=== PATIENT | female | born 1990 | race African-American/Black ===

== ENCOUNTER 2016-03-12 22:20 | Emergency (ER) | payer OTHER ==
[2016-03-12] MEDS ORDERED: SODIUM CHLORIDE 0.9% 500 ML IV STA (22:27)
[2016-03-12 22:28] VITALS: RESP 18; TEMP 97.9
--- NOTE | 2016-03-12 22:31 | ED ---
General Adult HPI - General Chief complaint: Abdominal Pain Stated complaint: Mental Health Time Seen by Provider: 03/12/16 22:20 Source: patient, EMS, RN notes reviewed Mode of arrival: EMS Limitations: no limitations - History of Present Illness Initial comments: This is a 26-year-old female who presents emergency Department complaining that she has abdominal pain for 2 hours. Patient denies any nausea vomiting or diarrhea. Patient denies any dysuria hematuria urinary frequency. Patient denies any vaginal bleeding or discharge. Patient states his mid abdominal pain. Patient states she might be because she is having sex without protection. Patient denies any fever or chills. Patient denies any diarrhea. Patient denies any headache patient denies numbness weakness patient denies lightheadedness or dizziness. Patient denies any back pain. Patient denies any recent injury or trauma. - Related Data Home Medications Medication Instructions Recorded Confirmed Benztropine Mesylate [Cogentin] 2 mg PO DAILY@209903/12/16 03/12/16 OLANZapine [ZyPREXA] 20 mg PO DAILY@209903/12/16 03/12/16 Allergies Allergy/AdvReac Type Severity Reaction Status Date / Time haloperidol [From Haldol] Allergy Unknown Verified 03/12/16 22:41 pineapple Allergy Rash/Hives Verified 03/12/16 22:41 red dye Allergy Anaphylaxis Verified 03/12/16 22:41 Review of Systems ROS Statement: Those systems with pertinent positive or pertinent negative responses have been documented in the HPI. ROS Other: All systems not noted in ROS Statement are negative. Past Medical History Past Medical History: Asthma, Hypertension, Seizure Disorder Additional Past Medical History / Comment(s): last seizure was April 2015 History of Any Multi-Drug Resistant Organisms: None Reported Past Surgical History: Section, Tonsillectomy, Tubal Ligation Additional Past Surgical History / Comment(s): facial surgery, 2 C-Sections Past Anesthesia/Blood Transfusion Reactions: No Reported Reaction Past Psychological History: Anxiety, Bipolar, Depression, Schizoaffective Disorder, Schizophrenia Additional Psychological History / Comment(s): pt states that before this admission pt had been in this hospital and [facility] multiple time Smoking Status: Current every day smoker Past Alcohol Use History: None Reported Additional Past Alcohol Use History / Comment(s): Patient is a smoker of 9 cigarettes per day since she was 14 years of age. She denies any medical marijuana, marijuana, street drug use. She states she drinks alcohol on rare basis. Past Drug Use History: Marijuana Additional Drug Use History / Comment(s): Pt. reports previously using Marijuana. - Past Family History Father Additional Family Medical History / Comment(s): Father is alive at 42 and may have diabetes. Mother Family Medical History: Thyroid Disorder Additional Family Medical History / Comment(s): Mother is alive at age 45 with thyroid disorder. Brother(s) Additional Family Medical History / Comment(s): Patient has 2 brothers and 2 sisters with no major medical problems. Patient has one son that is healthy. General Exam - General Exam Comments Initial Comments: GENERAL: Patient is well-developed and well-nourished. Patient is nontoxic and well- hydrated and is in no acute distress. Patient is laughing and moving around in bed and doesn't appear in any distress at all. ENT: Neck is soft and supple. No significant lymphadenopathy is noted. Oropharynx is clear. Moist mucous membranes. Neck has full range of motion without eliciting any pain. EYES: The sclera were anicteric and conjunctiva were pink and moist. Extraocular movements were intact and pupils were equal round and reactive to light. Eyelids were unremarkable. PULMONARY: Unlabored respirations. Good breath sounds bilaterally. No audible rales rhonchi or wheezing was noted. CARDIOVASCULAR: There is a regular rate and rhythm without any murmurs gallops or rubs. ABDOMEN: Soft and nontender with normal bowel sounds. No palpable organomegaly was noted. There is no palpable pulsatile mass. SKIN: Skin is clear with no lesions or rashes and otherwise unremarkable. NEUROLOGIC: Patient is alert and oriented x3. Cranial nerves II through XII are grossly intact. Motor and sensory are also intact. Normal speech, volume and content. Symmetrical smile. MUSCULOSKELETAL: Normal extremities with adequate strength and full range of motion. No lower extremity swelling or edema. No calf tenderness. LYMPHATICS: No significant lymphadenopathy is noted PSYCHIATRIC: Normal psychiatric evaluation. Normal interpersonal interactions appears functionally intact in deals appropriately with others. No signs of depression. No signs of anxiety. Limitations: no limitations Course Vital Signs 03/12/16 22:21 Temperature 97.9 F Pulse Rate 92 Respiratory 18 Rate Blood Pressure 140/64 O2 Sat by Pulse 100 Oximetry Medical Decision Making - Lab Data Result diagrams: 03/12/16 22:48 03/12/16 22:48 Lab Results 03/12/16 03/12/16 03/12/16 Range/Units 22:48 22:48 22:48 WBC 9.0 (3.8-10.6) k/uL RBC 4.52 (3.80-5.40) m/uL Hgb 13.0 (11.4-16.0) gm/dL Hct 41.1 (34.0-46.0) % MCV 90.9 (80.0-100.0) fL MCH 28.9 (25.0-35.0) pg MCHC 31.7 (31.0-37.0) g/dL RDW 14.2 (11.5-15.5) % Plt Count 214 (150-450) k/uL Neutrophils % 65 % Lymphocytes % 25 % Monocytes % 5 % Eosinophils % 1 % Basophils % 1 % Neutrophils # 5.8 (1.3-7.7) k/uL Lymphocytes # 2.3 (1.0-4.8) k/uL Monocytes # 0.4 (0-1.0) k/uL Eosinophils # 0.1 (0-0.7) k/uL Basophils # 0.1 (0-0.2) k/uL Sodium 143 (137-145) mmol/L Potassium 3.9 (3.5-5.1) mmol/L Chloride 102 (98-107) mmol/L Carbon Dioxide 26 (22-30) mmol/L Anion Gap 15 mmol/L BUN 16 (7-17) mg/dL Creatinine 0.61 (0.52-1.04) mg/dL Est GFR (MDRD) Af Amer >60 (>60 ml/min/1.73 sqM) Est GFR (MDRD) Non-Af >60 (>60 ml/min/1.73 sqM) Glucose 95 (74-99) mg/dL Calcium 10.0 (8.4-10.2) mg/dL Total Bilirubin 0.3 (0.2-1.3) mg/dL AST 31 (14-36) U/L ALT 50 (9-52) U/L Alkaline Phosphatase 79 (38-126) U/L Total Protein 8.4 H (6.3-8.2) g/dL Albumin 4.7 (3.5-5.0) g/dL Amylase 67 (30-110) U/L Lipase 104 (23-300) U/L Urine Color Urine Appearance (Clear) Urine pH (5.0-8.0) Ur Specific [place] (1.001-1.035) Urine Protein (Negative) Urine Glucose (UA) (Negative) Urine Ketones (Negative) Urine Blood (Negative) Urine Nitrate (Negative) Urine Bilirubin (Negative) Urine Urobilinogen (<2.0) mg/dL Ur Leukocyte Esterase (Negative) Urine HCG, Qual Not Detected (Not Detectd) 03/12/16 Range/Units 22:48 WBC (3.8-10.6) k/uL RBC (3.80-5.40) m/uL Hgb (11.4-16.0) gm/dL Hct (34.0-46.0) % MCV (80.0-100.0) fL MCH (25.0-35.0) pg MCHC (31.0-37.0) g/dL RDW (11.5-15.5) % Plt Count (150-450) k/uL Neutrophils % % Lymphocytes % % Monocytes % % Eosinophils % % Basophils % % Neutrophils # (1.3-7.7) k/uL Lymphocytes # (1.0-4.8) k/uL Monocytes # (0-1.0) k/uL Eosinophils # (0-0.7) k/uL Basophils # (0-0.2) k/uL Sodium (137-145) mmol/L Potassium (3.5-5.1) mmol/L Chloride (98-107) mmol/L Carbon Dioxide (22-30) mmol/L Anion Gap mmol/L BUN (7-17) mg/dL Creatinine (0.52-1.04) mg/dL Est GFR (MDRD) Af Amer (>60 ml/min/1.73 sqM) Est GFR (MDRD) Non-Af (>60 ml/min/1.73 sqM) Glucose (74-99) mg/dL Calcium (8.4-10.2) mg/dL Total Bilirubin (0.2-1.3) mg/dL AST (14-36) U/L ALT (9-52) U/L Alkaline Phosphatase (38-126) U/L Total Protein (6.3-8.2) g/dL Albumin (3.5-5.0) g/dL Amylase (30-110) U/L Lipase (23-300) U/L Urine Color Colorless Urine Appearance Clear (Clear) Urine pH 6.5 (5.0-8.0) Ur Specific [place] 1.001 (1.001-1.035) Urine Protein Negative (Negative) Urine Glucose (UA) Negative (Negative) Urine Ketones Negative (Negative) Urine Blood Negative (Negative) Urine Nitrate Negative (Negative) Urine Bilirubin Negative (Negative) Urine Urobilinogen <2.0 (<2.0) mg/dL Ur Leukocyte Esterase Negative (Negative) Urine HCG, Qual (Not Detectd) Disposition Clinical Impression: Abdominal pain Disposition: HOME SELF-CARE Condition: Good Instructions: Abdominal Pain (ED) Referrals: Nirali Valentin MD [Primary Care Provider] - 1-2 days Time of Disposition: 23:15
[2016-03-12] MEDS ORDERED: ONDANSETRON 4 MG/2 ML VIAL IVP STA (22:55)
[2016-03-12 22:57] LABS: Basophils # (A) 0.1 k/uL (0-0.2); Basophils % (A) 1 %; CH 29.3; CHCM 32.4; Eosinophils # (A) 0.1 k/uL (0-0.7); Eosinophils % (A) 1 %; HCT 41.1 % (34.0-46.0); HDW 2.24; Luc # (Auto) 0.33; Luc % (Auto) 4; Lymphocytes # (A) 2.3 k/uL (1.0-4.8); Lymphocytes % (A) 25 %; MCH 28.9 pg (25.0-35.0); MCHC 31.7 g/dL (31.0-37.0); MCV 90.9 fL (80.0-100.0); Mean Platelet Volume 7.7; Monocytes # (A) 0.4 k/uL (0-1.0); Monocytes % (A) 5 %; Neutrophils # (A) 5.8 k/uL (1.3-7.7); Neutrophils % (A) 65 %; RBC 4.52 m/uL (3.80-5.40); RDW 14.2 % (11.5-15.5); WBC (Perox) 9.23
[2016-03-12 23:06] LABS: ALT 50 U/L (9-52); AST 31 U/L (14-36); Alkaline Phosphatase 79 U/L (38-126); Amylase 67 U/L (30-110); Anion Gap 15 mmol/L; Blood Urea Nitrogen 16 mg/dL (7-17); Carbon Dioxide 26 mmol/L (22-30); Chloride 102 mmol/L (98-107); Glucose 95 mg/dL (74-99); Non-African American GFR(MDRD) >60 (>60 ml/min/1.73 sqM); Potassium 3.9 mmol/L (3.5-5.1); Sodium 143 mmol/L (137-145); Total Bilirubin 0.3 mg/dL (0.2-1.3); Total Protein 8.4 g/dL (6.3-8.2)
[2016-03-12 23:07] LABS: Appearance,Urine Clear (Clear); Bilirubin,Urine Negative (Negative); Glucose,Urine (UA) Negative (Negative); Ketones,Urine Negative (Negative); Leukocyte Esterase,Urine Negative (Negative); Nitrite,Urine Negative (Negative); PH, Urine 6.5 (5.0-8.0); Protein,Urine Negative (Negative); Specific Gravity,Urine 1.001 (1.001-1.035); UA Billing (MACRO vs. MICRO) CHEM; Urobilinogen,Urine <2.0 mg/dL (<2.0)
[2016-03-12 23:28] VITALS: BP 144/84; PULSE 77
== END 2016-03-12 23:30 | disposition home or self-care (01) ==
LOC: EC 22:20
DX: R10.9 Unspecified abdominal pain (principal); F32.9 Major depressive disorder, single episode, unspecified; F20.9 Schizophrenia, unspecified; F17.210 Nicotine dependence, cigarettes, uncomplicated; Z79.899 Other long term (current) drug therapy; Z88.8 Allergy status to other drugs, medicaments and biological substances
CPT/HCPCS: 36415; 80053; 82150; 83690; 85025; 81003; 81025; 99285; 96374; J2405

== ENCOUNTER 2016-04-08 18:38 | Emergency (ER) | payer OTHER ==
[2016-04-08 18:46] VITALS: BP 138/80; PULSE 104; RESP 18; TEMP 97.5
--- NOTE | 2016-04-08 19:04 | ED ---
Psych HPI - General Chief Complaint: Psychiatric Symptoms Stated Complaint: mental health Time Seen by Provider: 04/08/16 18:48 Source: patient, RN notes reviewed Mode of arrival: ambulatory - History of Present Illness Initial Comments: Patient is a 26-year-old female chief complaint of thinking that she is . She reports that she has not had a menstrual cycle in 4 months. She states that she has had unprotected sex multiple times. She states that she feels as if there is a baby kicking in her. She does have a history of tubal ligation after her most recent . She has been seen in the emergency department multiple times for thinking that she is . She also states that she's been having vomiting like morning sickness. She denies any fever or chills, chest pain, shortness of breath, abdominal pain, diarrhea, dysuria, hematuria or vaginal discharge. She states that she occasionally feels like a cramping sensation in her lower abdomen. She reports that she is currently living at the [facility]. Patient has a history of schizoaffective disorder and hallucinations. - Related Data Home Medications Medication Instructions Recorded Confirmed Benztropine Mesylate [Cogentin] 2 mg PO HS@202903/12/16 04/08/16 OLANZapine [ZyPREXA] 20 mg PO HS@202903/12/16 04/08/16 Multivitamins, Thera [Multivitamin] 1 tab PO DAILY 04/08/16 04/08/16 Allergies Allergy/AdvReac Type Severity Reaction Status Date / Time haloperidol [From Haldol] Allergy Unknown Verified 04/08/16 18:53 pineapple Allergy Rash/Hives Verified 04/08/16 18:53 red dye Allergy Anaphylaxis Verified 04/08/16 18:53 Review of Systems ROS Statement: Those systems with pertinent positive or pertinent negative responses have been documented in the HPI. ROS Other: All systems not noted in ROS Statement are negative. Past Medical History Past Medical History: Asthma, Hypertension, Seizure Disorder Additional Past Medical History / Comment(s): last seizure was April 2015 History of Any Multi-Drug Resistant Organisms: None Reported Past Surgical History: Section, Tonsillectomy, Tubal Ligation Additional Past Surgical History / Comment(s): facial surgery, 2 C-Sections Past Anesthesia/Blood Transfusion Reactions: No Reported Reaction Past Psychological History: Anxiety, Bipolar, Depression, Schizoaffective Disorder, Schizophrenia Additional Psychological History / Comment(s): pt states that before this admission pt had been in this hospital and [facility] multiple time Smoking Status: Current every day smoker Past Alcohol Use History: None Reported Additional Past Alcohol Use History / Comment(s): Patient is a smoker of 9 cigarettes per day since she was 14 years of age. She denies any medical marijuana, marijuana, street drug use. She states she drinks alcohol on rare basis. Past Drug Use History: Marijuana Additional Drug Use History / Comment(s): Pt. reports previously using Marijuana. - Past Family History Father Additional Family Medical History / Comment(s): Father is alive at 42 and may have diabetes. Mother Family Medical History: Thyroid Disorder Additional Family Medical History / Comment(s): Mother is alive at age 45 with thyroid disorder. Brother(s) Additional Family Medical History / Comment(s): Patient has 2 brothers and 2 sisters with no major medical problems. Patient has one son that is healthy. General Exam - General Exam Comments Initial Comments: Patient is a 26-year-old female chief complaint of pain that she is possibly . Patient does not appear to be in any acute distress. Limitations: no limitations General appearance: alert, in no apparent distress Head exam: Present: atraumatic, normocephalic, normal inspection Eye exam: Present: normal appearance, PERRL, EOMI. Absent: scleral icterus, conjunctival injection, periorbital swelling ENT exam: Present: normal exam, mucous membranes moist, TM's normal bilaterally Neck exam: Present: normal inspection. Absent: tenderness, meningismus, lymphadenopathy Respiratory exam: Present: normal lung sounds bilaterally. Absent: respiratory distress, wheezes, rales, rhonchi, stridor Cardiovascular Exam: Present: regular rate, normal rhythm, normal heart sounds. Absent: systolic murmur, diastolic murmur, rubs, gallop, clicks GI/Abdominal exam: Present: soft, normal bowel sounds. Absent: distended, tenderness, guarding, rebound, rigid Extremities exam: Present: normal inspection, full ROM, normal capillary refill. Absent: tenderness, pedal edema, joint swelling, calf tenderness Back exam: Present: normal inspection, full ROM Neurological exam: Present: alert, oriented X3, CN II-XII intact Psychiatric exam: Present: normal affect, other (Patient is delusional that she is . ). Absent: normal mood Skin exam: Present: warm, dry, intact, normal color. Absent: rash Course Vital Signs 04/08/16 18:43 Temperature 97.5 F L Pulse Rate 104 H Respiratory 18 Rate Blood Pressure 138/80 O2 Sat by Pulse 96 Oximetry Medical Decision Making - Medical Decision Making Patient is a 26-year-old female. Patient reports that she thinks that she is . She has been seen in the emergency department multiple times for this. Patient will receive a urine test and will be adequately cleared for psychiatric evaluation. Urine drug screen and that obtained. Patient's urine test is negative. I did describe these findings to the patient. I discussed that she needs to be seen by psychiatric help as she continues to take that she is . Patient currently is residing at [facility]. [facility] needed to be contacted as well as the legal guardian. Currently we are having a difficult time contacting the legal guardian and patient will not be evaluated by psychiatric nurse until the legal guardian is contacted. At this point [facility] staff is attempting to come to the emergency department to talk to the patient. They state that they do have an on-site psychiatric crisis unit the patient arrived that there is any alarming signs or symptoms, and will be monitoring her and to bring her back to the emergency room if she has any acute changes. She has chronic delusions of . She will be discharged home with [facility] staff, and advised to follow up with counselour and pcp tomorrow. Patient and patients career development associate understands treatment plan. Patient adamently states she is not homicidal and suicidal. Patient's currently residing in room and resting comfortably. - Lab Data Lab Results 04/08/16 04/08/16 Range/Units 19:38 19:38 Urine Color Light Yellow Urine Appearance Clear (Clear) Urine pH 7.0 (5.0-8.0) Ur Specific [place] 1.007 (1.001-1.035) Urine Protein Negative (Negative) Urine Glucose (UA) Negative (Negative) Urine Ketones Negative (Negative) Urine Blood Negative (Negative) Urine Nitrate Negative (Negative) Urine Bilirubin Negative (Negative) Urine Urobilinogen <2.0 (<2.0) mg/dL Ur Leukocyte Esterase Negative (Negative) Urine HCG, Qual Not Detected (Not Detectd) Urine Opiates Screen Not Detected (NotDetected) Ur Oxycodone Screen Not Detected (NotDetected) Urine Methadone Screen Not Detected (NotDetected) Ur Propoxyphene Screen Not Detected (NotDetected) Ur Barbiturates Screen Not Detected (NotDetected) U Tricyclic Antidepress Not Detected (NotDetected) Ur Phencyclidine Scrn Not Detected (NotDetected) Ur Amphetamines Screen Not Detected (NotDetected) U Methamphetamines Scrn Not Detected (NotDetected) U Benzodiazepines Scrn Not Detected (NotDetected) Urine Cocaine Screen Not Detected (NotDetected) U Marijuana (THC) Screen Not Detected (NotDetected) - Radiology Data Radiology results: report reviewed Disposition Clinical Impression: Hallucination, Not currently Disposition: HOME SELF-CARE Condition: Good Additional Instructions: to follow-up with primary care provider. Return to emergency department if any alarming signs or symptoms occur. Referrals: Nirali Valentin MD [Primary Care Provider] - 1-2 days Time of Disposition: 21:43
[2016-04-08 19:55] LABS: Appearance,Urine Clear (Clear); Bilirubin,Urine Negative (Negative); Glucose,Urine (UA) Negative (Negative); Ketones,Urine Negative (Negative); Leukocyte Esterase,Urine Negative (Negative); Nitrite,Urine Negative (Negative); Protein,Urine Negative (Negative); Specific Gravity,Urine 1.007 (1.001-1.035); UA Billing (MACRO vs. MICRO) CHEM; Urobilinogen,Urine <2.0 mg/dL (<2.0)
== END 2016-04-08 21:47 | disposition home or self-care (01) ==
LOC: EC 18:38
DX: R44.3 Hallucinations, unspecified (principal); F20.9 Schizophrenia, unspecified; F31.9 Bipolar disorder, unspecified; Z79.899 Other long term (current) drug therapy; Z91.02 Food additives allergy status; Z88.8 Allergy status to other drugs, medicaments and biological substances; Z91.018 Allergy to other foods; F17.210 Nicotine dependence, cigarettes, uncomplicated
CPT/HCPCS: 80306; 81003; 81025; 82075; 99284

== ENCOUNTER 2016-06-03 17:59 | Emergency (ER) | payer OTHER ==
--- NOTE | 2016-06-03 18:17 | ED ---
General Adult HPI - General Chief complaint: Recheck/Abnormal Lab/Rx Stated complaint: mental health Time Seen by Provider: 06/03/16 18:01 Source: patient, RN notes reviewed, old records reviewed Mode of arrival: EMS Limitations: no limitations - History of Present Illness Initial comments: Patient is 26-year-old female chief complaint of possible . Patient states that she is concerned she may be . She also wants to be checked for chlamydia and gonorrhea. She states that she also wants to be on blood pressure medication she does have a headache. She states that she's told her primary care provider about the same as they've not started on any medications. Patient's blood pressure this time is 155/78. Patient denies any fever or chills or abdominal pain. Patient is well-known to the emergency department for delusions of . Patient is currently living in [facility]. - Related Data Home Medications Medication Instructions Recorded Confirmed Benztropine Mesylate [Cogentin] 2 mg PO HS@202903/12/16 05/30/16 OLANZapine [ZyPREXA] 20 mg PO HS@202903/12/16 05/30/16 Multivitamins, Thera [Multivitamin] 1 tab PO DAILY 04/08/16 05/30/16 Previous Rx's Medication Instructions Recorded Multivitamin with Iron 1 each PO DAILY #30 tablet 06/03/16 [Multivitamins with Iron] metroNIDAZOLE [Flagyl] 500 mg PO BID #14 tab 06/03/16 Allergies Allergy/AdvReac Type Severity Reaction Status Date / Time haloperidol [From Haldol] Allergy Unknown Verified 06/03/16 18:04 pineapple Allergy Rash/Hives Verified 06/03/16 18:04 red dye Allergy Anaphylaxis Verified 06/03/16 18:04 Review of Systems ROS Statement: Those systems with pertinent positive or pertinent negative responses have been documented in the HPI. ROS Other: All systems not noted in ROS Statement are negative. Past Medical History Past Medical History: Asthma, Hypertension, Seizure Disorder Additional Past Medical History / Comment(s): last seizure was April 2015 History of Any Multi-Drug Resistant Organisms: None Reported Past Surgical History: Section, Tonsillectomy, Tubal Ligation Additional Past Surgical History / Comment(s): facial surgery, 2 C-Sections Past Anesthesia/Blood Transfusion Reactions: No Reported Reaction Past Psychological History: Anxiety, Bipolar, Depression, Schizoaffective Disorder, Schizophrenia Additional Psychological History / Comment(s): pt states that before this admission pt had been in this hospital and [facility] multiple time Smoking Status: Current every day smoker Past Alcohol Use History: None Reported Additional Past Alcohol Use History / Comment(s): Patient is a smoker of 9 cigarettes per day since she was 14 years of age. She denies any medical marijuana, marijuana, street drug use. She states she drinks alcohol on rare basis. Past Drug Use History: Marijuana Additional Drug Use History / Comment(s): Pt. reports previously using Marijuana. - Past Family History Father Additional Family Medical History / Comment(s): Father is alive at 42 and may have diabetes. Mother Family Medical History: Thyroid Disorder Additional Family Medical History / Comment(s): Mother is alive at age 45 with thyroid disorder. Brother(s) Additional Family Medical History / Comment(s): Patient has 2 brothers and 2 sisters with no major medical problems. Patient has one son that is healthy. General Exam - General Exam Comments Initial Comments: Well-appearing 26-year-old female. No distress. Limitations: no limitations General appearance: alert, in no apparent distress Head exam: Present: atraumatic, normocephalic, normal inspection Eye exam: Present: normal appearance, PERRL, EOMI. Absent: scleral icterus, conjunctival injection, periorbital swelling ENT exam: Present: normal exam, mucous membranes moist Neck exam: Present: normal inspection. Absent: tenderness, meningismus, lymphadenopathy Respiratory exam: Present: normal lung sounds bilaterally. Absent: respiratory distress, wheezes, rales, rhonchi, stridor Cardiovascular Exam: Present: regular rate, normal rhythm, normal heart sounds. Absent: systolic murmur, diastolic murmur, rubs, gallop, clicks GI/Abdominal exam: Present: soft, normal bowel sounds. Absent: distended, tenderness, guarding, rebound, rigid External exam: Present: normal external exam Speculum exam: Present: normal speculum exam, vaginal discharge (white purluent vaginal discharge. odor consistent with with bacterial vaginosis.) By manual exam: Present: normal by manual exam. Absent: cervical motion tenderness, adnexal tenderness, adnexal mass Extremities exam: Present: normal inspection, full ROM, normal capillary refill. Absent: tenderness, pedal edema, joint swelling, calf tenderness Back exam: Present: normal inspection Neurological exam: Present: alert, oriented X3, CN II-XII intact Psychiatric exam: Present: normal affect, normal mood Skin exam: Present: warm, dry, intact, normal color. Absent: rash Course Vital Signs 06/03/16 06/03/16 18:02 19:42 Temperature 98.8 F 98.3 F Pulse Rate 68 88 Respiratory 18 20 Rate Blood Pressure 158/77 148/68 O2 Sat by Pulse 99 99 Oximetry Medical Decision Making - Medical Decision Making The 26-year-old female with chief complaint of concern of possible and vaginal discharge. Patient will instantly the emergency department for delusions. Patient urinalysis was negative. Patient is requesting infection testing. Patient vaginal exam does reveal a white vaginal discharge consistent with bacterial vaginosis. Patient will be treated with metronidazole. I also treat the patient with multivitamins and she requests. Patient had a lengthy discussion she has hypertension medications from her primary care provider. She is not hypertensive at this time. Patient was given Tylenol for headache. Close follow-up care provider. Patient received treatment will comply. Return parameters were discussed. - Lab Data Lab Results 06/03/16 06/03/16 06/03/16 Range/Units 18:15 18:15 19:28 Urine Color Colorless Urine Appearance Clear (Clear) Urine pH 6.5 (5.0-8.0) Ur Specific [place] 1.001 (1.001-1.035) Urine Protein Negative (Negative) Urine Glucose (UA) Negative (Negative) Urine Ketones Negative (Negative) Urine Blood Negative (Negative) Urine Nitrite Negative (Negative) Urine Bilirubin Negative (Negative) Urine Urobilinogen <2.0 (<2.0) mg/dL Ur Leukocyte Esterase Negative (Negative) Urine HCG, Qual Not Detected (Not Detectd) Trichomonas Ag (Rapid) Negative (Negative) Disposition Clinical Impression: Headache, Bacterial vaginosis Disposition: HOME SELF-CARE Condition: Good Instructions: Bacterial Vaginosis (ED), Sexually Transmitted Diseases (ED), Safe Sex (ED) Additional Instructions: Patient advised to follow-up with primary care provider regards to further vitamin refills and symptoms. Patient instructed take Motrin Tylenol for pain. Complete the antibiotic prescription. Return to the emergency department if any alarming signs or symptoms occur. Prescriptions: Multivitamin with Iron [Multivitamins with Iron] 1 each PO DAILY #30 tablet metroNIDAZOLE [Flagyl] 500 mg PO BID #14 tab Referrals: Nirali Valentin MD [Primary Care Provider] - 1-2 days Time of Disposition: 19:31
[2016-06-03 18:23] LABS: Appearance,Urine Clear (Clear); Bilirubin,Urine Negative (Negative); Glucose,Urine (UA) Negative (Negative); Ketones,Urine Negative (Negative); Leukocyte Esterase,Urine Negative (Negative); Nitrite,Urine Negative (Negative); PH, Urine 6.5 (5.0-8.0); Protein,Urine Negative (Negative); Specific Gravity,Urine 1.001 (1.001-1.035); UA Billing (MACRO vs. MICRO) CHEM; Urobilinogen,Urine <2.0 mg/dL (<2.0)
[2016-06-03] MEDS ORDERED: ACETAMINOPHEN TAB 500 MG TAB PO STA (18:46)
[2016-06-03 19:43] VITALS: BP 148/68; PULSE 88; RESP 20; TEMP 98.3
== END 2016-06-03 19:42 | disposition home or self-care (01) ==
LOC: EC 17:59
DX: N76.0 Acute vaginitis (principal); R51 Headache; F31.9 Bipolar disorder, unspecified; F25.9 Schizoaffective disorder, unspecified; F17.210 Nicotine dependence, cigarettes, uncomplicated; Z32.02 Encounter for pregnancy test, result negative; Z88.8 Allergy status to other drugs, medicaments and biological substances; Z91.018 Allergy to other foods; Z91.048 Other nonmedicinal substance allergy status; Z79.899 Other long term (current) drug therapy
CPT/HCPCS: 81003; 81025; 87070; 87205; 87491; 87591; 87808; 99284

== ENCOUNTER 2016-07-01 00:11 | Emergency (ER) | payer OTHER ==
[2016-07-01 00:17] VITALS: PULSE 80; TEMP 98.1
--- NOTE | 2016-07-01 00:55 | ED ---
Psych HPI - General Chief Complaint: Psychiatric Symptoms Stated Complaint: abd pain Time Seen by Provider: 07/01/16 00:44 Source: EMS Mode of arrival: EMS - History of Present Illness Initial Comments: This patient is a 26-year-old woman who presents with concern that she has multiple medical problems. In the triage area she described feeling that she may have "rats" in her body. She did acknowledge is however when I interviewed her she is more concerned that she has diabetes, high blood pressure, and possibly cancer. The patient's states she feels this way because she is having some pains that come and go on her abdomen area she is not able to characterize them well. Patient denies change in urination or bowel movements. She denies any change in menstrual cycles. The patient does note that she had been taking some psychiatric medicines but has stopped them because she feels she may be . Complaint: other -: unknown Associated Psychiatric Symptoms: delusions History of same: Yes Improves With: none Worsens With: none Context: not taking psychiatric medications - Related Data Home Medications Medication Instructions Recorded Confirmed Benztropine Mesylate [Cogentin] 2 mg PO HS@202903/12/16 05/30/16 OLANZapine [ZyPREXA] 20 mg PO HS@202903/12/16 05/30/16 Multivitamins, Thera [Multivitamin] 1 tab PO DAILY 04/08/16 05/30/16 Previous Rx's Medication Instructions Recorded Multivitamin with Iron 1 each PO DAILY #30 tablet 06/03/16 [Multivitamins with Iron] metroNIDAZOLE [Flagyl] 500 mg PO BID #14 tab 06/03/16 Allergies Allergy/AdvReac Type Severity Reaction Status Date / Time haloperidol [From Haldol] Allergy Unknown Verified 06/03/16 18:04 pineapple Allergy Rash/Hives Verified 06/03/16 18:04 red dye Allergy Anaphylaxis Verified 06/03/16 18:04 Review of Systems ROS Statement: Those systems with pertinent positive or pertinent negative responses have been documented in the HPI. ROS Other: All systems not noted in ROS Statement are negative. Constitutional: Denies: fever Eyes: Denies: vision change Respiratory: Denies: cough, dyspnea Cardiovascular: Denies: chest pain, palpitations Gastrointestinal: Reports: as per HPI, abdominal pain. Denies: vomiting, diarrhea Genitourinary: Denies: dysuria, hematuria, abnormal menses Musculoskeletal: Denies: back pain Skin: Denies: rash Neurological: Denies: headache, weakness, numbness Past Medical History Past Medical History: Asthma, Hypertension, Seizure Disorder Additional Past Medical History / Comment(s): last seizure was April 2015 History of Any Multi-Drug Resistant Organisms: None Reported Past Surgical History: Section, Tonsillectomy, Tubal Ligation Additional Past Surgical History / Comment(s): facial surgery, 2 C-Sections Past Anesthesia/Blood Transfusion Reactions: No Reported Reaction Past Psychological History: Anxiety, Bipolar, Depression, Schizoaffective Disorder, Schizophrenia Additional Psychological History / Comment(s): pt states that before this admission pt had been in this hospital and [facility] multiple time Smoking Status: Current every day smoker Past Alcohol Use History: None Reported Additional Past Alcohol Use History / Comment(s): Patient is a smoker of 9 cigarettes per day since she was 14 years of age. She denies any medical marijuana, marijuana, street drug use. She states she drinks alcohol on rare basis. Past Drug Use History: Marijuana Additional Drug Use History / Comment(s): Pt. reports previously using Marijuana. - Past Family History Father Additional Family Medical History / Comment(s): Father is alive at 42 and may have diabetes. Mother Family Medical History: Thyroid Disorder Additional Family Medical History / Comment(s): Mother is alive at age 45 with thyroid disorder. Brother(s) Additional Family Medical History / Comment(s): Patient has 2 brothers and 2 sisters with no major medical problems. Patient has one son that is healthy. General Exam Limitations: no limitations General appearance: alert, in no apparent distress, obese Head exam: Present: atraumatic, normocephalic Eye exam: Present: normal appearance. Absent: scleral icterus, conjunctival injection ENT exam: Present: normal oropharynx Neck exam: Present: normal inspection, full ROM Respiratory exam: Present: normal lung sounds bilaterally. Absent: respiratory distress, wheezes, rales, rhonchi, stridor Cardiovascular Exam: Present: regular rate, normal rhythm, normal heart sounds. Absent: systolic murmur, diastolic murmur, rubs, gallop GI/Abdominal exam: Present: soft. Absent: distended, tenderness, guarding, rebound Extremities exam: Present: normal inspection, normal capillary refill. Absent: pedal edema, calf tenderness Back exam: Present: normal inspection. Absent: CVA tenderness (R), CVA tenderness (L) Neurological exam: Present: alert Psychiatric exam: Present: manic. Absent: flat affect, homicidal ideation, suicidal ideation Skin exam: Present: warm, dry, intact, normal color. Absent: rash Course Vital Signs 07/01/16 07/01/16 00:13 05:00 Temperature 98.1 F Pulse Rate 80 80 Respiratory 20 16 Rate Blood Pressure 120/59 125/79 O2 Sat by Pulse 96 100 Oximetry Medical Decision Making - Lab Data Result diagrams: 07/01/16 01:48 07/01/16 01:48 Lab Results 07/01/16 07/01/16 07/01/16 Range/Units 00:49 01:48 01:48 WBC 10.0 (3.8-10.6) k/uL RBC 4.29 (3.80-5.40) m/uL Hgb 12.9 (11.4-16.0) gm/dL Hct 39.7 (34.0-46.0) % MCV 92.6 (80.0-100.0) fL MCH 30.2 (25.0-35.0) pg MCHC 32.6 (31.0-37.0) g/dL RDW 13.9 (11.5-15.5) % Plt Count 172 (150-450) k/uL Neutrophils % 61 % Lymphocytes % 29 % Monocytes % 5 % Eosinophils % 1 % Basophils % 1 % Neutrophils # 6.1 (1.3-7.7) k/uL Lymphocytes # 2.9 (1.0-4.8) k/uL Monocytes # 0.5 (0-1.0) k/uL Eosinophils # 0.1 (0-0.7) k/uL Basophils # 0.1 (0-0.2) k/uL Sodium 142 (137-145) mmol/L Potassium 4.3 (3.5-5.1) mmol/L Chloride 105 (98-107) mmol/L Carbon Dioxide 25 (22-30) mmol/L Anion Gap 12 mmol/L BUN 12 (7-17) mg/dL Creatinine 0.60 (0.52-1.04) mg/dL Est GFR (MDRD) Af Amer >60 (>60 ml/min/1.73 sqM) Est GFR (MDRD) Non-Af >60 (>60 ml/min/1.73 sqM) Glucose 117 H (74-99) mg/dL Calcium 10.1 (8.4-10.2) mg/dL TSH 2.890 (0.465-4.680) mIU/L Urine Opiates Screen Not Detected (NotDetected) Ur Oxycodone Screen Not Detected (NotDetected) Urine Methadone Screen Not Detected (NotDetected) Ur Propoxyphene Screen Not Detected (NotDetected) Ur Barbiturates Screen Not Detected (NotDetected) U Tricyclic Antidepress Not Detected (NotDetected) Ur Phencyclidine Scrn Not Detected (NotDetected) Ur Amphetamines Screen Not Detected (NotDetected) U Methamphetamines Scrn Not Detected (NotDetected) U Benzodiazepines Scrn Not Detected (NotDetected) Urine Cocaine Screen Not Detected (NotDetected) U Marijuana (THC) Screen Not Detected (NotDetected) Disposition Clinical Impression: Bipolar disorder Disposition: HOME SELF-CARE Condition: Fair Instructions: Bipolar Disorder (ED) Referrals: Nirali Valentin MD [Primary Care Provider] - 1-2 days
[2016-07-01 01:59] LABS: Basophils # (A) 0.1 k/uL (0-0.2); Basophils % (A) 1 %; CH 29.8; CHCM 32.4; Eosinophils # (A) 0.1 k/uL (0-0.7); Eosinophils % (A) 1 %; HCT 39.7 % (34.0-46.0); HDW 2.39; HGB 12.9 gm/dL (11.4-16.0); Luc # (Auto) 0.36; Luc % (Auto) 4; Lymphocytes # (A) 2.9 k/uL (1.0-4.8); Lymphocytes % (A) 29 %; MCH 30.2 pg (25.0-35.0); MCHC 32.6 g/dL (31.0-37.0); MCV 92.6 fL (80.0-100.0); Mean Platelet Volume 8.8; Monocytes # (A) 0.5 k/uL (0-1.0); Monocytes % (A) 5 %; Neutrophils # (A) 6.1 k/uL (1.3-7.7); Neutrophils % (A) 61 %; RBC 4.29 m/uL (3.80-5.40); RDW 13.9 % (11.5-15.5); WBC (Perox) 9.69
[2016-07-01 02:07] LABS: Anion Gap 12 mmol/L; Blood Urea Nitrogen 12 mg/dL (7-17); Calcium 10.1 mg/dL (8.4-10.2); Carbon Dioxide 25 mmol/L (22-30); Chloride 105 mmol/L (98-107); Glucose 117 mg/dL (74-99); Non-African American GFR(MDRD) >60 (>60 ml/min/1.73 sqM); Potassium 4.3 mmol/L (3.5-5.1); Sodium 142 mmol/L (137-145)
[2016-07-01 05:02] VITALS: BP 125/79; RESP 16
== END 2016-07-01 06:24 | disposition home or self-care (01) ==
LOC: EC 00:11
DX: F31.9 Bipolar disorder, unspecified (principal); F20.9 Schizophrenia, unspecified; E66.9 Obesity, unspecified; F17.210 Nicotine dependence, cigarettes, uncomplicated; Z79.899 Other long term (current) drug therapy; Z88.8 Allergy status to other drugs, medicaments and biological substances; Z91.018 Allergy to other foods; Z91.048 Other nonmedicinal substance allergy status; Z68.41 Body mass index [BMI] 40.0-44.9, adult
CPT/HCPCS: 36415; 80048; 80306; 84443; 85025; 99284

== ENCOUNTER 2016-07-28 12:36 | Emergency (ER) | payer OTHER ==
[2016-07-28 12:50] VITALS: RESP 20
[2016-07-28] MEDS ORDERED: SODIUM CHLORIDE 0.9% 1,000 ML IV STA (13:31)
[2016-07-28] MEDS ORDERED: ACETAMINOPHEN TAB 500 MG TAB PO STA (13:31)
[2016-07-28] MEDS ORDERED: ONDANSETRON 4 MG/2 ML VIAL IVP STA (13:31)
--- NOTE | 2016-07-28 13:34 | ED ---
General Adult HPI - General Chief complaint: Nausea/Vomiting/Diarrhea Stated complaint: diarrhea Time Seen by Provider: 07/28/16 13:10 Source: patient, RN notes reviewed Mode of arrival: EMS Limitations: no limitations - History of Present Illness Initial comments: Patient 26-year-old female who presents emergency room today with complaints. Patient does admit that she is worried about possible STDs. She states she's had recent unprotected sex. Patient admits that she is worried about hepatitis. She states she's had symptoms of nausea over the last 3 weeks. She states that she's not had any vomiting but does admit to some abdominal cramping with diarrhea. She does admit to a history of schizophrenia and states that she's had these symptoms she is worried about being sick. Patient denies any other complaints or symptoms at this time. Patient denies any recent fever, chills, shortness of breath, chest pain, back pain, numbness or tingling , dysuria or hematuria, constipation or diarrhea, headaches or visual changes, or any other complaints. - Related Data Home Medications Medication Instructions Recorded Confirmed Benztropine Mesylate [Cogentin] 2 mg PO HS@202903/12/16 07/28/16 OLANZapine [ZyPREXA] 20 mg PO HS@202903/12/16 07/28/16 Multivitamins, Thera [Multivitamin] 1 tab PO DAILY 04/08/16 07/28/16 Ferrous Sulfate [Feosol] 325 mg PO DAILY 07/28/16 07/28/16 Melatonin 3 mg PO HS 07/28/16 07/28/16 fluPHENAZine DECANOATE [Prolixin 50 mg IM Q7D 07/28/16 07/28/16 Decanoate] Previous Rx's Medication Instructions Recorded Ondansetron Odt [Zofran ODT] 4 mg PO Q8HR PRN #20 tab 07/28/16 Allergies Allergy/AdvReac Type Severity Reaction Status Date / Time haloperidol [From Haldol] Allergy Unknown Verified 07/28/16 13:15 pineapple Allergy Rash/Hives Verified 07/28/16 13:15 red dye Allergy Anaphylaxis Verified 07/28/16 13:15 Review of Systems ROS Statement: Those systems with pertinent positive or pertinent negative responses have been documented in the HPI. ROS Other: All systems not noted in ROS Statement are negative. Past Medical History Past Medical History: Asthma, Hypertension, Seizure Disorder Additional Past Medical History / Comment(s): last seizure was April 2015 History of Any Multi-Drug Resistant Organisms: None Reported Past Surgical History: Section, Tonsillectomy, Tubal Ligation Additional Past Surgical History / Comment(s): facial surgery, 2 C-Sections Past Anesthesia/Blood Transfusion Reactions: No Reported Reaction Past Psychological History: Anxiety, Bipolar, Depression, Schizoaffective Disorder, Schizophrenia Smoking Status: Current every day smoker Past Alcohol Use History: None Reported - Past Family History Father Additional Family Medical History / Comment(s): Father is alive at 42 and may have diabetes. Mother Family Medical History: Thyroid Disorder Additional Family Medical History / Comment(s): Mother is alive at age 45 with thyroid disorder. Brother(s) Additional Family Medical History / Comment(s): Patient has 2 brothers and 2 sisters with no major medical problems. Patient has one son that is healthy. General Exam - General Exam Comments Initial Comments: General: The patient is awake and alert, in no distress, and does not appear acutely ill. Eye: Pupils are equal, round and reactive to light, extra-ocular movements are intact. No nystagmus. There is normal conjunctiva bilaterally. No signs of icterus. Ears, nose, mouth and throat: There are moist mucous membranes and no oral lesions. Neck: The neck is supple, there is no tenderness or JVD. Cardiovascular: There is a regular rate and rhythm. No murmur, rub or gallop is appreciated. Respiratory: Lungs are clear to auscultation, respirations are non-labored, breath sounds are equal. No wheezes, stridor, rales, or rhonchi. Gastrointestinal: Soft, non-distended, non-tender abdomen without masses or organomegaly noted. There is no rebound or guarding present. No CVA tenderness. Bowel sounds are unremarkable. Musculoskeletal: Normal ROM, no tenderness. Strength 5/5. Sensation intact. Pulses equal bilaterally 2+. Neurological: A&O x 3. CN II-XII intact, There are no obvious motor or sensory deficits. Coordination appears grossly intact. Speech is normal. Skin: Skin is warm and dry and no rashes or lesions are noted. Psychiatric: Cooperative, appropriate mood & affect, normal judgment. Limitations: no limitations Course Vital Signs 07/28/16 07/28/16 12:43 14:28 Temperature 98.5 F 97.9 F Pulse Rate 91 71 Respiratory 20 20 Rate Blood Pressure 126/66 163/96 O2 Sat by Pulse 98 97 Oximetry Medical Decision Making - Medical Decision Making Patient reexamined at this time shows no signs of distress. States she's hungry at this time with a sandwich. She states that she wants to go home. Patient states she does not want have pelvic exam does not want to be tested for STDs at this time. She states she will follow up with her doctor. She declined any treatment or testing at this time. Her labs been reviewed appetites panel is not return but she states she wants to leave. Labs are unremarkable. Will be discharged home advised follow-up with her family doctor. - Lab Data Result diagrams: 07/28/16 13:50 07/28/16 13:50 Lab Results 07/28/16 07/28/16 07/28/16 Range/Units 12:45 12:45 13:50 WBC 7.2 (3.8-10.6) k/uL RBC 3.88 (3.80-5.40) m/uL Hgb 11.8 (11.4-16.0) gm/dL Hct 36.5 (34.0-46.0) % MCV 94.0 (80.0-100.0) fL MCH 30.4 (25.0-35.0) pg MCHC 32.3 (31.0-37.0) g/dL RDW 13.8 (11.5-15.5) % Plt Count 169 (150-450) k/uL Neutrophils % 62 % Lymphocytes % 29 % Monocytes % 5 % Eosinophils % 1 % Basophils % 1 % Neutrophils # 4.4 (1.3-7.7) k/uL Lymphocytes # 2.0 (1.0-4.8) k/uL Monocytes # 0.4 (0-1.0) k/uL Eosinophils # 0.0 (0-0.7) k/uL Basophils # 0.1 (0-0.2) k/uL Sodium (137-145) mmol/L Potassium (3.5-5.1) mmol/L Chloride (98-107) mmol/L Carbon Dioxide (22-30) mmol/L Anion Gap mmol/L BUN (7-17) mg/dL Creatinine (0.52-1.04) mg/dL Est GFR (MDRD) Af Amer (>60 ml/min/1.73 sqM) Est GFR (MDRD) Non-Af (>60 ml/min/1.73 sqM) Glucose (74-99) mg/dL Calcium (8.4-10.2) mg/dL Total Bilirubin (0.2-1.3) mg/dL AST (14-36) U/L ALT (9-52) U/L Alkaline Phosphatase (38-126) U/L Total Protein (6.3-8.2) g/dL Albumin (3.5-5.0) g/dL Lipase (23-300) U/L Urine Color Yellow Urine Appearance Clear (Clear) Urine pH 6.0 (5.0-8.0) Ur Specific [place] 1.015 (1.001-1.035) Urine Protein Negative (Negative) Urine Glucose (UA) Negative (Negative) Urine Ketones Negative (Negative) Urine Blood Negative (Negative) Urine Nitrite Negative (Negative) Urine Bilirubin Negative (Negative) Urine Urobilinogen <2.0 (<2.0) mg/dL Ur Leukocyte Esterase Negative (Negative) Urine HCG, Qual Not Detected (Not Detectd) 07/28/16 Range/Units 13:50 WBC (3.8-10.6) k/uL RBC (3.80-5.40) m/uL Hgb (11.4-16.0) gm/dL Hct (34.0-46.0) % MCV (80.0-100.0) fL MCH (25.0-35.0) pg MCHC (31.0-37.0) g/dL RDW (11.5-15.5) % Plt Count (150-450) k/uL Neutrophils % % Lymphocytes % % Monocytes % % Eosinophils % % Basophils % % Neutrophils # (1.3-7.7) k/uL Lymphocytes # (1.0-4.8) k/uL Monocytes # (0-1.0) k/uL Eosinophils # (0-0.7) k/uL Basophils # (0-0.2) k/uL Sodium 141 (137-145) mmol/L Potassium 4.0 (3.5-5.1) mmol/L Chloride 111 H (98-107) mmol/L Carbon Dioxide 18 L (22-30) mmol/L Anion Gap 12 mmol/L BUN 5 L (7-17) mg/dL Creatinine 0.55 (0.52-1.04) mg/dL Est GFR (MDRD) Af Amer >60 (>60 ml/min/1.73 sqM) Est GFR (MDRD) Non-Af >60 (>60 ml/min/1.73 sqM) Glucose 122 H (74-99) mg/dL Calcium 9.1 (8.4-10.2) mg/dL Total Bilirubin 0.3 (0.2-1.3) mg/dL AST 22 (14-36) U/L ALT 25 (9-52) U/L Alkaline Phosphatase 71 (38-126) U/L Total Protein 7.2 (6.3-8.2) g/dL Albumin 4.1 (3.5-5.0) g/dL Lipase 97 (23-300) U/L Urine Color Urine Appearance (Clear) Urine pH (5.0-8.0) Ur Specific [place] (1.001-1.035) Urine Protein (Negative) Urine Glucose (UA) (Negative) Urine Ketones (Negative) Urine Blood (Negative) Urine Nitrite (Negative) Urine Bilirubin (Negative) Urine Urobilinogen (<2.0) mg/dL Ur Leukocyte Esterase (Negative) Urine HCG, Qual (Not Detectd) Disposition Clinical Impression: Nausea & vomiting Disposition: HOME SELF-CARE Condition: Good Instructions: Acute Nausea and Vomiting (ED) Additional Instructions: Please use medication as discussed. Please follow-up with family doctor in the next 2 days of symptoms have not improved. Please return to emergency room if the symptoms increase or worsen or for any other concerns. Prescriptions: Ondansetron Odt [Zofran ODT] 4 mg PO Q8HR PRN #20 tab PRN Reason: Nausea Referrals: Nirali Valentin MD [Primary Care Provider] - 1-2 days Time of Disposition: 14:40
[2016-07-28 14:02] LABS: Appearance,Urine Clear (Clear); Bilirubin,Urine Negative (Negative); Glucose,Urine (UA) Negative (Negative); Ketones,Urine Negative (Negative); Leukocyte Esterase,Urine Negative (Negative); Nitrite,Urine Negative (Negative); Protein,Urine Negative (Negative); Specific Gravity,Urine 1.015 (1.001-1.035); UA Billing (MACRO vs. MICRO) CHEM; Urobilinogen,Urine <2.0 mg/dL (<2.0)
[2016-07-28 14:03] LABS: Basophils # (A) 0.1 k/uL (0-0.2); Basophils % (A) 1 %; CH 30.3; CHCM 32.4; Eosinophils % (A) 1 %; HCT 36.5 % (34.0-46.0); HDW 2.44; HGB 11.8 gm/dL (11.4-16.0); Luc # (Auto) 0.22; Luc % (Auto) 3; Lymphocytes % (A) 29 %; MCH 30.4 pg (25.0-35.0); MCHC 32.3 g/dL (31.0-37.0); Mean Platelet Volume 9.2; Monocytes # (A) 0.4 k/uL (0-1.0); Monocytes % (A) 5 %; Neutrophils # (A) 4.4 k/uL (1.3-7.7); Neutrophils % (A) 62 %; RBC 3.88 m/uL (3.80-5.40); RDW 13.8 % (11.5-15.5); WBC 7.2 k/uL (3.8-10.6); WBC (Perox) 7.46
[2016-07-28 14:11] LABS: ALT 25 U/L (9-52); AST 22 U/L (14-36); Alkaline Phosphatase 71 U/L (38-126); Anion Gap 12 mmol/L; Blood Urea Nitrogen 5 mg/dL (7-17); Calcium 9.1 mg/dL (8.4-10.2); Carbon Dioxide 18 mmol/L (22-30); Chloride 111 mmol/L (98-107); Glucose 122 mg/dL (74-99); Non-African American GFR(MDRD) >60 (>60 ml/min/1.73 sqM); Sodium 141 mmol/L (137-145); Total Bilirubin 0.3 mg/dL (0.2-1.3); Total Protein 7.2 g/dL (6.3-8.2)
[2016-07-28 14:29] VITALS: BP 163/96; PULSE 71; TEMP 97.9
== END 2016-07-28 14:51 | disposition home or self-care (01) ==
LOC: EC 12:36
DX: R11.2 Nausea with vomiting, unspecified (principal); R19.7 Diarrhea, unspecified; F25.0 Schizoaffective disorder, bipolar type; F17.200 Nicotine dependence, unspecified, uncomplicated; Z88.8 Allergy status to other drugs, medicaments and biological substances; Z91.018 Allergy to other foods; Z91.048 Other nonmedicinal substance allergy status; Z79.899 Other long term (current) drug therapy
CPT/HCPCS: 99284; 96374; 96361; 36415; 80053; 83690; 85025; 81003; 81025; 87086; J2405

== ENCOUNTER 2016-10-29 03:27 | Emergency (ER) | payer OTHER ==
[2016-10-29 03:47] VITALS: RESP 16; TEMP 98.1
--- NOTE | 2016-10-29 06:36 | ED ---
General Adult HPI - General Chief complaint: Psychiatric Symptoms Stated complaint: mental health Source: patient, EMS, RN notes reviewed, old records reviewed Mode of arrival: EMS Limitations: no limitations - History of Present Illness Initial comments: This is a 26-year-old female ER for evaluation. Patient was unsafe for evaluation regarding psychiatric disease. Patient states she needs some psychiatric help. Denies thoughts of homicide or suicide, states she may be . Patient is well-known to this facility for psychiatric disease, denies medication noncompliance - Related Data Home Medications Medication Instructions Recorded Confirmed Benztropine Mesylate [Cogentin] 2 mg PO HS@202903/12/16 07/28/16 OLANZapine [ZyPREXA] 20 mg PO HS@202903/12/16 07/28/16 Multivitamins, Thera [Multivitamin] 1 tab PO DAILY 04/08/16 07/28/16 Ferrous Sulfate [Feosol] 325 mg PO DAILY 07/28/16 07/28/16 Melatonin 3 mg PO HS 07/28/16 07/28/16 fluPHENAZine DECANOATE [Prolixin 50 mg IM Q7D 07/28/16 07/28/16 Decanoate] Previous Rx's Medication Instructions Recorded Ondansetron Odt [Zofran ODT] 4 mg PO Q8HR PRN #20 tab 07/28/16 Allergies Allergy/AdvReac Type Severity Reaction Status Date / Time haloperidol [From Haldol] Allergy Unknown Verified 10/29/16 03:47 pineapple Allergy Rash/Hives Verified 10/29/16 03:47 red dye Allergy Anaphylaxis Verified 10/29/16 03:47 Review of Systems ROS Statement: Those systems with pertinent positive or pertinent negative responses have been documented in the HPI. ROS Other: All systems not noted in ROS Statement are negative. Past Medical History Past Medical History: Asthma, Hypertension, Seizure Disorder Additional Past Medical History / Comment(s): last seizure was April 2015 History of Any Multi-Drug Resistant Organisms: None Reported Past Surgical History: Section, Tonsillectomy, Tubal Ligation Additional Past Surgical History / Comment(s): facial surgery, 2 C-Sections Past Anesthesia/Blood Transfusion Reactions: No Reported Reaction Past Psychological History: Anxiety, Bipolar, Depression, Schizoaffective Disorder, Schizophrenia Smoking Status: Current every day smoker Past Alcohol Use History: None Reported - Past Family History Father Additional Family Medical History / Comment(s): Father is alive at 42 and may have diabetes. Mother Family Medical History: Thyroid Disorder Additional Family Medical History / Comment(s): Mother is alive at age 45 with thyroid disorder. Brother(s) Additional Family Medical History / Comment(s): Patient has 2 brothers and 2 sisters with no major medical problems. Patient has one son that is healthy. General Exam Limitations: no limitations General appearance: alert, in no apparent distress Head exam: Present: atraumatic, normocephalic, normal inspection Eye exam: Present: normal appearance, PERRL, EOMI. Absent: scleral icterus, conjunctival injection, periorbital swelling ENT exam: Present: normal exam, mucous membranes moist Neck exam: Present: normal inspection. Absent: tenderness, meningismus, lymphadenopathy Respiratory exam: Present: normal lung sounds bilaterally. Absent: respiratory distress, wheezes, rales, rhonchi, stridor Cardiovascular Exam: Present: regular rate, normal rhythm, normal heart sounds. Absent: systolic murmur, diastolic murmur, rubs, gallop, clicks GI/Abdominal exam: Present: soft, normal bowel sounds. Absent: distended, tenderness, guarding, rebound, rigid Extremities exam: Present: normal inspection, full ROM, normal capillary refill. Absent: tenderness, pedal edema, joint swelling, calf tenderness Back exam: Present: normal inspection Neurological exam: Present: alert, oriented X3, CN II-XII intact Psychiatric exam: Present: normal affect, normal mood Skin exam: Present: warm, dry, intact, normal color. Absent: rash Course Vital Signs 10/29/16 10/29/16 03:36 06:48 Temperature 98.1 F Pulse Rate 101 H 77 Respiratory 16 16 Rate Blood Pressure 133/62 145/69 O2 Sat by Pulse 98 100 Oximetry Medical Decision Making - Medical Decision Making 26-year-old female seen and evaluated by psychiatry, had the ER for evaluation of psychiatric disease, patient has follow-up as an outpatient. Not homicidal or suicidal, will be discharged home Disposition Clinical Impression: Depression, S/P section, Adjustment disorder, Adjustment reaction Disposition: HOME SELF-CARE Condition: Good Instructions: Depression (ED) Referrals: Nirali Valentin MD [Primary Care Provider] - 1-2 days
[2016-10-29 06:50] VITALS: BP 145/69; PULSE 77
== END 2016-10-29 06:50 | disposition home or self-care (01) ==
LOC: EC 03:27
DX: F43.21 Adjustment disorder with depressed mood (principal); F25.9 Schizoaffective disorder, unspecified; Z98.890 Other specified postprocedural states; F17.200 Nicotine dependence, unspecified, uncomplicated; Z88.8 Allergy status to other drugs, medicaments and biological substances; Z91.018 Allergy to other foods; Z91.02 Food additives allergy status; Z79.899 Other long term (current) drug therapy
CPT/HCPCS: 82075; 99284

== ENCOUNTER 2016-11-26 17:42 | Emergency (ER) | payer OTHER ==
[2016-11-26 19:12] LABS: Appearance,Urine Clear (Clear); Bilirubin,Urine Negative (Negative); Glucose,Urine (UA) Negative (Negative); Ketones,Urine Negative (Negative); Leukocyte Esterase,Urine Negative (Negative); Nitrite,Urine Negative (Negative); Protein,Urine Negative (Negative); Specific Gravity,Urine 1.002 (1.001-1.035); UA Billing (MACRO vs. MICRO) CHEM; Urobilinogen,Urine <2.0 mg/dL (<2.0)
--- NOTE | 2016-11-26 19:21 | ED ---
Female Urogenital HPI - General Chief complaint: Urogenital Stated complaint: UTI Time Seen by Provider: 11/26/16 17:59 Source: patient Mode of arrival: ambulatory Limitations: no limitations - History of Present Illness Initial comments: 26-year-old female patient presented to emergency department today for complaints of a brownish vaginal discharge and requesting to be checked for . Patient states that she has been having this discharge for the last couple of days. States that her period did start approximately 4 days ago however and did early. She states that she has a foul fishy odor that she notes whenever she uses the restroom. She states that she has had this before and was diagnosed with bacterial vaginosis. She states that her boyfriend came home and told her that he possibly gave her an STD, when asked which one she stated bacterial vaginosis. Patient states that she has been having some dysuria. Patient denies any recent rash, fever, chills, shortness breath, chest pain, abdominal pain, nausea, vomiting, diarrhea, constipation, back pain , numbness, tingling, dizziness, weakness, hematuria, urinary urgency, urinary frequency, headache, visual changes, or any other complaints. Last Menstrual Period: 11/19/16 - Related Data Home Medications Medication Instructions Recorded Confirmed Benztropine Mesylate [Cogentin] 2 mg PO HS@202903/12/16 11/26/16 OLANZapine [ZyPREXA] 20 mg PO HS@202903/12/16 11/26/16 Ferrous Sulfate [Feosol] 325 mg PO DAILY 07/28/16 11/26/16 fluPHENAZine DECANOATE [Prolixin 50 mg IM MO 07/28/16 11/26/16 Decanoate] Allergies Allergy/AdvReac Type Severity Reaction Status Date / Time haloperidol [From Haldol] Allergy Unknown Verified 11/26/16 18:21 pineapple Allergy Rash/Hives Verified 11/26/16 18:21 red dye Allergy Anaphylaxis Verified 11/26/16 18:21 Review of Systems ROS Statement: Those systems with pertinent positive or pertinent negative responses have been documented in the HPI. ROS Other: All systems not noted in ROS Statement are negative. Past Medical History Past Medical History: Asthma, Hypertension, Seizure Disorder Additional Past Medical History / Comment(s): last seizure was April 2015 History of Any Multi-Drug Resistant Organisms: None Reported Past Surgical History: Section, Tonsillectomy, Tubal Ligation Additional Past Surgical History / Comment(s): facial surgery, 2 C-Sections Past Anesthesia/Blood Transfusion Reactions: No Reported Reaction Past Psychological History: Anxiety, Bipolar, Depression, Schizoaffective Disorder, Schizophrenia Smoking Status: Current every day smoker Past Alcohol Use History: None Reported Past Drug Use History: None Reported - Past Family History Father Additional Family Medical History / Comment(s): Father is alive at 42 and may have diabetes. Mother Family Medical History: Thyroid Disorder Additional Family Medical History / Comment(s): Mother is alive at age 45 with thyroid disorder. Brother(s) Additional Family Medical History / Comment(s): Patient has 2 brothers and 2 sisters with no major medical problems. Patient has one son that is healthy. General Exam Limitations: no limitations General appearance: alert, in no apparent distress, other (This is a well- developed, well-nourished adult female patient in no acute distress. Vital signs upon presentation were temperature 99.1F, pulse 86, respirations 18, blood pressure 123/72, pulse ox 98% on room air.) Respiratory exam: Present: normal lung sounds bilaterally. Absent: respiratory distress, wheezes, rales, rhonchi, stridor Cardiovascular Exam: Present: regular rate, normal rhythm, normal heart sounds. Absent: systolic murmur, diastolic murmur, rubs, gallop, clicks GI/Abdominal exam: Present: soft, normal bowel sounds. Absent: distended, tenderness, guarding, rebound, rigid External exam: Present: normal external exam Speculum exam: Present: normal speculum exam, vaginal discharge (Minimal white to clear vaginal discharge, appears physiologic). Absent: erythema, cervical discharge, vaginal bleeding By manual exam: Present: normal by manual exam. Absent: cervical motion tenderness, adnexal tenderness, uterine enlargement, uterine tenderness Back exam: Present: normal inspection Neurological exam: Present: alert, oriented X3, CN II-XII intact Psychiatric exam: Present: normal affect, normal mood Skin exam: Present: warm, dry, intact, normal color. Absent: rash Course Vital Signs 11/26/16 11/26/16 17:57 19:31 Temperature 99.1 F 97.3 F L Pulse Rate 86 83 Respiratory 18 16 Rate Blood Pressure 123/72 156/86 O2 Sat by Pulse 98 98 Oximetry Medical Decision Making - Medical Decision Making 26 year-old female patient presented for evaluation of brownish vaginal discharge and dysuria. States she was concerned for urinary tract infection and STDs. Physical examination was unremarkable. Pelvic exam with bimanual exam was unremarkable and appeared to be normal. Cultures were obtained and sent for testing. I did inform patient that at this time her exam is unremarkable and we would wait to treat her pending cultures. Urinalysis was negative, hCG was negative. Patient did change the nature of her symptoms and complaint throughout the stay. Patient did act inappropriately during her pelvic examination. She will be discharged home to follow-up with her primary care physician as well as her DIRECTOR LEARNING SERVICES in 1-2 days. She is instructed to return here immediately for any new, worsening, or concerning symptoms. Patient's questions were answered. She verbalizes understanding and agreed with this plan. - Lab Data Lab Results 11/26/16 11/26/16 11/26/16 Range/Units 18:00 18:00 19:21 Urine Color Colorless Urine Appearance Clear (Clear) Urine pH 7.0 (5.0-8.0) Ur Specific [place] 1.002 (1.001-1.035) Urine Protein Negative (Negative) Urine Glucose (UA) Negative (Negative) Urine Ketones Negative (Negative) Urine Blood Negative (Negative) Urine Nitrite Negative (Negative) Urine Bilirubin Negative (Negative) Urine Urobilinogen <2.0 (<2.0) mg/dL Ur Leukocyte Esterase Negative (Negative) Urine HCG, Qual Not Detected (Not Detectd) Trichomonas Ag (Rapid) Negative (Negative) Disposition Clinical Impression: Vaginal discharge Disposition: HOME SELF-CARE Condition: Good Instructions: Vaginal Discharge (ED) Additional Instructions: Follow-up with your DIRECTOR LEARNING SERVICES for further evaluation. Return here immediately for any new, worsening, or concerning symptoms. Referrals: Nirali Valentin MD [Primary Care Provider] - 1-2 days Time of Disposition: 19:21
[2016-11-26 19:32] VITALS: BP 156/86; PULSE 83; RESP 16; TEMP 97.3
[2016-11-28 13:13] LABS: Chlamydia/GC Source Vaginal
== END 2016-11-26 19:32 | disposition home or self-care (01) ==
LOC: EC 17:42
DX: N89.8 Other specified noninflammatory disorders of vagina (principal); G40.909 Epilepsy, unspecified, not intractable, without status epilepticus; F25.9 Schizoaffective disorder, unspecified; F31.9 Bipolar disorder, unspecified; F17.200 Nicotine dependence, unspecified, uncomplicated; Z88.8 Allergy status to other drugs, medicaments and biological substances; Z91.018 Allergy to other foods; Z91.02 Food additives allergy status; Z79.899 Other long term (current) drug therapy
CPT/HCPCS: 81003; 81025; 87070; 87205; 87491; 87591; 87808; 99283

== ENCOUNTER 2017-01-27 23:00 | Emergency (ER) | payer OTHER ==
[2017-01-27 23:11] VITALS: TEMP 97.6
[2017-01-27 23:53] LABS: Basophils # (A) 0.1 k/uL (0-0.2); Basophils % (A) 1 %; CH 30.4; CHCM 32.3; Eosinophils # (A) 0.1 k/uL (0-0.7); Eosinophils % (A) 1 %; HCT 37.9 % (34.0-46.0); HDW 2.35; HGB 11.7 gm/dL (11.4-16.0); Luc # (Auto) 0.21; Luc % (Auto) 3; Lymphocytes # (A) 2.5 k/uL (1.0-4.8); Lymphocytes % (A) 33 %; MCH 29.2 pg (25.0-35.0); MCHC 30.8 g/dL (31.0-37.0); MCV 94.7 fL (80.0-100.0); Mean Platelet Volume 9.4; Monocytes # (A) 0.6 k/uL (0-1.0); Monocytes % (A) 8 %; Neutrophils # (A) 4.1 k/uL (1.3-7.7); Neutrophils % (A) 54 %; RDW 14.5 % (11.5-15.5); WBC 7.6 k/uL (3.8-10.6); WBC (Perox) 8.04
[2017-01-27 23:54] LABS: Appearance,Urine Clear (Clear); Bilirubin,Urine Negative (Negative); Glucose,Urine (UA) Negative (Negative); Ketones,Urine Negative (Negative); Leukocyte Esterase,Urine Negative (Negative); Nitrite,Urine Negative (Negative); Protein,Urine Negative (Negative); Specific Gravity,Urine 1.003 (1.001-1.035); UA Billing (MACRO vs. MICRO) CHEM; Urobilinogen,Urine <2.0 mg/dL (<2.0)
[2017-01-28 00:02] LABS: ALT 37 U/L (9-52); AST 19 U/L (14-36); Alkaline Phosphatase 62 U/L (38-126); Amylase 57 U/L (30-110); Anion Gap 11 mmol/L; Blood Urea Nitrogen 14 mg/dL (7-17); Calcium 9.8 mg/dL (8.4-10.2); Carbon Dioxide 27 mmol/L (22-30); Chloride 105 mmol/L (98-107); Glucose 78 mg/dL (74-99); Non-African American GFR(MDRD) >60 (>60 ml/min/1.73 sqM); Potassium 4.4 mmol/L (3.5-5.1); Sodium 143 mmol/L (137-145); Total Bilirubin 0.1 mg/dL (0.2-1.3); Total Protein 7.1 g/dL (6.3-8.2)
[2017-01-28] MEDS ORDERED: ACETAMINOPHEN TAB 500 MG TAB PO STA (00:27)
[2017-01-28] MEDS ORDERED: ONDANSETRON 4 MG ODT STARTER PACK 2 TAB BTL PO STA (00:27)
--- NOTE | 2017-01-28 00:32 | ED ---
Abdominal Pain HPI - General Chief Complaint: Abdominal Pain Stated Complaint: abd cramping Time Seen by Provider: 01/27/17 23:23 Source: EMS, RN notes reviewed, old records reviewed Mode of arrival: EMS Limitations: no limitations - History of Present Illness Initial Comments: 27-year-old female presents to the emergency department she complained of a master cramping. The porch is not had a menstrual cycle in six months. Patient states that she's concerned she may possibly be . Patient does really she has a tubal ligation. Patient is on multiple antipsychotic medications, for delusions of her being . She's going to go if I see image many times. You currently lives in a detention. She reports that she just seems to feel ill. She's not Master tenderness. - Related Data Home Medications Medication Instructions Recorded Confirmed Ferrous Sulfate [Feosol] 325 mg PO DAILY 07/28/16 01/27/17 fluPHENAZine DECANOATE [Prolixin 50 mg IM MO 07/28/16 01/27/17 Decanoate] Melatonin 10 mg PO HS 01/27/17 01/27/17 OLANZapine [ZyPREXA] 10 mg PO HS 01/27/17 01/27/17 Allergies Allergy/AdvReac Type Severity Reaction Status Date / Time haloperidol [From Haldol] Allergy Unknown Verified 01/27/17 23:24 ibuprofen [From Motrin] Allergy Unknown Verified 01/27/17 23:24 pineapple Allergy Rash/Hives Verified 01/27/17 23:24 red dye Allergy Anaphylaxis Verified 01/27/17 23:24 Review of Systems ROS Statement: Those systems with pertinent positive or pertinent negative responses have been documented in the HPI. ROS Other: All systems not noted in ROS Statement are negative. Past Medical History Past Medical History: Asthma, Hypertension, Seizure Disorder Additional Past Medical History / Comment(s): last seizure was April 2015 History of Any Multi-Drug Resistant Organisms: None Reported Past Surgical History: Section, Tonsillectomy, Tubal Ligation Additional Past Surgical History / Comment(s): facial surgery, 2 C-Sections Past Anesthesia/Blood Transfusion Reactions: No Reported Reaction Past Psychological History: Anxiety, Bipolar, Depression, Schizoaffective Disorder, Schizophrenia Smoking Status: Current every day smoker Past Alcohol Use History: None Reported Past Drug Use History: None Reported - Past Family History Father Additional Family Medical History / Comment(s): Father is alive at 42 and may have diabetes. Mother Family Medical History: Thyroid Disorder Additional Family Medical History / Comment(s): Mother is alive at age 45 with thyroid disorder. Brother(s) Additional Family Medical History / Comment(s): Patient has 2 brothers and 2 sisters with no major medical problems. Patient has one son that is healthy. General Exam - General Exam Comments Initial Comments: 27-year-old female. No distress. Limitations: no limitations General appearance: alert, in no apparent distress Head exam: Present: atraumatic, normocephalic, normal inspection Eye exam: Present: normal appearance, PERRL, EOMI. Absent: scleral icterus, conjunctival injection, periorbital swelling Neck exam: Present: normal inspection. Absent: tenderness, meningismus, lymphadenopathy Respiratory exam: Present: normal lung sounds bilaterally. Absent: respiratory distress, wheezes, rales, rhonchi, stridor Cardiovascular Exam: Present: regular rate, normal rhythm, normal heart sounds. Absent: systolic murmur, diastolic murmur, rubs, gallop, clicks GI/Abdominal exam: Present: soft, normal bowel sounds. Absent: distended, tenderness, guarding, rebound, rigid Extremities exam: Present: normal inspection, full ROM, normal capillary refill. Absent: tenderness, pedal edema, joint swelling, calf tenderness Back exam: Present: normal inspection Neurological exam: Present: alert, oriented X3, CN II-XII intact Psychiatric exam: Present: normal affect, normal mood Skin exam: Present: warm, dry, intact, normal color. Absent: rash Course Vital Signs 01/27/17 01/28/17 23:06 00:37 Temperature 97.6 F Pulse Rate 80 82 Respiratory 18 16 Rate Blood Pressure 154/96 116/67 O2 Sat by Pulse 98 100 Oximetry Medical Decision Making - Medical Decision Making 27-year-old female presents to emergency apartment concern for not having a menstrual cycle in six months. She reports she has abdominal cramping. No abdomminal tenderness. No other complaints. She wonders if she could be . She's been seen multiple times that she's on antipsychotic to the fact she think she's . Patient urinalysis and then she G is negative.All lab work with are very normal. KUB x-ray is normal. Patient denies any diarrhea or constipation. At this time patient will be discharged home at this time. Just cause she should follow up with pcp regards to lack of menstrual cycle. Discussed returning to the ED if any alarming symptoms occur - Lab Data Result diagrams: 01/27/17 23:37 01/27/17 23:37 Lab Results 01/27/17 01/27/17 01/27/17 Range/Units 23:37 23:37 23:37 WBC 7.6 (3.8-10.6) k/uL RBC 4.00 (3.80-5.40) m/uL Hgb 11.7 (11.4-16.0) gm/dL Hct 37.9 (34.0-46.0) % MCV 94.7 (80.0-100.0) fL MCH 29.2 (25.0-35.0) pg MCHC 30.8 L (31.0-37.0) g/dL RDW 14.5 (11.5-15.5) % Plt Count 172 (150-450) k/uL Neutrophils % 54 % Lymphocytes % 33 % Monocytes % 8 % Eosinophils % 1 % Basophils % 1 % Neutrophils # 4.1 (1.3-7.7) k/uL Lymphocytes # 2.5 (1.0-4.8) k/uL Monocytes # 0.6 (0-1.0) k/uL Eosinophils # 0.1 (0-0.7) k/uL Basophils # 0.1 (0-0.2) k/uL Sodium 143 (137-145) mmol/L Potassium 4.4 (3.5-5.1) mmol/L Chloride 105 (98-107) mmol/L Carbon Dioxide 27 (22-30) mmol/L Anion Gap 11 mmol/L BUN 14 (7-17) mg/dL Creatinine 1.00 (0.52-1.04) mg/dL Est GFR (MDRD) Af Amer >60 (>60 ml/min/1.73 sqM) Est GFR (MDRD) Non-Af >60 (>60 ml/min/1.73 sqM) Glucose 78 (74-99) mg/dL Calcium 9.8 (8.4-10.2) mg/dL Total Bilirubin 0.1 L (0.2-1.3) mg/dL AST 19 (14-36) U/L ALT 37 (9-52) U/L Alkaline Phosphatase 62 (38-126) U/L Total Protein 7.1 (6.3-8.2) g/dL Albumin 4.0 (3.5-5.0) g/dL Amylase 57 (30-110) U/L Lipase 79 (23-300) U/L Urine Color Urine Appearance (Clear) Urine pH (5.0-8.0) Ur Specific [place] (1.001-1.035) Urine Protein (Negative) Urine Glucose (UA) (Negative) Urine Ketones (Negative) Urine Blood (Negative) Urine Nitrite (Negative) Urine Bilirubin (Negative) Urine Urobilinogen (<2.0) mg/dL Ur Leukocyte Esterase (Negative) Urine HCG, Qual Not Detected (Not Detectd) 01/27/17 Range/Units 23:37 WBC (3.8-10.6) k/uL RBC (3.80-5.40) m/uL Hgb (11.4-16.0) gm/dL Hct (34.0-46.0) % MCV (80.0-100.0) fL MCH (25.0-35.0) pg MCHC (31.0-37.0) g/dL RDW (11.5-15.5) % Plt Count (150-450) k/uL Neutrophils % % Lymphocytes % % Monocytes % % Eosinophils % % Basophils % % Neutrophils # (1.3-7.7) k/uL Lymphocytes # (1.0-4.8) k/uL Monocytes # (0-1.0) k/uL Eosinophils # (0-0.7) k/uL Basophils # (0-0.2) k/uL Sodium (137-145) mmol/L Potassium (3.5-5.1) mmol/L Chloride (98-107) mmol/L Carbon Dioxide (22-30) mmol/L Anion Gap mmol/L BUN (7-17) mg/dL Creatinine (0.52-1.04) mg/dL Est GFR (MDRD) Af Amer (>60 ml/min/1.73 sqM) Est GFR (MDRD) Non-Af (>60 ml/min/1.73 sqM) Glucose (74-99) mg/dL Calcium (8.4-10.2) mg/dL Total Bilirubin (0.2-1.3) mg/dL AST (14-36) U/L ALT (9-52) U/L Alkaline Phosphatase (38-126) U/L Total Protein (6.3-8.2) g/dL Albumin (3.5-5.0) g/dL Amylase (30-110) U/L Lipase (23-300) U/L Urine Color Colorless Urine Appearance Clear (Clear) Urine pH 7.0 (5.0-8.0) Ur Specific [place] 1.003 (1.001-1.035) Urine Protein Negative (Negative) Urine Glucose (UA) Negative (Negative) Urine Ketones Negative (Negative) Urine Blood Negative (Negative) Urine Nitrite Negative (Negative) Urine Bilirubin Negative (Negative) Urine Urobilinogen <2.0 (<2.0) mg/dL Ur Leukocyte Esterase Negative (Negative) Urine HCG, Qual (Not Detectd) Disposition Clinical Impression: Abdominal cramping, Irregular menstruation, unspecified Disposition: HOME SELF-CARE Condition: Good Instructions: Dysfunctional Uterine Bleeding (ED), Abdominal Pain (ED) Additional Instructions: Follow-up with her primary care provider and SIGNALING PROJECT ENGINEER.. Return to emergency department if any alarming signs or symptoms occur. Referrals: Nirali Valentin MD [Primary Care Provider] - 1-2 days Time of Disposition: 00:31
[2017-01-28 00:39] VITALS: BP 116/67; PULSE 82; RESP 16
--- NOTE | 2017-01-28 00:59 | XR ---
EXAM: XR Abdomen, 1 View CLINICAL HISTORY: Reason: Abdominal pain. Abdominal cramping, pain, dizzy, weak TECHNIQUE: Frontal upright view of the abdomen/pelvis. COMPARISON: Abdominal radiograph dated 10/16/14. FINDINGS: Gastrointestinal tract: Moderate fecal load. No dilation. No free air identified. Bones/joints: Unremarkable. Other: Clips are seen within the pelvis, likely tubal ligation IMPRESSION: Moderate fecal load.
== END 2017-01-28 00:42 | disposition home or self-care (01) ==
LOC: EC 23:00
DX: N92.6 Irregular menstruation, unspecified (principal); R10.9 Unspecified abdominal pain; F25.9 Schizoaffective disorder, unspecified; F31.9 Bipolar disorder, unspecified; F41.9 Anxiety disorder, unspecified; F17.200 Nicotine dependence, unspecified, uncomplicated; Z79.899 Other long term (current) drug therapy; Z88.6 Allergy status to analgesic agent; Z91.018 Allergy to other foods; Z88.8 Allergy status to other drugs, medicaments and biological substances; Z91.048 Other nonmedicinal substance allergy status; Z98.51 Tubal ligation status
CPT/HCPCS: 36415; 80053; 82150; 83690; 85025; 81003; 81025; 74000; 99285; S0119

== ENCOUNTER 2017-02-11 20:15 | Emergency (ER) | payer OTHER ==
[2017-02-11 20:27] VITALS: PULSE 84
[2017-02-11] MEDS ORDERED: ONDANSETRON ODT 4 MG TAB PO STA (21:05)
[2017-02-11 21:56] LABS: Appearance,Urine Clear (Clear); Bilirubin,Urine Negative (Negative); Blood,Urine Negative (Negative); Color,Urine Yellow; Glucose,Urine (UA) Negative (Negative); Ketones,Urine Negative (Negative); Leukocyte Esterase,Urine Negative (Negative); Nitrite,Urine Negative (Negative); PH, Urine 6.5 (5.0-8.0); Protein,Urine Negative (Negative); Specific Gravity,Urine 1.015 (1.001-1.035); Urobilinogen,Urine <2.0 mg/dL (<2.0)
--- NOTE | 2017-02-11 22:46 | ED ---
Abdominal Pain HPI - General Chief Complaint: Abdominal Pain Stated Complaint: FLU SYMPTOMS Time Seen by Provider: 02/11/17 20:24 Source: patient, EMS Mode of arrival: EMS Limitations: no limitations - History of Present Illness Initial Comments: 27-year-old female patient presented to the emergency department today with complaints of nausea. Patient states that yesterday she developed nausea, vomiting, and diarrhea. States that the nausea persisted throughout the day and she has not felt like eating. Sates that her last episode of vomiting was yesterday evening, she states that she had to force herself to vomit. She states that she currently is feeling better and is very thirsty. She denies any fever or chills. Denies any hematemesis, hematochezia, or melena. She denies any hematuria, dysuria, urinary frequency, urinary urgency. Patient denies any recent rash, shortness breath, chest pain, abdominal pain, back pain , numbness, tingling, dizziness, weakness, headache, visual changes, or any other complaints. She is unsure when her last menstrual period was, is unsure if she is . She denies any recent travel. States that her grandfather was ill with similar symptoms a couple of days ago. - Related Data Home Medications Medication Instructions Recorded Confirmed Ferrous Sulfate [Feosol] 325 mg PO DAILY 07/28/16 02/11/17 fluPHENAZine DECANOATE [Prolixin 50 mg IM MO 07/28/16 02/11/17 Decanoate] Melatonin 10 mg PO HS 01/27/17 02/11/17 OLANZapine [ZyPREXA] 10 mg PO HS 01/27/17 02/11/17 Multivitamins, Thera [Multivitamin 1 tab PO DAILY 02/11/17 02/11/17 (formulary)] Allergies Allergy/AdvReac Type Severity Reaction Status Date / Time haloperidol [From Haldol] Allergy Unknown Verified 02/11/17 20:28 ibuprofen [From Motrin] Allergy Unknown Verified 02/11/17 20:28 pineapple Allergy Rash/Hives Verified 02/11/17 20:28 red dye Allergy Anaphylaxis Verified 02/11/17 20:28 Review of Systems ROS Statement: Those systems with pertinent positive or pertinent negative responses have been documented in the HPI. ROS Other: All systems not noted in ROS Statement are negative. Past Medical History Past Medical History: Asthma, Hypertension, Seizure Disorder Additional Past Medical History / Comment(s): last seizure was April 2015 History of Any Multi-Drug Resistant Organisms: None Reported Past Surgical History: Section, Tonsillectomy, Tubal Ligation Additional Past Surgical History / Comment(s): facial surgery, 2 C-Sections Past Anesthesia/Blood Transfusion Reactions: No Reported Reaction Past Psychological History: Anxiety, Bipolar, Depression, Schizoaffective Disorder, Schizophrenia Smoking Status: Current every day smoker Past Alcohol Use History: None Reported Past Drug Use History: None Reported - Past Family History Father Additional Family Medical History / Comment(s): Father is alive at 42 and may have diabetes. Mother Family Medical History: Thyroid Disorder Additional Family Medical History / Comment(s): Mother is alive at age 45 with thyroid disorder. Brother(s) Additional Family Medical History / Comment(s): Patient has 2 brothers and 2 sisters with no major medical problems. Patient has one son that is healthy. General Exam Limitations: no limitations General appearance: alert, in no apparent distress, other (Physical well- developed, well-nourished adult female patient in no acute distress. Vital signs upon presentation were temperature 98.3F, pulse 84, respirations 16, blood pressure 121/56, pulse ox 99% on room air.) Eye exam: Present: normal appearance, PERRL, EOMI. Absent: scleral icterus, conjunctival injection, periorbital swelling ENT exam: Present: normal exam, normal oropharynx, mucous membranes moist Respiratory exam: Present: normal lung sounds bilaterally. Absent: respiratory distress, wheezes, rales, rhonchi, stridor Cardiovascular Exam: Present: regular rate, normal rhythm, normal heart sounds. Absent: systolic murmur, diastolic murmur, rubs, gallop, clicks GI/Abdominal exam: Present: soft, normal bowel sounds. Absent: distended, tenderness, guarding, rebound, rigid Neurological exam: Present: alert, oriented X3, CN II-XII intact Psychiatric exam: Present: normal affect, normal mood Skin exam: Present: warm, dry, intact, normal color. Absent: rash Course Vital Signs 02/11/17 02/11/17 20:24 22:50 Temperature 98.3 F 98.1 F Pulse Rate 84 84 Respiratory 16 20 Rate Blood Pressure 121/56 112/56 O2 Sat by Pulse 99 95 Oximetry Medical Decision Making - Medical Decision Making 27-year-old female patient presented to the emergency department today for evaluation of nausea. During history and physical patient reported that she was feeling better and was thirsty would like to drink water. Physical examination was unremarkable. Abdomen was nontender. Vital signs are stable. Patient was given an oral Zofran in the department. Patient was able to tolerate oral fluids without any vomiting. Urinalysis was negative for any acute infection. HCG was negative. She will be discharged home at this time to follow-up with her primary care physician for recheck in 1-2 days. She is instructed to increase fluids, start with a clear liquid diet and advance as tolerated. She is instructed to return here immediately for any new, worsening , or concerning symptoms. She verbalizes understanding and agrees with this plan. - Lab Data Lab Results 02/11/17 02/11/17 Range/Units 21:50 21:50 Urine Color Yellow Urine Appearance Clear (Clear) Urine pH 6.5 (5.0-8.0) Ur Specific [place] 1.015 (1.001-1.035) Urine Protein Negative (Negative) Urine Glucose (UA) Negative (Negative) Urine Ketones Negative (Negative) Urine Blood Negative (Negative) Urine Nitrite Negative (Negative) Urine Bilirubin Negative (Negative) Urine Urobilinogen <2.0 (<2.0) mg/dL Ur Leukocyte Esterase Negative (Negative) Urine HCG, Qual Not Detected (Not Detectd) Disposition Clinical Impression: Nausea & vomiting Disposition: HOME SELF-CARE Condition: Good Instructions: Acute Nausea and Vomiting (ED) Additional Instructions: Start with clear liquid diet and advance as tolerated. Follow-up with her primary care physician for recheck in 1-2 days. Return here immediate for any new, worsening, or concerning symptoms. Referrals: Nirali Valentin MD [Primary Care Provider] - 1-2 days Time of Disposition: 22:46
[2017-02-11 22:51] VITALS: BP 112/56; RESP 20; TEMP 98.1
== END 2017-02-11 22:51 | disposition home or self-care (01) ==
LOC: EC 20:15
DX: R11.2 Nausea with vomiting, unspecified (principal); R63.1 Polydipsia; F20.9 Schizophrenia, unspecified; F31.9 Bipolar disorder, unspecified; F17.200 Nicotine dependence, unspecified, uncomplicated; Z79.899 Other long term (current) drug therapy; Z88.6 Allergy status to analgesic agent; Z88.8 Allergy status to other drugs, medicaments and biological substances; Z91.018 Allergy to other foods; Z91.048 Other nonmedicinal substance allergy status
CPT/HCPCS: 81003; 81025; 99284

== ENCOUNTER → 2017-03-19 | Emergency (ER) | payer OTHER ==
[2017-03-19 01:08] VITALS: BP 120/56; PULSE 71; RESP 16; TEMP 98.5
[2017-03-19 01:22] LABS: Appearance,Urine Clear (Clear); Bilirubin,Urine Negative (Negative); Blood,Urine Negative (Negative); Color,Urine Colorless; Glucose,Urine (UA) Negative (Negative); Ketones,Urine Negative (Negative); Leukocyte Esterase,Urine Negative (Negative); Nitrite,Urine Negative (Negative); PH, Urine 5.5 (5.0-8.0); Protein,Urine Negative (Negative); Specific Gravity,Urine 1.003 (1.001-1.035); Urobilinogen,Urine <2.0 mg/dL (<2.0)
--- NOTE | 2017-03-19 01:48 | ED ---
Abdominal Pain HPI - General Chief Complaint: Abdominal Pain Stated Complaint: Mental Health Time Seen by Provider: 03/19/17 01:00 Source: patient, family, EMS Mode of arrival: EMS Limitations: no limitations - History of Present Illness Initial Comments: 27-year-old female patient presented to the emergency department this evening reporting that she was having contractions and felt like her water broke. When asked if she is patient reports, "I don't know". Patient states that she was feeling fine throughout the day. States that she took a bath when she stood up she felt like her water broke. She states she did call the ambulance she felt like she was in labor. patient denies any fevers or chills. She denies any constipation or diarrhea. Denies any nausea or vomiting. Patient states that she has felt the symptoms in the past. Patient denies any recent rash, fever, chills, shortness breath, chest pain, back pain, numbness, tingling , dizziness, weakness, hematuria, dysuria, urinary urgency, urinary frequency, headache, visual changes, or any other complaints. - Related Data Home Medications Medication Instructions Recorded Confirmed Ferrous Sulfate [Feosol] 325 mg PO DAILY 07/28/16 03/19/17 fluPHENAZine DECANOATE [Prolixin 50 mg IM MO 07/28/16 03/19/17 Decanoate] Melatonin 10 mg PO HS 01/27/17 03/19/17 OLANZapine [ZyPREXA] 10 mg PO HS 01/27/17 03/19/17 Multivitamins, Thera [Multivitamin 1 tab PO DAILY 02/11/17 03/19/17 (formulary)] Allergies Allergy/AdvReac Type Severity Reaction Status Date / Time haloperidol [From Haldol] Allergy Unknown Verified 03/19/17 01:08 ibuprofen [From Motrin] Allergy Unknown Verified 03/19/17 01:08 pineapple Allergy Rash/Hives Verified 03/19/17 01:08 red dye Allergy Anaphylaxis Verified 03/19/17 01:08 Review of Systems ROS Statement: Those systems with pertinent positive or pertinent negative responses have been documented in the HPI. ROS Other: All systems not noted in ROS Statement are negative. Past Medical History Past Medical History: Asthma, Hypertension, Seizure Disorder Additional Past Medical History / Comment(s): last seizure was April 2015 History of Any Multi-Drug Resistant Organisms: None Reported Past Surgical History: Section, Tonsillectomy, Tubal Ligation Additional Past Surgical History / Comment(s): facial surgery, 2 C-Sections Past Anesthesia/Blood Transfusion Reactions: No Reported Reaction Past Psychological History: Anxiety, Bipolar, Depression, Schizoaffective Disorder, Schizophrenia Smoking Status: Current every day smoker Past Alcohol Use History: None Reported Past Drug Use History: None Reported - Past Family History Father Additional Family Medical History / Comment(s): Father is alive at 42 and may have diabetes. Mother Family Medical History: Thyroid Disorder Additional Family Medical History / Comment(s): Mother is alive at age 45 with thyroid disorder. Brother(s) Additional Family Medical History / Comment(s): Patient has 2 brothers and 2 sisters with no major medical problems. Patient has one son that is healthy. General Exam Limitations: no limitations General appearance: alert, in no apparent distress, other (This is a well- developed, well-nourished adult female patient in no acute distress. Vital signs upon presentation are temperature 98.5F, pulse 71, respirations 16, blood pressure 120/56, pulse ox 97% on room air.) Eye exam: Present: normal appearance, PERRL, EOMI. Absent: scleral icterus, conjunctival injection, periorbital swelling Respiratory exam: Present: normal lung sounds bilaterally. Absent: respiratory distress, wheezes, rales, rhonchi, stridor Cardiovascular Exam: Present: regular rate, normal rhythm, normal heart sounds. Absent: systolic murmur, diastolic murmur, rubs, gallop, clicks GI/Abdominal exam: Present: soft, normal bowel sounds. Absent: distended, tenderness, guarding, rebound, rigid Neurological exam: Present: alert, oriented X3, CN II-XII intact Psychiatric exam: Present: normal affect, normal mood Skin exam: Present: warm, dry, intact, normal color. Absent: rash Course Vital Signs 03/19/17 01:04 Temperature 98.5 F Pulse Rate 71 Respiratory 16 Rate Blood Pressure 120/56 O2 Sat by Pulse 97 Oximetry Medical Decision Making - Medical Decision Making 27-year-old female patient presents to the emergency department today for evaluation after feeling like she is having contractions. Urinalysis and urine hCG were obtained and were both negative both for infection and . I did discuss the findings with the patient. Upon my entrance to the room both times patient was sleeping and had to be aroused. Abdomen was soft and nontender with no rebound or guarding. Vital signs are stable. Patient is afebrile. She denies any street drugs. She does have a crisis plan in place we will contact the act team and arrange for transportation home. I did discuss findings and results with the patient, she is agreeable to discharge. We will have her follow-up with her primary care physician for recheck in 1-2 days. She is instructed to return here immediately for any new, worsening, or concerning symptoms. She verbalizes understanding and agrees with this plan. - Lab Data Lab Results 03/19/17 03/19/17 Range/Units 01:10 01:10 Urine Color Colorless Urine Appearance Clear (Clear) Urine pH 5.5 (5.0-8.0) Ur Specific [place] 1.003 (1.001-1.035) Urine Protein Negative (Negative) Urine Glucose (UA) Negative (Negative) Urine Ketones Negative (Negative) Urine Blood Negative (Negative) Urine Nitrite Negative (Negative) Urine Bilirubin Negative (Negative) Urine Urobilinogen <2.0 (<2.0) mg/dL Ur Leukocyte Esterase Negative (Negative) Urine HCG, Qual Not Detected (Not Detectd) Disposition Clinical Impression: Feared condition not demonstrated Disposition: HOME SELF-CARE Condition: Good Instructions: Chronic Abdominal Pain (ED) Additional Instructions: test was negative. Follow up with your primary care physician for recheck as soon as possible. Return here immediately for any new, worsening, or concerning symptoms. Referrals: Nirali Valentin MD [Primary Care Provider] - 1-2 days Time of Disposition: 01:41
== END | disposition home or self-care (01) ==
LOC: EC 00:57
DX: Z71.1 Person with feared health complaint in whom no diagnosis is made (principal); F20.9 Schizophrenia, unspecified; F31.9 Bipolar disorder, unspecified; F17.200 Nicotine dependence, unspecified, uncomplicated; Z88.6 Allergy status to analgesic agent; Z88.8 Allergy status to other drugs, medicaments and biological substances; Z91.018 Allergy to other foods; Z91.048 Other nonmedicinal substance allergy status; Z79.899 Other long term (current) drug therapy
CPT/HCPCS: 81003; 81025; 99284

== ENCOUNTER 2017-04-19 09:02 | Emergency (ER) | payer OTHER ==
[2017-04-19 09:13] VITALS: BP 123/59; PULSE 77; RESP 16; TEMP 97.6
--- NOTE | 2017-04-19 09:42 | ED ---
Abdominal Pain HPI - General Chief Complaint: Abdominal Pain Stated Complaint: Abd Pain Time Seen by Provider: 04/19/17 09:04 Source: patient, EMS, RN notes reviewed, old records reviewed Mode of arrival: EMS Limitations: no limitations - History of Present Illness Initial Comments: This patient is 27-year-old female unknown to emergency Department chief complaint of abdominal pain feels like she has to push. She questions if she may be . Patient has had delusions for for quite some time. Patient has had a history of tubal ligation. She states that she feels like her tubal ligation is come undone. She denies any fever or chills. She did have a bowel movement yesterday. No urinary symptoms including frequency or odor. She reports no nausea or vomiting. Patient states she just is stressed under severe work conditions, and she states that she just needed to come here to relax. - Related Data Home Medications Medication Instructions Recorded Confirmed Ferrous Sulfate [Feosol] 325 mg PO DAILY 07/28/16 04/19/17 fluPHENAZine DECANOATE [Prolixin 50 mg IM MO 07/28/16 04/19/17 Decanoate] Melatonin 10 mg PO HS 01/27/17 04/19/17 OLANZapine [ZyPREXA] 10 mg PO HS 01/27/17 04/19/17 Multivitamins, Thera [Multivitamin 1 tab PO DAILY 02/11/17 04/19/17 (formulary)] Allergies Allergy/AdvReac Type Severity Reaction Status Date / Time haloperidol [From Haldol] Allergy Unknown Verified 04/19/17 09:08 ibuprofen [From Motrin] Allergy Unknown Verified 04/19/17 09:08 pineapple Allergy Rash/Hives Verified 04/19/17 09:08 red dye Allergy Anaphylaxis Verified 04/19/17 09:08 Review of Systems ROS Statement: Those systems with pertinent positive or pertinent negative responses have been documented in the HPI. ROS Other: All systems not noted in ROS Statement are negative. Past Medical History Past Medical History: Asthma, Hypertension, Seizure Disorder Additional Past Medical History / Comment(s): last seizure was April 2015 History of Any Multi-Drug Resistant Organisms: None Reported Past Surgical History: Section, Tonsillectomy, Tubal Ligation Additional Past Surgical History / Comment(s): facial surgery, 2 C-Sections Past Anesthesia/Blood Transfusion Reactions: No Reported Reaction Past Psychological History: Anxiety, Bipolar, Depression, Schizoaffective Disorder, Schizophrenia Smoking Status: Current every day smoker Past Alcohol Use History: None Reported Past Drug Use History: None Reported - Past Family History Father Additional Family Medical History / Comment(s): Father is alive at 42 and may have diabetes. Mother Family Medical History: Thyroid Disorder Additional Family Medical History / Comment(s): Mother is alive at age 45 with thyroid disorder. Brother(s) Additional Family Medical History / Comment(s): Patient has 2 brothers and 2 sisters with no major medical problems. Patient has one son that is healthy. General Exam - General Exam Comments Initial Comments: This is a 27-year-old female. No acute distress. Limitations: no limitations General appearance: alert, in no apparent distress Head exam: Present: atraumatic, normocephalic, normal inspection Eye exam: Present: normal appearance, PERRL, EOMI. Absent: scleral icterus, conjunctival injection, periorbital swelling ENT exam: Present: normal exam, mucous membranes moist Neck exam: Present: normal inspection. Absent: tenderness, meningismus, lymphadenopathy Respiratory exam: Present: normal lung sounds bilaterally. Absent: respiratory distress, wheezes, rales, rhonchi, stridor Cardiovascular Exam: Present: regular rate, normal rhythm, normal heart sounds. Absent: systolic murmur, diastolic murmur, rubs, gallop, clicks GI/Abdominal exam: Present: soft, normal bowel sounds. Absent: distended, tenderness, guarding, rebound, rigid Extremities exam: Present: normal inspection, full ROM, normal capillary refill. Absent: tenderness, pedal edema, joint swelling, calf tenderness Back exam: Present: normal inspection Neurological exam: Present: alert, oriented X3, CN II-XII intact Psychiatric exam: Present: normal affect, normal mood Skin exam: Present: warm, dry, intact, normal color. Absent: rash Course Vital Signs 04/19/17 09:10 Temperature 97.6 F Pulse Rate 77 Respiratory 16 Rate Blood Pressure 123/59 Medical Decision Making - Medical Decision Making Patient is a well known inspiratory 30-year-old female with delusions of . She states that she thinks currently again today. Patient' s reports that she's had abdominal pain for which she has to push. She states she's had normal bowel movements however. Patient questions whether she is again. She's had a tubal ligation. Patient was given urine hCG which was negative urinalysis is negative. Offered KUB however patient refused. She states she felt she needed an x-ray. Patient refuses any other lab testing or blood work at this time. I discussed with the patient that she needs to follow- up with her outpatient counselors. Discussed with Dr. Arrington. - Lab Data Lab Results 04/19/17 04/19/17 Range/Units 09:31 09:31 Urine Color Light Yellow Urine Appearance Clear (Clear) Urine pH 6.5 (5.0-8.0) Ur Specific [place] 1.011 (1.001-1.035) Urine Protein Negative (Negative) Urine Glucose (UA) Negative (Negative) Urine Ketones Negative (Negative) Urine Blood Negative (Negative) Urine Nitrite Negative (Negative) Urine Bilirubin Negative (Negative) Urine Urobilinogen <2.0 (<2.0) mg/dL Ur Leukocyte Esterase Negative (Negative) Urine HCG, Qual Not Detected (Not Detectd) Disposition Clinical Impression: Not currently , Abdominal pain Disposition: HOME SELF-CARE Condition: Good Instructions: Abdominal Pain (ED) Additional Instructions: Patient advised follow-up with outpatient care provider. Return to the emergency department if any alarming signs or symptoms occur. Referrals: Nirali Valentin MD [Primary Care Provider] - 1-2 days Time of Disposition: 11:22
[2017-04-19 10:32] LABS: Appearance,Urine Clear (Clear); Bilirubin,Urine Negative (Negative); Blood,Urine Negative (Negative); Color,Urine Light Yellow; Glucose,Urine (UA) Negative (Negative); Ketones,Urine Negative (Negative); Leukocyte Esterase,Urine Negative (Negative); Nitrite,Urine Negative (Negative); PH, Urine 6.5 (5.0-8.0); Protein,Urine Negative (Negative); Specific Gravity,Urine 1.011 (1.001-1.035); Urobilinogen,Urine <2.0 mg/dL (<2.0)
== END 2017-04-19 11:43 | disposition home or self-care (01) ==
LOC: EC 09:02
DX: R10.9 Unspecified abdominal pain (principal); Z32.02 Encounter for pregnancy test, result negative; F20.9 Schizophrenia, unspecified; F31.9 Bipolar disorder, unspecified; F17.200 Nicotine dependence, unspecified, uncomplicated; Z79.899 Other long term (current) drug therapy; Z88.6 Allergy status to analgesic agent; Z88.8 Allergy status to other drugs, medicaments and biological substances; Z91.018 Allergy to other foods; Z91.048 Other nonmedicinal substance allergy status; Z98.51 Tubal ligation status
CPT/HCPCS: 81003; 81025; 99284

== ENCOUNTER 2017-06-14 12:53 | Emergency (ER) | payer OTHER ==
--- NOTE | 2017-06-14 13:46 | ED ---
General Adult HPI - General Chief complaint: Vaginal Bleeding Stated complaint: vag bleeding Time Seen by Provider: 06/14/17 13:11 Source: patient, RN notes reviewed Mode of arrival: ambulatory Limitations: no limitations - History of Present Illness Initial comments: Patient was 27-year-old female presenting to the emergency room today with a chief complaint of vaginal bleeding times one month. Patient states that it does come and go. She states that having the last few days. Patient states that she has very some lower abdominal cramping at times. She is worried that she could be . Patient denies any other complaints or symptoms. Patient states that she was supposed to follow-up with her [facility] did schedule an appointment but cannot remember the date. Patient denies any recent fever, chills, shortness of breath, chest pain, back pain, numbness or tingling, dysuria or hematuria, constipation or diarrhea, headaches or visual changes, or any other complaints. - Related Data Home Medications Medication Instructions Recorded Confirmed fluPHENAZine DECANOATE [Prolixin 50 mg IM Q7D 07/28/16 06/14/17 Decanoate] Multivitamins, Thera [Multivitamin 1 tab PO DAILY 02/11/17 06/14/17 (formulary)] [place] Carbonate 600 mg PO DAILY 06/14/17 06/14/17 Allergies Allergy/AdvReac Type Severity Reaction Status Date / Time haloperidol [From Haldol] Allergy Unknown Verified 06/14/17 13:25 ibuprofen [From Motrin] Allergy Unknown Verified 06/14/17 13:25 pineapple Allergy Rash/Hives Verified 06/14/17 13:25 red dye Allergy Anaphylaxis Verified 06/14/17 13:25 Review of Systems ROS Statement: Those systems with pertinent positive or pertinent negative responses have been documented in the HPI. ROS Other: All systems not noted in ROS Statement are negative. Past Medical History Past Medical History: Asthma, Hypertension, Seizure Disorder Additional Past Medical History / Comment(s): last seizure was April 2015 History of Any Multi-Drug Resistant Organisms: None Reported Past Surgical History: Section, Tonsillectomy, Tubal Ligation Additional Past Surgical History / Comment(s): facial surgery, 2 C-Sections Past Anesthesia/Blood Transfusion Reactions: No Reported Reaction Past Psychological History: Anxiety, Bipolar, Depression, Schizoaffective Disorder, Schizophrenia Smoking Status: Current every day smoker Past Alcohol Use History: None Reported Past Drug Use History: None Reported - Past Family History Father Additional Family Medical History / Comment(s): Father is alive at 42 and may have diabetes. Mother Family Medical History: Thyroid Disorder Additional Family Medical History / Comment(s): Mother is alive at age 45 with thyroid disorder. Brother(s) Additional Family Medical History / Comment(s): Patient has 2 brothers and 2 sisters with no major medical problems. Patient has one son that is healthy. General Exam - General Exam Comments Initial Comments: General: The patient is awake and alert, in no distress, and does not appear acutely ill. Eye: Pupils are equal, round and reactive to light, extra-ocular movements are intact. No nystagmus. There is normal conjunctiva bilaterally. No signs of icterus. Ears, nose, mouth and throat: There are moist mucous membranes and no oral lesions. Neck: The neck is supple, there is no tenderness or JVD. Cardiovascular: There is a regular rate and rhythm. No murmur, rub or gallop is appreciated. Respiratory: Lungs are clear to auscultation, respirations are non-labored, breath sounds are equal. No wheezes, stridor, rales, or rhonchi. Gastrointestinal: Soft, non-distended, non-tender abdomen without masses or organomegaly noted. There is no rebound or guarding present. No CVA tenderness. Musculoskeletal: Normal ROM, no tenderness. Strength 5/5. Sensation intact. Pulses equal bilaterally 2+. Neurological: A&O x 3. CN II-XII intact, There are no obvious motor or sensory deficits. Coordination appears grossly intact. Speech is normal. Skin: Skin is warm and dry and no rashes or lesions are noted. Psychiatric: Cooperative, appropriate mood & affect, normal judgment. Limitations: no limitations Course Vital Signs 06/14/17 13:03 Temperature 98.5 F Pulse Rate 87 Respiratory 18 Rate Blood Pressure 139/80 O2 Sat by Pulse 98 Oximetry Medical Decision Making - Medical Decision Making Patient's labs been reviewed. test negative. Patient's ultrasound does show cervical nabothian cyst. Results were discussed with patient. Patient will be discharged home advise follow up [facility]. Patient seen Dr. Arita in the past. - Lab Data Result diagrams: 06/14/17 13:30 06/14/17 13:30 Lab Results 06/14/17 06/14/17 06/14/17 Range/Units 13:30 13:30 13:30 WBC 6.6 (3.8-10.6) k/uL RBC 4.07 (3.80-5.40) m/uL Hgb 12.2 (11.4-16.0) gm/dL Hct 35.6 (34.0-46.0) % MCV 87.5 (80.0-100.0) fL MCH 29.9 (25.0-35.0) pg MCHC 34.2 (31.0-37.0) g/dL RDW 12.8 (11.5-15.5) % Plt Count 192 (150-450) k/uL Neutrophils % 68 % Lymphocytes % 24 % Monocytes % 4 % Eosinophils % 0 % Basophils % 0 % Neutrophils # 4.5 (1.3-7.7) k/uL Lymphocytes # 1.6 (1.0-4.8) k/uL Monocytes # 0.3 (0-1.0) k/uL Eosinophils # 0.0 (0-0.7) k/uL Basophils # 0.0 (0-0.2) k/uL Sodium 142 (137-145) mmol/L Potassium 4.0 (3.5-5.1) mmol/L Chloride 104 (98-107) mmol/L Carbon Dioxide 23 (22-30) mmol/L Anion Gap 15 mmol/L BUN 11 (7-17) mg/dL Creatinine 0.60 (0.52-1.04) mg/dL Est GFR (CKD-EPI)AfAm >90 (>60 ml/min/1.73 sqM) Est GFR (CKD-EPI)NonAf >90 (>60 ml/min/1.73 sqM) Glucose 117 H (74-99) mg/dL Calcium 9.4 (8.4-10.2) mg/dL Urine Color Urine Appearance (Clear) Urine pH (5.0-8.0) Ur Specific [place] (1.001-1.035) Urine Protein (Negative) Urine Glucose (UA) (Negative) Urine Ketones (Negative) Urine Blood (Negative) Urine Nitrite (Negative) Urine Bilirubin (Negative) Urine Urobilinogen (<2.0) mg/dL Ur Leukocyte Esterase (Negative) Urine RBC (0-5) /hpf Urine WBC (0-5) /hpf Ur Squamous Epith Cells (0-4) /hpf Urine Bacteria (None) /hpf Urine Mucus (None) /hpf Urine HCG, Qual Not Detected (Not Detectd) 06/14/17 Range/Units 13:30 WBC (3.8-10.6) k/uL RBC (3.80-5.40) m/uL Hgb (11.4-16.0) gm/dL Hct (34.0-46.0) % MCV (80.0-100.0) fL MCH (25.0-35.0) pg MCHC (31.0-37.0) g/dL RDW (11.5-15.5) % Plt Count (150-450) k/uL Neutrophils % % Lymphocytes % % Monocytes % % Eosinophils % % Basophils % % Neutrophils # (1.3-7.7) k/uL Lymphocytes # (1.0-4.8) k/uL Monocytes # (0-1.0) k/uL Eosinophils # (0-0.7) k/uL Basophils # (0-0.2) k/uL Sodium (137-145) mmol/L Potassium (3.5-5.1) mmol/L Chloride (98-107) mmol/L Carbon Dioxide (22-30) mmol/L Anion Gap mmol/L BUN (7-17) mg/dL Creatinine (0.52-1.04) mg/dL Est GFR (CKD-EPI)AfAm (>60 ml/min/1.73 sqM) Est GFR (CKD-EPI)NonAf (>60 ml/min/1.73 sqM) Glucose (74-99) mg/dL Calcium (8.4-10.2) mg/dL Urine Color Yellow Urine Appearance Clear (Clear) Urine pH 6.0 (5.0-8.0) Ur Specific [place] 1.012 (1.001-1.035) Urine Protein Trace H (Negative) Urine Glucose (UA) Negative (Negative) Urine Ketones Negative (Negative) Urine Blood Large H (Negative) Urine Nitrite Negative (Negative) Urine Bilirubin Negative (Negative) Urine Urobilinogen <2.0 (<2.0) mg/dL Ur Leukocyte Esterase Negative (Negative) Urine RBC >182 H (0-5) /hpf Urine WBC 17 H (0-5) /hpf Ur Squamous Epith Cells 2 (0-4) /hpf Urine Bacteria Rare H (None) /hpf Urine Mucus Rare H (None) /hpf Urine HCG, Qual (Not Detectd) Disposition Clinical Impression: Cervical cyst, Dysfunctional uterine bleeding Disposition: HOME SELF-CARE Condition: Good Instructions: Dysfunctional Uterine Bleeding (ED) Additional Instructions: Please use medication as discussed. Please follow-up with [facility] in the next 2- 5 days. Please return to emergency room if the symptoms increase or worsen or for any other concerns. Is patient prescribed a controlled substance at d/c from ED?: No Referrals: Nirali Valentin MD [Primary Care Provider] - 1-2 days Vishal Arita DO [REFERRING] - 1-2 days Time of Disposition: 15:00
[2017-06-14 13:47] LABS: Basophils % (A) 0 %; Eosinophils % (A) 0 %; HCT 35.6 % (34.0-46.0); HGB 12.2 gm/dL (11.4-16.0); Lymphocytes # (A) 1.6 k/uL (1.0-4.8); Lymphocytes % (A) 24 %; MCH 29.9 pg (25.0-35.0); MCHC 34.2 g/dL (31.0-37.0); MCV 87.5 fL (80.0-100.0); Mean Platelet Volume 8.2; Monocytes # (A) 0.3 k/uL (0-1.0); Monocytes % (A) 4 %; Neutrophils # (A) 4.5 k/uL (1.3-7.7); Neutrophils % (A) 68 %; Platelet Count 192 k/uL (150-450); RBC 4.07 m/uL (3.80-5.40); RDW 12.8 % (11.5-15.5); WBC 6.6 k/uL (3.8-10.6)
[2017-06-14 13:52] LABS: Appearance,Urine Clear (Clear); Bacteria,Urine Rare /hpf; Bilirubin,Urine Negative (Negative); Blood,Urine Large (Negative); Color,Urine Yellow; Glucose,Urine (UA) Negative (Negative); Ketones,Urine Negative (Negative); Leukocyte Esterase,Urine Negative (Negative); Mucus,Urine Rare /hpf; Nitrite,Urine Negative (Negative); Protein,Urine Trace (Negative); RBC,Urine >182 /hpf (0-5); Specific Gravity,Urine 1.012 (1.001-1.035); Squamous Epithelial Cell,Urine 2 /hpf (0-4); Urobilinogen,Urine <2.0 mg/dL (<2.0); WBC,Urine 17 /hpf (0-5)
[2017-06-14 13:53] LABS: Anion Gap 15 mmol/L; Blood Urea Nitrogen 11 mg/dL (7-17); Calcium 9.4 mg/dL (8.4-10.2); Carbon Dioxide 23 mmol/L (22-30); Chloride 104 mmol/L (98-107); Glucose 117 mg/dL (74-99); Sodium 142 mmol/L (137-145)
--- NOTE | 2017-06-14 14:54 | US ---
EXAMINATION TYPE: US transvaginal DATE OF EXAM: 06/14/2017 COMPARISON: NONE CLINICAL HISTORY: Vaginal bleeding. Vaginal bleeding since beginning of May. Pelvic pain for 1 bebe h. 2 prior c-sections TECHNIQUE: Transvaginal (TV) Date of LMP: unknown EXAM MEASUREMENTS: Uterus: 9.5 x 4.1 x 4.6 cm Endometrial Stripe: 1.3 cm Right Ovary: 2.6 x 1.5 x 2.0 cm Left Ovary: unable to visualize 1. Uterus: Anteverted Probable Nabothian cyst = 1.5cm 2. Endometrium: appears wnl 3. Right Ovary: appears wnl 4. Left Ovary: Obscured by overlying bowel gas 5. Bilateral Adnexa: appears wnl 6. Posterior cul-de-sac: wnl IMPRESSION: 1. No significant abnormality. Cervical nabothian cysts.
[2017-06-14 15:07] VITALS: BP 122/54; PULSE 70; RESP 16; TEMP 97.9
== END 2017-06-14 15:08 | disposition home or self-care (01) ==
LOC: EC 12:53
DX: N93.8 Other specified abnormal uterine and vaginal bleeding (principal); N88.8 Other specified noninflammatory disorders of cervix uteri; F31.9 Bipolar disorder, unspecified; F41.9 Anxiety disorder, unspecified; F25.9 Schizoaffective disorder, unspecified; F17.200 Nicotine dependence, unspecified, uncomplicated; Z79.899 Other long term (current) drug therapy; Z88.6 Allergy status to analgesic agent; Z91.09 Other allergy status, other than to drugs and biological substances; Z88.8 Allergy status to other drugs, medicaments and biological substances; Z91.018 Allergy to other foods
CPT/HCPCS: 36415; 76830; 80048; 81001; 81025; 85025; 93976; 99284

== ENCOUNTER 2017-06-19 22:48 | Emergency (ER) | payer OTHER ==
[2017-06-19 23:54] LABS: Appearance,Urine Clear (Clear); Bilirubin,Urine Negative (Negative); Blood,Urine Moderate (Negative); Color,Urine Light Yellow; Glucose,Urine (UA) Negative (Negative); Ketones,Urine Negative (Negative); Leukocyte Esterase,Urine Negative (Negative); Mucus,Urine Rare /hpf; Nitrite,Urine Negative (Negative); Protein,Urine Negative (Negative); RBC,Urine 6 /hpf (0-5); Specific Gravity,Urine 1.008 (1.001-1.035); Squamous Epithelial Cell,Urine <1 /hpf (0-4); Urobilinogen,Urine <2.0 mg/dL (<2.0); WBC,Urine 8 /hpf (0-5)
--- NOTE | 2017-06-20 00:12 | ED ---
Female Urogenital HPI - General Chief complaint: Urogenital Stated complaint: vaginal bleeding Time Seen by Provider: 06/19/17 23:10 Source: patient Mode of arrival: EMS Limitations: no limitations - History of Present Illness Initial comments: 27-year-old female patient presents to the emergency department today for evaluation of vaginal bleeding. Patient states that she has had bleeding since the beginning of May. States she is only had a 1 day without bleeding. States that she has been evaluated for this a couple of times however will not follow-up with the estate and trust tax principal because she doesn't want surgery. Patient states that the bleeding will be heavier some days later some days. She states she is having some mild abdominal cramping with this. She denies any chance of . Denies any passage of large clots. States she is using 2-3 pads per day. Denies any hematuria, dysuria, urinary frequency, urinary urgency. Patient denies any recent rash, fever, chills, shortness breath, chest pain, nausea, vomiting, diarrhea, constipation, back pain, numbness, tingling, dizziness, weakness, hematuria, dysuria, urinary urgency, urinary frequency, headache, visual changes, or any other complaints. - Related Data Home Medications Medication Instructions Recorded Confirmed fluPHENAZine DECANOATE [Prolixin 50 mg IM Q7D 07/28/16 06/19/17 Decanoate] Multivitamins, Thera [Multivitamin 1 tab PO DAILY 02/11/17 06/19/17 (formulary)] [place] Carbonate 600 mg PO DAILY 06/14/17 06/19/17 Allergies Allergy/AdvReac Type Severity Reaction Status Date / Time haloperidol [From Haldol] Allergy Unknown Verified 06/19/17 23:28 ibuprofen [From Motrin] Allergy Unknown Verified 06/19/17 23:28 pineapple Allergy Rash/Hives Verified 06/19/17 23:28 red dye Allergy Anaphylaxis Verified 06/19/17 23:28 Review of Systems ROS Statement: Those systems with pertinent positive or pertinent negative responses have been documented in the HPI. ROS Other: All systems not noted in ROS Statement are negative. Past Medical History Past Medical History: Asthma, Hypertension, Seizure Disorder Additional Past Medical History / Comment(s): last seizure was April 2015 History of Any Multi-Drug Resistant Organisms: None Reported Past Surgical History: Section, Tonsillectomy, Tubal Ligation Additional Past Surgical History / Comment(s): facial surgery, 2 C-Sections Past Anesthesia/Blood Transfusion Reactions: No Reported Reaction Past Psychological History: Anxiety, Bipolar, Depression, Schizoaffective Disorder, Schizophrenia Smoking Status: Current every day smoker Past Alcohol Use History: None Reported Past Drug Use History: None Reported - Past Family History Father Additional Family Medical History / Comment(s): Father is alive at 42 and may have diabetes. Mother Family Medical History: Thyroid Disorder Additional Family Medical History / Comment(s): Mother is alive at age 45 with thyroid disorder. Brother(s) Additional Family Medical History / Comment(s): Patient has 2 brothers and 2 sisters with no major medical problems. Patient has one son that is healthy. General Exam Limitations: no limitations General appearance: alert, in no apparent distress, other (This is a well- developed, well-nourished adult female patient in no acute distress. Vital signs upon presentation are temperature 98.3F, pulse 87, respirations 16, blood pressure 140/66, pulse ox 98% on room air.) Eye exam: Present: normal appearance, PERRL, EOMI. Absent: scleral icterus, conjunctival injection, periorbital swelling ENT exam: Present: normal exam, normal oropharynx, mucous membranes moist Respiratory exam: Present: normal lung sounds bilaterally. Absent: respiratory distress, wheezes, rales, rhonchi, stridor Cardiovascular Exam: Present: regular rate, normal rhythm, normal heart sounds. Absent: systolic murmur, diastolic murmur, rubs, gallop, clicks GI/Abdominal exam: Present: soft, normal bowel sounds. Absent: distended, tenderness, guarding, rebound, rigid External exam: Present: normal external exam Speculum exam: Present: vaginal bleeding (Mild vaginal bleeding, dark red blood , no presence of clots.) By manual exam: Present: normal by manual exam. Absent: adnexal tenderness, uterine enlargement, uterine tenderness Neurological exam: Present: alert, oriented X3, CN II-XII intact Psychiatric exam: Present: normal affect, normal mood Skin exam: Present: warm, dry, intact, normal color. Absent: rash Course Vital Signs 06/19/17 06/20/17 23:06 00:30 Temperature 98.3 F 98.6 F Pulse Rate 87 97 Respiratory 16 18 Rate Blood Pressure 140/66 134/66 O2 Sat by Pulse 98 100 Oximetry Medical Decision Making - Medical Decision Making 27-year-old female patient presents to the emergency department today for evaluation of vaginal bleeding. Physical examination is unremarkable. Pelvic examination shows mild dark red vaginal bleeding. Normal bimanual exam. Vital signs are stable. Mucous membranes are moist. Skin is pink, warm, and dry. I did review ultrasound patient did have 6 days ago, there are no abnormalities noted on the exam. I did discuss these results with the patient. She is instructed to follow-up with a estate and trust tax principal. She is informed that they could consider other methods to manage her bleeding then surgery. Return parameters discussed in detail. She verbalizes understanding and agrees with this plan. - Lab Data Lab Results 06/19/17 06/19/17 Range/Units 23:47 23:47 Urine Color Light Yellow Urine Appearance Clear (Clear) Urine pH 6.0 (5.0-8.0) Ur Specific [place] 1.008 (1.001-1.035) Urine Protein Negative (Negative) Urine Glucose (UA) Negative (Negative) Urine Ketones Negative (Negative) Urine Blood Moderate H (Negative) Urine Nitrite Negative (Negative) Urine Bilirubin Negative (Negative) Urine Urobilinogen <2.0 (<2.0) mg/dL Ur Leukocyte Esterase Negative (Negative) Urine RBC 6 H (0-5) /hpf Urine WBC 8 H (0-5) /hpf Ur Squamous Epith Cells <1 (0-4) /hpf Urine Mucus Rare H (None) /hpf Urine HCG, Qual Not Detected (Not Detectd) Disposition Clinical Impression: Dysfunctional uterine bleeding Disposition: HOME SELF-CARE Condition: Good Instructions: Dysfunctional Uterine Bleeding (ED) Additional Instructions: Follow-up with [facility] as soon as possible to discuss options to control her bleeding. Follow-up with your primary care physician for recheck in 1-2 days. Return here immediately for any new, worsening, or concerning symptoms. Is patient prescribed a controlled substance at d/c from ED?: No Referrals: Nirali Valentin MD [Primary Care Provider] - 1-2 days Joanna Ferrari MD [STAFF PHYSICIAN] - 1-2 days Time of Disposition: 00:12
[2017-06-20 00:37] VITALS: BP 134/66; PULSE 97; RESP 18; TEMP 98.6
== END 2017-06-20 00:35 | disposition home or self-care (01) ==
LOC: EC 22:48
DX: N93.8 Other specified abnormal uterine and vaginal bleeding (principal); F20.9 Schizophrenia, unspecified; F31.9 Bipolar disorder, unspecified; F17.200 Nicotine dependence, unspecified, uncomplicated; Z79.899 Other long term (current) drug therapy; Z88.6 Allergy status to analgesic agent; Z88.8 Allergy status to other drugs, medicaments and biological substances; Z91.018 Allergy to other foods; Z91.048 Other nonmedicinal substance allergy status; Z98.51 Tubal ligation status
CPT/HCPCS: 81001; 81025; 99284

== ENCOUNTER 2017-06-28 15:45 | Emergency (ER) | payer OTHER ==
[2017-06-28 15:50] VITALS: BP 124/58; PULSE 92; RESP 16; TEMP 97.6
[2017-06-28] MEDS ORDERED: ONDANSETRON ODT 8 MG TAB.RAPDIS PO STA (16:01)
[2017-06-28] MEDS ORDERED: MAG HYDROX/AL HYDROX/SIMETH 30 ML, HYOSCYAMINE ELIXIR 10 ML, CIMETIDINE HCL 300 MG, LID... PO STA ×4 (16:02)
[2017-06-28] MEDS ORDERED: ACETAMINOPHEN TAB 500 MG TAB PO STA (16:02)
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
[2017-06-28 16:39] LABS: Basophils % (A) 1 %; Eosinophils # (A) 0.1 k/uL (0-0.7); Eosinophils % (A) 1 %; HCT 33.6 % (34.0-46.0); HGB 10.9 gm/dL (11.4-16.0); Lymphocytes # (A) 1.8 k/uL (1.0-4.8); Lymphocytes % (A) 31 %; MCHC 32.6 g/dL (31.0-37.0); MCV 92.2 fL (80.0-100.0); Monocytes # (A) 0.3 k/uL (0-1.0); Monocytes % (A) 6 %; Neutrophils # (A) 3.3 k/uL (1.3-7.7); Neutrophils % (A) 59 %; Platelet Count 194 k/uL (150-450); RBC 3.64 m/uL (3.80-5.40); RDW 13.7 % (11.5-15.5); WBC 5.7 k/uL (3.8-10.6)
[2017-06-28 16:40] LABS: Appearance,Urine Clear (Clear); Bilirubin,Urine Negative (Negative); Blood,Urine Negative (Negative); Color,Urine Light Yellow; Glucose,Urine (UA) Negative (Negative); Ketones,Urine Negative (Negative); Leukocyte Esterase,Urine Negative (Negative); Nitrite,Urine Negative (Negative); Protein,Urine Negative (Negative); Specific Gravity,Urine 1.008 (1.001-1.035); Urobilinogen,Urine <2.0 mg/dL (<2.0)
[2017-06-28 16:52] LABS: ALT 43 U/L (9-52); AST 31 U/L (14-36); Albumin 3.8 g/dL (3.5-5.0); Alkaline Phosphatase 64 U/L (38-126); Amylase 66 U/L (30-110); Anion Gap 10 mmol/L; Blood Urea Nitrogen 8 mg/dL (7-17); Calcium 9.1 mg/dL (8.4-10.2); Carbon Dioxide 27 mmol/L (22-30); Chloride 106 mmol/L (98-107); Glucose 96 mg/dL (74-99); Lipase 128 U/L (23-300); Potassium 4.2 mmol/L (3.5-5.1); Sodium 143 mmol/L (137-145); Total Bilirubin 0.1 mg/dL (0.2-1.3); Total Protein 6.6 g/dL (6.3-8.2)
--- NOTE | 2017-06-28 17:24 | US ---
EXAMINATION TYPE: US gallbladder DATE OF EXAM: 06/28/2017 COMPARISON: NONE CLINICAL HISTORY: 27-year-old female Pain. RUQ pain. Patient state she is ate this morning. TECHNIQUE: Multiple sonographic images of the right upper quadrant are obtained. FINDINGS: EXAM MEASUREMENTS: Liver Length: 17.5 cm Gallbladder Wall: 0.2 cm CBD: 0.4 cm cm CHD: 0.3 cm Right Kidney: 11.5 x 6.0 x 5.1 cm Pancreas: Only the pancreatic body is seen. Remainder suboptimally visualized secondary to overlying bowel gas Liver: Upper limits of normal in size. Somewhat hypoechoic appearance to the liver may be undetectab le bases. No focal lesion seen. Gallbladder: The gallbladder is collapsed. No shadowing calculi. Evidence for sonographic Reis's sign: neg CBD: wnl CHD: wnl Right Kidney: wnl IMPRESSION: Somewhat hypoechoic appearance to the liver may be on a technical basis. Correlate to exclude hepatit is.
== END 2017-06-28 18:27 | disposition home or self-care (01) ==
LOC: EC 15:45
DX: R51 Headache (principal); R10.11 Right upper quadrant pain; R11.0 Nausea; D64.9 Anemia, unspecified; G89.29 Other chronic pain; F20.9 Schizophrenia, unspecified; F31.9 Bipolar disorder, unspecified; F17.200 Nicotine dependence, unspecified, uncomplicated; Z79.899 Other long term (current) drug therapy; Z88.6 Allergy status to analgesic agent; Z88.8 Allergy status to other drugs, medicaments and biological substances; Z91.018 Allergy to other foods; Z91.048 Other nonmedicinal substance allergy status
CPT/HCPCS: 36415; 76705; 80053; 81003; 81025; 82150; 83690; 85025; 99284

== ENCOUNTER 2017-06-29 01:39 | Emergency (ER) | payer OTHER ==
[2017-06-29 01:47] VITALS: BP 144/84; PULSE 84; RESP 18; TEMP 98.6
[2017-06-29] MEDS ORDERED: ONDANSETRON ODT 4 MG TAB PO STA (01:57)
[2017-06-29] MEDS ORDERED: ACETAMINOPHEN TAB 325 MG TAB PO STA (01:57)
--- NOTE | 2017-06-29 01:58 | ED ---
General Adult HPI - General Chief complaint: Headache Stated complaint: Abdominal Pain Time Seen by Provider: 06/29/17 01:42 Source: patient, EMS Mode of arrival: EMS Limitations: no limitations - History of Present Illness Initial comments: 27-year-old female patient presents to the emergency department today for evaluation of right-sided abdominal pain and headache. Patient states that this started after she woke from a nap this evening. She denies taking anything for her headache. Patient denies any nausea or vomiting. Denies any constipation or diarrhea. Denies any hematuria, dysuria, urinary frequency, urinary urgency. Patient was seen and evaluated for abdominal pain yesterday afternoon. Patient did have a full evaluation and no abnormalities were identified. Patient denies any recent rash, fever, chills, shortness breath, chest pain, back pain, numbness, tingling, dizziness, weakness, hematuria, dysuria, urinary urgency, urinary frequency, visual changes, or any other complaints. - Related Data Home Medications Medication Instructions Recorded Confirmed fluPHENAZine DECANOATE [Prolixin 50 mg IM Q7D 07/28/16 06/28/17 Decanoate] [place] Carbonate 600 mg PO DAILY 06/14/17 06/28/17 Asenapine Maleate [Saphris] 10 mg SL HS 06/28/17 06/28/17 Iron(Uknown Dose) 1 tab PO DAILY 06/28/17 06/28/17 Allergies Allergy/AdvReac Type Severity Reaction Status Date / Time ibuprofen [From Motrin] Allergy Anaphylaxis Verified 06/28/17 15:55 pineapple Allergy Anaphylaxis Verified 06/28/17 15:55 red dye Allergy Anaphylaxis Verified 06/28/17 15:56 haloperidol [From Haldol] AdvReac Hallucinati Verified 06/28/17 15:55 ons Review of Systems ROS Statement: Those systems with pertinent positive or pertinent negative responses have been documented in the HPI. ROS Other: All systems not noted in ROS Statement are negative. Past Medical History Past Medical History: Asthma, Hypertension, Seizure Disorder Additional Past Medical History / Comment(s): last seizure was April 2015 History of Any Multi-Drug Resistant Organisms: None Reported Past Surgical History: Section, Tonsillectomy, Tubal Ligation Additional Past Surgical History / Comment(s): facial surgery, 2 C-Sections Past Anesthesia/Blood Transfusion Reactions: No Reported Reaction Past Psychological History: Anxiety, Bipolar, Depression, Schizoaffective Disorder, Schizophrenia Smoking Status: Current every day smoker Past Alcohol Use History: None Reported Past Drug Use History: None Reported - Past Family History Father Additional Family Medical History / Comment(s): Father is alive at 42 and may have diabetes. Mother Family Medical History: Thyroid Disorder Additional Family Medical History / Comment(s): Mother is alive at age 45 with thyroid disorder. Brother(s) Additional Family Medical History / Comment(s): Patient has 2 brothers and 2 sisters with no major medical problems. Patient has one son that is healthy. General Exam Limitations: no limitations General appearance: alert, in no apparent distress, other (This is a well- developed, well-nourished adult female patient in no acute distress. Vital signs upon presentation are temperature 98.6F, pulse 84, respirations 18, blood pressure 144/84, pulse ox 100% on room air.) Eye exam: Present: normal appearance, PERRL, EOMI. Absent: scleral icterus, conjunctival injection, periorbital swelling ENT exam: Present: normal exam, normal oropharynx, mucous membranes moist Respiratory exam: Present: normal lung sounds bilaterally. Absent: respiratory distress, wheezes, rales, rhonchi, stridor Cardiovascular Exam: Present: regular rate, normal rhythm, normal heart sounds. Absent: systolic murmur, diastolic murmur, rubs, gallop, clicks GI/Abdominal exam: Present: soft, normal bowel sounds. Absent: distended, tenderness, guarding, rebound, rigid Neurological exam: Present: alert, oriented X3, CN II-XII intact Psychiatric exam: Present: normal affect, normal mood Skin exam: Present: warm, dry, intact, normal color. Absent: rash Course Vital Signs 06/29/17 01:44 Temperature 98.6 F Pulse Rate 84 Respiratory 18 Rate Blood Pressure 144/84 O2 Sat by Pulse 100 Oximetry Medical Decision Making - Medical Decision Making 27-year-old female patient presented to the emergency department today for evaluation of right-sided abdominal pain and headache. Patient was seen and evaluated for similar symptoms yesterday afternoon. I did review labs which seemed relatively unremarkable. Patient physical examination is unremarkable. Abdomen soft and nontender. I did discuss findings and results with the patient. She'll be given Tylenol for headache and Zofran for nausea which started after my initial examination. I do believe there is an element of malingering here as patient does have an extensive mental health history. She is instructed to follow-up with her primary care physician for recheck in 1-2 days. Return parameters discussed in detail. She verbalizes understanding and agrees with this plan. Disposition Clinical Impression: Abdominal pain, Headache, Malingering Disposition: HOME SELF-CARE Condition: Good Instructions: Acute Headache (ED), Abdominal Pain (ED) Additional Instructions: Follow-up with your primary care physician for recheck in 1-2 days. Return here immediately for any new, worsening, or concerning symptoms. Is patient prescribed a controlled substance at d/c from ED?: No Referrals: Nirali Valentin MD [Primary Care Provider] - 1-2 days Time of Disposition: 01:58
== END 2017-06-29 02:09 | disposition home or self-care (01) ==
LOC: EC 01:39
DX: R51 Headache (principal); R10.9 Unspecified abdominal pain; Z76.5 Malingerer [conscious simulation]; F20.9 Schizophrenia, unspecified; F31.9 Bipolar disorder, unspecified; F17.200 Nicotine dependence, unspecified, uncomplicated; Z98.51 Tubal ligation status; Z79.899 Other long term (current) drug therapy; Z88.6 Allergy status to analgesic agent; Z91.018 Allergy to other foods; Z91.048 Other nonmedicinal substance allergy status; Z88.8 Allergy status to other drugs, medicaments and biological substances
CPT/HCPCS: 99284

== ENCOUNTER 2017-07-02 04:26 | Emergency (ER) | payer OTHER ==
--- NOTE | 2017-07-02 04:51 | ED ---
General Adult HPI - General Source: patient, RN notes reviewed, old records reviewed Mode of arrival: ambulatory Limitations: no limitations <Sudhakar Mancilla - Last Filed: 07/02/17 06:55> <Javon Sebastian - Last Filed: 07/02/17 08:55> - General Chief complaint: Abdominal Pain Stated complaint: abd pain Time Seen by Provider: 07/02/17 04:43 - History of Present Illness Initial comments: This is a 27-year-old ER today for evaluation of bowel pain. Patient's been chronic abdominal pain. States he always has abdominal pain. Patient's will the ER for medical issues have medical disease. Patient denies how her suicidal thoughts (Sudhakar Mancilla) - Related Data Home Medications Medication Instructions Recorded Confirmed fluPHENAZine DECANOATE [Prolixin 50 mg IM Q7D 07/28/16 07/02/17 Decanoate] [place] Carbonate 600 mg PO DAILY 06/14/17 07/02/17 Asenapine Maleate [Saphris] 10 mg SL HS 06/28/17 07/02/17 [place](Uknown Dose) 1 tab PO DAILY 06/28/17 07/02/17 Allergies Allergy/AdvReac Type Severity Reaction Status Date / Time ibuprofen [From Motrin] Allergy Anaphylaxis Verified 07/02/17 07:56 pineapple Allergy Anaphylaxis Verified 07/02/17 07:56 red dye Allergy Anaphylaxis Verified 07/02/17 07:56 haloperidol [From Haldol] AdvReac Hallucinati Verified 07/02/17 07:56 ons Review of Systems ROS Other: All systems not noted in ROS Statement are negative. <Sudhakar Mancilla - Last Filed: 07/02/17 06:55> ROS Other: All systems not noted in ROS Statement are negative. <Javon Sebastian - Last Filed: 07/02/17 08:55> ROS Statement: Those systems with pertinent positive or pertinent negative responses have been documented in the HPI. Past Medical History Past Medical History: Asthma, Hypertension, Seizure Disorder Additional Past Medical History / Comment(s): last seizure was April 2015 History of Any Multi-Drug Resistant Organisms: None Reported Past Surgical History: Section, Tonsillectomy, Tubal Ligation Additional Past Surgical History / Comment(s): facial surgery, 2 C-Sections Past Anesthesia/Blood Transfusion Reactions: No Reported Reaction Past Psychological History: Anxiety, Bipolar, Depression, Schizoaffective Disorder, Schizophrenia Smoking Status: Current every day smoker Past Alcohol Use History: None Reported Past Drug Use History: None Reported - Past Family History Father Additional Family Medical History / Comment(s): Father is alive at 42 and may have diabetes. Mother Family Medical History: Thyroid Disorder Additional Family Medical History / Comment(s): Mother is alive at age 45 with thyroid disorder. Brother(s) Additional Family Medical History / Comment(s): Patient has 2 brothers and 2 sisters with no major medical problems. Patient has one son that is healthy. <Sudhakar Mancilla - Last Filed: 07/02/17 06:55> General Exam Limitations: no limitations General appearance: alert, in no apparent distress Head exam: Present: atraumatic, normocephalic, normal inspection Eye exam: Present: normal appearance, PERRL, EOMI. Absent: scleral icterus, conjunctival injection, periorbital swelling ENT exam: Present: normal exam, mucous membranes moist Neck exam: Present: normal inspection. Absent: tenderness, meningismus, lymphadenopathy Respiratory exam: Present: normal lung sounds bilaterally. Absent: respiratory distress, wheezes, rales, rhonchi, stridor Cardiovascular Exam: Present: regular rate, normal rhythm, normal heart sounds. Absent: systolic murmur, diastolic murmur, rubs, gallop, clicks GI/Abdominal exam: Present: soft, normal bowel sounds. Absent: distended, tenderness, guarding, rebound, rigid Extremities exam: Present: normal inspection, full ROM, normal capillary refill. Absent: tenderness, pedal edema, joint swelling, calf tenderness Back exam: Present: normal inspection Neurological exam: Present: alert, oriented X3, CN II-XII intact Psychiatric exam: Present: normal affect, normal mood Skin exam: Present: warm, dry, intact, normal color. Absent: rash <Sudhakar Mancilla - Last Filed: 07/02/17 06:55> <Javon Sebastian - Last Filed: 07/02/17 08:55> - General Exam Comments Initial Comments: General: The patient is awake and alert, in no distress, and does not appear acutely ill. No obvious distress noticed Skin: Skin is warm and dry and no rashes or lesions are noted. Eye: Pupils are equal, round and reactive to light, extra-ocular movements are intact; there is normal conjunctiva bilaterally. Ears, nose, mouth and throat: There are moist mucous membranes and no oral lesions. Neck: The neck is supple, there is no tenderness or JVD. Cardiovascular: There is a regular rate and rhythm. No murmur, rub or gallop is appreciated. Respiratory: To auscultation bilateral, no wheezing no rhonchi no distress respiratory [place]roy noticed Gastrointestinal: Soft, non-distended, non-tender abdomen without masses or organomegaly noted. There is no rebound or guarding present. Bowel sounds are unremarkable. No pathological findings noticed a Back: There is no tenderness to palpation in the midline. There is no obvious deformity. Musculoskeletal: Normal ROM, no tenderness, There is no pedal edema. There is no calf tenderness or swelling. No cords were appreciated. Neurological: CN II-XII intact, Cranial nerves III through XII are intact. There are no obvious motor or sensory deficits. Coordination appears grossly intact. Speech is normal. 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 (Javon Sebastian) Course <Sudhakar Mancilla - Last Filed: 07/02/17 06:55> <Javon Sebastian - Last Filed: 07/02/17 08:55> Vital Signs 07/02/17 07/02/17 04:35 06:45 Temperature 98.3 F 97.6 F Pulse Rate 76 63 Respiratory 18 16 Rate Blood Pressure 138/79 123/68 O2 Sat by Pulse 99 100 Oximetry I was informed by EPS nurse that patient will be discharged myself follow-up according to the directions she will get injection of her antipsychotic medication today (Javon Sebastian) - Reevaluation(s) Reevaluation #1: 07/02/17 06:56 Medical records reviewed with multiple ER visits this week (Sudhakar Mancilla ) Reevaluation #2: 07/02/17 06:56 Medical clear for psychiatric evaluation (Sudhakar Mancilla) - Lab Data Lab Results 07/02/17 Range/Units 04:39 Urine Opiates Screen Not Detected (NotDetected) Ur Oxycodone Screen Not Detected (NotDetected) Urine Methadone Screen Not Detected (NotDetected) Ur Propoxyphene Screen Not Detected (NotDetected) Ur Barbiturates Screen Not Detected (NotDetected) U Tricyclic Antidepress Not Detected (NotDetected) Ur Phencyclidine Scrn Not Detected (NotDetected) Ur Amphetamines Screen Not Detected (NotDetected) U Methamphetamines Scrn Not Detected (NotDetected) U Benzodiazepines Scrn Not Detected (NotDetected) Urine Cocaine Screen Not Detected (NotDetected) U Marijuana (THC) Screen Not Detected (NotDetected) Disposition <Sudhakar Mancilla - Last Filed: 07/02/17 06:55> Is patient prescribed a controlled substance at d/c from ED?: No If prescribed controlled substance>3 days was MAPS reviewed?: No When asked, does pt state using other controlled substances?: No <Javon Sebastian - Last Filed: 07/02/17 08:55> Clinical Impression: Psychosis Disposition: HOME SELF-CARE Condition: Fair Instructions: Brief Psychotic Disorder (ED) Referrals: Nirali Valentin MD [Primary Care Provider] - 1-2 days
[2017-07-02 07:17] LABS: Amphetamine Screen,Urine Not Detected (NotDetected); Barbiturate Screen,Urine Not Detected (NotDetected); Benzodiazepines Screen,Urine Not Detected (NotDetected); Cocaine Screen,Urine Not Detected (NotDetected); Methadone Screen, Urine Not Detected (NotDetected); Opiate Screen,Urine Not Detected (NotDetected); Oxycodone Screen, Urine Not Detected (NotDetected); Phencyclidine Screen,Urine Not Detected (NotDetected); Tricyclic Antidepressant,Urine Not Detected (NotDetected); Urn Cannabinoid Scrn Not Detected (NotDetected)
[2017-07-02 09:03] VITALS: BP 136/84; PULSE 78; RESP 18; TEMP 97.5
== END 2017-07-02 09:03 | disposition home or self-care (01) ==
LOC: EC 04:26
DX: F29 Unspecified psychosis not due to a substance or known physiological condition (principal); G89.29 Other chronic pain; R10.9 Unspecified abdominal pain; F20.9 Schizophrenia, unspecified; F31.9 Bipolar disorder, unspecified; F17.200 Nicotine dependence, unspecified, uncomplicated; Z79.899 Other long term (current) drug therapy; Z88.6 Allergy status to analgesic agent; Z88.8 Allergy status to other drugs, medicaments and biological substances; Z91.018 Allergy to other foods; Z91.048 Other nonmedicinal substance allergy status
CPT/HCPCS: 80306; 82075; 99285

== ENCOUNTER 2017-07-09 21:58 | Emergency (ER) | payer OTHER ==
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
[2017-07-09 23:38] VITALS: BP 148/91; PULSE 102; RESP 18; TEMP 97.7
== END 2017-07-09 23:38 | disposition home or self-care (01) ==
LOC: EC 21:58
DX: T65.893A Toxic effect of other specified substances, assault, initial encounter (principal); F20.9 Schizophrenia, unspecified; F31.9 Bipolar disorder, unspecified; F17.200 Nicotine dependence, unspecified, uncomplicated; Z79.899 Other long term (current) drug therapy; Z88.6 Allergy status to analgesic agent; Z88.8 Allergy status to other drugs, medicaments and biological substances; Z91.018 Allergy to other foods; Z91.048 Other nonmedicinal substance allergy status; Z98.890 Other specified postprocedural states; Y92.89 Other specified places as the place of occurrence of the external cause
CPT/HCPCS: 99284

== ENCOUNTER 2017-08-01 | Emergency (ER) | payer OTHER | END 2017-08-01 17:00 | disposition left against medical advice (07) | DX: Z32.00 Encounter for pregnancy test, result unknown (principal); Z53.21 Procedure and treatment not carried out due to patient leaving prior to being seen by health care provider ==

== ENCOUNTER 2017-09-01 19:51 | Emergency (ER) | payer OTHER ==
[2017-09-01 20:09] VITALS: RESP 18
--- NOTE | 2017-09-01 20:29 | ED ---
General Adult HPI - General Chief complaint: Recheck/Abnormal Lab/Rx Stated complaint: Abd pain Time Seen by Provider: 09/01/17 19:55 Source: patient, EMS Mode of arrival: EMS Limitations: no limitations - History of Present Illness Initial comments: 27-year-old female with an extensive psychiatric history presents to the emergency department for a chief complaint of depression. Patient states she has been feeling very sad and she was in an upstairs apartment by herself. Patient denies any thoughts of suicide. Patient repeatedly states the only reason she wants to be here is to be admitted to [facility]. Patient states this is making her heart feel sad. Patient denies any chest pain. Patient does say she has left upper back pain from when she was cleaning the house earlier along with her spina bifida. Patient states the pain is not new and has been constant. Patient repeatedly states this is the only pain she is having. Patient denies any chance of . Patient has no other complaints at this time including shortness of breath, chest pain, abdominal pain, nausea or vomiting, headache, or visual changes. - Related Data Home Medications Medication Instructions Recorded Confirmed fluPHENAZine DECANOATE [Prolixin 50 mg IM Q7D 07/28/16 07/09/17 Decanoate] [place] Carbonate 600 mg PO HS 06/14/17 07/09/17 Asenapine Maleate [Saphris] 10 mg SL HS 06/28/17 07/09/17 Ferrous Sulfate [Feosol] 325 mg PO DAILY 07/09/17 07/09/17 Allergies Allergy/AdvReac Type Severity Reaction Status Date / Time ibuprofen [From Motrin] Allergy Anaphylaxis Verified 08/01/17 16:21 pineapple Allergy Anaphylaxis Verified 08/01/17 16:21 red dye Allergy Anaphylaxis Verified 08/01/17 16:21 haloperidol [From Haldol] AdvReac Hallucinati Verified 08/01/17 16:21 ons Review of Systems ROS Statement: Those systems with pertinent positive or pertinent negative responses have been documented in the HPI. ROS Other: All systems not noted in ROS Statement are negative. Past Medical History Past Medical History: Asthma, Hypertension, Seizure Disorder Additional Past Medical History / Comment(s): last seizure was April 2015 History of Any Multi-Drug Resistant Organisms: None Reported Past Surgical History: Section, Tonsillectomy, Tubal Ligation Additional Past Surgical History / Comment(s): facial surgery, 2 C-Sections Past Anesthesia/Blood Transfusion Reactions: No Reported Reaction Past Psychological History: Anxiety, Bipolar, Depression, Schizoaffective Disorder, Schizophrenia Smoking Status: Current every day smoker Past Alcohol Use History: None Reported Past Drug Use History: None Reported - Past Family History Father Additional Family Medical History / Comment(s): Father is alive at 42 and may have diabetes. Mother Family Medical History: Thyroid Disorder Additional Family Medical History / Comment(s): Mother is alive at age 45 with thyroid disorder. Brother(s) Additional Family Medical History / Comment(s): Patient has 2 brothers and 2 sisters with no major medical problems. Patient has one son that is healthy. General Exam Limitations: no limitations General appearance: alert, in no apparent distress Head exam: Present: atraumatic, normocephalic, normal inspection Neck exam: Present: normal inspection, full ROM. Absent: tenderness, meningismus, lymphadenopathy Respiratory exam: Present: normal lung sounds bilaterally. Absent: respiratory distress, wheezes, rales, rhonchi, stridor Cardiovascular Exam: Present: regular rate, normal rhythm, normal heart sounds. Absent: systolic murmur, diastolic murmur, rubs, gallop, clicks GI/Abdominal exam: Present: soft, normal bowel sounds. Absent: distended, tenderness, guarding, rebound, rigid Back exam: Present: paraspinal tenderness (mild left subscapular tenderness. NO tenderness of the cervical, thoracic, or lumbar spines.), other Course Vital Signs 09/01/17 09/01/17 20:02 20:36 Temperature 98.4 F Pulse Rate 64 Respiratory 18 18 Rate Blood Pressure 152/78 O2 Sat by Pulse 100 Oximetry EKG Findings - EKG Comments: EKG Findings:: Sinus bradycardia, ventricular rate 59, GA interval 144, QRS duration 94, no evidence of ST elevation Medical Decision Making - Medical Decision Making 27-year-old female presents to the emergency department for a chief complaint of depression. Patient state she has been sad at home but denies thoughts of suicide or harming herself. EPS was consulted and determined patient is safe to go home. She will follow up with [facility] tomorrow. Patient is seen twice a week by [facility]. Legal guardian is aware of this. On reexamination, patient states she feels like her chest is "falling out of place" but denies pain. Patient would like her heart evaluated. I did do a chest x-ray and an EKG which showed sinus bradycardia, no signs of ST elevation. Chest x-ray shows heart and mediastinum are normal. Lungs are clear. Normal chest. Patient denies any chance of and refuses test as she does not believe Patient will be discharged home and follow up with [facility] and primary care. She will return to the emergency Department if she has any worsening symptoms. - Lab Data Lab Results 09/01/17 Range/Units 20:51 Urine Opiates Screen Not Detected (NotDetected) Ur Oxycodone Screen Not Detected (NotDetected) Urine Methadone Screen Not Detected (NotDetected) Ur Propoxyphene Screen Not Detected (NotDetected) Ur Barbiturates Screen Not Detected (NotDetected) U Tricyclic Antidepress Not Detected (NotDetected) Ur Phencyclidine Scrn Not Detected (NotDetected) Ur Amphetamines Screen Not Detected (NotDetected) U Methamphetamines Scrn Not Detected (NotDetected) U Benzodiazepines Scrn Not Detected (NotDetected) Urine Cocaine Screen Not Detected (NotDetected) U Marijuana (THC) Screen Not Detected (NotDetected) Disposition Clinical Impression: Depression Disposition: HOME SELF-CARE Condition: Good Instructions: Chest Pain (ED), Depression (ED) Additional Instructions: Please follow up with [facility] and primary care in 1-2 days. Return to the emergency department if you have any worsening symptoms or thoughts of suicide. Is patient prescribed a controlled substance at d/c from ED?: No Referrals: Nirali Valentin MD [Primary Care Provider] - 1-2 days Time of Disposition: 22:00
[2017-09-01 21:30] LABS: Amphetamine Screen,Urine Not Detected (NotDetected); Barbiturate Screen,Urine Not Detected (NotDetected); Benzodiazepines Screen,Urine Not Detected (NotDetected); Cocaine Screen,Urine Not Detected (NotDetected); Methadone Screen, Urine Not Detected (NotDetected); Opiate Screen,Urine Not Detected (NotDetected); Oxycodone Screen, Urine Not Detected (NotDetected); Phencyclidine Screen,Urine Not Detected (NotDetected); Tricyclic Antidepressant,Urine Not Detected (NotDetected); Urn Cannabinoid Scrn Not Detected (NotDetected)
--- NOTE | 2017-09-01 21:56 | XR ---
EXAMINATION TYPE: XR chest 2V DATE OF EXAM: 09/01/2017 COMPARISON: NONE HISTORY: Chest pain TECHNIQUE: Frontal and lateral views of the chest are obtained. FINDINGS: Heart and mediastinum are normal. Lungs are clear. Diaphragm is normal. Bony thorax appear s normal. IMPRESSION: Normal chest.
[2017-09-01 22:49] VITALS: BP 148/81; PULSE 61; TEMP 97.3
== END 2017-09-01 22:49 | disposition home or self-care (01) ==
LOC: EC 19:51
DX: F31.9 Bipolar disorder, unspecified (principal); R00.1 Bradycardia, unspecified; M54.6 Pain in thoracic spine; J45.909 Unspecified asthma, uncomplicated; F20.9 Schizophrenia, unspecified; F41.9 Anxiety disorder, unspecified; F17.200 Nicotine dependence, unspecified, uncomplicated; Z79.899 Other long term (current) drug therapy; Z88.6 Allergy status to analgesic agent; Z88.8 Allergy status to other drugs, medicaments and biological substances; Z91.018 Allergy to other foods
CPT/HCPCS: 71046; 80306; 82075; 93005; 99284

== ENCOUNTER 2017-09-11 01:04 | Emergency (ER) | payer OTHER ==
--- NOTE | 2017-09-11 01:36 | ED ---
General Adult HPI - General Chief complaint: Abdominal Pain Stated complaint: abd pain Time Seen by Provider: 09/11/17 01:07 Source: patient, RN notes reviewed, old records reviewed Mode of arrival: EMS Limitations: no limitations - History of Present Illness Initial comments: Patient is a pleasant 27-year-old female presenting to the emergency Department with pulling in her abdomen. Patient states this is a chronic problem for her and has been occurring for years. Patient states she used to have problems thinking that she was however is no longer sexually active and knows that she cannot be . Patient states the discomfort is not too bad at this time. No fever. No vomiting. patient diarrhea. No nausea. - Related Data Home Medications Medication Instructions Recorded Confirmed fluPHENAZine DECANOATE [Prolixin 50 mg IM Q7D 07/28/16 07/09/17 Decanoate] [place] Carbonate 600 mg PO HS 06/14/17 07/09/17 Asenapine Maleate [Saphris] 10 mg SL HS 06/28/17 07/09/17 Ferrous Sulfate [Feosol] 325 mg PO DAILY 07/09/17 07/09/17 Allergies Allergy/AdvReac Type Severity Reaction Status Date / Time ibuprofen [From Motrin] Allergy Anaphylaxis Verified 09/11/17 01:14 pineapple Allergy Anaphylaxis Verified 09/11/17 01:14 red dye Allergy Anaphylaxis Verified 09/11/17 01:14 haloperidol [From Haldol] AdvReac Hallucinati Verified 09/11/17 01:14 ons Review of Systems ROS Statement: Those systems with pertinent positive or pertinent negative responses have been documented in the HPI. ROS Other: All systems not noted in ROS Statement are negative. Constitutional: Denies: fever Eyes: Denies: eye pain ENT: Denies: ear pain Respiratory: Denies: cough Cardiovascular: Denies: chest pain Endocrine: Denies: fatigue Gastrointestinal: Reports: abdominal pain Genitourinary: Denies: dysuria Musculoskeletal: Denies: back pain Skin: Denies: rash Neurological: Denies: weakness Past Medical History Past Medical History: Asthma, Hypertension, Seizure Disorder Additional Past Medical History / Comment(s): last seizure was April 2015 History of Any Multi-Drug Resistant Organisms: None Reported Past Surgical History: Section, Tonsillectomy, Tubal Ligation Additional Past Surgical History / Comment(s): facial surgery, 2 C-Sections Past Anesthesia/Blood Transfusion Reactions: No Reported Reaction Past Psychological History: Anxiety, Bipolar, Depression, Schizoaffective Disorder, Schizophrenia Smoking Status: Current every day smoker Past Alcohol Use History: None Reported Past Drug Use History: None Reported - Past Family History Father Additional Family Medical History / Comment(s): Father is alive at 42 and may have diabetes. Mother Family Medical History: Thyroid Disorder Additional Family Medical History / Comment(s): Mother is alive at age 45 with thyroid disorder. Brother(s) Additional Family Medical History / Comment(s): Patient has 2 brothers and 2 sisters with no major medical problems. Patient has one son that is healthy. General Exam Limitations: no limitations General appearance: alert, in no apparent distress Head exam: Present: atraumatic Eye exam: Present: normal appearance ENT exam: Present: normal oropharynx Neck exam: Present: normal inspection Respiratory exam: Present: normal lung sounds bilaterally Cardiovascular Exam: Present: regular rate, normal rhythm Expanded Peripheral pulses: 2+: Dorsalis Pedis (R), Dorsalis Pedis (L) GI/Abdominal exam: Present: soft, normal bowel sounds. Absent: distended, tenderness, guarding, rebound, rigid, pulsatile mass Extremities exam: Present: normal inspection. Absent: pedal edema, calf tenderness Neurological exam: Present: alert Psychiatric exam: Present: normal affect, normal mood Skin exam: Present: normal color Course Vital Signs 09/11/17 01:09 Temperature 98.0 F Pulse Rate 75 Respiratory 18 Rate Blood Pressure 145/95 O2 Sat by Pulse 100 Oximetry Medical Decision Making - Medical Decision Making Patient walking down the hallway asking for food in no distress. Patient is updated on results. - Radiology Data Radiology results: image reviewed (Abdominal x-ray reveals no acute process) Disposition Clinical Impression: Chronic abdominal pain Disposition: HOME SELF-CARE Condition: Stable Instructions: Abdominal Pain (ED) Additional Instructions: Please follow-up with primary care physician next day or 2 for recheck. Return for fevers, vomiting, increased pain, worsening symptoms or other concerns Is patient prescribed a controlled substance at d/c from ED?: No Referrals: Nirali Valentin MD [Primary Care Provider] - 1-2 days Time of Disposition: 02:33
--- NOTE | 2017-09-11 02:30 | XR ---
EXAMINATION TYPE: XR abdomen 2V DATE OF EXAM: 09/11/2017 COMPARISON: NONE HISTORY: Abdominal pain TECHNIQUE: 4 views FINDINGS: There is no sign of intestinal obstruction or pneumoperitoneum. Fecal pattern is normal. Aby ng bases are clear. There are clips from tubal ligation. There are no pathologic calcifications. IMPRESSION: Nonacute abdomen.
[2017-09-11 03:31] VITALS: BP 111/56; PULSE 58; RESP 16; TEMP 98.3
== END 2017-09-11 03:38 | disposition home or self-care (01) ==
LOC: EC 01:04
DX: G89.29 Other chronic pain (principal); R10.9 Unspecified abdominal pain; R19.7 Diarrhea, unspecified; F20.9 Schizophrenia, unspecified; F31.9 Bipolar disorder, unspecified; F17.200 Nicotine dependence, unspecified, uncomplicated; Z79.899 Other long term (current) drug therapy; Z88.6 Allergy status to analgesic agent; Z88.8 Allergy status to other drugs, medicaments and biological substances; Z91.018 Allergy to other foods; Z91.048 Other nonmedicinal substance allergy status
CPT/HCPCS: 74019; 99284

== ENCOUNTER 2017-09-14 04:59 | Emergency (ER) | payer OTHER ==
[2017-09-14 05:04] VITALS: BP 136/75; PULSE 70; RESP 18; TEMP 98.9
--- NOTE | 2017-09-14 06:24 | ED ---
Psych HPI - General Source: patient Mode of arrival: ambulatory - History of Present Illness Complaint: other -: days(s) Associated Psychiatric Symptoms: racing thoughts History of same: Yes Quality: constant Improves With: none Worsens With: none <Jameel Nowak - Last Filed: 09/14/17 06:20> <DelmyzabrinaJamal Viridiana - Last Filed: 09/14/17 10:11> - General Chief Complaint: Recheck/Abnormal Lab/Rx Stated Complaint: Mental health Time Seen by Provider: 09/14/17 05:16 - History of Present Illness Initial Comments: This patient is 27-year-old woman with long-standing psychiatric history. The patient complains that she is feeling movement in her abdomen and feels like she is with a snake. She has had similar complaints before. She denies having suicidal or homicidal ideation. She states that due to the fears of the snake she has not been able sleep tonight (Jameel Nowak) - Related Data Home Medications Medication Instructions Recorded Confirmed fluPHENAZine DECANOATE [Prolixin 50 mg IM Q7D 07/28/16 07/09/17 Decanoate] [place] Carbonate 600 mg PO HS 06/14/17 07/09/17 Asenapine Maleate [Saphris] 10 mg SL HS 06/28/17 07/09/17 Ferrous Sulfate [Feosol] 325 mg PO DAILY 07/09/17 07/09/17 Allergies Allergy/AdvReac Type Severity Reaction Status Date / Time ibuprofen [From Motrin] Allergy Anaphylaxis Verified 09/14/17 05:04 pineapple Allergy Anaphylaxis Verified 09/14/17 05:04 red dye Allergy Anaphylaxis Verified 09/14/17 05:04 haloperidol [From Haldol] AdvReac Hallucinati Verified 09/14/17 05:04 ons Review of Systems ROS Other: All systems not noted in ROS Statement are negative. Constitutional: Denies: fever, chills Eyes: Denies: vision change Respiratory: Denies: cough, dyspnea Cardiovascular: Denies: chest pain, palpitations Gastrointestinal: Denies: abdominal pain Neurological: Denies: headache, weakness, numbness Psychiatric: Reports: other. Denies: homicidal thoughts, suicidal thoughts <Jameel Nowak - Last Filed: 09/14/17 06:20> ROS Other: All systems not noted in ROS Statement are negative. <Jamal Jaimes - Last Filed: 09/14/17 10:11> ROS Statement: Those systems with pertinent positive or pertinent negative responses have been documented in the HPI. Past Medical History Past Medical History: Asthma, Hypertension, Seizure Disorder Additional Past Medical History / Comment(s): last seizure was April 2015 History of Any Multi-Drug Resistant Organisms: None Reported Past Surgical History: Section, Tonsillectomy, Tubal Ligation Additional Past Surgical History / Comment(s): facial surgery, 2 C-Sections Past Anesthesia/Blood Transfusion Reactions: No Reported Reaction Past Psychological History: Anxiety, Bipolar, Depression, Schizoaffective Disorder, Schizophrenia Smoking Status: Current every day smoker Past Alcohol Use History: None Reported Past Drug Use History: None Reported - Past Family History Father Additional Family Medical History / Comment(s): Father is alive at 42 and may have diabetes. Mother Family Medical History: Thyroid Disorder Additional Family Medical History / Comment(s): Mother is alive at age 45 with thyroid disorder. Brother(s) Additional Family Medical History / Comment(s): Patient has 2 brothers and 2 sisters with no major medical problems. Patient has one son that is healthy. <SheJameel - Last Filed: 09/14/17 06:20> General Exam Limitations: no limitations General appearance: alert, in no apparent distress, obese Head exam: Present: atraumatic, normocephalic Respiratory exam: Present: normal lung sounds bilaterally. Absent: respiratory distress, wheezes, rales, rhonchi, stridor Cardiovascular Exam: Present: regular rate, normal rhythm, normal heart sounds. Absent: systolic murmur, diastolic murmur, rubs, gallop GI/Abdominal exam: Present: soft. Absent: tenderness, guarding, rebound, mass Extremities exam: Present: normal inspection, normal capillary refill. Absent: pedal edema, calf tenderness Psychiatric exam: Present: anxious. Absent: depressed, homicidal ideation, suicidal ideation Skin exam: Present: warm, dry, intact, normal color. Absent: rash <SheJameel - Last Filed: 09/14/17 06:20> Vital Signs 09/14/17 05:00 Temperature 98.9 F Pulse Rate 70 Respiratory 18 Rate Blood Pressure 136/75 O2 Sat by Pulse 98 Oximetry Medical Decision Making <Jameel Nowak - Last Filed: 09/14/17 06:20> <Jamal Jaimes - Last Filed: 09/14/17 10:11> - Medical Decision Making Patient evaluated by EPS, no need for inpatient treatment at this time. Patient is able to be discharged. She will be picked up by the act team. She does have good outpatient follow-up. (Jamal Jaimes) - Lab Data Lab Results 09/14/17 Range/Units 06:40 Urine Opiates Screen Not Detected (NotDetected) Ur Oxycodone Screen Not Detected (NotDetected) Urine Methadone Screen Not Detected (NotDetected) Ur Propoxyphene Screen Not Detected (NotDetected) Ur Barbiturates Screen Not Detected (NotDetected) U Tricyclic Antidepress Not Detected (NotDetected) Ur Phencyclidine Scrn Not Detected (NotDetected) Ur Amphetamines Screen Not Detected (NotDetected) U Methamphetamines Scrn Not Detected (NotDetected) U Benzodiazepines Scrn Not Detected (NotDetected) Urine Cocaine Screen Not Detected (NotDetected) U Marijuana (THC) Screen Not Detected (NotDetected) Disposition <Jameel Nowak - Last Filed: 09/14/17 06:20> Is patient prescribed a controlled substance at d/c from ED?: No Time of Disposition: 10:11 <Jamal Jaimes - Last Filed: 09/14/17 10:11> Clinical Impression: Hallucination, Psychosis Disposition: HOME SELF-CARE Condition: Good Additional Instructions: Please follow up with community mental health. Return with worsening or changing symptoms. Referrals: Nirali Valentin MD [Primary Care Provider] - 1-2 days
[2017-09-14 07:01] LABS: Amphetamine Screen,Urine Not Detected (NotDetected); Barbiturate Screen,Urine Not Detected (NotDetected); Benzodiazepines Screen,Urine Not Detected (NotDetected); Cocaine Screen,Urine Not Detected (NotDetected); Methadone Screen, Urine Not Detected (NotDetected); Opiate Screen,Urine Not Detected (NotDetected); Oxycodone Screen, Urine Not Detected (NotDetected); Phencyclidine Screen,Urine Not Detected (NotDetected); Tricyclic Antidepressant,Urine Not Detected (NotDetected); Urn Cannabinoid Scrn Not Detected (NotDetected)
== END 2017-09-14 11:12 | disposition home or self-care (01) ==
LOC: EC 04:59
DX: F29 Unspecified psychosis not due to a substance or known physiological condition (principal); R44.3 Hallucinations, unspecified; F25.9 Schizoaffective disorder, unspecified; F31.9 Bipolar disorder, unspecified; F17.200 Nicotine dependence, unspecified, uncomplicated; Z79.899 Other long term (current) drug therapy; Z88.6 Allergy status to analgesic agent; Z88.8 Allergy status to other drugs, medicaments and biological substances; Z91.018 Allergy to other foods; Z91.048 Other nonmedicinal substance allergy status
CPT/HCPCS: 80306; 82075; 99284

== ENCOUNTER 2017-11-01 22:43 | Emergency (ER) | payer OTHER ==
[2017-11-01 23:07] VITALS: RESP 18
--- NOTE | 2017-11-01 23:32 | ED ---
General Adult HPI - General Chief complaint: Psychiatric Symptoms Stated complaint: Mental Health Source: patient, RN notes reviewed Mode of arrival: ambulatory Limitations: no limitations - History of Present Illness Initial comments: 27-year-old with a past medical history of schizophrenia, bipolar disorder, depression, and anxiety presents to the emergency department for multiple complaints. Patient states she is not feeling well. She states she was started on vitamin D supplements and is concerned for vitamin D deficiency. Patient is concerned she may be but has a history of a tubal ligation. Patient denies abdominal pain. Patient was brought into the emergency department for a mental health evaluation including for delusional thoughts. Patient denies any feelings of sadness at this time. Patient denies any thoughts of suicide or harming herself. Patient denies any homicidal thoughts or thoughts of harming anyone else. Patient has no other complaints at this time including shortness of breath, chest pain, abdominal pain, nausea or vomiting, headache, or visual changes. - Related Data Home Medications Medication Instructions Recorded Confirmed fluPHENAZine DECANOATE [Prolixin 50 mg IM Q7D 07/28/16 11/01/17 Decanoate] Asenapine Maleate [Saphris] 10 mg SL HS 11/01/17 11/01/17 Ergocalciferol (Vitamin D2) 50,000 unit PO Q7D 11/01/17 11/01/17 [Vitamin D2] Hydrochlorothiazide 12.5 mg PO DAILY 11/01/17 11/01/17 Allergies Allergy/AdvReac Type Severity Reaction Status Date / Time ibuprofen [From Motrin] Allergy Anaphylaxis Verified 11/01/17 23:22 pineapple Allergy Anaphylaxis Verified 11/01/17 23:22 red dye Allergy Anaphylaxis Verified 11/01/17 23:22 haloperidol [From Haldol] AdvReac Hallucinati Verified 11/01/17 23:22 ons Review of Systems ROS Statement: Those systems with pertinent positive or pertinent negative responses have been documented in the HPI. ROS Other: All systems not noted in ROS Statement are negative. Past Medical History Past Medical History: Asthma, Hypertension, Seizure Disorder Additional Past Medical History / Comment(s): last seizure was April 2015 History of Any Multi-Drug Resistant Organisms: None Reported Past Surgical History: Section, Tonsillectomy, Tubal Ligation Additional Past Surgical History / Comment(s): facial surgery, 2 C-Sections Past Anesthesia/Blood Transfusion Reactions: No Reported Reaction Past Psychological History: Anxiety, Bipolar, Depression, Schizoaffective Disorder, Schizophrenia Smoking Status: Current every day smoker Past Alcohol Use History: None Reported Past Drug Use History: None Reported - Past Family History Father Additional Family Medical History / Comment(s): Father is alive at 42 and may have diabetes. Mother Family Medical History: Thyroid Disorder Additional Family Medical History / Comment(s): Mother is alive at age 45 with thyroid disorder. Brother(s) Additional Family Medical History / Comment(s): Patient has 2 brothers and 2 sisters with no major medical problems. Patient has one son that is healthy. General Exam Limitations: no limitations General appearance: alert, in no apparent distress Head exam: Present: atraumatic, normocephalic, normal inspection Eye exam: Present: normal appearance, PERRL, EOMI. Absent: scleral icterus, conjunctival injection, periorbital swelling ENT exam: Present: normal exam, mucous membranes moist Neck exam: Present: normal inspection, full ROM. Absent: tenderness, meningismus, lymphadenopathy Respiratory exam: Present: normal lung sounds bilaterally. Absent: respiratory distress, wheezes, rales, rhonchi, stridor Cardiovascular Exam: Present: regular rate, normal rhythm, normal heart sounds. Absent: systolic murmur, diastolic murmur, rubs, gallop, clicks Neurological exam: Present: alert, oriented X3, CN II-XII intact Psychiatric exam: Present: normal affect, normal mood. Absent: homicidal ideation, suicidal ideation Course Vital Signs 11/01/17 23:04 Temperature 98.3 F Pulse Rate 73 Respiratory 18 Rate Blood Pressure 150/83 O2 Sat by Pulse 98 Oximetry Medical Decision Making - Medical Decision Making 27-year-old female presents to the emergency department for a chief complaint of mental health evaluation. Apparently legal guardian will admit patient evaluated for delusional thoughts. Patient has a history of schizophrenia, bipolar disorder, anxiety, and depression. Patient presents with complaints of possible vitamin D deficiency and . She has presented multiple times in the past for similar complaints. Patient denies any abdominal pain, chest pain, shortness of breath. EPS was consulted. Rae spoke with Dr. Camarena who recommended outpatient follow-up. Act team will follow-up with patient between 12 and 1 tomorrow at her home. Legal guardian is aware according to Rae. Patient aware to return to the emergency Department if she has any worsening symptoms. - Lab Data Lab Results 11/01/17 11/01/17 Range/Units 23:29 23:49 Urine HCG, Qual Not Detected (Not Detectd) Urine Opiates Screen Not Detected (NotDetected) Ur Oxycodone Screen Not Detected (NotDetected) Urine Methadone Screen Not Detected (NotDetected) Ur Propoxyphene Screen Not Detected (NotDetected) Ur Barbiturates Screen Not Detected (NotDetected) U Tricyclic Antidepress Not Detected (NotDetected) Ur Phencyclidine Scrn Not Detected (NotDetected) Ur Amphetamines Screen Not Detected (NotDetected) U Methamphetamines Scrn Not Detected (NotDetected) U Benzodiazepines Scrn Not Detected (NotDetected) Urine Cocaine Screen Not Detected (NotDetected) U Marijuana (THC) Screen Not Detected (NotDetected) Disposition Clinical Impression: Bipolar disorder Disposition: HOME SELF-CARE Condition: Good Instructions: Schizophrenia (ED) Additional Instructions: Please follow up with [facility] as directed. Please return to the emergency department if you have any worsening symptoms. Is patient prescribed a controlled substance at d/c from ED?: No Referrals: [facility] [Primary Care Provider] - 1-2 days Time of Disposition: 03:34
[2017-11-01 23:48] LABS: Amphetamine Screen,Urine Not Detected (NotDetected); Barbiturate Screen,Urine Not Detected (NotDetected); Benzodiazepines Screen,Urine Not Detected (NotDetected); Cocaine Screen,Urine Not Detected (NotDetected); Methadone Screen, Urine Not Detected (NotDetected); Opiate Screen,Urine Not Detected (NotDetected); Oxycodone Screen, Urine Not Detected (NotDetected); Phencyclidine Screen,Urine Not Detected (NotDetected); Tricyclic Antidepressant,Urine Not Detected (NotDetected); Urn Cannabinoid Scrn Not Detected (NotDetected)
[2017-11-02 03:53] VITALS: BP 144/81; PULSE 61; TEMP 97.3
== END 2017-11-02 03:52 | disposition home or self-care (01) ==
LOC: EC 22:43 → SUPCPDRO 22:43 → EC 11-02 03:52
DX: F31.9 Bipolar disorder, unspecified (principal); F20.9 Schizophrenia, unspecified; F41.9 Anxiety disorder, unspecified; I10 Essential (primary) hypertension; F17.200 Nicotine dependence, unspecified, uncomplicated; Z79.899 Other long term (current) drug therapy; Z98.51 Tubal ligation status; Z88.6 Allergy status to analgesic agent; Z91.018 Allergy to other foods; Z88.8 Allergy status to other drugs, medicaments and biological substances; Z32.02 Encounter for pregnancy test, result negative
CPT/HCPCS: 80306; 81025; 82075; 99284

== ENCOUNTER 2017-11-26 02:34 | Emergency (ER) | payer OTHER ==
[2017-11-26 02:50] VITALS: RESP 16
--- NOTE | 2017-11-26 03:18 | ED ---
Psych HPI <Jameel Nowak - Last Filed: 11/26/17 05:36> - General Source: patient, RN notes reviewed Mode of arrival: EMS Limitations: no limitations <Belgica Mitchell - Last Filed: 11/26/17 19:13> - General Chief Complaint: Psychiatric Symptoms Stated Complaint: Mental Health Time Seen by Provider: 11/26/17 02:53 - History of Present Illness Initial Comments: This is a 27-year-old female who presents to the emergency department with multiple complaints. Patient has a history of schizophrenia, bipolar disorder, depression and anxiety. She has been seen in the emergency department multiple times with similar complaints. Patient states that she has not been feeling well and has been fatigued. She states that she feels as if she is with at least 6-8 babies although patient has a history of tubal ligation. She states that she has been sexually active with the same partner for the last 6 years. Patient states that her abdomen feels heavy while walking around. While performing physical examination and pressing on patient's abdomen, she states that she feels a head coming out of her vagina. She denies alcohol or illicit drug use. Denies auditory or visual hallucinations. Denies recent fevers or chills, chest pain or shortness of breath, vomiting or diarrhea. (Belgica Mitchell) - Related Data Home Medications Medication Instructions Recorded Confirmed fluPHENAZine DECANOATE [Prolixin 50 mg IM Q7D 07/28/16 11/01/17 Decanoate] Asenapine Maleate [Saphris] 10 mg SL HS 11/01/17 11/01/17 Ergocalciferol (Vitamin D2) 50,000 unit PO Q7D 11/01/17 11/01/17 [Vitamin D2] Hydrochlorothiazide 12.5 mg PO DAILY 11/01/17 11/01/17 Allergies Allergy/AdvReac Type Severity Reaction Status Date / Time ibuprofen [From Motrin] Allergy Anaphylaxis Verified 11/01/17 23:22 pineapple Allergy Anaphylaxis Verified 11/01/17 23:22 red dye Allergy Anaphylaxis Verified 11/01/17 23:22 haloperidol [From Haldol] AdvReac Hallucinati Verified 11/01/17 23:22 ons Review of Systems ROS Other: All systems not noted in ROS Statement are negative. <Jameel Nowak - Last Filed: 11/26/17 05:36> ROS Other: All systems not noted in ROS Statement are negative. <Belgica Mitchell - Last Filed: 11/26/17 19:13> ROS Statement: Those systems with pertinent positive or pertinent negative responses have been documented in the HPI. Past Medical History Past Medical History: Asthma, Hypertension, Seizure Disorder Additional Past Medical History / Comment(s): last seizure was April 2015 History of Any Multi-Drug Resistant Organisms: None Reported Past Surgical History: Section, Tonsillectomy, Tubal Ligation Additional Past Surgical History / Comment(s): facial surgery, 2 C-Sections Past Anesthesia/Blood Transfusion Reactions: No Reported Reaction Past Psychological History: Anxiety, Bipolar, Depression, Schizoaffective Disorder, Schizophrenia Smoking Status: Current every day smoker Past Alcohol Use History: None Reported Past Drug Use History: None Reported - Past Family History Father Additional Family Medical History / Comment(s): Father is alive at 42 and may have diabetes. Mother Family Medical History: Thyroid Disorder Additional Family Medical History / Comment(s): Mother is alive at age 45 with thyroid disorder. Brother(s) Additional Family Medical History / Comment(s): Patient has 2 brothers and 2 sisters with no major medical problems. Patient has one son that is healthy. <Belgica Mitchell - Last Filed: 11/26/17 19:13> General Exam <JennaalbertaJameel - Last Filed: 11/26/17 05:36> Limitations: no limitations <Belgica Mitchell - Last Filed: 11/26/17 19:13> - General Exam Comments Initial Comments: General: Awake and alert, well-developed; in no apparent distress. HEENT: Head atraumatic, normocephalic. Pupils are equal, round and reactive to light. Extraocular movements intact. Oropharynx moist without erythema or exudate. Neck: Supple. Normal ROM. Cardiovascular: Regular rate and rhythm. No murmurs, rubs or gallops. Chest symmetrical. Respiratory: Lungs clear to auscultation bilaterally. No wheezes, rales or rhonchi. Normal respiratory effort with no use of accessory muscles. Abdomen: Soft, non-tender, non-distended. No rigidity, rebound or guarding. Normal bowel sounds in all 4 quadrants. Musculoskeletal: Normal ROM, no tenderness bilateral upper and lower extremities. Skin: [place], warm and dry without rashes or lesions. Neurological: Alert and oriented x3. CN II-XII grossly intact. Speech is fluent and answers are appropriate. No focal neuro deficits. Psychiatric: Pleasant and cooperative. Paranoid and delusional. Poor insight and judgment. (Belgica Mitchell) Vital Signs 11/26/17 11/26/17 02:46 05:45 Temperature 98.2 F 97.7 F Pulse Rate 76 73 Respiratory 16 16 Rate Blood Pressure 123/89 126/80 O2 Sat by Pulse 99 99 Oximetry Medical Decision Making <Jameel Nowak - Last Filed: 11/26/17 05:36> <Belgica Mitchell - Last Filed: 11/26/17 19:13> - Medical Decision Making This is a 27-year-old female who presents to the emergency department for mental health evaluation. Although patient has underwent a tubal ligation, she believes she is with 6-8 rabies. Patient is well-known to the emergency department and has had the same complaints in the past. Patient cleared to be evaluated by EPS. Case is signed over to attending physician, Dr. Nowak. (Belgica Mitchell) - Lab Data Lab Results 11/26/17 11/26/17 Range/Units 03:32 03:32 Urine HCG, Qual Not Detected (Not Detectd) Urine Opiates Screen Not Detected (NotDetected) Ur Oxycodone Screen Not Detected (NotDetected) Urine Methadone Screen Not Detected (NotDetected) Ur Propoxyphene Screen Not Detected (NotDetected) Ur Barbiturates Screen Not Detected (NotDetected) U Tricyclic Antidepress Not Detected (NotDetected) Ur Phencyclidine Scrn Not Detected (NotDetected) Ur Amphetamines Screen Not Detected (NotDetected) U Methamphetamines Scrn Not Detected (NotDetected) U Benzodiazepines Scrn Not Detected (NotDetected) Urine Cocaine Screen Not Detected (NotDetected) U Marijuana (THC) Screen Not Detected (NotDetected) Disposition Is patient prescribed a controlled substance at d/c from ED?: No <Jameel Nowak - Last Filed: 11/26/17 05:36> <Belgica Mitchell - Last Filed: 11/26/17 19:13> Clinical Impression: Bipolar disorder Disposition: HOME SELF-CARE Instructions: Bipolar Disorder (DC) Referrals: [facility] [Primary Care Provider] - 1-2 days
[2017-11-26 04:13] LABS: Amphetamine Screen,Urine Not Detected (NotDetected); Barbiturate Screen,Urine Not Detected (NotDetected); Benzodiazepines Screen,Urine Not Detected (NotDetected); Cocaine Screen,Urine Not Detected (NotDetected); Methadone Screen, Urine Not Detected (NotDetected); Opiate Screen,Urine Not Detected (NotDetected); Oxycodone Screen, Urine Not Detected (NotDetected); Phencyclidine Screen,Urine Not Detected (NotDetected); Tricyclic Antidepressant,Urine Not Detected (NotDetected); Urn Cannabinoid Scrn Not Detected (NotDetected)
[2017-11-26 05:45] VITALS: BP 126/80; PULSE 73; TEMP 97.7
== END 2017-11-26 05:45 | disposition home or self-care (01) ==
LOC: EC 02:34
DX: F31.9 Bipolar disorder, unspecified (principal); F22 Delusional disorders; R19.8 Other specified symptoms and signs involving the digestive system and abdomen; I10 Essential (primary) hypertension; F20.9 Schizophrenia, unspecified; F17.200 Nicotine dependence, unspecified, uncomplicated; Z88.6 Allergy status to analgesic agent; Z88.8 Allergy status to other drugs, medicaments and biological substances; Z91.018 Allergy to other foods; Z91.048 Other nonmedicinal substance allergy status; Z79.899 Other long term (current) drug therapy; Z98.51 Tubal ligation status
CPT/HCPCS: 80306; 81025; 99284

== ENCOUNTER 2018-01-09 15:16 | Inpatient (IN) | payer MEDICAID, OTHER ==
--- NOTE | 2018-01-09 18:56 | ED ---
Psych HPI - General Chief Complaint: Psychiatric Symptoms Stated Complaint: Suicidal homicidal, crisis team sent her here Time Seen by Provider: 01/09/18 17:44 Source: patient, RN notes reviewed Mode of arrival: ambulatory - History of Present Illness Initial Comments: 28-year-old female presents emergency Department chief complaint of depression suicidal ideation. Patient states that she's been taking her medications though she does not want to get out of bed because she feels depressed. Patient states that currently she not suicidal she's only had thoughts in the past. Denies any drug use no alcohol abuse. Patient states that [facility] comes and gives her her meds daily to make sure that she is taking them. - Related Data Home Medications Medication Instructions Recorded Confirmed fluPHENAZine DECANOATE [Prolixin 50 mg IM Q7D 07/28/16 01/09/18 Decanoate] Asenapine Maleate [Saphris] 10 mg SL HS 11/01/17 01/09/18 Ergocalciferol (Vitamin D2) 50,000 unit PO Q7D 11/01/17 01/09/18 [Vitamin D2] Hydrochlorothiazide 12.5 mg PO DAILY 11/01/17 01/09/18 Allergies Allergy/AdvReac Type Severity Reaction Status Date / Time ibuprofen [From Motrin] Allergy Anaphylaxis Verified 01/09/18 18:38 pineapple Allergy Anaphylaxis Verified 01/09/18 18:38 red dye Allergy Anaphylaxis Verified 01/09/18 18:38 haloperidol [From Haldol] AdvReac Hallucinati Verified 01/09/18 18:38 ons Review of Systems ROS Statement: Those systems with pertinent positive or pertinent negative responses have been documented in the HPI. ROS Other: All systems not noted in ROS Statement are negative. Past Medical History Past Medical History: Asthma, Hypertension, Seizure Disorder Additional Past Medical History / Comment(s): last seizure was April 2015 History of Any Multi-Drug Resistant Organisms: None Reported Past Surgical History: Section, Tonsillectomy, Tubal Ligation Additional Past Surgical History / Comment(s): facial surgery, 2 C-Sections Past Anesthesia/Blood Transfusion Reactions: No Reported Reaction Past Psychological History: Anxiety, Bipolar, Depression, Schizoaffective Disorder, Schizophrenia Smoking Status: Current every day smoker Past Alcohol Use History: None Reported Past Drug Use History: None Reported - Past Family History Father Additional Family Medical History / Comment(s): Father is alive at 42 and may have diabetes. Mother Family Medical History: Thyroid Disorder Additional Family Medical History / Comment(s): Mother is alive at age 45 with thyroid disorder. Brother(s) Additional Family Medical History / Comment(s): Patient has 2 brothers and 2 sisters with no major medical problems. Patient has one son that is healthy. General Exam Limitations: no limitations General appearance: alert, in no apparent distress Head exam: Present: atraumatic, normocephalic, normal inspection Eye exam: Present: normal appearance, PERRL, EOMI. Absent: scleral icterus, conjunctival injection, periorbital swelling ENT exam: Present: normal exam, mucous membranes moist Neck exam: Present: normal inspection. Absent: tenderness, meningismus, lymphadenopathy Respiratory exam: Present: normal lung sounds bilaterally. Absent: respiratory distress, wheezes, rales, rhonchi, stridor Cardiovascular Exam: Present: regular rate, normal rhythm, normal heart sounds. Absent: systolic murmur, diastolic murmur, rubs, gallop, clicks Neurological exam: Present: alert, oriented X3, CN II-XII intact Skin exam: Present: warm, dry, intact, normal color. Absent: rash Course Vital Signs 01/09/18 16:41 Temperature 98.7 F Pulse Rate 56 L Respiratory 18 Rate Blood Pressure 139/75 O2 Sat by Pulse 96 Oximetry Medical Decision Making - Lab Data Lab Results 01/09/18 Range/Units 19:30 Urine Opiates Screen Not Detected (NotDetected) Ur Oxycodone Screen Not Detected (NotDetected) Urine Methadone Screen Not Detected (NotDetected) Ur Propoxyphene Screen Not Detected (NotDetected) Ur Barbiturates Screen Not Detected (NotDetected) U Tricyclic Antidepress Not Detected (NotDetected) Ur Phencyclidine Scrn Not Detected (NotDetected) Ur Amphetamines Screen Not Detected (NotDetected) U Methamphetamines Scrn Not Detected (NotDetected) U Benzodiazepines Scrn Not Detected (NotDetected) Urine Cocaine Screen Not Detected (NotDetected) U Marijuana (THC) Screen Not Detected (NotDetected) Disposition Clinical Impression: Bipolar disorder, Depression Disposition: [facility] Condition: Stable [facility] [Primary Care Provider] - 1-2 days
[2018-01-09 19:53] LABS: Amphetamine Screen,Urine Not Detected (NotDetected); Barbiturate Screen,Urine Not Detected (NotDetected); Benzodiazepines Screen,Urine Not Detected (NotDetected); Cocaine Screen,Urine Not Detected (NotDetected); Methadone Screen, Urine Not Detected (NotDetected); Opiate Screen,Urine Not Detected (NotDetected); Oxycodone Screen, Urine Not Detected (NotDetected); Phencyclidine Screen,Urine Not Detected (NotDetected); Tricyclic Antidepressant,Urine Not Detected (NotDetected); Urn Cannabinoid Scrn Not Detected (NotDetected)
[2018-01-09] MEDS ORDERED: MAG HYDROX/AL HYDROX/SIMETH 30 ML CUP PO PRN (21:22)
[2018-01-09] MEDS ORDERED: MAGNESIUM HYDROXIDE 2,400 MG/10 ML CUP PO PRN (21:22)
[2018-01-09] MEDS: PRAMIPEXOLE 0.5 MG TAB PO SCH (22:03)
[2018-01-09 23:54] VITALS: BMI 43.0
[2018-01-10] MEDS: ACETAMINOPHEN TAB 325 MG TAB PO PRN ×2 (02:10→23:34)
[2018-01-10] MEDS: LORazepam 1 MG TAB PO PRN (02:10)
[2018-01-10] MEDS: NICOTINE 7MG/24HR PATCH TRANSDERM SCH (07:54)
[2018-01-10] MEDS ORDERED: HYDROCHLOROTHIAZIDE 12.5 MG CAP PO SCH (09:00)
[2018-01-10 11:23] LABS: Basophils % (A) 1 %; Eosinophils # (A) 0.1 k/uL (0-0.7); Eosinophils % (A) 1 %; HCT 37.8 % (34.0-46.0); Lymphocytes # (A) 1.8 k/uL (1.0-4.8); Lymphocytes % (A) 33 %; MCH 29.4 pg (25.0-35.0); MCHC 31.6 g/dL (31.0-37.0); MCV 93.1 fL (80.0-100.0); Monocytes # (A) 0.4 k/uL (0-1.0); Monocytes % (A) 8 %; Neutrophils # (A) 2.9 k/uL (1.3-7.7); Neutrophils % (A) 54 %; Platelet Count 179 k/uL (150-450); RBC 4.07 m/uL (3.80-5.40); RDW 13.4 % (11.5-15.5); WBC 5.4 k/uL (3.8-10.6)
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
[2018-01-10 12:02] LABS: ALT 30 U/L (9-52); AST 20 U/L (14-36); Alkaline Phosphatase 62 U/L (38-126); Anion Gap 9 mmol/L; Blood Urea Nitrogen 9 mg/dL (7-17); Calcium 9.5 mg/dL (8.4-10.2); Carbon Dioxide 27 mmol/L (22-30); Chloride 106 mmol/L (98-107); Cholesterol 156 mg/dL (<200); Glucose 94 mg/dL (74-99); HDL Cholesterol 37 mg/dL (40-60); LDL Cholesterol,Calculated 103 mg/dL (0-99); Potassium 4.5 mmol/L (3.5-5.1); Sodium 142 mmol/L (137-145); Total Bilirubin 0.2 mg/dL (0.2-1.3); Triglycerides 81 mg/dL (<150)
--- NOTE | 2018-01-10 17:04 | P.CONS ---
History of Present Illness - Reason for Consult Medical clearance, hypertension - History of Present Illness His is a 22-year-old female admitted the for schizoaffective disorder to the psychiatric floor. Patient believes unit to have a blood transfusion as she is thirsty all the time. Patient is on hydrochlorothiazide for hypertension although her blood pressure is low normal and I do not believe that is necessary and had good thiazide will be discontinued. Review of Systems REVIEW OF SYSTEMS: CONSTITUTIONAL: No fever, no malaise, no fatigue. HEENT: No recent visual problems or hearing problems. Denied any sore throat. CARDIOVASCULAR: No chest pain, orthopnea, PND, no palpitations, no syncope. PULMONARY: No shortness of breath, no cough, no hemoptysis. GASTROINTESTINAL: No diarrhea, no nausea, no vomiting, no abdominal pain. Normoactive bowel sounds. NEUROLOGICAL: No headaches, no weakness, no numbness. HEMATOLOGICAL: Denies any bleeding or petechiae. GENITOURINARY: Denies any burning micturition, frequency, or urgency. MUSCULOSKELETAL/RHEUMATOLOGICAL: Denies any joint pain, swelling, or any muscle pain. ENDOCRINE: Denies any polyuria or polydipsia. The rest of the 14-point review of systems is negative. Past Medical History Past Medical History: Asthma, Hypertension, Seizure Disorder Additional Past Medical History / Comment(s): last seizure was April 2015 History of Any Multi-Drug Resistant Organisms: None Reported Past Surgical History: Section, Tonsillectomy, Tubal Ligation Additional Past Surgical History / Comment(s): facial surgery, 2 C-Sections Past Anesthesia/Blood Transfusion Reactions: No Reported Reaction Smoking Status: Current every day smoker - Past Family History Father Additional Family Medical History / Comment(s): Father is alive at 42 and may have diabetes. Mother Family Medical History: Thyroid Disorder Additional Family Medical History / Comment(s): Mother is alive at age 45 with thyroid disorder. Brother(s) Additional Family Medical History / Comment(s): Patient has 2 brothers and 2 sisters with no major medical problems. Patient has one son that is healthy. Medications and Allergies Home Medications Medication Instructions Recorded Confirmed Type fluPHENAZine DECANOATE [Prolixin 50 mg IM Q7D 07/28/16 01/09/18 History Decanoate] Asenapine Maleate [Saphris] 10 mg SL HS 11/01/17 01/09/18 History Ergocalciferol (Vitamin D2) 50,000 unit PO Q7D 11/01/17 01/09/18 History [Vitamin D2] Hydrochlorothiazide 12.5 mg PO DAILY 11/01/17 01/09/18 History Allergies Allergy/AdvReac Type Severity Reaction Status Date / Time ibuprofen [From Motrin] Allergy Anaphylaxis Verified 01/09/18 21:12 pineapple Allergy Anaphylaxis Verified 01/09/18 21:12 red dye Allergy Anaphylaxis Verified 01/09/18 21:12 haloperidol [From Haldol] AdvReac Hallucinati Verified 01/09/18 21:12 ons Physical Exam Vitals: Vital Signs Temp Pulse Resp BP 01/10/18 07:00 98.2 F 57 L 18 122/58 01/09/18 23:43 98.7 F 59 L 16 115/88 Intake and Output 01/10/18 01/10/18 01/10/18 06:59 14:59 22:59 Other: Weight 110.1 kg PHYSICAL EXAMINATION: GENERAL: The patient is alert and oriented x3, not in any acute distress. Well developed, well nourished. HEENT: Pupils are round and equally reacting to light. EOMI. No scleral icterus. No conjunctival pallor. Normocephalic, atraumatic. No pharyngeal erythema. No thyromegaly. CARDIOVASCULAR: S1 and S2 present. No murmurs, rubs, or gallops. PULMONARY: Chest is clear to auscultation, no wheezing or crackles. ABDOMEN: Soft, nontender, nondistended, normoactive bowel sounds. No palpable organomegaly. MUSCULOSKELETAL: No joint swelling or deformity. EXTREMITIES: No cyanosis, clubbing, or pedal edema. NEUROLOGICAL: Gross neurological examination did not reveal any focal deficits. SKIN: No rashes. Results CBC & Chem 7: 01/10/18 10:49 01/10/18 10:49 Labs: Abnormal Lab Results - Last 24 Hours (Table) 01/10/18 Range/Units 10:49 LDL Cholesterol, Calc 103 H (0-99) mg/dL HDL Cholesterol 37 L (40-60) mg/dL Assessment and Plan Plan: -Hypertension: I do not believe patient has essential hypertension, hydrocodone thiazide will be discontinued. -Excessive thirstiness: Secondary to hydrochlorothiazide which was discontinued and also her psychiatric medications which is contributing to her symptom of excessive thirstiness. -Schizoaffective disorder management as per primary service -nicotine abuse: Counseling was provided
[2018-01-10 17:59] LABS: Appearance,Urine Clear (Clear); Bilirubin,Urine Negative (Negative); Blood,Urine Negative (Negative); Color,Urine Light Yellow; Glucose,Urine (UA) Negative (Negative); Ketones,Urine Negative (Negative); Leukocyte Esterase,Urine Negative (Negative); Nitrite,Urine Negative (Negative); PH, Urine 6.5 (5.0-8.0); Protein,Urine Negative (Negative); Specific Gravity,Urine 1.007 (1.001-1.035); Urobilinogen,Urine <2.0 mg/dL (<2.0)
[2018-01-10 19:08] LABS: Hemoglobin A1C 5.7 % (4.0-6.0)
[2018-01-10] MEDS: PALIPERIDONE 3 MG TAB.ER.24 PO SCH (21:01)
[2018-01-10] MEDS: PRAMIPEXOLE 0.5 MG TAB PO SCH (21:01)
[2018-01-10] MEDS: lamoTRIgine 25 MG TAB PO SCH (21:01)
[2018-01-11] MEDS: NICOTINE 7MG/24HR PATCH TRANSDERM SCH (09:03)
[2018-01-11] MEDS: ACETAMINOPHEN TAB 325 MG TAB PO PRN ×2 (16:22→20:18)
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
[2018-01-11] MEDS: PRAMIPEXOLE 0.5 MG TAB PO SCH (20:17)
[2018-01-11] MEDS: lamoTRIgine 25 MG TAB PO SCH (20:17)
[2018-01-11] MEDS: PALIPERIDONE 3 MG TAB.ER.24 PO SCH (20:17)
[2018-01-12] MEDS: NICOTINE 7MG/24HR PATCH TRANSDERM SCH (07:29)
--- NOTE | 2018-01-12 15:42 | P.PN ---
Progress Note - Text Progress Note Date: 01/12/18 IDENTIFICATION DATA: 28-year-old Afro-Croatian female admitted due to depression and suicidal ideation. INTERVAL HISTORY: Patient reports nicotine patch is not helping her and states she needs higher dose. She reports feeling tired and sleepy most of the day. She denies feeling hopeless. She says her goal is to reduce weight and become a [employer] fighter. She complains of people stalking and talking to her which bothers her. MENTAL STATUS EXAMINATION: Appeared stated age. She is obese and is, dressed in layers . Fair grooming and hygiene. No abnormal movements noted. mood is reported as up and down, affect flat. speech and thought process were goal directed. Reports auditory HALLUCINATIONS and paranoid ideations. is alert and oriented x 4. denies current suicidal or homicidal ideations. insight and judgement are improving. ASSESSMENT AND PLAN: Will increase invega from 3mg po qhs to 6mg po qhs to help her with auditory hallucinations and paranoid delusions. Will increase her nicotine patch to 21mg as she complains of having cravings Continue current treatment. Monitor for symptoms.
[2018-01-12] MEDS: NICOTINE 21MG/24HR PATCH TRANSDERM SCH (15:48)
[2018-01-12] MEDS: lamoTRIgine 25 MG TAB PO SCH (20:05)
[2018-01-12] MEDS: PRAMIPEXOLE 0.5 MG TAB PO SCH (20:06)
[2018-01-12] MEDS: ACETAMINOPHEN TAB 325 MG TAB PO PRN (20:06)
[2018-01-12] MEDS: LORazepam 1 MG TAB PO PRN (20:07)
[2018-01-12] MEDS ORDERED: PALIPERIDONE 3 MG TAB.ER.24 PO SCH (21:00)
[2018-01-13] MEDS ORDERED: diphenhydrAMINE 50 MG CAP PO STA (01:33)
[2018-01-13] MEDS: NICOTINE 21MG/24HR PATCH TRANSDERM SCH ×2 (09:21→12:06)
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
[2018-01-13] MEDS: PRAMIPEXOLE 0.5 MG TAB PO SCH (20:23)
[2018-01-13] MEDS ORDERED: PALIPERIDONE 3 MG TAB.ER.24 PO SCH (21:00)
[2018-01-13] MEDS ORDERED: lamoTRIgine 25 MG TAB PO SCH (21:00)
[2018-01-14] MEDS: ACETAMINOPHEN TAB 325 MG TAB PO PRN (00:02)
[2018-01-14] MEDS: LORazepam 1 MG TAB PO PRN (00:02)
[2018-01-14 06:48] VITALS: BP 111/56; PULSE 65; RESP 18; TEMP 97.8
[2018-01-14] MEDS ORDERED: PALIPERIDONE IM 234 MG/1.5 ML SYG IM STA (09:03)
[2018-01-14] MEDS ORDERED: NICOTINE POLACRILEX 2 MG GUM BUCCAL PRN (09:30)
--- NOTE | 2018-01-14 09:40 | P.DS ---
Providers Date of admission: 01/09/18 21:10 Expected date of discharge: 01/14/18 Attending physician: Gabriel Lowe DO Consults: 01/09/18 21:22 Consult Physician Routine Consulting Provider: Dona Davila Consult Reason/Comments: H & P and medical care Do you want consulting provider notified?: Yes Primary care physician: [facility] - Discharge Diagnosis(es) (1) Schizoaffective disorder, bipolar type HPI: This is a 28-year-old Afro-[place]kinan female female presents emergency Department chief complaint of depression suicidal ideation. Patient states that she's been taking her medications though she does not want to get out of bed because she feels depressed. Patient states that currently she is suicidal she's only had thoughts in the past. Denies any drug use no alcohol abuse. Patient states that [facility] comes and gives her her meds daily to make sure that she is taking them. Past Medical History: Asthma, Hypertension, Seizure Disorder Additional Past Medical History / Comment(s): last seizure was April 2015 History of Any Multi-Drug Resistant Organisms: None Reported Past Surgical History: Section, Tonsillectomy, Tubal Ligation Additional Past Surgical History / Comment(s): facial surgery, 2 C-Sections Past Anesthesia/Blood Transfusion Reactions: No Reported Reaction Past Psychological History: Anxiety, Bipolar, Depression, Schizoaffective Disorder, Schizophrenia Smoking Status: Current every day smoker Past Alcohol Use History: None Reported Past Drug Use History: None Reported - Past Family History Father Additional Family Medical History / Comment(s): Father is alive at 42 and may have diabetes. Mother Family Medical History: Thyroid Disorder Additional Family Medical History / Comment(s): Mother is alive at age 45 with thyroid disorder. Brother(s) Additional Family Medical History / Comment(s): Patient has 2 brothers and 2 sisters with no major medical problems. Patient has one son that is healthy. Past psychiatric history: She is a client at [facility]. It is reported that her mental illness started about 6 years ago when she had a manic episode and was hospitalized for the first time in [place]. She has had several hospitalizations in [place] and in [place], [place]. She admits to suicide attempts where she tried to hang herself with a belt and stabbed herself on her arm and tried to jump off a balcony. She admits to a history of physical aggression towards others. She has a history of thought disorganization, hallucinations and delusional thinking. She has a history of treatment noncompliance. There is a history of anxiety. She has history of anger problems and irritability. She has a history of delusional thinking- thinking that she was when she was not. She does not have custody of her older son because she reportedly left him unattended on the bus. Substance abuse history: She denies any recent alcohol, drug use or tobacco use. Her urine drug screen in the ER was negative. There is a history of marijuana and alcohol use. Past medical history: Asthma, hypertension, seizure disorder history, 2 pregnancies with , back pain, neck pain Past surgical history: section 2, tonsillectomy, facial surgery ALLERGIES: Ibuprofen, pineapple, red dye Family history: None reported Social history: She was born and raised in [place]. She has a ninth-grade education and went to alternative school. She has brothers and sisters. She is currently unemployed. She is single. She has a 7-year-old son and another son who is about a month old. Her parents are both alive. Her mother apparently has custody of both children. Her mother is her guardian. She also has a public guardian. Current Visit: Yes Status: Acute Priority: Low Hospital Course: Plan of Care: [Patient will be admitted in formal voluntary on the 3 W. behavior health unit and placed on 15 minute checks. Usual protocol for unit safety and observation. She'll was evaluated by medicine, psychiatry, nursing staff, social work, and recreational therapy. She be discontinued on her Prolixin and Saphris and started on Invega 6 mg 9 mg with an injection of 234 mg IM on 01/14/2018. She also be placed on Lamictal 50 mg by mouth daily at bedtime and titrated to a dose of 200 mg on an outpatient basis..] The patient presents alert, pleasant, and cooperative. There calmly seated without any agitated behavior. She reports that [her] mood is good. Affect is congruent and euthymic. [She] deny having any suicidal or homicidal ideation intent or plan. [She] denies any auditory or visual hallucinations. There is no evidence of any delusional thought content. [Her] thought process is linear and goal-directed. [Her] speech is fluent and nonpressured. [Her] memory and concentration is grossly intact for the purposes of this session. She is become less depressed and not suicidal. However motivation for daily life is still an issue. She tends to isolate and not participate unless she wants to be involved. Does do her ADLs and eating meals. Patient Condition at Discharge: Stable Plan - Discharge Summary Discharge Rx Participant: Yes New Discharge Prescriptions: New lamoTRIgine [LaMICtal] 50 mg PO 2100 30 Days #60 tab Pramipexole [Mirapex] 0.5 mg PO HS 30 Days #30 tab Continue fluPHENAZine DECANOATE [Prolixin Decanoate] 50 mg IM Q7D Hydrochlorothiazide 12.5 mg PO DAILY 30 Days #30 capsule Discontinued Asenapine Maleate [Saphris] 10 mg SL HS Ergocalciferol (Vitamin D2) [Vitamin D2] 50,000 unit PO Q7D Discharge Medication List fluPHENAZine DECANOATE [Prolixin Decanoate] 50 mg IM Q7D 07/28/16 [History] Hydrochlorothiazide 12.5 mg PO DAILY 30 Days #30 capsule 01/14/18 [Rx] Pramipexole [Mirapex] 0.5 mg PO HS 30 Days #30 tab 01/14/18 [Rx] lamoTRIgine [LaMICtal] 50 mg PO 2100 30 Days #60 tab 01/14/18 [Rx] Follow up Appointment(s)/Referral(s): [facility] [Primary Care Provider] - 1-2 days Discharge Disposition: HOME SELF-CARE
[2018-01-14] MEDS: NICOTINE 21MG/24HR PATCH TRANSDERM SCH (10:32)
== END 2018-01-14 12:30 | disposition home or self-care (01) | DRG 885 ==
LOC: EC 15:16 → 3MHU 21:10
PROVIDERS: ADMIT Psychiatry & Neurology Psychiatry; ATTEND Psychiatry & Neurology Psychiatry
DX: F25.0 Schizoaffective disorder, bipolar type (principal); R45.851 Suicidal ideations; Z71.6 Tobacco abuse counseling; F17.210 Nicotine dependence, cigarettes, uncomplicated; F41.9 Anxiety disorder, unspecified; G40.909 Epilepsy, unspecified, not intractable, without status epilepticus; I10 Essential (primary) hypertension; J45.909 Unspecified asthma, uncomplicated; Z79.899 Other long term (current) drug therapy; Z91.19 Patient's noncompliance with other medical treatment and regimen; Z98.891 History of uterine scar from previous surgery; Z83.3 Family history of diabetes mellitus; Z83.49 Family history of other endocrine, nutritional and metabolic diseases; Z91.5 Personal history of self-harm; M54.2 Cervicalgia; Z56.0 Unemployment, unspecified; Z88.8 Allergy status to other drugs, medicaments and biological substances; Z88.6 Allergy status to analgesic agent; T50.2X5A Adverse effect of carbonic-anhydrase inhibitors, benzothiadiazides and other diuretics, initial encounter; R63.1 Polydipsia
CPT/HCPCS: 80053; 80061; 80306; 81003; 81025; 82075; 83036; 84443; 85025; 99285

== ENCOUNTER 2018-04-05 15:59 | Emergency (ER) | payer MEDICAID, OTHER ==
[2018-04-05 16:08] VITALS: RESP 18; TEMP 97.8
--- NOTE | 2018-04-05 16:43 | ED ---
General Adult HPI - General Chief complaint: Psychiatric Symptoms Stated complaint: Abd pain Time Seen by Provider: 04/05/18 16:14 Source: patient Mode of arrival: ambulatory Limitations: no limitations - History of Present Illness Initial comments: 20-year-old female with a history of depression and suicide attempts presenting with generalized abdominal pain and suicidal ideations. Patient states that she 's been having regular bowel movements but is having generalized abdominal cramping. She states she feels weak and has a subjective fever. States she is having regular bowel movements and not having any nausea or vomiting. She is also not having diarrhea. Patient states her last period was in January and she is concerned she is . Patient does have a history of delusions that involve her being . She has not had a test recently or an OB appointment. - Related Data Home Medications Medication Instructions Recorded Confirmed Ergocalciferol [Vitamin D2] 50,000 unit PO Q7D 04/05/18 04/05/18 Paliperidone IM [Invega Sustenna] 234 mg IM Q30D 04/05/18 04/05/18 Allergies Allergy/AdvReac Type Severity Reaction Status Date / Time ibuprofen [From Motrin] Allergy Anaphylaxis Verified 04/05/18 16:30 pineapple Allergy Anaphylaxis Verified 04/05/18 16:30 red dye Allergy Anaphylaxis Verified 04/05/18 16:30 haloperidol [From Haldol] AdvReac Hallucinati Verified 04/05/18 16:30 ons Review of Systems ROS Statement: Those systems with pertinent positive or pertinent negative responses have been documented in the HPI. ROS Other: All systems not noted in ROS Statement are negative. Past Medical History Past Medical History: Asthma, Hypertension, Seizure Disorder Additional Past Medical History / Comment(s): last seizure was April 2015 History of Any Multi-Drug Resistant Organisms: None Reported Past Surgical History: Section, Tonsillectomy, Tubal Ligation Additional Past Surgical History / Comment(s): facial surgery, 2 C-Sections Past Anesthesia/Blood Transfusion Reactions: No Reported Reaction Past Psychological History: Anxiety, Bipolar, Depression, Schizoaffective Disorder, Schizophrenia Smoking Status: Current every day smoker Past Alcohol Use History: None Reported Past Drug Use History: None Reported - Past Family History Father Additional Family Medical History / Comment(s): Father is alive at 42 and may have diabetes. Mother Family Medical History: Thyroid Disorder Additional Family Medical History / Comment(s): Mother is alive at age 45 with thyroid disorder. Brother(s) Additional Family Medical History / Comment(s): Patient has 2 brothers and 2 sisters with no major medical problems. Patient has one son that is healthy. General Exam Limitations: no limitations Course Vital Signs 04/05/18 04/05/18 16:05 18:46 Temperature 97.8 F Pulse Rate 94 86 Respiratory 18 18 Rate Blood Pressure 132/84 129/80 O2 Sat by Pulse 99 99 Oximetry Medical Decision Making - Medical Decision Making 28-year-old female presenting with abdominal pain and suicidal ideations. Initial exam the patient is awake, alert, no acute distress. VSS. Patient has no abdominal tenderness on exam. She has been eating and drinking normally and is nontoxic-appearing. Her laboratory workup was unremarkable. She was evaluated by [facility] who stated that they did not feel the patient requires inpatient psychiatric treatment. The patient was stated that she only had suicidal ideations because she had belly pain which is now gone. She is not suicidal her depression symptoms are baseline and haven't worsened. This time patient is safe and stable for discharge back to assisted. No further emergent workup indicated. The patient was given return to ED instructions. They were instructed to follow up with their primary care provider. Stable for discharge at this time. - Lab Data Result diagrams: 04/05/18 17:09 04/05/18 17:09 Lab Results 04/05/18 04/05/18 04/05/18 Range/Units 17:09 17:09 17:09 WBC 6.2 (3.8-10.6) k/uL RBC 4.12 (3.80-5.40) m/uL Hgb 12.6 (11.4-16.0) gm/dL Hct 38.6 (34.0-46.0) % MCV 93.6 (80.0-100.0) fL MCH 30.5 (25.0-35.0) pg MCHC 32.6 (31.0-37.0) g/dL RDW 12.9 (11.5-15.5) % Plt Count 201 (150-450) k/uL Neutrophils % 64 % Lymphocytes % 26 % Monocytes % 6 % Eosinophils % 1 % Basophils % 1 % Neutrophils # 4.0 (1.3-7.7) k/uL Lymphocytes # 1.6 (1.0-4.8) k/uL Monocytes # 0.4 (0-1.0) k/uL Eosinophils # 0.1 (0-0.7) k/uL Basophils # 0.1 (0-0.2) k/uL Sodium 140 (137-145) mmol/L Potassium 4.6 (3.5-5.1) mmol/L Chloride 104 (98-107) mmol/L Carbon Dioxide 28 (22-30) mmol/L Anion Gap 8 mmol/L BUN 8 (7-17) mg/dL Creatinine 0.53 (0.52-1.04) mg/dL Est GFR (CKD-EPI)AfAm >90 (>60 ml/min/1.73 sqM) Est GFR (CKD-EPI)NonAf >90 (>60 ml/min/1.73 sqM) Glucose 86 (74-99) mg/dL Calcium 9.6 (8.4-10.2) mg/dL Total Bilirubin 0.4 (0.2-1.3) mg/dL Conjugated Bilirubin 0.0 (0.0-0.3) mg/dL Unconjugated Bilirubin 0.1 (0.0-1.1) mg/dL Delta Bilirubin 0.3 H (0.0-0.2) mg/dL AST 29 (14-36) U/L ALT 38 (9-52) U/L Alkaline Phosphatase 76 (38-126) U/L Total Protein 7.9 (6.3-8.2) g/dL Albumin 4.4 (3.5-5.0) g/dL Lipase 62 (23-300) U/L HCG, Quant <2.4 mIU/mL Urine Color Light Yellow Urine Appearance Clear (Clear) Urine pH 7.0 (5.0-8.0) Ur Specific [place] 1.003 (1.001-1.035) Urine Protein Negative (Negative) Urine Glucose (UA) Negative (Negative) Urine Ketones Negative (Negative) Urine Blood Negative (Negative) Urine Nitrite Negative (Negative) Urine Bilirubin Negative (Negative) Urine Urobilinogen <2.0 (<2.0) mg/dL Ur Leukocyte Esterase Negative (Negative) Urine Opiates Screen Not Detected (NotDetected) Ur Oxycodone Screen Not Detected (NotDetected) Urine Methadone Screen Not Detected (NotDetected) Ur Propoxyphene Screen Not Detected (NotDetected) Ur Barbiturates Screen Not Detected (NotDetected) U Tricyclic Antidepress Not Detected (NotDetected) Ur Phencyclidine Scrn Not Detected (NotDetected) Ur Amphetamines Screen Not Detected (NotDetected) U Methamphetamines Scrn Not Detected (NotDetected) U Benzodiazepines Scrn Not Detected (NotDetected) Urine Cocaine Screen Not Detected (NotDetected) U Marijuana (THC) Screen Not Detected (NotDetected) Disposition Clinical Impression: Abdominal pain Disposition: HOME SELF-CARE Instructions (If sedation given, give patient instructions): Abdominal Pain (ED ) Is patient prescribed a controlled substance at d/c from ED?: No Referrals: [facility] [Primary Care Provider] - 1-2 days
[2018-04-05 17:22] LABS: Basophils # (A) 0.1 k/uL (0-0.2); Basophils % (A) 1 %; Eosinophils # (A) 0.1 k/uL (0-0.7); Eosinophils % (A) 1 %; HCT 38.6 % (34.0-46.0); HGB 12.6 gm/dL (11.4-16.0); Lymphocytes # (A) 1.6 k/uL (1.0-4.8); Lymphocytes % (A) 26 %; MCH 30.5 pg (25.0-35.0); MCHC 32.6 g/dL (31.0-37.0); MCV 93.6 fL (80.0-100.0); Monocytes # (A) 0.4 k/uL (0-1.0); Monocytes % (A) 6 %; Neutrophils % (A) 64 %; Platelet Count 201 k/uL (150-450); RBC 4.12 m/uL (3.80-5.40); RDW 12.9 % (11.5-15.5); WBC 6.2 k/uL (3.8-10.6)
[2018-04-05 17:26] LABS: Appearance,Urine Clear (Clear); Bilirubin,Urine Negative (Negative); Blood,Urine Negative (Negative); Color,Urine Light Yellow; Glucose,Urine (UA) Negative (Negative); Ketones,Urine Negative (Negative); Leukocyte Esterase,Urine Negative (Negative); Nitrite,Urine Negative (Negative); Protein,Urine Negative (Negative); Specific Gravity,Urine 1.003 (1.001-1.035); Urobilinogen,Urine <2.0 mg/dL (<2.0)
[2018-04-05 17:34] LABS: ALT 38 U/L (9-52); AST 29 U/L (14-36); Albumin 4.4 g/dL (3.5-5.0); Alkaline Phosphatase 76 U/L (38-126); Amphetamine Screen,Urine Not Detected (NotDetected); Anion Gap 8 mmol/L; Barbiturate Screen,Urine Not Detected (NotDetected); Benzodiazepines Screen,Urine Not Detected (NotDetected); Bilirubin, Delta 0.3 mg/dL (0.0-0.2); Bilirubin,Unconjugated 0.1 mg/dL (0.0-1.1); Blood Urea Nitrogen 8 mg/dL (7-17); Calcium 9.6 mg/dL (8.4-10.2); Carbon Dioxide 28 mmol/L (22-30); Chloride 104 mmol/L (98-107); Cocaine Screen,Urine Not Detected (NotDetected); Glucose 86 mg/dL (74-99); Lipase 62 U/L (23-300); Methadone Screen, Urine Not Detected (NotDetected); Opiate Screen,Urine Not Detected (NotDetected); Oxycodone Screen, Urine Not Detected (NotDetected); Phencyclidine Screen,Urine Not Detected (NotDetected); Sodium 140 mmol/L (137-145); Total Bilirubin 0.4 mg/dL (0.2-1.3); Total Protein 7.9 g/dL (6.3-8.2); Tricyclic Antidepressant,Urine Not Detected (NotDetected); Urn Cannabinoid Scrn Not Detected (NotDetected)
[2018-04-05 17:35] LABS: Potassium 4.6 mmol/L (3.5-5.1)
[2018-04-05 17:50] LABS: HCG,Quantitative Serum <2.4 mIU/mL
[2018-04-05 21:07] VITALS: BP 129/80; PULSE 86
--- NOTE | 2018-04-08 01:13 | CDI ---
Dear Cassy Lincoln DO: Please do addendum Physical Examination. Thank you, Martina Barnes, Engagement Quality Consultant. If you have any questions, please contact [employer] at [phone]. [facility]
== END 2018-04-05 18:47 | disposition home or self-care (01) ==
LOC: EC 15:59
DX: R10.84 Generalized abdominal pain (principal); R45.851 Suicidal ideations; F32.9 Major depressive disorder, single episode, unspecified; R53.1 Weakness; R50.9 Fever, unspecified; F20.9 Schizophrenia, unspecified; F17.200 Nicotine dependence, unspecified, uncomplicated; Z88.6 Allergy status to analgesic agent; Z88.8 Allergy status to other drugs, medicaments and biological substances; Z91.018 Allergy to other foods; Z91.048 Other nonmedicinal substance allergy status; Z79.899 Other long term (current) drug therapy
CPT/HCPCS: 36415; 80048; 80076; 80306; 81003; 82075; 83690; 84702; 85025; 99285

== ENCOUNTER 2018-05-08 21:37 | Emergency (ER) | payer OTHER ==
[2018-05-08 21:55] VITALS: RESP 18
--- NOTE | 2018-05-08 23:15 | ED ---
Recheck HPI - General Source: patient Mode of arrival: ambulatory Limitations: no limitations <Deya Hernandez - Last Filed: 05/09/18 01:29> <Brenda Gabriel - Last Filed: 05/09/18 02:27> - General Chief Complaint: Recheck/Abnormal Lab/Rx Stated Complaint: and wants ultrasound Time Seen by Provider: 05/08/18 22:06 - History of Present Illness Initial Comments: 28-year-old female presenting for test. Patient will emergency department, patient states she has had unprotected sex is a concern for . Patient states she has had a tubal ligation however feels the baby may be in her tubes or her gallbladder. Patient has not taken home prior to tests denies any abdominal pain nausea vomiting breast tenderness. Denies dysuria or urgency frequency or vaginal discharge. Remaining review of systems negative, patient denies any recent fever, chills, shortness of breath, chest pain, back pain, numbness or tingling, dysuria or hematuria, constipation or diarrhea, headaches or visual changes, or any other complaints. (Deya Hernandez) - Related Data Home Medications Medication Instructions Recorded Confirmed Ergocalciferol [Vitamin D2] 50,000 unit PO Q7D 04/05/18 05/08/18 Benztropine Mesylate [Cogentin] 2 mg PO BID 05/08/18 05/08/18 OLANZapine [ZyPREXA] 10 mg PO HS 05/08/18 05/08/18 clonazePAM 2 mg PO HS 05/08/18 05/08/18 fluPHENAZine DECANOATE [Prolixin 50 mg IM Q7D 05/08/18 05/08/18 Decanoate] lamoTRIgine [LaMICtal] 200 mg PO DAILY 05/08/18 05/08/18 Allergies Allergy/AdvReac Type Severity Reaction Status Date / Time ibuprofen [From Motrin] Allergy Anaphylaxis Verified 05/08/18 22:15 pineapple Allergy Anaphylaxis Verified 05/08/18 22:15 red dye Allergy Anaphylaxis Verified 05/08/18 22:15 haloperidol [From Haldol] AdvReac Hallucinati Verified 05/08/18 22:15 ons Review of Systems ROS Other: All systems not noted in ROS Statement are negative. <Deya Hernandez - Last Filed: 05/09/18 01:29> ROS Other: All systems not noted in ROS Statement are negative. <Brenda Gabriel P - Last Filed: 05/09/18 02:27> ROS Statement: Those systems with pertinent positive or pertinent negative responses have been documented in the HPI. Past Medical History Past Medical History: Asthma, Hypertension, Seizure Disorder Additional Past Medical History / Comment(s): last seizure was April 2015 History of Any Multi-Drug Resistant Organisms: None Reported Past Surgical History: Section, Tonsillectomy, Tubal Ligation Additional Past Surgical History / Comment(s): facial surgery, 2 C-Sections Past Anesthesia/Blood Transfusion Reactions: No Reported Reaction Past Psychological History: Anxiety, Bipolar, Depression, Schizoaffective Dis order, Schizophrenia Smoking Status: Current every day smoker Past Alcohol Use History: None Reported Past Drug Use History: None Reported - Past Family History Father Additional Family Medical History / Comment(s): Father is alive at 42 and may have diabetes. Mother Family Medical History: Thyroid Disorder Additional Family Medical History / Comment(s): Mother is alive at age 45 with thyroid disorder. Brother(s) Additional Family Medical History / Comment(s): Patient has 2 brothers and 2 sisters with no major medical problems. Patient has one son that is healthy. <Deya Hernandez L - Last Filed: 05/09/18 01:29> General Exam Limitations: no limitations <Deya Hernandez L - Last Filed: 05/09/18 01:29> - General Exam Comments Initial Comments: General: The patient is awake and alert, in no distress, and does not appear acutely ill. Eye: Pupils are equal, round and reactive to light, extra-ocular movements are intact. No nystagmus. There is normal conjunctiva bilaterally. No signs of icterus. Ears, nose, mouth and throat: There are moist mucous membranes and no oral lesions. Neck: The neck is supple, there is no tenderness or JVD. Cardiovascular: There is a regular rate and rhythm. No murmur, rub or gallop is appreciated. Respiratory: Lungs are clear to auscultation, respirations are non-labored, breath sounds are equal. No wheezes, stridor, rales, or rhonchi. Gastrointestinal: Soft, non-distended, non-tender abdomen without masses or organomegaly noted. There is no rebound or guarding present. No CVA tenderness. Bowel sounds are unremarkable. Musculoskeletal: Normal ROM, no tenderness. Strength 5/5. Sensation intact. Pulses equal bilaterally 2+. Neurological: A&O x 3. CN II-XII intact, There are no obvious motor or sensory deficits. Coordination appears grossly intact. Speech is normal. Skin: Skin is warm and dry and no rashes or lesions are noted. Psychiatric: Cooperative (Deya Hernandez) Course <Deya Hernandez - Last Filed: 05/09/18 01:29> Vital Signs 05/08/18 05/08/18 21:51 23:25 Temperature 98.5 F 97.9 F Pulse Rate 91 80 Respiratory 18 18 Rate Blood Pressure 127/81 138/88 O2 Sat by Pulse 100 98 Oximetry - Reevaluation(s) Reevaluation #1: Upon reevaluation patient sleeping in room resting comfortably. (Deya Hernandez) Medical Decision Making <eDya Hernandez - Last Filed: 05/09/18 01:29> <Brenda Gabriel - Last Filed: 05/09/18 02:27> - Medical Decision Making Uteropexy negative. Patient denies any symptomology. Patient be discharged with outpatient follow-up. Patient may repeat test in the next 1-2 weeks. She agreeable discharge and plan. Denies questions at this time. (Deya Hernandez) Dictation air was noted in the MDM. The urine test was negative. I saw and evaluated the patient she was in no acute distress stable for discharge home (Brenda Gabriel) - Lab Data Lab Results 05/08/18 Range/Units 22:11 Urine HCG, Qual Not Detected (Not Detectd) Disposition Is patient prescribed a controlled substance at d/c from ED?: No Time of Disposition: 23:14 <Deya Hernandez - Last Filed: 05/09/18 01:29> <Brenda Gabriel - Last Filed: 05/09/18 02:27> Clinical Impression: Negative test Disposition: HOME SELF-CARE Condition: Good Additional Instructions: Please follow-up with family doctor in the next 2 days of symptoms have not improved. Please return to emergency room if the symptoms increase or worsen or for any other concerns. Referrals: Nirali Valentin MD [Primary Care Provider] - 1-2 days
[2018-05-08 23:26] VITALS: BP 138/88; PULSE 80; TEMP 97.9
== END 2018-05-08 23:26 | disposition home or self-care (01) ==
LOC: EC 21:37
DX: Z32.02 Encounter for pregnancy test, result negative (principal); G40.909 Epilepsy, unspecified, not intractable, without status epilepticus; F25.9 Schizoaffective disorder, unspecified; F31.9 Bipolar disorder, unspecified; F41.9 Anxiety disorder, unspecified; F17.200 Nicotine dependence, unspecified, uncomplicated; Z79.899 Other long term (current) drug therapy; Z88.6 Allergy status to analgesic agent; Z91.018 Allergy to other foods; Z88.8 Allergy status to other drugs, medicaments and biological substances; Z91.09 Other allergy status, other than to drugs and biological substances
CPT/HCPCS: 81025; 99282

== ENCOUNTER → 2018-07-08 | Outpatient (CLI) | payer OTHER ==
[2018-07-08 16:03] LABS: LDL Cholesterol,Calculated 117.6 mg/dL (0.0-131.0); VLDL Calculation 22.4 mg/dL (5.00-40.00)
[2018-07-08 18:41] LABS: Hemoglobin A1C 6.2 % (4.0-6.0)
== END | disposition home or self-care (01) ==
LOC: LABWHC1 07:55
PROVIDERS: ATTEND Psychiatry & Neurology Psychiatry
DX: Z51.81 Encounter for therapeutic drug level monitoring (principal); Z79.899 Other long term (current) drug therapy
CPT/HCPCS: 36415; 80061; 80299; 82565; 82947; 83036; 84439; 84443; 84520

== ENCOUNTER 2018-09-22 05:05 | Emergency (ER) | payer OTHER ==
[2018-09-22 05:15] VITALS: BP 134/67; PULSE 104; RESP 16; TEMP 98.7
--- NOTE | 2018-09-22 06:06 | ED ---
URI HPI - General Chief Complaint: Upper Respiratory Infection Stated Complaint: Mental Health Time Seen by Provider: 09/22/18 05:20 Source: patient Mode of arrival: ambulatory Limitations: no limitations - History of Present Illness MD Complaint: cough -: days(s) Consistency: constant Improves With: nothing Worsens With: nothing Associated Symptoms: cough Treatments Prior to Arrival: none - Related Data Home Medications Medication Instructions Recorded Confirmed Ergocalciferol [Vitamin D2] 50,000 unit PO Q7D 04/05/18 08/05/18 OLANZapine [ZyPREXA] 10 mg PO HS 05/08/18 08/05/18 fluPHENAZine DECANOATE [Prolixin 50 mg IM Q7D 05/08/18 08/05/18 Decanoate] lamoTRIgine [LaMICtal] 200 mg PO DAILY 05/08/18 08/05/18 Benztropine Mesylate [Cogentin] 1 mg PO BID 08/05/18 08/05/18 clonazePAM [KlonoPIN] 1 mg PO HS 08/05/18 08/05/18 Previous Rx's Medication Instructions Recorded Clindamycin [Cleocin] 300 mg PO Q6H 7 Days #56 capsule 08/05/18 Allergies Allergy/AdvReac Type Severity Reaction Status Date / Time ibuprofen [From Motrin] Allergy Anaphylaxis Verified 09/22/18 05:15 pineapple Allergy Anaphylaxis Verified 09/22/18 05:15 red dye Allergy Anaphylaxis Verified 09/22/18 05:15 haloperidol [From Haldol] AdvReac Hallucinati Verified 09/22/18 05:15 ons Review of Systems ROS Statement: Those systems with pertinent positive or pertinent negative responses have been documented in the HPI. ROS Other: All systems not noted in ROS Statement are negative. Constitutional: Denies: fever, chills ENT: Reports: congestion. Denies: throat pain Respiratory: Reports: cough. Denies: dyspnea, wheezes Cardiovascular: Denies: chest pain, palpitations Gastrointestinal: Denies: abdominal pain, vomiting Musculoskeletal: Denies: back pain Skin: Denies: rash Past Medical History Past Medical History: Asthma, Hypertension, Seizure Disorder Additional Past Medical History / Comment(s): last seizure was April 2015 History of Any Multi-Drug Resistant Organisms: None Reported Past Surgical History: Section, Tonsillectomy, Tubal Ligation Additional Past Surgical History / Comment(s): facial surgery, 2 C-Sections Past Anesthesia/Blood Transfusion Reactions: No Reported Reaction Past Psychological History: Anxiety, Bipolar, Depression, Schizoaffective Disorder, Schizophrenia Smoking Status: Current every day smoker Past Alcohol Use History: None Reported Past Drug Use History: None Reported - Past Family History Father Additional Family Medical History / Comment(s): Father is alive at 42 and may parrish ve diabetes. Mother Family Medical History: Thyroid Disorder Additional Family Medical History / Comment(s): Mother is alive at age 45 with thyroid disorder. Brother(s) Additional Family Medical History / Comment(s): Patient has 2 brothers and 2 sisters with no major medical problems. Patient has one son that is healthy. General Exam Limitations: no limitations General appearance: alert, in no apparent distress Head exam: Present: atraumatic, normocephalic ENT exam: Present: normal oropharynx Respiratory exam: Present: normal lung sounds bilaterally. Absent: respiratory distress, wheezes, rales, rhonchi, stridor Cardiovascular Exam: Present: regular rate, normal rhythm, normal heart sounds. Absent: systolic murmur, diastolic murmur, rubs, gallop GI/Abdominal exam: Present: soft. Absent: distended, tenderness, guarding, rebound, rigid Extremities exam: Present: normal inspection, normal capillary refill. Absent: pedal edema, calf tenderness Back exam: Present: normal inspection. Absent: CVA tenderness (R), CVA tenderness (L) Skin exam: Present: warm, dry, intact, normal color. Absent: rash Course Vital Signs 09/22/18 05:11 Temperature 98.7 F Pulse Rate 104 H Respiratory 16 Rate Blood Pressure 134/67 O2 Sat by Pulse 98 Oximetry Disposition Clinical Impression: Upper respiratory infection Disposition: HOME SELF-CARE Condition: Fair Instructions (If sedation given, give patient instructions): Upper Respiratory Infection (ED) Is patient prescribed a controlled substance at d/c from ED?: No Referrals: [facility] [Primary Care Provider] - 1-2 days
--- NOTE | 2018-09-22 06:28 | XR ---
EXAM: XR Chest, 2 Views CLINICAL HISTORY: cough TECHNIQUE: Frontal and lateral views of the chest. COMPARISON: 09/01/17 FINDINGS: Lungs: Unremarkable. No consolidation. Pleural space: Unremarkable. No pneumothorax. Heart: Unremarkable. No cardiomegaly. Mediastinum: Unremarkable. Bones/joints: Unremarkable. IMPRESSION: No acute findings or substantial change
== END 2018-09-22 06:45 | disposition home or self-care (01) ==
LOC: EC 05:05
DX: J06.9 Acute upper respiratory infection, unspecified (principal); F17.200 Nicotine dependence, unspecified, uncomplicated; G40.909 Epilepsy, unspecified, not intractable, without status epilepticus; F31.9 Bipolar disorder, unspecified; F20.9 Schizophrenia, unspecified; F41.9 Anxiety disorder, unspecified; Z88.6 Allergy status to analgesic agent; Z88.8 Allergy status to other drugs, medicaments and biological substances; Z91.018 Allergy to other foods; Z91.048 Other nonmedicinal substance allergy status; Z79.899 Other long term (current) drug therapy; Z90.89 Acquired absence of other organs
CPT/HCPCS: 71046; 99283

== ENCOUNTER 2018-09-22 12:10 | Inpatient (IN) | payer MEDICAID, OTHER ==
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
[2018-09-22 13:49] LABS: Amphetamine Screen,Urine Not Detected (NotDetected); Barbiturate Screen,Urine Not Detected (NotDetected); Benzodiazepines Screen,Urine Not Detected (NotDetected); Cocaine Screen,Urine Not Detected (NotDetected); Methadone Screen, Urine Not Detected (NotDetected); Opiate Screen,Urine Not Detected (NotDetected); Oxycodone Screen, Urine Not Detected (NotDetected); Phencyclidine Screen,Urine Not Detected (NotDetected); Tricyclic Antidepressant,Urine Not Detected (NotDetected); Urn Cannabinoid Scrn Not Detected (NotDetected)
[2018-09-22] MEDS ORDERED: MAGNESIUM HYDROXIDE 2,400 MG/10 ML CUP PO PRN (17:11)
[2018-09-22] MEDS ORDERED: ZIPRASIDONE 20 MG VIAL IM PRN (17:11)
[2018-09-22] MEDS ORDERED: MAG HYDROX/AL HYDROX/SIMETH 30 ML CUP PO PRN (17:11)
[2018-09-22] MEDS ORDERED: LORazepam 1 MG TAB PO PRN (17:11)
[2018-09-22] MEDS ORDERED: LORazepam 2 MG/ML INJ IM PRN (17:13)
[2018-09-22 18:04] LABS: Appearance,Urine Clear (Clear); Bilirubin,Urine Negative (Negative); Blood,Urine Negative (Negative); Color,Urine Yellow; Glucose,Urine (UA) Negative (Negative); Ketones,Urine Trace (Negative); Leukocyte Esterase,Urine Negative (Negative); Nitrite,Urine Negative (Negative); Protein,Urine Negative (Negative); Specific Gravity,Urine 1.021 (1.001-1.035); Urobilinogen,Urine <2.0 mg/dL (<2.0)
[2018-09-22] MEDS: NICOTINE 14MG/24HR PATCH TRANSDERM SCH (18:11)
[2018-09-22] MEDS ORDERED: diphenhydrAMINE ELIXIR 25 MG/10 ML CUP PO SCH (21:00)
[2018-09-22] MEDS ORDERED: clonazePAM 1 MG TAB PO SCH (21:00)
--- NOTE | 2018-09-23 00:11 | P.PN ---
Progress Note - Text Progress Note Date: 09/23/18 patient was medicated and sedated heavily , could not be evaluated at this time.
[2018-09-23 08:47] LABS: Basophils % (A) 1 %; Eosinophils # (A) 0.1 k/uL (0-0.7); Eosinophils % (A) 2 %; HCT 40.9 % (34.0-46.0); HGB 13.1 gm/dL (11.4-16.0); Lymphocytes # (A) 1.9 k/uL (1.0-4.8); Lymphocytes % (A) 25 %; MCH 29.1 pg (25.0-35.0); MCHC 32.1 g/dL (31.0-37.0); MCV 90.7 fL (80.0-100.0); Mean Platelet Volume 7.5; Monocytes # (A) 0.4 k/uL (0-1.0); Monocytes % (A) 6 %; Neutrophils # (A) 4.8 k/uL (1.3-7.7); Neutrophils % (A) 64 %; Platelet Count 217 k/uL (150-450); RDW 13.8 % (11.5-15.5); WBC 7.5 k/uL (3.8-10.6)
[2018-09-23] MEDS ORDERED: fluPHENAZine DECANOATE 25 MG/ML 5ML MDV IM SCH (09:00)
[2018-09-23] MEDS ORDERED: lamoTRIgine 100 MG TAB PO SCH (09:00)
[2018-09-23] MEDS: HYDROCHLOROTHIAZIDE 25 MG TAB PO SCH (09:01)
[2018-09-23 09:23] LABS: ALT 43 U/L (9-52); AST 111 U/L (14-36); African American GFR (CKD) >90 (>60 ml/min/1.73 sqM); Albumin 4.7 g/dL (3.5-5.0); Alkaline Phosphatase 59 U/L (38-126); Anion Gap 10 mmol/L; Blood Urea Nitrogen 7 mg/dL (7-17); Calcium 9.5 mg/dL (8.4-10.2); Carbon Dioxide 28 mmol/L (22-30); Chloride 103 mmol/L (98-107); Cholesterol 154 mg/dL (<200); Glucose 114 mg/dL (74-99); HDL Cholesterol 40 mg/dL (40-60); LDL Cholesterol,Calculated 100 mg/dL (0-99); Potassium 3.8 mmol/L (3.5-5.1); Sodium 141 mmol/L (137-145); Total Bilirubin 0.7 mg/dL (0.2-1.3); Total Protein 8.1 g/dL (6.3-8.2); Triglycerides 71 mg/dL (<150)
[2018-09-23] MEDS: NICOTINE 14MG/24HR PATCH TRANSDERM SCH (09:23)
[2018-09-23] MEDS ORDERED: hydrOXYzine HCL 25 MG TAB PO PRN (10:42)
[2018-09-23] MEDS ORDERED: fluPHENAZine DECANOATE 25 MG/ML 5ML MDV IM ONE (11:15)
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
[2018-09-23] MEDS ORDERED: PANTOPRAZOLE 40 MG TABLET PO STA (17:26)
[2018-09-23] MEDS ORDERED: FLUCONAZOLE 150 MG TAB PO STA (17:38)
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
[2018-09-23 20:21] LABS: Hemoglobin A1C 6.1 % (4.0-6.0)
[2018-09-23] MEDS ORDERED: QUEtiapine 50 MG TAB PO SCH (21:00)
--- NOTE | 2018-09-23 22:08 | XR ---
EXAMINATION: XR chest 2V DATE AND TIME: 09/23/2018 6:35 PM CLINICAL INDICATION: PHH; cough TECHNIQUE: Departmental protocol COMPARISON: 09/22/2018 FINDINGS: The lungs are clear. The pleural spaces are negative. The cardiac silhouette is not enlarged. The remainder of the mediastinal silhouette is unremarkable. The skeletal structures and soft tissues are negative for acute findings. IMPRESSION: NO ACUTE PROCESS.
[2018-09-24] MEDS: MICONAZOLE NITRATE 4%/2% VAG CREAM KIT VAGINAL SCH (03:03)
[2018-09-24] MEDS: NICOTINE 14MG/24HR PATCH TRANSDERM SCH (09:09)
[2018-09-24] MEDS: HYDROCHLOROTHIAZIDE 25 MG TAB PO SCH (09:09)
[2018-09-24] MEDS: PANTOPRAZOLE 40 MG TABLET PO SCH (09:10)
--- NOTE | 2018-09-24 12:33 | P.PN ---
Progress Note - Text Progress Note Date: 09/24/18 Interval History: Patient was seen today in the hallways and was agreeable to speak to automotive service writer, she was directable and cooperative with interview. Patient appeared to be somewhat lethargic today yawning during the interview. Patient states that she had a better sleep last night however went to bed around 3 AM due to noise. She states that she still hears voices O however it is improving. Patient claims that she is attempting to go to some groups and finds it enjoyable. Patient has improved frustration tolerance however continues to have superficial/poor insight and judgment. She states that she is eating well and getting along well with other people. At this time patient denies any suicidal or homical ideations, intent or plan. Patient denies any auditory, visual hallucinations and denies any paranoia or delusions. Patient admits to be compliant with medication. Mental Status Exam: General Appearance: Patient appears to be stated age, is alert however somewhat somnolent today. Patient is directable has improved hygiene and grooming. Behavior: [Patient is calmly seated without any agitated behavior.] Speech: Patient's speech is fluent and nonpressured. Mood/Affect: Patient reports their mood is improving, affect is congruent and constricted. Suicidality/Homicidality: Patient denies having any suicidal or homicidal ideation intent or plan. Perceptions: Patient admits to chronic auditory hallucinations denies any visual hallucinations at this time. Though content/process: [There is no evidence of any delusional thought content and thought process is linear and goal-directed.] Patient continues to have poverty of thought. Memory and concentration: AOX3, grossly intact for the purposes of this session Judgment and insight: Poor, improving Assessment Schizoaffective, bipolar type Nicotine use disorder. PLAN: -Patient continues to meet criteria for inpatient psychiatric hospitalizations for stabilization of psychiatric symptoms and safety. Patient is admitted under voluntary status. -Medications: Will decrease Seroquel to 100 mg daily at bedtime for aggression/psychosis due to oversedation. Patient was given 50 mg of Prolixin IM on 09/23/2018. This is given weekly to control her psychosis at [facility]. -Hydroxyzine 25 mg twice a day when necessary for anxiety. Patient was encouraged to take this medication at night if she feels anxious and cannot sleep. -Geodon PRN for agitation/aggression -Patient was informed of the risks, benefits and side effects of the medication and patient verbally consented to taking the medications. Patient signed med consent form and was placed in chart. -NRT is ordered, nicotine patch - on board for discharge planning. Patient likely to be discharged back to [facility] and to eventually follow-up with [facility] once psychiatrically stable.
[2018-09-24] MEDS: ACETAMINOPHEN TAB 325 MG TAB PO PRN (19:49)
[2018-09-24] MEDS ORDERED: QUEtiapine 100 MG TAB PO SCH (21:00)
[2018-09-25] MEDS: PANTOPRAZOLE 40 MG TABLET PO SCH (09:37)
[2018-09-25] MEDS: NICOTINE 14MG/24HR PATCH TRANSDERM SCH (09:40)
[2018-09-25] MEDS: HYDROCHLOROTHIAZIDE 25 MG TAB PO SCH (09:40)
--- NOTE | 2018-09-25 10:05 | P.PN ---
Progress Note - Text Progress Note Date: 09/25/18 Interval History: Patient was seen in the hallways and was agreeable to speak to chart writer in the o ffice. Patient was calm directable as morning was appropriate during interview. Patient continues to have a paucity of thought. Patient claims that her mood is "good" and states that she has been getting along well with other people on the unit. Patient states that she stayed away from the conflict last night from other patients and did not give involved. She states that she is taking the med ications and claiming that the Seroquel is helping her sleep at night and helping her with the voices at this time. He was explained to patient that we'll continue titrating down on the Seroquel due to its potential side effects of weight gain and metabolic syndrome, patient was agreeable to continue titrating. At this time patient denies any suicidal or homical ideations, intent or plan. Patient denies any auditory, visual hallucinations and denies any paranoia or delusions. Patient claims that the Seroquel is making her tired during the day however admits to being compliant with medications. Mental Status Exam: General Appearance: Patient appears to be stated age, is alert however somewhat somnolent today. Patient is directable has improved hygiene and grooming. Behavior: [Patient is calmly seated without any agitated behavior.] Speech: Patient's speech is fluent and nonpressured. Mood/Affect: Patient reports their mood is improving, affect is congruent and constricted. Suicidality/Homicidality: Patient denies having any suicidal or homicidal ideation intent or plan. Perceptions: Patient admits to chronic auditory hallucinations denies any visual hallucinations at this time. Though content/process: [There is no evidence of any delusional thought content and thought process is linear and goal-directed.] Patient continues to have poverty of thought. Memory and concentration: AOX3, grossly intact for the purposes of this session Judgment and insight: improving Assessment Schizoaffective, bipolar type Nicotine use disorder. PLAN: -Patient continues to meet criteria for inpatient psychiatric hospitalizations for stabilization of psychiatric symptoms and safety. Patient is admitted under voluntary status. -Medications: Will decrease Seroquel to 50 mg daily at bedtime for aggression/psychosis due to oversedation. Patient was given 50 mg of Prolixin IM on 09/23/2018. This is given weekly to control her psychosis at [facility]. -Hydroxyzine 25 mg twice a day when necessary for anxiety. Patient was encouraged to take this medication at night if she feels anxious and cannot sleep. -Geodon PRN for agitation/aggression -NRT is ordered, nicotine patch -SW on board for discharge planning. Patient likely to be discharged back to [facility] and to eventually follow-up with [facility] once psychiatrically stable. We'll attempt to plan for discharge tomorrow.
[2018-09-25] MEDS: MICONAZOLE NITRATE 4%/2% VAG CREAM KIT VAGINAL SCH (17:05)
[2018-09-25] MEDS ORDERED: QUEtiapine 100 MG TAB PO SCH (21:00)
[2018-09-25] MEDS ORDERED: QUEtiapine 50 MG TAB PO SCH (21:00)
[2018-09-25] MEDS: ACETAMINOPHEN TAB 325 MG TAB PO PRN (21:27)
[2018-09-26] MEDS: MICONAZOLE NITRATE 4%/2% VAG CREAM KIT VAGINAL SCH (03:51)
[2018-09-26] MEDS: PANTOPRAZOLE 40 MG TABLET PO SCH (09:54)
[2018-09-26] MEDS: HYDROCHLOROTHIAZIDE 25 MG TAB PO SCH (09:55)
[2018-09-26] MEDS: NICOTINE 14MG/24HR PATCH TRANSDERM SCH (09:55)
--- NOTE | 2018-09-26 10:22 | P.PN ---
Progress Note - Text Progress Note Date: 09/26/18 Interval History: patient was seen in the hallways and was agreeable to speak to screen writer in the o ffice. Patient appeared to be more directable today and more talkative. Patient showed screen writer her new shoes which she claims that she washed and appeared to be a bright white color. Patient states that she is feeling better today however was yawning throughout the interview. She states that she slept good last night and spoke to screen writer about praying that she can see her children one day. Patient continues to have a blank stare and possibly of thought. Patient's hygiene and grooming have improved. Patient states that she is trying to go to groups and participate. She claims her appetite is good. At this time patient denies any suicidal or homical ideations, intent or plan. Patient denies any auditory, visual hallucinations and denies any paranoia or delusions. Patient has been compliant with meds. Mental Status Exam: General Appearance: Patient appears to be obese, appears stated age, is alert however somewhat somnolent today. Patient is directable has improved hygiene and grooming. Behavior: Patient is calmly seated without any agitated behavior. Speech: Patient's speech is fluent and nonpressured. Mood/Affect: Patient reports their mood is improving, affect is congruent and constricted. Suicidality/Homicidality: Patient denies having any suicidal or homicidal ideation intent or plan. Perceptions: Patient admits to chronic auditory hallucinations denies any visual hallucinations at this time. Though content/process: [There is no evidence of any delusional thought content and thought process is linear and goal-directed. Patient continues to have poverty of thought. Memory and concentration: AOX3, grossly intact for the purposes of this session Judgment and insight: improving Assessment Schizoaffective, bipolar type Nicotine use disorder. PLAN: -Patient continues to meet criteria for inpatient psychiatric hospitalizations for stabilization of psychiatric symptoms and safety. Patient is admitted under voluntary status. -Medications: Will decrease Seroquel to 75 mg daily at bedtime for aggression/psychosis due to oversedation. Patient was given 50 mg of Prolixin IM on 09/23/2018. This is given weekly to control her psychosis at [facility]. -Hydroxyzine 25 mg twice a day when necessary for anxiety. Patient was encouraged to take this medication at night if she feels anxious and cannot sleep. -Geodon PRN for agitation/aggression -NRT is ordered, nicotine patch - on board for discharge planning. Patient likely to be discharged back to [facility] and to eventually follow-up with [facility] once psychiatrically stable. Patient will likely be discharged saturday.
[2018-09-26 16:16] LABS: C. trachomatis,PCR Negative (Neg,Equiv); Chlamydia trachomatis Source Urine; N. gonorrhoeae,PCR Negative (Neg,Equiv); Neisseria Source Urine
[2018-09-26] MEDS: QUEtiapine 25 MG TAB PO SCH (22:09)
[2018-09-27] MEDS: NICOTINE 14MG/24HR PATCH TRANSDERM SCH (10:21)
[2018-09-27] MEDS: PANTOPRAZOLE 40 MG TABLET PO SCH (10:21)
[2018-09-27] MEDS: HYDROCHLOROTHIAZIDE 25 MG TAB PO SCH (10:21)
--- NOTE | 2018-09-27 18:54 | PN ---
PROGRESS NOTE DATE OF SERVICE: 09/27/2018. CHIEF COMPLAINT: The patient had aggression in her prison. She had irritability and auditory hallucination. INTERVAL HISTORY: The patient has been doing fair. She had a quiet evening last night. She comes out in the day area. She interacts a little with others. She generally has a quiet manner. She slept well last night. It was documented she slept 8 hours. She said that is unusual for her and otherwise she has a lot of trouble falling asleep. She says some days she will go 2 or 3 days without sleeping at all. Today she has been up. She attended 1 group. She seemed to be comfortable in the group. She says that she had some family interactions including with her mother talking about discharge planning issues. It was not exactly clear what she was saying or whether or not she was anticipating going back to her prison. She says that she thinks the medications are helping her and she wants to stay on the medications she is on. I noted that it was Dr. Espinosa plan to taper her Seroquel though she asked if she could have her medications remain the same. She tolerates her psychotropic medications. She has not had any problems with the initiation of Prolixin Decanoate. MENTAL STATUS EXAM: Patient sat without restlessness. She gave fairly good eye contact. She answered questions with brief responses. At times, her thoughts were little tangential. Her affect was a little constricted though not significantly so. Her mood was quiet and a little reserved, though she did not clearly seem to be down or depressed. She did not appear to be significantly distressed. She did not show outward signs of responding to stimuli. ASSESSMENT: I will continue the current diagnosis and treatment plan. I will continue psychotropic medications the same. I reviewed potential side effects as well as indications for her medications. We will continue to focus on stabilization and discharge planning. MMODL / IJN: [id number] /
[2018-09-27] MEDS: QUEtiapine 25 MG TAB PO SCH (20:51)
[2018-09-28] MEDS ORDERED: ERGOCALCIFEROL 50,000 UNIT CAP PO SCH (09:00)
[2018-09-28] MEDS: NICOTINE 14MG/24HR PATCH TRANSDERM SCH ×2 (10:05→10:13)
[2018-09-28] MEDS: HYDROCHLOROTHIAZIDE 25 MG TAB PO SCH (10:06)
[2018-09-28] MEDS: PANTOPRAZOLE 40 MG TABLET PO SCH (10:06)
[2018-09-28] MEDS: ACETAMINOPHEN TAB 325 MG TAB PO PRN ×2 (10:15→22:13)
--- NOTE | 2018-09-28 19:41 | PN ---
PROGRESS NOTE DATE OF SERVICE: 09/28/2018. CHIEF COMPLAINT: The patient had aggression in her residential. She had irritability and auditory hallucinations. INTERVAL HISTORY: Patient has been doing fairly well. She had a quiet evening last night. She comes out in the day area. She interacts some with others. She attended group, 50% of groups yesterday. It was documented that she slept 4 hours as of 430 in the morning. She was sleeping at 4:30 am and said she ended up waking up when it was breakfast time. She said she had some difficulty with sleep in that she would wake some and had the experience that there were demons in her room. She thought there might be demons in the bathroom. She said it was very scary for her, though she did not seem too bothered by those issues today. She did not attend the morning groups today. She says her mood is improved. She asked where she can get information about group homes for her for discharge. She tolerates psychotropic medications. MENTAL STATUS: Patient gave fairly good eye contact. Psychomotor activity was a little restless. She answered questions appropriately. Her thoughts were clear. Her affect was in a reasonable range. She seemed to be relaxed. Her mood was even. She did appear to be distressed. ASSESSMENT: I will continue the current diagnosis and treatment plan. I will continue psychotropic medications the same. I discussed discharge planning issues with the patient. I advised her to talk with social work in the morning to begin looking at placement issues. We will continue to focus on stabilization and discharge planning. RAE / MARIA GUADALUPE: [id number] /
[2018-09-28] MEDS: QUEtiapine 25 MG TAB PO SCH (21:01)
[2018-09-29 02:05] LABS: Appearance,Urine Clear (Clear); Bilirubin,Urine Negative (Negative); Blood,Urine Negative (Negative); Color,Urine Yellow; Glucose,Urine (UA) Negative (Negative); Ketones,Urine Negative (Negative); Leukocyte Esterase,Urine Negative (Negative); Nitrite,Urine Negative (Negative); PH, Urine 5.5 (5.0-8.0); Protein,Urine Negative (Negative); Urobilinogen,Urine <2.0 mg/dL (<2.0)
[2018-09-29 06:57] VITALS: TEMP 98.1
[2018-09-29] MEDS: NICOTINE 14MG/24HR PATCH TRANSDERM SCH (08:17)
[2018-09-29] MEDS: PANTOPRAZOLE 40 MG TABLET PO SCH (08:17)
[2018-09-29] MEDS: HYDROCHLOROTHIAZIDE 25 MG TAB PO SCH (08:17)
[2018-09-29 08:19] VITALS: BP 122/76; PULSE 93; RESP 18
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
== END 2018-09-29 15:10 | disposition home or self-care (01) | DRG 885 ==
LOC: EC 12:10 → 3MHU 16:21
PROVIDERS: ADMIT Psychiatry & Neurology Psychiatry; ATTEND Psychiatry & Neurology Psychiatry
DX: F25.0 Schizoaffective disorder, bipolar type (principal); Z68.41 Body mass index [BMI] 40.0-44.9, adult; E66.9 Obesity, unspecified; F17.200 Nicotine dependence, unspecified, uncomplicated; F41.9 Anxiety disorder, unspecified; G40.909 Epilepsy, unspecified, not intractable, without status epilepticus; G47.00 Insomnia, unspecified; I10 Essential (primary) hypertension; J45.909 Unspecified asthma, uncomplicated; Z79.899 Other long term (current) drug therapy; Z91.14 Patient's other noncompliance with medication regimen; Z91.5 Personal history of self-harm
CPT/HCPCS: 71046; 80053; 80061; 80306; 81003; 81025; 82075; 83036; 84443; 85025; 87491; 87591; 99285

== ENCOUNTER 2018-10-15 20:03 | Emergency (ER) | payer OTHER ==
[2018-10-15 20:12] VITALS: RESP 20
[2018-10-15] MEDS ORDERED: SODIUM CHLORIDE 0.9% 1,000 ML IV STA (21:14)
[2018-10-15] MEDS ORDERED: ONDANSETRON 4 MG/2 ML VIAL IVP STA (21:14)
[2018-10-15 21:28] LABS: Appearance,Urine Clear (Clear); Bilirubin,Urine Negative (Negative); Blood,Urine Negative (Negative); Color,Urine Light Yellow; Glucose,Urine (UA) Negative (Negative); Ketones,Urine Negative (Negative); Leukocyte Esterase,Urine Negative (Negative); Nitrite,Urine Negative (Negative); PH, Urine 6.5 (5.0-8.0); Protein,Urine Negative (Negative); Specific Gravity,Urine 1.002 (1.001-1.035); Urobilinogen,Urine <2.0 mg/dL (<2.0)
[2018-10-15 22:19] LABS: Basophils # (A) 0.1 k/uL (0-0.2); Basophils % (A) 1 %; Eosinophils # (A) 0.1 k/uL (0-0.7); Eosinophils % (A) 1 %; HCT 37.9 % (34.0-46.0); HGB 12.6 gm/dL (11.4-16.0); Lymphocytes # (A) 2.9 k/uL (1.0-4.8); Lymphocytes % (A) 31 %; MCH 29.6 pg (25.0-35.0); MCHC 33.1 g/dL (31.0-37.0); MCV 89.3 fL (80.0-100.0); Mean Platelet Volume 7.9; Monocytes # (A) 0.5 k/uL (0-1.0); Monocytes % (A) 6 %; Neutrophils # (A) 5.5 k/uL (1.3-7.7); Neutrophils % (A) 59 %; Platelet Count 235 k/uL (150-450); RBC 4.25 m/uL (3.80-5.40); RDW 14.4 % (11.5-15.5); WBC 9.3 k/uL (3.8-10.6)
[2018-10-15 22:40] LABS: ALT 38 U/L (9-52); AST 29 U/L (14-36); African American GFR (CKD) >90 (>60 ml/min/1.73 sqM); Albumin 4.3 g/dL (3.5-5.0); Alkaline Phosphatase 73 U/L (38-126); Anion Gap 10 mmol/L; Blood Urea Nitrogen 8 mg/dL (7-17); Calcium 9.4 mg/dL (8.4-10.2); Carbon Dioxide 28 mmol/L (22-30); Chloride 100 mmol/L (98-107); Glucose 89 mg/dL (74-99); HCG,Qualitative Serum Not Detected; Potassium 3.8 mmol/L (3.5-5.1); Sodium 138 mmol/L (137-145); Total Bilirubin <0.1 mg/dL (0.2-1.3); Total Protein 7.6 g/dL (6.3-8.2)
--- NOTE | 2018-10-15 23:10 | XR ---
EXAM: XR Abdomen, 2 Views CLINICAL HISTORY: Abdominal pain TECHNIQUE: Frontal view of the abdomen/pelvis with upright view of the abdomen. COMPARISON: None. FINDINGS: Intraperitoneal space: See below. Gastrointestinal tract: Nonspecific bowel gas pattern. No dilation. Bones/joints: Unremarkable. Soft tissues: Tubal ligation clips are noted centrally within the pelvis. IMPRESSION: Mild to moderate quantity of stool. Nonspecific bowel gas pattern.
--- NOTE | 2018-10-15 23:35 | ED ---
General Adult HPI - General Chief complaint: Psychiatric Symptoms Stated complaint: Mental Health Time Seen by Provider: 10/15/18 20:11 Source: patient Mode of arrival: ambulatory Limitations: no limitations - History of Present Illness Initial comments: The patient is a 28-year-old female presents the emergency department with reported nausea and vomiting. She states that the symptoms started just prior to arrival. She states that she is concerned that she is . She is unsure of her last menstrual cycle. States that she is actively trying to get . She has had 2 miscarriages. Does have 2 children at home. Denies any abnormal vaginal bleeding or discharge. Denies any changes in her urination to include dysuria, hematuria or difficulty voiding. Does report to constipation. States she strains to have a bowel movement. She denies any melanotic stools or hematochezia. She denies any abdominal pain. No chest pain or shortness of breath. No fevers or chills. No sick contacts or recent travel. Denies possibility of eating any tainted foods. There are no other alleviating, precipitating modifying factors - Related Data Home Medications Medication Instructions Recorded Confirmed Ergocalciferol [Vitamin D2 50,000 unit PO WE 04/05/18 10/15/18 (DRISDOL)] Hydrochlorothiazide 12.5 mg PO DAILY 09/22/18 10/15/18 Docusate [Colace] 100 mg PO DAILY PRN 10/15/18 10/15/18 Pantoprazole [Protonix] 40 mg PO DAILY 10/15/18 10/15/18 QUEtiapine [SEROquel] 50 mg PO HS 10/15/18 10/15/18 fluPHENAZine DECANOATE [Prolixin 50 mg IM WE 10/15/18 10/15/18 Decanoate] Previous Rx's Medication Instructions Recorded Ondansetron Odt [Zofran Odt] 4 mg PO Q8HR PRN #10 tab 10/15/18 Polyethylene Glycol 3350 [Miralax] 17 gm PO DAILY #527 gm 10/15/18 Allergies Allergy/AdvReac Type Severity Reaction Status Date / Time ibuprofen [From Motrin] Allergy Anaphylaxis Verified 10/15/18 20:15 pineapple Allergy Anaphylaxis Verified 10/15/18 20:15 red dye Allergy Anaphylaxis Verified 10/15/18 20:15 haloperidol [From Haldol] AdvReac Hallucinati Verified 10/15/18 20:15 ons Review of Systems ROS Statement: Those systems with pertinent positive or pertinent negative responses have been documented in the HPI. ROS Other: All systems not noted in ROS Statement are negative. Past Medical History Past Medical History: Asthma, Hypertension, Seizure Disorder Additional Past Medical History / Comment(s): last seizure was April 2015 History of Any Multi-Drug Resistant Organisms: None Reported Past Surgical History: Section, Tonsillectomy, Tubal Ligation Additional Past Surgical History / Comment(s): facial surgery, 2 C-Sections Past Anesthesia/Blood Transfusion Reactions: No Reported Reaction Past Psychological History: Anxiety, Bipolar, Depression, Schizoaffective Disorder, Schizophrenia Smoking Status: Current every day smoker Past Alcohol Use History: None Reported Past Drug Use History: None Reported - Past Family History Father Additional Family Medical History / Comment(s): Father is alive at 42 and may have diabetes. Mother Family Medical History: Thyroid Disorder Additional Family Medical History / Comment(s): Mother is alive at age 45 with thyroid disorder. Brother(s) Additional Family Medical History / Comment(s): Patient has 2 brothers and 2 sisters with no major medical problems. Patient has one son that is healthy. General Exam Limitations: no limitations Course Vital Signs 10/15/18 10/16/18 20:10 00:06 Temperature 98.8 F 98.1 F Pulse Rate 106 H 99 Respiratory 20 20 Rate Blood Pressure 161/83 158/81 O2 Sat by Pulse 100 98 Oximetry Medical Decision Making - Medical Decision Making Upon arrival the patient is placed into room 13. She is hooked up to continuous pulse ox and cardiac monitoring. We do obtain laboratory studies. Patient provided a urine sample. She is sent over for an acute abdominal series. I did review the patient's results and her laboratories is essentially unremarkable. Her hCG is negative. Acute abdominal series demonstrates stool. The patient has had no further episodes of vomiting while within the emergency department. Her abdomen remains non-peritoneal. I did recommend treating the patient with Zofran and MiraLAX. The patient's did agree to this. She is to follow-up with her primary care physician within 2-4 days for reevaluation. Return to the emergency room for any new or worsening symptoms. The patient was then discharged home in stable condition - Lab Data Result diagrams: 10/15/18 21:52 10/15/18 21:52 Lab Results 10/15/18 10/15/18 10/15/18 Range/Units 21:15 21:52 21:52 WBC 9.3 (3.8-10.6) k/uL RBC 4.25 (3.80-5.40) m/uL Hgb 12.6 (11.4-16.0) gm/dL Hct 37.9 (34.0-46.0) % MCV 89.3 (80.0-100.0) fL MCH 29.6 (25.0-35.0) pg MCHC 33.1 (31.0-37.0) g/dL RDW 14.4 (11.5-15.5) % Plt Count 235 (150-450) k/uL Neutrophils % 59 % Lymphocytes % 31 % Monocytes % 6 % Eosinophils % 1 % Basophils % 1 % Neutrophils # 5.5 (1.3-7.7) k/uL Lymphocytes # 2.9 (1.0-4.8) k/uL Monocytes # 0.5 (0-1.0) k/uL Eosinophils # 0.1 (0-0.7) k/uL Basophils # 0.1 (0-0.2) k/uL Sodium 138 (137-145) mmol/L Potassium 3.8 (3.5-5.1) mmol/L Chloride 100 (98-107) mmol/L Carbon Dioxide 28 (22-30) mmol/L Anion Gap 10 mmol/L BUN 8 (7-17) mg/dL Creatinine 0.54 (0.52-1.04) mg/dL Est GFR (CKD-EPI)AfAm >90 (>60 ml/min/1.73 sqM) Est GFR (CKD-EPI)NonAf >90 (>60 ml/min/1.73 sqM) Glucose 89 (74-99) mg/dL Calcium 9.4 (8.4-10.2) mg/dL Total Bilirubin <0.1 L (0.2-1.3) mg/dL AST 29 (14-36) U/L ALT 38 (9-52) U/L Alkaline Phosphatase 73 (38-126) U/L Total Protein 7.6 (6.3-8.2) g/dL Albumin 4.3 (3.5-5.0) g/dL Lipase 83 (23-300) U/L HCG, Qual Not Detected Urine Color Light Yellow Urine Appearance Clear (Clear) Urine pH 6.5 (5.0-8.0) Ur Specific [place] 1.002 (1.001-1.035) Urine Protein Negative (Negative) Urine Glucose (UA) Negative (Negative) Urine Ketones Negative (Negative) Urine Blood Negative (Negative) Urine Nitrite Negative (Negative) Urine Bilirubin Negative (Negative) Urine Urobilinogen <2.0 (<2.0) mg/dL Ur Leukocyte Esterase Negative (Negative) Disposition Clinical Impression: Constipation, Vomiting Disposition: HOME SELF-CARE Condition: Stable Additional Instructions: Please follow-up with your doctor in 2-4 days. Return to the emergency room for any new or worsening symptoms Prescriptions: Polyethylene Glycol 3350 [Miralax] 17 gm PO DAILY #527 gm Ondansetron Odt [Zofran Odt] 4 mg PO Q8HR PRN #10 tab PRN Reason: Nausea Is patient prescribed a controlled substance at d/c from ED?: No Referrals: [facility] [Primary Care Provider] - 1-2 days Time of Disposition: 23:35
[2018-10-16 00:10] VITALS: BP 158/81; PULSE 99; TEMP 98.1
== END 2018-10-16 00:10 | disposition home or self-care (01) ==
LOC: EC 20:03
DX: K59.00 Constipation, unspecified (principal); R11.10 Vomiting, unspecified; Z32.02 Encounter for pregnancy test, result negative; I10 Essential (primary) hypertension; F31.9 Bipolar disorder, unspecified; F25.9 Schizoaffective disorder, unspecified; F17.200 Nicotine dependence, unspecified, uncomplicated; Z79.899 Other long term (current) drug therapy; Z88.6 Allergy status to analgesic agent; Z91.018 Allergy to other foods; Z91.02 Food additives allergy status; Z88.8 Allergy status to other drugs, medicaments and biological substances
CPT/HCPCS: 82075; 36415; 80053; 83690; 85025; 81003; 84703; 74019; 99284; 96374; 96361 ×2; J2405

== ENCOUNTER 2018-12-03 18:24 | Emergency (ER) | payer OTHER ==
[2018-12-03 18:42] VITALS: BP 115/62; PULSE 96; RESP 18
--- NOTE | 2018-12-03 18:52 | ED ---
Psych HPI - General Chief Complaint: Psychiatric Symptoms Stated Complaint: Mental Health Time Seen by Provider: 12/03/18 18:25 Source: patient, EMS Mode of arrival: EMS - History of Present Illness Initial Comments: 28-year-old female presenting for evaluation of possible . Patient has presented for this complaint on multiple occasions. Patient states that she has had negative urine pregnancies outpatient. She states she is compliant with her psychiatric medications. Patient does not appear acutely psychotic. Patient appears to be at baseline. No suicidal or homicidal ideations. Patient denies abdominal pain vaginal bleeding. Patient states she is not sexually active. Remaining review of system negative - Related Data Home Medications Medication Instructions Recorded Confirmed Ergocalciferol [Vitamin D2 50,000 unit PO WE 04/05/18 12/03/18 (DRISDOL)] Hydrochlorothiazide 12.5 mg PO DAILY 09/22/18 12/03/18 Docusate [Colace] 100 mg PO DAILY 10/15/18 12/03/18 QUEtiapine [SEROquel] 50 mg PO HS 10/15/18 12/03/18 fluPHENAZine DECANOATE [Prolixin 50 mg IM Q7D 10/15/18 12/03/18 Decanoate] Albuterol Sulfate [Proair Hfa] 2 puff INHALATION RT-Q4H PRN 12/03/18 12/03/18 Pantoprazole Sodium [Protonix] 40 mg PO DAILY 12/03/18 12/03/18 Pnv,Calcium 72/Iron/Folic Acid 1 tab PO DAILY 12/03/18 12/03/18 [ Plus Tablet] metFORMIN HCL [Glucophage] 500 mg PO BID 12/03/18 12/03/18 Previous Rx's Medication Instructions Recorded Polyethylene Glycol 3350 [Miralax] 17 gm PO DAILY #527 gm 10/15/18 Allergies Allergy/AdvReac Type Severity Reaction Status Date / Time ibuprofen [From Motrin] Allergy Rash/Hives Verified 12/03/18 19:46 pineapple Allergy Rash/Hives Verified 12/03/18 19:46 red dye Allergy Rash/Hives Verified 12/03/18 19:46 haloperidol [From Haldol] AdvReac Hallucinati Verified 12/03/18 19:46 ons Review of Systems ROS Statement: Those systems with pertinent positive or pertinent negative responses have been documented in the HPI. ROS Other: All systems not noted in ROS Statement are negative. Past Medical History Past Medical History: Asthma, Hypertension, Seizure Disorder Additional Past Medical History / Comment(s): last seizure was April 2015 History of Any Multi-Drug Resistant Organisms: None Reported Past Surgical History: Section, Tonsillectomy, Tubal Ligation Additional Past Surgical History / Comment(s): facial surgery, 2 C-Sections Past Anesthesia/Blood Transfusion Reactions: No Reported Reaction Past Psychological History: Anxiety, Bipolar, Depression, Schizoaffective Disorder, Schizophrenia Smoking Status: Current every day smoker Past Alcohol Use History: None Reported Past Drug Use History: None Reported - Past Family History Father Additional Family Medical History / Comment(s): Father is alive at 42 and may have diabetes. Mother Family Medical History: Thyroid Disorder Additional Family Medical History / Comment(s): Mother is alive at age 45 with thyroid disorder. Brother(s) Additional Family Medical History / Comment(s): Patient has 2 brothers and 2 sisters with no major medical problems. Patient has one son that is healthy. General Exam - General Exam Comments Initial Comments: General: The patient is awake and alert, in no distress, and does not appear acutely ill. Eye: +3 mm pupils are equal, round and reactive to light, extra-ocular movements are intact. No nystagmus. There is normal conjunctiva bilaterally. No signs of icterus. Cardiovascular: There is a regular rate and rhythm. No murmur, rub or gallop is appreciated. Respiratory: Lungs are clear to auscultation, respirations are non-labored, breath sounds are equal. No wheezes, stridor, rales, or rhonchi. Gastrointestinal: Soft, non-distended, non-tender abdomen without masses or organomegaly noted. There is no rebound or guarding present. Musculoskeletal: Normal ROM, no tenderness. Strength 5/5. Sensation intact. Radial pulses equal bilaterally 2+. Neurological: A&O x 3. CN II-XII intact, There are no obvious motor or sensory deficits. Coordination appears grossly intact. Speech is normal. Skin: Skin is warm and dry and no rashes or lesions are noted. Psychiatric: Cooperative Course Vital Signs 12/03/18 18:33 Pulse Rate 96 Respiratory 18 Rate Blood Pressure 115/62 O2 Sat by Pulse 100 Oximetry Medical Decision Making - Medical Decision Making 28-year-old female well known to the emergency department for test. test negative. No abdominal pain on exam she appears well. Patient appears to be at baseline. No suicidal or homicidal ideations. Patient states she is compliant with medications and does not appear acutely psychotic. Patient be discharged with primary care follow-up. Return for worse discussed patient discharged appearing well after discussing case with Dr. Mancilla - Lab Data Lab Results 12/03/18 Range/Units 19:11 Urine HCG, Qual Not Detected (Not Detectd) Disposition Clinical Impression: Concern about unplanned without diagnosis, Negative test Disposition: HOME SELF-CARE Condition: Good Additional Instructions: Please use medication as discussed. Please follow-up with family doctor in the next 2 days of symptoms have not improved. Please return to emergency room if the symptoms increase or worsen or for any other concerns. Is patient prescribed a controlled substance at d/c from ED?: No Referrals: [facility] [Primary Care Provider] - 1-2 days Time of Disposition: 20:06
== END 2018-12-03 20:05 | disposition home or self-care (01) ==
LOC: EC 18:24
DX: Z32.02 Encounter for pregnancy test, result negative (principal); Z71.1 Person with feared health complaint in whom no diagnosis is made; J45.909 Unspecified asthma, uncomplicated; I10 Essential (primary) hypertension; F31.9 Bipolar disorder, unspecified; F25.9 Schizoaffective disorder, unspecified; F17.200 Nicotine dependence, unspecified, uncomplicated; Z79.84 Long term (current) use of oral hypoglycemic drugs; Z79.899 Other long term (current) drug therapy; Z88.6 Allergy status to analgesic agent; Z88.8 Allergy status to other drugs, medicaments and biological substances; Z91.018 Allergy to other foods; Z91.02 Food additives allergy status
CPT/HCPCS: 81025; 99283

== ENCOUNTER 2019-01-04 21:49 | Emergency (ER) | payer OTHER ==
[2019-01-04 21:56] VITALS: RESP 18
[2019-01-04] MEDS ORDERED: SODIUM CHLORIDE 0.9% 1,000 ML IV ONE (22:04)
--- NOTE | 2019-01-04 22:06 | ED ---
Nausea/Vomiting/Diarrhea HPI - General Chief complaint: Nausea/Vomiting/Diarrhea Stated complaint: nausea Time Seen by Provider: 01/04/19 21:51 Source: patient, EMS Mode of arrival: EMS - History of Present Illness Initial comments: 29-year-old female patient presents to the emergency department today for complaints of nausea. Patient states her last several-day she's had nausea in the mornings. States she did vomit twice today. States she feels dehydrated and bloated. States she has not had a period for one year. Denies any constipation or diarrhea. Denies any abdominal pain. She denies fever or chills. She denies any recent travel or sick contacts. She is concerned she may be . Denies taking a test. Patient denies any recent rash, shortness breath, chest pain, back pain, numbness, tingling, dizziness, weakness, hematuria, dysuria, urinary urgency, urinary frequency, headache, visual changes, or any other complaints. - Related Data Home Medications Medication Instructions Recorded Confirmed Ergocalciferol [Vitamin D2 50,000 unit PO WE 04/05/18 12/03/18 (DRISDOL)] Hydrochlorothiazide 12.5 mg PO DAILY 09/22/18 12/03/18 Docusate [Colace] 100 mg PO DAILY 10/15/18 12/03/18 QUEtiapine [SEROquel] 50 mg PO HS 10/15/18 12/03/18 fluPHENAZine DECANOATE [Prolixin 50 mg IM Q7D 10/15/18 12/03/18 Decanoate] Albuterol Sulfate [Proair Hfa] 2 puff INHALATION RT-Q4H PRN 12/03/18 12/03/18 Pantoprazole Sodium [Protonix] 40 mg PO DAILY 12/03/18 12/03/18 Pnv,Calcium 72/Iron/Folic Acid 1 tab PO DAILY 12/03/18 12/03/18 [ Plus Tablet] metFORMIN HCL [Glucophage] 500 mg PO BID 12/03/18 12/03/18 Previous Rx's Medication Instructions Recorded Polyethylene Glycol 3350 [Miralax] 17 gm PO DAILY #527 gm 10/15/18 Allergies Allergy/AdvReac Type Severity Reaction Status Date / Time ibuprofen [From Motrin] Allergy Rash/Hives Verified 12/03/18 19:46 pineapple Allergy Rash/Hives Verified 12/03/18 19:46 red dye Allergy Rash/Hives Verified 12/03/18 19:46 haloperidol [From Haldol] AdvReac Hallucinati Verified 12/03/18 19:46 ons Review of Systems ROS Statement: Those systems with pertinent positive or pertinent negative responses have been documented in the HPI. ROS Other: All systems not noted in ROS Statement are negative. Past Medical History Past Medical History: Asthma, Hypertension, Seizure Disorder Additional Past Medical History / Comment(s): last seizure was April 2015 History of Any Multi-Drug Resistant Organisms: None Reported Past Surgical History: Section, Tonsillectomy, Tubal Ligation Additional Past Surgical History / Comment(s): facial surgery, 2 C-Sections Past Anesthesia/Blood Transfusion Reactions: No Reported Reaction Past Psychological History: Anxiety, Bipolar, Depression, Schizoaffective Disorder, Schizophrenia Smoking Status: Current every day smoker Past Alcohol Use History: None Reported Past Drug Use History: None Reported - Past Family History Father Additional Family Medical History / Comment(s): Father is alive at 42 and may have diabetes. Mother Family Medical History: Thyroid Disorder Additional Family Medical History / Comment(s): Mother is alive at age 45 with thyroid disorder. Brother(s) Additional Family Medical History / Comment(s): Patient has 2 brothers and 2 sisters with no major medical problems. Patient has one son that is healthy. General Exam General appearance: alert, in no apparent distress, other (This is a well- developed, well-nourished adult female patient in no acute distress. Vital signs upon presentation are temperature 98.7F, pulse 96, respirations 18, blood pressure 170/86, pulse ox 100% on room air.) Eye exam: Present: normal appearance, PERRL, EOMI. Absent: scleral icterus, conjunctival injection, periorbital swelling ENT exam: Present: normal exam, normal oropharynx, mucous membranes moist Respiratory exam: Present: normal lung sounds bilaterally. Absent: respiratory distress, wheezes, rales, rhonchi, stridor Cardiovascular Exam: Present: regular rate, normal rhythm, normal heart sounds. Absent: systolic murmur, diastolic murmur, rubs, gallop, clicks GI/Abdominal exam: Present: soft, normal bowel sounds. Absent: distended, tenderness, guarding, rebound, rigid Neurological exam: Present: alert, oriented X3, CN II-XII intact Psychiatric exam: Present: normal affect, normal mood Skin exam: Present: warm, dry, intact, normal color. Absent: rash Course Vital Signs 01/04/19 01/04/19 21:50 23:05 Temperature 98.7 F 98 F Pulse Rate 96 90 Respiratory 18 18 Rate Blood Pressure 170/86 160/80 O2 Sat by Pulse 100 98 Oximetry Medical Decision Making - Medical Decision Making 29-year-old female patient presents to the emergency department today for evaluation of nausea and vomiting. He had 2 episodes of vomiting today. Has requested food and drink multiple times upon arrival to the emergency department. Physical examination reveals a soft nontender abdomen. Urinalysis is negative for infection or . She'll be discharged home at this time to follow-up with her primary care physician for recheck in 1-2 days. Return parameters were discussed in detail. She verbalizes understanding and agrees with this plan to - Lab Data Lab Results 01/04/19 01/04/19 Range/Units 22:21 22:21 Urine Color Colorless Urine Appearance Clear (Clear) Urine pH 6.0 (5.0-8.0) Ur Specific [place] 1.003 (1.001-1.035) Urine Protein Negative (Negative) Urine Glucose (UA) Negative (Negative) Urine Ketones Negative (Negative) Urine Blood Negative (Negative) Urine Nitrite Negative (Negative) Urine Bilirubin Negative (Negative) Urine Urobilinogen <2.0 (<2.0) mg/dL Ur Leukocyte Esterase Negative (Negative) Urine HCG, Qual Not Detected (Not Detectd) Disposition Clinical Impression: Vomiting Disposition: HOME SELF-CARE Condition: Good Instructions (If sedation given, give patient instructions): Acute Nausea and Vomiting (ED) Additional Instructions: Start with clear liquid diet and advance as tolerated. Take medication as directed for nausea. Follow-up with your primary care physician for recheck in 1-2 days. Return to the emergency department immediately for any new, worsening, or concerning symptoms. Is patient prescribed a controlled substance at d/c from ED?: No Referrals: [facility] [Primary Care Provider] - 1-2 days Time of Disposition: 22:48
[2019-01-04 22:29] LABS: Appearance,Urine Clear (Clear); Bilirubin,Urine Negative (Negative); Blood,Urine Negative (Negative); Color,Urine Colorless; Glucose,Urine (UA) Negative (Negative); Ketones,Urine Negative (Negative); Leukocyte Esterase,Urine Negative (Negative); Nitrite,Urine Negative (Negative); Protein,Urine Negative (Negative); Specific Gravity,Urine 1.003 (1.001-1.035); Urobilinogen,Urine <2.0 mg/dL (<2.0)
[2019-01-04] MEDS ORDERED: ONDANSETRON 4 MG ODT STARTER PACK 2 TAB BTL PO STA (22:48)
[2019-01-04 23:06] VITALS: BP 160/80; PULSE 90; TEMP 98
== END 2019-01-04 23:07 | disposition home or self-care (01) ==
LOC: EC 21:49
DX: R11.10 Vomiting, unspecified (principal); Z32.02 Encounter for pregnancy test, result negative; I10 Essential (primary) hypertension; J45.909 Unspecified asthma, uncomplicated; F31.9 Bipolar disorder, unspecified; F25.9 Schizoaffective disorder, unspecified; F17.200 Nicotine dependence, unspecified, uncomplicated; Z79.84 Long term (current) use of oral hypoglycemic drugs; Z79.899 Other long term (current) drug therapy; Z88.6 Allergy status to analgesic agent; Z88.8 Allergy status to other drugs, medicaments and biological substances; Z91.018 Allergy to other foods
CPT/HCPCS: 81003; 81025; 99284; 96360; S0119

== ENCOUNTER 2019-01-09 23:38 | Inpatient (IN) | payer MEDICAID, OTHER ==
[2019-01-10 00:34] LABS: Basophils % (A) 0 %; Eosinophils # (A) 0.1 k/uL (0-0.7); Eosinophils % (A) 1 %; HCT 40.3 % (34.0-46.0); HGB 13.8 gm/dL (11.4-16.0); Lymphocytes # (A) 2.9 k/uL (1.0-4.8); Lymphocytes % (A) 28 %; MCH 30.5 pg (25.0-35.0); MCHC 34.3 g/dL (31.0-37.0); Monocytes # (A) 0.5 k/uL (0-1.0); Monocytes % (A) 5 %; Neutrophils # (A) 6.5 k/uL (1.3-7.7); Neutrophils % (A) 63 %; Platelet Count 210 k/uL (150-450); RBC 4.52 m/uL (3.80-5.40); WBC 10.3 k/uL (3.8-10.6)
--- NOTE | 2019-01-10 00:52 | ED ---
Psych HPI - General Chief Complaint: Psychiatric Symptoms Stated Complaint: Mental Health Time Seen by Provider: 01/09/19 23:40 Source: EMS Mode of arrival: EMS - History of Present Illness Initial Comments: 29-year-old female presenting for test. Patient concerned blood levels are low and that she is . Frequently presents for these complaints. Patient states she is currently taking her medications. Patient appears acutely psychotic increased from known baseline. Patient sent in for EPS evaluation.Remaining ROS (-). - Related Data Home Medications Medication Instructions Recorded Confirmed Ergocalciferol [Vitamin D2 50,000 unit PO WE 04/05/18 12/03/18 (DRISDOL)] Hydrochlorothiazide 12.5 mg PO DAILY 09/22/18 12/03/18 Docusate [Colace] 100 mg PO DAILY 10/15/18 12/03/18 QUEtiapine [SEROquel] 50 mg PO HS 10/15/18 12/03/18 fluPHENAZine DECANOATE [Prolixin 50 mg IM Q7D 10/15/18 12/03/18 Decanoate] Albuterol Sulfate [Proair Hfa] 2 puff INHALATION RT-Q4H PRN 12/03/18 12/03/18 Pantoprazole Sodium [Protonix] 40 mg PO DAILY 12/03/18 12/03/18 Pnv,Calcium 72/Iron/Folic Acid 1 tab PO DAILY 12/03/18 12/03/18 [ Plus Tablet] metFORMIN HCL [Glucophage] 500 mg PO BID 12/03/18 12/03/18 Previous Rx's Medication Instructions Recorded Polyethylene Glycol 3350 [Miralax] 17 gm PO DAILY #527 gm 10/15/18 Allergies Allergy/AdvReac Type Severity Reaction Status Date / Time ibuprofen [From Motrin] Allergy Rash/Hives Verified 12/03/18 19:46 pineapple Allergy Rash/Hives Verified 12/03/18 19:46 red dye Allergy Rash/Hives Verified 12/03/18 19:46 haloperidol [From Haldol] AdvReac Hallucinati Verified 12/03/18 19:46 ons Review of Systems ROS Statement: Those systems with pertinent positive or pertinent negative responses have been documented in the HPI. ROS Other: All systems not noted in ROS Statement are negative. Past Medical History Past Medical History: Asthma, Hypertension, Seizure Disorder Additional Past Medical History / Comment(s): last seizure was April 2015 History of Any Multi-Drug Resistant Organisms: None Reported Past Surgical History: Section, Tonsillectomy, Tubal Ligation Additional Past Surgical History / Comment(s): facial surgery, 2 C-Sections Past Anesthesia/Blood Transfusion Reactions: No Reported Reaction Past Psychological History: Anxiety, Bipolar, Depression, Schizoaffective Disorder, Schizophrenia Smoking Status: Current every day smoker Past Alcohol Use History: None Reported Past Drug Use History: None Reported - Past Family History Father Additional Family Medical History / Comment(s): Father is alive at 42 and may have diabetes. Mother Family Medical History: Thyroid Disorder Additional Family Medical History / Comment(s): Mother is alive at age 45 with thyroid disorder. Brother(s) Additional Family Medical History / Comment(s): Patient has 2 brothers and 2 sisters with no major medical problems. Patient has one son that is healthy. General Exam - General Exam Comments Initial Comments: General: The patient is awake and alert Eye: +3 mm pupils are equal, round and reactive to light, extra-ocular movements are intact. No nystagmus. There is normal conjunctiva bilaterally. No signs of icterus. Ears, nose, mouth and throat: There are moist mucous membranes and no oral lesions. Neck: The neck is supple, there is no tenderness or JVD. Cardiovascular: There is a regular rate and rhythm. No murmur, rub or gallop is appreciated. Respiratory: Lungs are clear to auscultation, respirations are non-labored, breath sounds are equal. No wheezes, stridor, rales, or rhonchi. Gastrointestinal: [Soft, non-distended, non-tender abdomen without masses or organomegaly noted. There is no rebound or guarding present. No CVA tenderness. Bowel sounds are unremarkable.] Musculoskeletal: Normal ROM, no tenderness. Strength 5/5. Sensation intact. Pulses equal bilaterally 2+. Neurological: A&O x 3. CN II-XII intact grossly, There are no obvious motor or sensory deficits. Coordination appears grossly intact. Speech is normal. Skin: Skin is warm and dry and no rashes or lesions are noted. Psychiatric: Rapid speech Course Vital Signs 01/09/19 23:41 Temperature 97.6 F Pulse Rate 106 H Respiratory 18 Rate Blood Pressure 135/70 O2 Sat by Pulse 100 Oximetry Medical Decision Making - Medical Decision Making 29-year-old female presenting for test. Patient concerned blood levels are low and that she is . Frequently presents for these complaints. Patient states she is currently taking her medications. Patient appears acutely psychotic increased from known baseline. Patient sent in for EPS evaluation. Patient exam benign physically. Labs stable. HCG (-). EPS recommended admission. Patient agreeable. Transferred to floor in stable condition. - Lab Data Result diagrams: 01/10/19 00:09 Lab Results 01/09/19 01/10/19 Range/Units 23:49 00:09 WBC 10.3 (3.8-10.6) k/uL RBC 4.52 (3.80-5.40) m/uL Hgb 13.8 (11.4-16.0) gm/dL Hct 40.3 (34.0-46.0) % MCV 89.0 (80.0-100.0) fL MCH 30.5 (25.0-35.0) pg MCHC 34.3 (31.0-37.0) g/dL RDW 13.0 (11.5-15.5) % Plt Count 210 (150-450) k/uL Neutrophils % 63 % Lymphocytes % 28 % Monocytes % 5 % Eosinophils % 1 % Basophils % 0 % Neutrophils # 6.5 (1.3-7.7) k/uL Lymphocytes # 2.9 (1.0-4.8) k/uL Monocytes # 0.5 (0-1.0) k/uL Eosinophils # 0.1 (0-0.7) k/uL Basophils # 0.0 (0-0.2) k/uL Urine HCG, Qual Not Detected (Not Detectd) Disposition Clinical Impression: Psychosis Disposition: TRANSFER TO PSYCH HOSP/UNIT Condition: Stable Is patient prescribed a controlled substance at d/c from ED?: No Time of Disposition: 03:22 Decision to Admit Reason: Admit from EC Decision Date: 01/10/19 Decision Time: 03:22
[2019-01-10] MEDS ORDERED: MAGNESIUM HYDROXIDE 2,400 MG/10 ML CUP PO PRN (04:07)
[2019-01-10] MEDS ORDERED: ACETAMINOPHEN TAB 325 MG TAB PO PRN (04:07)
[2019-01-10] MEDS ORDERED: ALBUTEROL INHALER 60 PUFF/8 GM INHALER INHALATION PRN (08:00)
[2019-01-10 08:20] LABS: Basophils # (A) 0.1 k/uL (0-0.2); Basophils % (A) 1 %; Eosinophils # (A) 0.1 k/uL (0-0.7); Eosinophils % (A) 1 %; HCT 39.2 % (34.0-46.0); HGB 12.8 gm/dL (11.4-16.0); Lymphocytes # (A) 2.7 k/uL (1.0-4.8); Lymphocytes % (A) 30 %; MCH 29.4 pg (25.0-35.0); MCHC 32.5 g/dL (31.0-37.0); MCV 90.4 fL (80.0-100.0); Mean Platelet Volume 7.1; Monocytes # (A) 0.6 k/uL (0-1.0); Monocytes % (A) 6 %; Neutrophils # (A) 5.3 k/uL (1.3-7.7); Neutrophils % (A) 59 %; Platelet Count 233 k/uL (150-450); RBC 4.34 m/uL (3.80-5.40); WBC 9.1 k/uL (3.8-10.6)
[2019-01-10 08:47] LABS: ALT 69 U/L (9-52); AST 37 U/L (14-36); African American GFR (CKD) >90 (>60 ml/min/1.73 sqM); Albumin 4.5 g/dL (3.5-5.0); Alkaline Phosphatase 74 U/L (38-126); Anion Gap 9 mmol/L; Bilirubin, Delta 0.3 mg/dL (0.0-0.2); Blood Urea Nitrogen 8 mg/dL (7-17); Calcium 9.8 mg/dL (8.4-10.2); Carbon Dioxide 29 mmol/L (22-30); Chloride 100 mmol/L (98-107); Cholesterol 178 mg/dL (<200); Glucose 128 mg/dL (74-99); HDL Cholesterol 46 mg/dL (40-60); LDL Cholesterol,Calculated 111 mg/dL (0-99); Non-African American GFR(CKD) >90 (>60 ml/min/1.73 sqM); Potassium 4.2 mmol/L (3.5-5.1); Sodium 138 mmol/L (137-145); Total Bilirubin 0.3 mg/dL (0.2-1.3); Total Protein 7.7 g/dL (6.3-8.2); Triglycerides 104 mg/dL (<150)
[2019-01-10] MEDS: metFORMIN 500 MG TAB PO SCH ×2 (08:47→20:15)
[2019-01-10] MEDS: DOCUSATE 100 MG CAP PO SCH (08:47)
[2019-01-10] MEDS: PRENATAL VIT-IRON-FOLIC ACID 1 EACH CAP PO SCH (08:47)
[2019-01-10] MEDS: PANTOPRAZOLE 40 MG TABLET PO SCH (08:47)
[2019-01-10] MEDS: HYDROCHLOROTHIAZIDE 12.5 MG CAP PO SCH (08:47)
[2019-01-10] MEDS: NICOTINE 14MG/24HR PATCH TRANSDERM SCH (08:47)
[2019-01-10] MEDS: MAG HYDROX/AL HYDROX/SIMETH 30 ML CUP PO PRN (10:03)
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
[2019-01-10 19:52] LABS: Hemoglobin A1C 6.5 % (4.0-6.0)
[2019-01-10] MEDS: QUEtiapine 100 MG TAB PO SCH (20:15)
[2019-01-10] MEDS ORDERED: QUEtiapine 50 MG TAB PO SCH (21:00)
--- NOTE | 2019-01-10 23:57 | P.MDCNMH ---
History of Present Illness H&P Date: 01/10/19 Chief Complaint: medical evaluation 29 year old female with history of hypertension , DM patient with frequent visits to the ED concerned regarding and bleeding. she is a detention resident , on SSD, with history of schizoaffective disorder bipolar type. patient is usually delusional that she is . all her tests were negative for over the multiple [facility] , including this time. she denies any visual or auditory hallucinations at this time, denies any suicidal ideation. she reports that she feels her stomach uneasy and thats why she thought she might be . denies any chest pain, fever, chills, coughing , trouble breathing. Review of Systems Pertinent positives as noted in HPI. All other systems were reviewed and are negative Past Medical History Past Medical History: Asthma, Hypertension, Seizure Disorder Additional Past Medical History / Comment(s): last seizure was December 2018 per Pt History of Any Multi-Drug Resistant Organisms: None Reported Past Surgical History: Section, Tonsillectomy, Tubal Ligation Additional Past Surgical History / Comment(s): facial surgery, 2 C-Sections Past Anesthesia/Blood Transfusion Reactions: No Reported Reaction Past Psychological History: Anxiety, Bipolar, Depression, Schizoaffective Disorder, Schizophrenia Smoking Status: Current every day smoker Past Alcohol Use History: None Reported Additional Past Alcohol Use History / Comment(s): Patient denies any alcohol use Past Drug Use History: None Reported Additional Drug Use History / Comment(s): Pt states that she has not smoked MJ in "years". - Past Family History Father Family Medical History: Unable to Obtain Additional Family Medical History / Comment(s): Father is alive and may have diabetes. Mother Family Medical History: Thyroid Disorder Additional Family Medical History / Comment(s): Mother is alive at age 50 with thyroid disorder. Brother(s) Additional Family Medical History / Comment(s): Patient has 2 brothers and 2 sisters with no major medical problems. Patient has two sons that is healthy. Medications and Allergies Home Medications Medication Instructions Recorded Confirmed Type Ergocalciferol [Vitamin D2 50,000 unit PO WE 04/05/18 01/10/19 History (DRISDOL)] Hydrochlorothiazide 12.5 mg PO DAILY 09/22/18 01/10/19 History Docusate [Colace] 100 mg PO DAILY 10/15/18 01/10/19 History QUEtiapine [SEROquel] 50 mg PO HS 10/15/18 01/10/19 History fluPHENAZine DECANOATE [Prolixin 50 mg IM Q7D 10/15/18 01/10/19 History Decanoate] Albuterol Sulfate [Proair Hfa] 2 puff INHALATION RT-Q4H PRN 12/03/18 01/10/19 History Pantoprazole Sodium [Protonix] 40 mg PO DAILY 12/03/18 01/10/19 History Pnv,Calcium 72/Iron/Folic Acid 1 tab PO DAILY 12/03/18 01/10/19 History [ Plus Tablet] metFORMIN HCL [Glucophage] 500 mg PO BID 12/03/18 01/10/19 History Polyethylene Glycol 3350 [Miralax] 17 gm PO DAILY 01/10/19 01/10/19 History Allergies Allergy/AdvReac Type Severity Reaction Status Date / Time ibuprofen [From Motrin] Allergy Rash/Hives Verified 01/10/19 06:46 pineapple Allergy Rash/Hives Verified 01/10/19 06:46 red dye Allergy Rash/Hives Verified 01/10/19 06:46 haloperidol [From Haldol] AdvReac Hallucinati Verified 01/10/19 06:46 ons Physical Exam Vitals: Vital Signs Temp Pulse Pulse Resp BP BP Pulse Ox 01/10/19 03:28 98.1 F 98 17 125/69 98 01/10/19 03:26 99.6 F 99 18 141/82 Constitutional: No acute distress, conversant, pleasant, obese Eyes: Anicteric sclerae, moist conjunctiva, no lid-lag Pupils equal round reactive to light ENMT: NC/AT Oropharynx clear, no erythema, exudates Neck: Supple, FROM, no masses, or JVD No carotid bruits No thyromegaly Lungs: Clear to auscultation Clear to percussion Normal respiratory effort, no accessory muscle use Cardiovascular: Heart regular in rate and rhythm, systolic murmurs, no gallops, or rubs No peripheral edema Abdominal: Soft Nontender, no guarding, rebound or rigidity Abdomen moving with respiration Normoactive bowel sounds No hepatomegaly, No splenomegaly No palpable mass No abdominal wall hernia noted Skin: Normal temperature, tone, texture, turgor No induration No subcutaneous nodules No rash, lesions No ulcers Extremities: No digital cyanosis No clubbing Pedal pulses intact and symmetrical Radial pulses intact and symmetrical No calf tenderness Psychiatric: Alert and oriented to person, place and time flat affect poor judgement Neuro Muscles Strength 5/5 in all 4 extremities Sensation to light touch grossly present throughout Cranial nerves II-XII grossly intact No focal sensory deficits Lymphatics: no palpable cervical or supraclavicular , or inguinal lymph nodes Cranial Nerve Examination - Cranial Nerves Cranial Nerve II- Optic: Intact Cranial Nerve III- Oculomotor: Intact Cranial Nerve IV- Trochlear: Intact Cranial Nerve V- Trigeminal: Intact Cranial Nerve - Abducens: Intact Cranial Nerve VII- Facial: Intact Cranial Nerve VIII- Auditory: Intact Cranial Nerve IX- Glossopharyngeal: Intact Cranial Nerve X- Vagus: Intact Cranial Nerve XI- Accessory: Intact Cranial Nerve XII- Hypoglossal: Intact Results CBC & Chem 7: 01/10/19 07:36 01/10/19 07:36 Labs: Abnormal Lab Results - Last 24 Hours (Table) 01/10/19 01/10/19 Range/Units 07:36 07:36 Glucose 128 H (74-99) mg/dL Hemoglobin A1c 6.5 H (4.0-6.0) % Delta Bilirubin 0.3 H (0.0-0.2) mg/dL AST 37 H (14-36) U/L ALT 69 H (9-52) U/L LDL Cholesterol, Calc 111 H (0-99) mg/dL Assessment and Plan Assessment: 29-year-old female with history of schizoaffective bipolar disorder hypertension and diabetes admitted for delusional thoughts medicine consult for medical management Plan: Delusional thoughts Schizoaffective bipolar disorder Management per psych Chronic conditions Hypertension Diabetes Resume home meds insulin sliding scale added ? history of seizure, not on any medications low risk for dvt , ambulatory patient Thank you for allowing us to participate in the care of this patient. We will follow peripherally. Do not hesitate to contact us with questions. Someone can be reached from the [facility] hospitalist group at all hours of the day at [phone].
[2019-01-11 07:41] LABS: Glucose,Whole Blood 136 mg/dL (75-99)
[2019-01-11] MEDS: INSULIN ASPART (NovoLOG) 100 UNIT/ML VIAL SQ SCH ×4 (07:47→20:05)
[2019-01-11] MEDS: DOCUSATE 100 MG CAP PO SCH (08:29)
[2019-01-11] MEDS: PRENATAL VIT-IRON-FOLIC ACID 1 EACH CAP PO SCH (08:30)
[2019-01-11] MEDS: PANTOPRAZOLE 40 MG TABLET PO SCH (08:30)
[2019-01-11] MEDS: NICOTINE 14MG/24HR PATCH TRANSDERM SCH (08:30)
[2019-01-11] MEDS: HYDROCHLOROTHIAZIDE 12.5 MG CAP PO SCH (08:30)
[2019-01-11] MEDS: metFORMIN 500 MG TAB PO SCH ×2 (08:30→20:04)
[2019-01-11 08:41] VITALS: RESP 18
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
[2019-01-11 12:28] LABS: Glucose,Whole Blood 99 mg/dL (75-99)
[2019-01-11 13:36] LABS: Appearance,Urine Clear (Clear); Bilirubin,Urine Negative (Negative); Blood,Urine Negative (Negative); Color,Urine Light Yellow; Glucose,Urine (UA) Negative (Negative); Ketones,Urine Negative (Negative); Leukocyte Esterase,Urine Negative (Negative); Nitrite,Urine Negative (Negative); Protein,Urine Negative (Negative); Specific Gravity,Urine 1.002 (1.001-1.035); Urobilinogen,Urine <2.0 mg/dL (<2.0)
[2019-01-11] MEDS: MAG HYDROX/AL HYDROX/SIMETH 30 ML CUP PO PRN (14:42)
[2019-01-11 17:23] LABS: Glucose,Whole Blood 107 mg/dL (75-99)
[2019-01-11] MEDS: QUEtiapine 100 MG TAB PO SCH (20:04)
[2019-01-11 20:07] LABS: Glucose,Whole Blood 107 mg/dL (75-99)
[2019-01-12 06:48] VITALS: TEMP 98.4
[2019-01-12 07:44] LABS: Glucose,Whole Blood 131 mg/dL (75-99)
[2019-01-12] MEDS: INSULIN ASPART (NovoLOG) 100 UNIT/ML VIAL SQ SCH ×4 (09:00→20:23)
[2019-01-12] MEDS: metFORMIN 500 MG TAB PO SCH ×2 (09:15→21:34)
[2019-01-12] MEDS: HYDROCHLOROTHIAZIDE 12.5 MG CAP PO SCH (09:15)
[2019-01-12] MEDS: PRENATAL VIT-IRON-FOLIC ACID 1 EACH CAP PO SCH (09:16)
[2019-01-12] MEDS: NICOTINE 14MG/24HR PATCH TRANSDERM SCH (09:16)
[2019-01-12] MEDS: DOCUSATE 100 MG CAP PO SCH (09:16)
[2019-01-12] MEDS: PANTOPRAZOLE 40 MG TABLET PO SCH (09:16)
[2019-01-12 10:01] LABS: Urine Alcohol Negative (Negative); Urine Barbiturate Negative (Negative); Urine Cocaine Negative (Negative); Urine Methadone Negative (Negative); Urine Opiates Negative (Negative); Urine Phencyclidine Negative (Negative)
--- NOTE | 2019-01-12 10:05 | P.PN ---
Progress Note - Text Interval history the patient is found in her room she follows me to the [facility] to speak. The patient was admitted over the weekend for acute symptoms of psychosis. I did review the psychiatric evaluation and subsequent progress note. The patient is known to have a diagnosis of schizoaffective disorder. She has a guardian and resides at a [facility]. She was admitted due to persistent thoughts that she was . Her urine test was negative. The patient has been seen by internal medicine for routine history and physical exam. The patient receives Prolixin decanoate 50 mg weekly next dose is due tomorrow. She was also on Seroquel 50 mg at bedtime this was titrated to 100 mg at bedtime. The patient states that she "slept like a bear" last evening. She has attended no groups this morning but states she has been attending. She reports that she has been showering. Appetite stable. Mental status exam: This patient is an obese -[place] female appearing her stated age. She is dressed in her own clothing. She has a disheveled appearance hygiene is adequate. Eye contact is intermittent. She indicates her mood is okay. Affect is blunted and she demonstrates little range. She reports no hopelessness thinking she reports no suicidal or homicidal ideation intent or plan. She is endorsing no auditory or visual hallucinations at this time. She reports that she feels safe but in general she will have times where she feels paranoid. She identifies no person or group that would try to harm her. She is endorsing no ideas of reference. She does refer to her concerns that she was but provides no specifics today when asked further. She frequently changes position while seated in her chair but demonstrates no involuntary repetitive movements. She demonstrates no verbal or physical aggressiveness. She's not particularly invested in the interview but will provide answers to questions briefly. Insight and judgment are chronically limited. Plan: The patient will continue on her current psychotropic medication. She seems somewhat guarded during our interaction today. I will confer with the treatment team regarding the patient's behavior over the past 2 days. She is encouraged to fully participate in the milieu. We will monitor her for safety. Vital signs reviewed. Social work has attempted to reach out to the patient's guardian for discharge planning purposes.
[2019-01-12 12:49] LABS: Glucose,Whole Blood 111 mg/dL (75-99)
[2019-01-12 17:35] LABS: Glucose,Whole Blood 74 mg/dL (75-99)
[2019-01-12 20:06] LABS: Glucose,Whole Blood 143 mg/dL (75-99)
[2019-01-12] MEDS: QUEtiapine 100 MG TAB PO SCH (21:34)
[2019-01-13 07:53] LABS: Glucose,Whole Blood 116 mg/dL (75-99)
[2019-01-13] MEDS: INSULIN ASPART (NovoLOG) 100 UNIT/ML VIAL SQ SCH ×2 (08:00→12:38)
[2019-01-13] MEDS: NICOTINE 14MG/24HR PATCH TRANSDERM SCH (08:03)
[2019-01-13] MEDS: metFORMIN 500 MG TAB PO SCH (08:05)
[2019-01-13] MEDS: PANTOPRAZOLE 40 MG TABLET PO SCH (08:05)
[2019-01-13] MEDS: HYDROCHLOROTHIAZIDE 12.5 MG CAP PO SCH (08:05)
[2019-01-13] MEDS: DOCUSATE 100 MG CAP PO SCH (08:05)
[2019-01-13] MEDS: PRENATAL VIT-IRON-FOLIC ACID 1 EACH CAP PO SCH (08:05)
[2019-01-13 08:08] VITALS: BP 120/80; PULSE 88
--- NOTE | 2019-01-13 09:17 | P.DS ---
Providers Date of admission: 01/10/19 02:42 Expected date of discharge: 01/13/19 Attending physician: Howie Camarena Consults: 01/10/19 04:07 Consult Physician Routine Consulting Provider: aMry Nicholas Consult Reason/Comments: New admission, H&P Do you want consulting provider notified?: Yes Primary care physician: [facility] - Discharge Diagnosis(es) (1) Schizoaffective disorder, bipolar type Current Visit: Yes Status: Acute Priority: High Hospital Course: Brief summary of admission note: This patient is a 29-year-old single - [place] female who was admitted to the mental health unit for delusional thinking. The patient reportedly brought herself to emergency room to get a test. She was delusional that she was although the urine hCG was negative. She reported feeling hyper and she felt she needed a medication adjustment. The patient has a known history of schizoaffective disorder and is cared for by [facility]. She does have a legal guardian. She does have a history of previous psychiatric hospitalizations. For full details please refer to the psychiatric evaluation dated 01/10/2019. Summary of hospital course: The patient was admitted to the mental health unit voluntarily by the covering psychiatrist. I assumed care of the patient became yesterday. The patient was continued on her outpatient psychotropic medications however the Seroquel was titrated to 100 mg at bedtime. She receives a weekly Prolixin injection that is due on January 15. During the hospitalization the patient's guardian shared that the patient's presenting symptoms really are part of her baseline function. They had no ongoing concerns regarding her safety and felt that the patient was safe to return back to her [place] [facility] residence. The patient was seen by internal medicine for routine history and physical exam. Social work met with the patient to complete a psychosocial assessment for discharge planning purposes. The patient's attended a few groups. She demonstrated no agitated behavior she has been directable. She has been showering and eating. Sleep is improved. She indicates feeling safe to return to her [place] [facility]. While status exam: The patient is an obese -E[place]ian female appearing her stated age. She just her own clothing. Hygiene grooming adequate. Eye contact is appropriate speech is fluent spontaneous nonpressured. She is distractible at times but denies having any auditory or visual hallucinations. She states that she does still struggle with thoughts that she is but understands that the test was negative. This does seem to be a chronic finding. She reports no suicidal ideation intent or plan and no homicidal ideation intent or plan. She indicates she does not feel hopeless. She demonstrates no verbal or physical aggressiveness she demonstrates no involuntary repetitive movements. Insight and judgment grossly intact given her diagnosis. She is oriented to person place and date. She describes future oriented thoughts with respect to activity she will participate in when she returns to the [place] [facility]. She demonstrates no tangential thinking loose associations or flight of ideas she does not appear hypomanic or manic. Impressions 1. Schizoaffective disorder bipolar type Plan: The patient will be discharged mental health unit today to return to the [place] [facility]. Social work has discussed this treatment plan with the patient's guardian and they are agreeable. The patient will continue to follow with [facility]. She will continue on Prolixin decanoate 50 mg weekly next dose due January 15 Seroquel 100 mg in the evening. She indicates that she is not using any alcohol or marijuana she is encouraged to continue abstaining from those substances. At this time there is no imminent safety risk she is appropriate for transition back to outpatient care. She is instructed to return to the hospital with any acute safety concerns. Patient Condition at Discharge: Stable Plan - Discharge Summary Discharge Rx Participant: No New Discharge Prescriptions: New Nicotine 14Mg/24Hr Patch [Habitrol] 1 patch TRANSDERM DAILY #14 patch QUEtiapine [SEROquel] 100 mg PO HS #30 tab Continue Ergocalciferol [Vitamin D2 (DRISDOL)] 50,000 unit PO WE Hydrochlorothiazide 12.5 mg PO DAILY Docusate [Colace] 100 mg PO DAILY Albuterol Sulfate [Proair Hfa] 2 puff INHALATION RT-Q4H PRN PRN Reason: Shortness Of Breath metFORMIN HCL [Glucophage] 500 mg PO BID Pantoprazole Sodium [Protonix] 40 mg PO DAILY Pnv,Calcium 72/Iron/Folic Acid [ Plus Tablet] 1 tab PO DAILY Polyethylene Glycol 3350 [Miralax] 17 gm PO DAILY fluPHENAZine DECANOATE [Prolixin Decanoate] 50 mg IM Q7D #1 ml No Action QUEtiapine [SEROquel] 50 mg PO HS Discharge Medication List Ergocalciferol [Vitamin D2 (DRISDOL)] 50,000 unit PO WE 04/05/18 [History] Hydrochlorothiazide 12.5 mg PO DAILY 09/22/18 [History] Docusate [Colace] 100 mg PO DAILY 10/15/18 [History] QUEtiapine [SEROquel] 50 mg PO HS 10/15/18 [History] Albuterol Sulfate [Proair Hfa] 2 puff INHALATION RT-Q4H PRN 12/03/18 [History] Pantoprazole Sodium [Protonix] 40 mg PO DAILY 12/03/18 [History] Pnv,Calcium 72/Iron/Folic Acid [ Plus Tablet] 1 tab PO DAILY 12/03/18 [History] metFORMIN HCL [Glucophage] 500 mg PO BID 12/03/18 [History] Polyethylene Glycol 3350 [Miralax] 17 gm PO DAILY 01/10/19 [History] Nicotine 14Mg/24Hr Patch [Habitrol] 1 patch TRANSDERM DAILY #14 patch 01/13/19 [Rx] QUEtiapine [SEROquel] 100 mg PO HS #30 tab 01/13/19 [Rx] fluPHENAZine DECANOATE [Prolixin Decanoate] 50 mg IM Q7D #1 ml 01/13/19 [Rx] Follow up Appointment(s)/Referral(s): [facility] [Outside] - 01/15/19 10:30 am (01-15-19 @ 10:[address] Sebastian) [facility] [Primary Care Provider] - 1-2 days Activity/Diet/Wound Care/Special Instructions: Activity and diet as tolerated. Avoid the use of street drugs and alcohol. Take all medications as prescribed. When you are in need of refills on your medications please contact your medical provider and/or outpatient psychiatrist to have this done. Please go to scheduled outpatient appointment for aftercare treatment. If symptoms return or become worse, call the crisis line at and/or go to the nearest emergency room for evaluation.
[2019-01-13 12:38] LABS: Glucose,Whole Blood 107 mg/dL (75-99)
[2019-01-14] MEDS ORDERED: ERGOCALCIFEROL 50,000 UNIT CAP PO SCH (09:00)
== END 2019-01-13 13:40 | disposition home or self-care (01) | DRG 885 ==
LOC: EC 23:38 → 3MHU 01-10 02:42
PROVIDERS: ADMIT Psychiatry & Neurology Psychiatry; ATTEND Psychiatry & Neurology Psychiatry
DX: F25.0 Schizoaffective disorder, bipolar type (principal); Z68.41 Body mass index [BMI] 40.0-44.9, adult; R45.851 Suicidal ideations; E11.9 Type 2 diabetes mellitus without complications; E66.9 Obesity, unspecified; F17.210 Nicotine dependence, cigarettes, uncomplicated; F41.0 Panic disorder [episodic paroxysmal anxiety]; G40.909 Epilepsy, unspecified, not intractable, without status epilepticus; I10 Essential (primary) hypertension; J45.909 Unspecified asthma, uncomplicated; Z79.899 Other long term (current) drug therapy; Z81.3 Family history of other psychoactive substance abuse and dependence; Z81.8 Family history of other mental and behavioral disorders; Z82.49 Family history of ischemic heart disease and other diseases of the circulatory system; Z82.5 Family history of asthma and other chronic lower respiratory diseases; Z83.3 Family history of diabetes mellitus; Z91.5 Personal history of self-harm; Z56.0 Unemployment, unspecified; Z88.6 Allergy status to analgesic agent; Z79.84 Long term (current) use of oral hypoglycemic drugs
CPT/HCPCS: 36415; 80053; 80061; 80306; 81003; 81025; 82075; 82248; 83036; 84443; 85025; 99285

== ENCOUNTER 2019-06-14 22:29 | Emergency (ER) | payer OTHER ==
[2019-06-14 23:43] LABS: Appearance,Urine Clear (Clear); Bilirubin,Urine Negative (Negative); Blood,Urine Negative (Negative); Color,Urine Yellow; Glucose,Urine (UA) Negative (Negative); Ketones,Urine Negative (Negative); Leukocyte Esterase,Urine Negative (Negative); Nitrite,Urine Negative (Negative); PH, Urine 6.5 (5.0-8.0); Protein,Urine Negative (Negative); Specific Gravity,Urine 1.012 (1.001-1.035); Urobilinogen,Urine <2.0 mg/dL (<2.0)
--- NOTE | 2019-06-15 00:30 | ED ---
General Adult HPI - General Chief complaint: Abdominal Pain Stated complaint: abd pain Time Seen by Provider: 06/14/19 22:34 Source: patient, EMS, RN notes reviewed, old records reviewed Mode of arrival: EMS Limitations: no limitations - History of Present Illness Initial comments: 29-year-old female patient presents to psychiatric history known to this em ergency Department for repeated presentations due to concern of presents to ED for evaluation of presented being . Patient reports that she believes that she may be and requests a test. Patient denies any pain or any other symptoms at this time. Denies any other complaints. Systemic: Pt denies fatigue, fever/chills, rash. Pt denies weakness, night sweats, weight loss. Neuro: Pt denies headache, visual disturbances, syncope or pre-syncope. HEENT: Pt denies ocular discharge or irritation, otalgia, rhinorrhea, pharyngitis or notable lymphadenopathy. Cardiopulmonary: Pt denies chest pain, SOB, heart palpitations, dyspnea on exertion. Abdominal/GI: Pt denies abdominal pain, n/v/d. : Pt denies dysuria, burning w/ urination, frequency/urgency. Denies new onset urinary or bowel incontinence. MSK: Pt denies myalgia, loss of strength or function in extremities. Neuro: Pt denies new onset weakness, paresthesias. - Related Data Home Medications Medication Instructions Recorded Confirmed Ergocalciferol [Vitamin D2 50,000 unit PO WE 04/05/18 01/10/19 (DRISDOL)] Hydrochlorothiazide 12.5 mg PO DAILY 09/22/18 01/10/19 Docusate [Colace] 100 mg PO DAILY 10/15/18 01/10/19 Albuterol Sulfate [Proair Hfa] 2 puff INHALATION RT-Q4H PRN 12/03/18 01/10/19 Pantoprazole Sodium [Protonix] 40 mg PO DAILY 12/03/18 01/10/19 Pnv,Calcium 72/Iron/Folic Acid 1 tab PO DAILY 12/03/18 01/10/19 [ Plus Tablet] metFORMIN HCL [Glucophage] 500 mg PO BID 12/03/18 01/10/19 Polyethylene Glycol 3350 [Miralax] 17 gm PO DAILY 01/10/19 01/10/19 Previous Rx's Medication Instructions Recorded Nicotine 14Mg/24Hr Patch [Habitrol] 1 patch TRANSDERM DAILY #14 patch 01/13/19 QUEtiapine [SEROquel] 100 mg PO HS #30 tab 01/13/19 fluPHENAZine DECANOATE [Prolixin 50 mg IM Q7D #1 ml 01/13/19 Decanoate] Allergies Allergy/AdvReac Type Severity Reaction Status Date / Time ibuprofen [From Motrin] Allergy Rash/Hives Verified 01/10/19 06:46 pineapple Allergy Rash/Hives Verified 01/10/19 06:46 red dye Allergy Rash/Hives Verified 01/10/19 06:46 haloperidol [From Haldol] AdvReac Hallucinati Verified 01/10/19 06:46 ons Review of Systems ROS Statement: Those systems with pertinent positive or pertinent negative responses have been documented in the HPI. ROS Other: All systems not noted in ROS Statement are negative. Past Medical History Past Medical History: Asthma, Hypertension, Seizure Disorder Additional Past Medical History / Comment(s): last seizure was December 2018 per Pt History of Any Multi-Drug Resistant Organisms: None Reported Past Surgical History: Section, Tonsillectomy, Tubal Ligation Additional Past Surgical History / Comment(s): facial surgery, 2 C-Sections Past Anesthesia/Blood Transfusion Reactions: No Reported Reaction Past Psychological History: Anxiety, Bipolar, Depression, Schizoaffective Disorder, Schizophrenia Smoking Status: Current every day smoker Past Alcohol Use History: None Reported Past Drug Use History: Marijuana - Past Family History Father Family Medical History: Unable to Obtain Additional Family Medical History / Comment(s): Father is alive and may have diabetes. Mother Family Medical History: Thyroid Disorder Additional Family Medical History / Comment(s): Mother is alive at age 50 with thyroid disorder. Brother(s) Additional Family Medical History / Comment(s): Patient has 2 brothers and 2 sisters with no major medical problems. Patient has two sons that is healthy. General Exam - General Exam Comments Initial Comments: Constitutional: NAD, AOX3, Pt has pleasant affect. HEENT: NC/AT, trachea midline, neck supple, no lymphadenopathy. Posterior pharynx non erythematous, without exudates. External ears appear normal, without discharge. Mucous membranes moist. Eyes PERRLA, EOM intact. There is no scleral icterus. No pallor noted. Cardiopulmonary: RRR, no murmurs, rubs or gallops, no JVD noted. Lungs CTAB in anterior and posterior squires. No peripheral edema. Abdominal exam: Abdomen soft and non-distended. Abdomen non-tender to palpation in all 4 quadrants. Bowel sounds active in LLQ. No hepatosplenomegaly. No ecchymosis Neuro: CN II-XII grossly intact. No nuchal rigidity. No raccon eyes, no vega sign, no hemotympanum. No cervical spinal tenderness. MSK: No posterior calf tenderness bilaterally, homans sign negative bilaterally. Posterior tibialis and radial pulse +2 bilaterally. Sensation intact in upper and lower extremities. Full active ROM in upper and lower extremities, 5/5 stregnth. Limitations: no limitations Course Vital Signs 06/14/19 22:32 Temperature 98.1 F Pulse Rate 81 Respiratory 18 Rate Blood Pressure 163/93 O2 Sat by Pulse 99 Oximetry Medical Decision Making - Medical Decision Making 29-year-old female patient presents in ED with request for urine test. UA was ran negative for . Patient is in no acute distress at this time. Patient stable for discharge and outpatient follow-up. Case discussed with Dr. Barber. - Lab Data Lab Results 06/14/19 06/14/19 Range/Units 23:30 23:30 Urine Color Yellow Urine Appearance Clear (Clear) Urine pH 6.5 (5.0-8.0) Ur Specific [place] 1.012 (1.001-1.035) Urine Protein Negative (Negative) Urine Glucose (UA) Negative (Negative) Urine Ketones Negative (Negative) Urine Blood Negative (Negative) Urine Nitrite Negative (Negative) Urine Bilirubin Negative (Negative) Urine Urobilinogen <2.0 (<2.0) mg/dL Ur Leukocyte Esterase Negative (Negative) Urine HCG, Qual Not Detected (Not Detectd) Disposition Clinical Impression: Negative test Disposition: HOME SELF-CARE Condition: Stable Additional Instructions: Follow-up with primary care provider tomorrow. Return to ER if condition worsens in any way. Is patient prescribed a controlled substance at d/c from ED?: No Referrals: [facility] [Primary Care Provider] - 1-2 days
[2019-06-15 01:00] VITALS: BP 126/72; PULSE 104; RESP 16; TEMP 98.3
== END 2019-06-15 00:58 | disposition home or self-care (01) ==
LOC: EC 22:29
DX: Z32.02 Encounter for pregnancy test, result negative (principal); R10.9 Unspecified abdominal pain; J45.909 Unspecified asthma, uncomplicated; I10 Essential (primary) hypertension; F17.200 Nicotine dependence, unspecified, uncomplicated; Z98.51 Tubal ligation status; Z79.84 Long term (current) use of oral hypoglycemic drugs; Z79.899 Other long term (current) drug therapy; Z88.6 Allergy status to analgesic agent; Z91.018 Allergy to other foods; Z91.048 Other nonmedicinal substance allergy status; Z88.8 Allergy status to other drugs, medicaments and biological substances
CPT/HCPCS: 81003; 81025; 99284

== ENCOUNTER 2019-07-03 20:45 | Inpatient (IN) | payer MEDICAID, OTHER ==
--- NOTE | 2019-07-03 21:27 | ED ---
Psych HPI - General Chief Complaint: Psychiatric Symptoms Stated Complaint: Mental Health Time Seen by Provider: 07/03/19 21:00 Source: patient, police Mode of arrival: ambulatory - History of Present Illness Initial Comments: Patient is a 29-year-old female presenting to the emergency department for psychiatric evaluation. Patient states she was brought to the emergency depar tment via police department for psychiatric evaluation by petition/pickup order of supervisor rose grading José Miguel Grimes. Patient states she doesn't know the exact reason why she is here. Patient denies any suicidal thoughts or ideations. Patient states she has been taking all her medications as prescribed. - Related Data Home Medications Medication Instructions Recorded Confirmed Ergocalciferol [Vitamin D2 50,000 unit PO Q7D 04/05/18 07/03/19 (DRISDOL)] Hydrochlorothiazide 12.5 mg PO DAILY 09/22/18 07/03/19 Docusate [Colace] 100 mg PO DAILY 10/15/18 07/03/19 Albuterol Sulfate [Proair Hfa] 2 puff INHALATION RT-Q4H PRN 12/03/18 07/03/19 Pantoprazole Sodium [Protonix] 40 mg PO DAILY 12/03/18 07/03/19 Polyethylene Glycol 3350 [Miralax] 17 gm PO DAILY 01/10/19 07/03/19 Fenofibrate [Lofibra] 54 mg PO DAILY 07/03/19 07/03/19 Magnesium Oxide 400 mg PO DAILY 07/03/19 07/03/19 busPIRone HCl [Buspar] 10 mg PO BID 07/03/19 07/03/19 metFORMIN HCL [Glucophage] 1,000 mg PO BID 07/03/19 07/03/19 Previous Rx's Medication Instructions Recorded QUEtiapine [SEROquel] 100 mg PO HS #30 tab 01/13/19 fluPHENAZine DECANOATE [Prolixin 50 mg IM Q7D #1 ml 01/13/19 Decanoate] Allergies Allergy/AdvReac Type Severity Reaction Status Date / Time ibuprofen [From Motrin] Allergy Rash/Hives Verified 07/03/19 22:03 pineapple Allergy Rash/Hives Verified 07/03/19 22:03 red dye Allergy Rash/Hives Verified 07/03/19 22:03 haloperidol [From Haldol] AdvReac Hallucinati Verified 07/03/19 22:03 ons Review of Systems ROS Statement: Those systems with pertinent positive or pertinent negative responses have been documented in the HPI. ROS Other: All systems not noted in ROS Statement are negative. Past Medical History Past Medical History: Asthma, Hypertension, Seizure Disorder Additional Past Medical History / Comment(s): last seizure was December 2018 per Pt History of Any Multi-Drug Resistant Organisms: None Reported Past Surgical History: Section, Tonsillectomy, Tubal Ligation Additional Past Surgical History / Comment(s): facial surgery, 2 C-Sections Past Anesthesia/Blood Transfusion Reactions: No Reported Reaction Past Psychological History: Anxiety, Bipolar, Depression, Schizoaffective Disorder, Schizophrenia Smoking Status: Current every day smoker Past Alcohol Use History: None Reported Past Drug Use History: Marijuana - Past Family History Father Family Medical History: Unable to Obtain Additional Family Medical History / Comment(s): Father is alive and may have diabetes. Mother Family Medical History: Thyroid Disorder Additional Family Medical History / Comment(s): Mother is alive at age 50 with thyroid disorder. Brother(s) Additional Family Medical History / Comment(s): Patient has 2 brothers and 2 sisters with no major medical problems. Patient has two sons that is healthy. General Exam Limitations: no limitations General appearance: alert, in no apparent distress, obese (Morbidly obese) Head exam: Present: atraumatic, normocephalic, normal inspection Eye exam: Present: normal appearance, PERRL, EOMI Pupils: Present: normal accommodation ENT exam: Present: normal exam Neck exam: Present: normal inspection, full ROM Respiratory exam: Present: normal lung sounds bilaterally Cardiovascular Exam: Present: regular rate, normal rhythm, normal heart sounds Extremities exam: Present: normal inspection, full ROM Back exam: Present: normal inspection, full ROM Neurological exam: Present: alert, oriented X3 Psychiatric exam: Present: normal affect, normal mood Skin exam: Present: warm, dry, intact, normal color Course Vital Signs 07/03/19 20:57 Temperature 98.3 F Pulse Rate 100 Respiratory 20 Rate Blood Pressure 151/82 O2 Sat by Pulse 99 Oximetry Medical Decision Making - Medical Decision Making Patient is a 29-year-old female presenting to the emergency department for psychiatric evaluation. Patient brought to the ED via police department by the petition of Judge José Miguel Cintron. Urine drug screen negative. EPS evaluated the patient and she will be admitted for further psychiatric management. - Lab Data Lab Results 07/03/19 Range/Units 21:28 Urine Opiates Screen Not Detected (NotDetected) Ur Oxycodone Screen Not Detected (NotDetected) Urine Methadone Screen Not Detected (NotDetected) Ur Propoxyphene Screen Not Detected (NotDetected) Ur Barbiturates Screen Not Detected (NotDetected) U Tricyclic Antidepress Not Detected (NotDetected) Ur Phencyclidine Scrn Not Detected (NotDetected) Ur Amphetamines Screen Not Detected (NotDetected) U Methamphetamines Scrn Not Detected (NotDetected) U Benzodiazepines Scrn Not Detected (NotDetected) Urine Cocaine Screen Not Detected (NotDetected) U Marijuana (THC) Screen Not Detected (NotDetected) Disposition Clinical Impression: Adjustment reaction of adult life Disposition: ADMITTED IP TO THIS [facility] Condition: Stable Is patient prescribed a controlled substance at d/c from ED?: No Referrals: [facility] [Primary Care Provider] - 1-2 days Time of Disposition: 00:27
[2019-07-03 22:02] LABS: Amphetamine Screen,Urine Not Detected (NotDetected); Barbiturate Screen,Urine Not Detected (NotDetected); Benzodiazepines Screen,Urine Not Detected (NotDetected); Cocaine Screen,Urine Not Detected (NotDetected); Methadone Screen, Urine Not Detected (NotDetected); Opiate Screen,Urine Not Detected (NotDetected); Oxycodone Screen, Urine Not Detected (NotDetected); Phencyclidine Screen,Urine Not Detected (NotDetected); Tricyclic Antidepressant,Urine Not Detected (NotDetected); Urn Cannabinoid Scrn Not Detected (NotDetected)
[2019-07-04] MEDS ORDERED: LORazepam 1 MG TAB PO PRN (01:26)
[2019-07-04] MEDS ORDERED: ZIPRASIDONE 20 MG VIAL IM PRN (01:26)
[2019-07-04] MEDS ORDERED: MAGNESIUM HYDROXIDE 2,400 MG/10 ML CUP PO PRN (01:26)
[2019-07-04] MEDS ORDERED: ALBUTEROL NEBULIZED 2.5 MG/3 ML INHALATION PRN (01:30)
[2019-07-04 01:54] LABS: Appearance,Urine Clear (Clear); Bilirubin,Urine Negative (Negative); Blood,Urine Negative (Negative); Color,Urine Light Yellow; Glucose,Urine (UA) Negative (Negative); Ketones,Urine Negative (Negative); Leukocyte Esterase,Urine Negative (Negative); Nitrite,Urine Negative (Negative); Protein,Urine Negative (Negative); Specific Gravity,Urine 1.006 (1.001-1.035); Urobilinogen,Urine <2.0 mg/dL (<2.0)
--- NOTE | 2019-07-04 02:54 | P.CONS ---
History of Present Illness - Reason for Consult Consult date: 07/04/19 - History of Present Illness The patient is a 29-year-old female with a PMH of asthma, tobacco abuse, hypertension, seizure disorder, bipolar disorder and schizophrenia, resident of a assisted was brought in under police custody after pickup order issued by a diving judge. The patient was reportedly noncompliant with her medications. Patient was thereby admitted to the mental health unit where she was seen and evaluated. She reports that she had not been taking her medications since they sometimes make her feel tired and give her GERD. She otherwise denied any active complaints. She denied chest pain, shortness of breath, fever, chills, nausea, vomiting, dizziness, or headaches. UA and urine toxicology were negative in the emergency room. Review of Systems Pertinent positives and negatives as discussed in HPI, a complete review of systems was performed and all other systems are negative. Past Medical History Past Medical History: Asthma, Hypertension, Seizure Disorder Additional Past Medical History / Comment(s): last seizure was December 2018 per Pt History of Any Multi-Drug Resistant Organisms: None Reported Past Surgical History: Section, Tonsillectomy, Tubal Ligation Additional Past Surgical History / Comment(s): facial surgery, 2 C-Sections Past Anesthesia/Blood Transfusion Reactions: No Reported Reaction Past Psychological History: Anxiety, Bipolar, Depression, Schizoaffective Disorder, Schizophrenia Additional Psychological History / Comment(s): pt states that before this admission pt had been in this [facility] and [facility] multiple time Smoking Status: Current every day smoker Past Alcohol Use History: None Reported Additional Past Alcohol Use History / Comment(s): Patient denies any alcohol use Past Drug Use History: Marijuana Additional Drug Use History / Comment(s): Pt states that she has not smoked MJ in "years". - Past Family History Father Family Medical History: Unable to Obtain Additional Family Medical History / Comment(s): Father is alive and may have diabetes. Mother Family Medical History: Thyroid Disorder Additional Family Medical History / Comment(s): Mother is alive at age 50 with thyroid disorder. Brother(s) Additional Family Medical History / Comment(s): Patient has 2 brothers and 2 sisters with no major medical problems. Patient has two sons that is healthy. Medications and Allergies Home Medications Medication Instructions Recorded Confirmed Type Ergocalciferol [Vitamin D2 50,000 unit PO Q7D 04/05/18 07/04/19 History (DRISDOL)] Hydrochlorothiazide 12.5 mg PO DAILY 09/22/18 07/04/19 History Docusate [Colace] 100 mg PO DAILY 10/15/18 07/04/19 History Albuterol Sulfate [Proair Hfa] 2 puff INHALATION RT-Q4H PRN 12/03/18 07/04/19 History Pantoprazole Sodium [Protonix] 40 mg PO DAILY 12/03/18 07/04/19 History Polyethylene Glycol 3350 [Miralax] 17 gm PO DAILY 01/10/19 07/04/19 History QUEtiapine [SEROquel] 100 mg PO HS #30 tab 01/13/19 07/04/19 Rx fluPHENAZine DECANOATE [Prolixin 50 mg IM Q7D #1 ml 01/13/19 07/04/19 Rx Decanoate] Fenofibrate [Lofibra] 54 mg PO DAILY 07/03/19 07/04/19 History Magnesium Oxide 400 mg PO DAILY 07/03/19 07/04/19 History busPIRone HCl [Buspar] 10 mg PO BID 07/03/19 07/04/19 History metFORMIN HCL [Glucophage] 1,000 mg PO BID 07/03/19 07/04/19 History Allergies Allergy/AdvReac Type Severity Reaction Status Date / Time ibuprofen [From Motrin] Allergy Rash/Hives Verified 07/04/19 01:34 pineapple Allergy Rash/Hives Verified 07/04/19 01:34 red dye Allergy Rash/Hives Verified 07/04/19 01:34 haloperidol [From Haldol] AdvReac Hallucinati Verified 07/04/19 01:34 ons Physical Exam Vitals: Vital Signs Temp Pulse Pulse Resp BP BP Pulse Ox 07/04/19 02:03 99.2 F 86 15 121/86 86 L 07/03/19 20:57 98.3 F 100 20 151/82 99 Intake and Output 07/03/19 07/03/19 07/04/19 14:59 22:59 06:59 Other: Weight 135.806 kg 134.065 kg General: non toxic, no distress, appears at stated age, morbidly obese Derm: no unusual rashes/lesions no unusual ecchymoses, warm, dry Head: atraumatic, normocephalic, symmetric Eyes: EOMI, no lid lag, anicteric sclera, pupils equal round reactive to light ENT: Nose and ears atraumatic, no thrush, no pharyngeal erythema Neck: No thyromegaly, no cervical lymphadenopathy, trachea midline, supple Mouth: no lip lesion, mucus membranes moist Cardiovascular: S1S2 reg, no murmur, positive posterior tibial pulse bilateral, no edema, capillary refill less than 2 seconds Lungs: CTA bilateral, no rhonchi, no rales , no accessory muscle use Abdominal: soft, nontender to palpation, no guarding, no appreciable organomegaly, normal bowel sounds Ext: no gross muscle atrophy, muscle strength 5 out of 5 in all 4 extremities grossly, no contractures, Neuro: CN II-XI grossly intact, light touch intact all 4 extremities, finger to nose within normal limits, Psych: Alert, oriented, appropriate affect Assessment and Plan Plan: Tobacco abuse -Advised on the importance of cessation Chronic conditions: Hypertension, seizure disorder, asthma -Continue with home meds Noncompliance with psychiatric medications -As per psychiatry Thank you for allowing us to participate in the care of this patient. We will follow peripherally. Do not hesitate to contact us with questions. Someone can be reached from the [facility] hospitalist group at all hours of the day at [phone].
[2019-07-04] MEDS: ACETAMINOPHEN TAB 325 MG TAB PO PRN ×2 (02:56→23:09)
[2019-07-04] MEDS: MAG HYDROX/AL HYDROX/SIMETH 30 ML CUP PO PRN ×2 (03:21→21:00)
[2019-07-04 09:44] LABS: Basophils % (A) 1 %; Eosinophils # (A) 0.1 k/uL (0-0.7); Eosinophils % (A) 2 %; HGB 11.6 gm/dL (11.4-16.0); Lymphocytes % (A) 31 %; MCH 28.4 pg (25.0-35.0); MCHC 31.3 g/dL (31.0-37.0); Mean Platelet Volume 8.7; Monocytes # (A) 0.4 k/uL (0-1.0); Monocytes % (A) 7 %; Neutrophils # (A) 3.5 k/uL (1.3-7.7); Neutrophils % (A) 56 %; Platelet Count 204 k/uL (150-450); RBC 4.06 m/uL (3.80-5.40); RDW 13.1 % (11.5-15.5); WBC 6.3 k/uL (3.8-10.6)
[2019-07-04 09:53] LABS: ALT 59 U/L (4-34); AST 37 U/L (14-36); African American GFR (CKD) >90 (>60 ml/min/1.73 sqM); Albumin 4.1 g/dL (3.5-5.0); Alkaline Phosphatase 60 U/L (38-126); Anion Gap 9 mmol/L; Bilirubin,Unconjugated 0.3 mg/dL (0.0-1.1); Blood Urea Nitrogen 6 mg/dL (7-17); Calcium 9.1 mg/dL (8.4-10.2); Carbon Dioxide 27 mmol/L (22-30); Chloride 102 mmol/L (98-107); Cholesterol 162 mg/dL (<200); Glucose 195 mg/dL (74-99); HDL Cholesterol 35 mg/dL (40-60); LDL Cholesterol,Calculated 102 mg/dL (0-99); Non-African American GFR(CKD) >90 (>60 ml/min/1.73 sqM); Potassium 4.1 mmol/L (3.5-5.1); Sodium 138 mmol/L (137-145); Total Bilirubin 0.2 mg/dL (0.2-1.3); Total Protein 7.2 g/dL (6.3-8.2); Triglycerides 124 mg/dL (<150)
--- NOTE | 2019-07-04 10:12 | P.HP ---
Psychiatric H&P - . H&P Date: 07/04/19 History & Physical: IDENTIFYING DATA: The patient is a single 29-year-old -Beninese female who is chronically and persistently mentally ill. She presented to unit involuntarily on a pickup order for noncompliance with her alternate treatment order. HISTORY OF PRESENT ILLNESS: I reviewed medical record and interviewed the patient. [facility] initiated the pickup order because she is been refusing her oral medications at her care home since at least 06/20/2019. However she remains compliant with Prolixin decanoate 50 mg IM weekly. Her last injection was on 07/03/2019. She complained that her medications made her feel "dopey" and "tired". She alleged that she was so fatigued that she was unable to stay awake during the day. I asked her if she spoke to her psychiatrist about her medications. She replied that she did and he recommended to change the medication. Confusingly she alleged that she told him that she didn't want her medications changed. She denied feeling depressed or having thoughts of or suicide. She feels fatigued, tired and alleged she cannot enjoy herself but denied other symptoms suggestive of depression such as change in appetite, concentration or guilt. She denied chronic and persistent anxiety that she is unable to control. She denied obsessions or compulsions. She denied panic attacks. When I asked her about hallucinations she talked about having dreams and "visions". I was unable to determine whether the "visions" which true visual hallucinations. She denied experiencing ideas reference but admitted to schneiderian symptoms of thought control, thought insertion and thought broadcasting. She denied use of alcohol or drugs. Her UDS was negative for drugs of abuse (including marijuana). Her breath alcohol level was 0. PAST PSYCHIATRIC HISTORY: She has a well-established diagnosis of schizophrenia and multiple psychiatric hospitalization. She is under an alternate treatment order until November 2019. This is at least her 10th admission to this unit. Her last was in January 2019 and she was discharged with diagnosis schizoaffective disorder bipolar type. Her psychotropic medications at discharge include Prolixin Decanoate 50 mg IM every 7 days and Seroquel 100 mg at bedtime. PAST MEDICAL HISTORY: Oriented to the medical record she has a history of asthma, hypertension and a seizure disorder (she is not currently prescribed antiseizure medication). ALLERGIES: Ibuprofen, haloperidol SUBSTANCE USE HISTORY: She smokes one pack of cigarettes per week. She denied use of alcohol or drugs. FAMILY PSYCHIATRIC/SUBSTANCE USE HISTORY: The record her mother was diagnosed with schizophrenia and maternal aunt have history of alcohol and drug use problems LEGAL HISTORY: According to the [facility] court document she has had 2 charges of assault and battery and 3 charges of domestic violence. SOCIAL HISTORY: She is born and raised in [facility] and intact family. She left school in the 10th grade. She does not have a GED. She d enied special education services. She has 2 children. The oldest lives with his father and the youngest is with her mother. He has no contact with the older child. She is unemployed and receiving so security disability. She currently lives in a care home. MENTAL STATUS EXAM: She presented as an obese 29-year-old half Beninese female who was guarded and minimally cooperative. She made eye contact. She yawned frequently throughout the interview. She had no prominent physical abnormalities. She had a blunted facial expression. She was alert and oriented to person, place and time. She showed psychomotor retardation but no abnormal involuntary movements. Her speech was not spontaneous and had decreased rate, volume and amount. Affect was blunted but stable and appropriate. She denied suicidal ideation or wishes. She denied homicidal ideation. She expressed feelings of helplessness over the reported side effects to medication but denied helplessness or worthlessness. She ruminated about her medications and their side effects. She did not express paranoid ideation or clear paranoid delusions. Her thinking is very concrete and associations were coherent. She showed poverty of speech and poverty of content of speech. I was uncertain whether her descriptions of hallucinatory experience were true hallucinations but she did not appear to responding to internal stimuli. STRENGTHS: Stable income, stable housing, good physical health WEAKNESSES: On a Persistent Mental Illness IMPRESSION: She is a 29-year-old female who is chronically and persistently mentally ill. [facility] with noncompliance for alternate treatment order. She complained of side effects to her oral medications but has continued weekly injections of Prolixin decanoate. She has prominent negative symptoms and admitted to thought disturbances involving thought insertion, thought broadcasting and thought control. She has marked ambivalence and marked affective flattening. She should best be treated inpatient basis with combination of psychotherapy and multimodal therapy. PRINCIPLE DIAGNOSIS: Schizophrenia, tobacco use disorder RECOMMENDATION: Admitted to the psychiatric unit. Safety precautions. Continue Prolixin decanoate 50 mg IM weekly. Hold Seroquel 100 mg at bedtime but continue BuSpar 10 mg by mouth 3 times a day. Continue Lofibra 50 mg daily, HydroDIURIL 0.5 mg daily, Glucophage 1000 mg twice a day with treatment of hypertension, hypercholesterolemia and diabetes. Lorazepam 1 mg by mouth 3 times a day when necessary for anxiety and Geodon 20 mg IM twice a day for agitation or aggression. Encourage participation in therapeutic groups and activities. Evaluate clinical status response to treatment daily basis. 07/04/19 09:53
[2019-07-04] MEDS: busPIRone HCl 10 MG TAB PO SCH ×3 (11:18→20:58)
[2019-07-04] MEDS: metFORMIN 500 MG TAB PO SCH ×3 (11:19→20:58)
[2019-07-04] MEDS: MAGNESIUM OXIDE 400 MG TAB PO SCH ×2 (11:19→13:00)
[2019-07-04] MEDS: PANTOPRAZOLE 40 MG TABLET PO SCH ×2 (11:19→13:00)
[2019-07-04] MEDS: FENOFIBRATE 54 MG TAB PO SCH ×2 (11:19→13:00)
[2019-07-04] MEDS: HYDROCHLOROTHIAZIDE 12.5 MG CAP PO SCH ×2 (11:19→13:00)
[2019-07-04] MEDS: NICOTINE 14MG/24HR PATCH TRANSDERM SCH ×2 (11:19→12:59)
[2019-07-04 19:09] LABS: Hemoglobin A1C 7.5 % (4.0-6.0)
[2019-07-05] MEDS: metFORMIN 500 MG TAB PO SCH ×3 (11:33→22:12)
[2019-07-05] MEDS: MAGNESIUM OXIDE 400 MG TAB PO SCH ×2 (11:33→12:38)
[2019-07-05] MEDS: FENOFIBRATE 54 MG TAB PO SCH ×2 (11:33→12:38)
[2019-07-05] MEDS: NICOTINE 14MG/24HR PATCH TRANSDERM SCH ×2 (11:33→12:37)
[2019-07-05] MEDS: HYDROCHLOROTHIAZIDE 12.5 MG CAP PO SCH ×2 (11:33→12:38)
[2019-07-05] MEDS: busPIRone HCl 10 MG TAB PO SCH ×3 (11:33→22:12)
[2019-07-05] MEDS: PANTOPRAZOLE 40 MG TABLET PO SCH ×2 (11:34→12:38)
--- NOTE | 2019-07-05 12:17 | P.PN ---
Progress Note - Text Progress Note Date: 07/05/19 Clinical Problems: Schizophrenia, tobacco use disorder Interim history: I reviewed the medical record and attempted to interview the patient. She would not get out of bed for the interview. She would not make eye contact. Her answers to questions were terse. She would not answer questions about psychotic symptoms. She attended one therapeutic group yesterday and does not interact with staff or peers. Mental status exam: Her son as an obese irritable and angry young - [place]istan[place] woman who was uncooperative. She can't make eye contact and I was uncertain whether she attended to the interview. She would not answer questions about suicidal ideation or wishes. She did not appear to be responding to internal stimuli. Assessment: She is a chronically and persistently mentally ill woman who presented involuntarily with refusal to take prescribed oral medications. She is angry and withdrawn and has refused to take many of her oral medication since she's been on the unit. Plan: Continue inpatient treatment. Continue seeing precautions. Continue weekly injections of Prolixin decanoate 50 mg. Encourage participation in therapeutic groups and activities as well as compliant with prescribed oral medications. Evaluate clinical status response to treatment daily basis.
[2019-07-05] MEDS: ACETAMINOPHEN TAB 325 MG TAB PO PRN (22:15)
--- NOTE | 2019-07-06 12:11 | P.PN ---
Progress Note - Text Progress Note Date: 07/06/19 Interval History: Patient was seen lying on her bed this morning and was directable and agreeable to speak with typewriter ribbon winder at the bedside as patient did not want to leave her room today. Patient was able to speak a typewriter ribbon winder about the circumstances as to why she was in the hospital and states that "I stopped taking my medications" and states that it was making her feel "too tired". She states that she understands that she needs to take her medications however has been selectively taking medicatio ns even on the unit. She is currently on Prolixin D 50 mg every weekly. She claims that her mood is "fine" however was concrete. She states that she was able to slowly minimally last night and was agreeable to take Seroquel at half her regular dose. At this time patient denies any suicidal or homical ideations, intent or plan. Patient denies any auditory, visual hallucinations and denies any paranoia or delusions. Patient denies any side effects from the medications and has been compliant with meds. Mental Status Exam: General Appearance: Patient appears to be obese, stated age is alert, directable, and guarded. Poor hygiene and grooming. Behavior: Patient is calmly seated without any agitated behavior. Guarded. Speech: Patient's speech is fluent and nonpressured. Mood/Affect: Mood is improving mildly, affect is congruent and constricted. Suicidality/Homicidality: Patient denies having any suicidal or homicidal ideation intent or plan. Perceptions: Patient denies any visual hallucinations and denies any auditory hallucinations Though content/process: [place], logical. Memory and concentration: AOX3, grossly intact for the purposes of this session Judgment and insight: Improving mildly Assessment Schizophrenia Nicotine dependence Plan: -Patient continues to meet criteria for inpatient psychiatric admission for symptom stabilization and safety. Patient is currently under active treatment order until November 2019. -Medications: Continue with Prolixin D 50 mg IM weekly with her next dose due on 07/10/2019. We'll restart Seroquel at 50 mg daily at bedtime for ps ychosis/insomnia. Continue BuSpar 10 mg 3 times a day for anxiety. -When necessary Ativan and Geodon for agitation/aggression. -NRT - nicotine patch -SW on board for discharge planning. Encouraged the patient to participate in milieu. Patient will be going back to her intermediate upon discharge. Likely discharge in 2-3 days.
[2019-07-06] MEDS: NICOTINE 14MG/24HR PATCH TRANSDERM SCH (12:35)
[2019-07-06] MEDS: busPIRone HCl 10 MG TAB PO SCH ×2 (12:35→20:06)
[2019-07-06] MEDS: FENOFIBRATE 54 MG TAB PO SCH (12:35)
[2019-07-06] MEDS: metFORMIN 500 MG TAB PO SCH ×2 (12:35→20:06)
[2019-07-06] MEDS: HYDROCHLOROTHIAZIDE 12.5 MG CAP PO SCH (12:35)
[2019-07-06] MEDS: MAGNESIUM OXIDE 400 MG TAB PO SCH (12:36)
[2019-07-06] MEDS: PANTOPRAZOLE 40 MG TABLET PO SCH (12:36)
[2019-07-06] MEDS: QUEtiapine 50 MG TAB PO SCH (19:44)
[2019-07-07 04:48] VITALS: RESP 16
--- NOTE | 2019-07-07 10:20 | P.PN ---
Progress Note - Text Progress Note Date: 07/07/19 Interval History: Patient was seen lying on her bed this morning and was directable and agreeable to speak with magnetic tape typewriter operator in the office today. Patient appears to be somewhat tired however claims that she is feeling "okay today". Patient appears to have improvement in her impulsivity and judgment. She was more appropriately with the magnetic tape typewriter operator today and less irritable. She apparently took her medications yesterday and also the Seroquel at 50 mg and states that she was able to sleep for most of the night. Recovery Manager spoke with patient about medication compliance and the importance of this upon discharge. She states that she did go to one group yesterday. She is currently on Prolixin D 50 mg every weekly and is continuing to be agreeable to take this. She states that she showered yesterday and has been eating her meals. At this time patient denies any suicidal or homical ideations, intent or plan. Patient denies any auditory, visual hallucinations and denies any paranoia or delusions. Patient denies any side effects from the medications and has been compliant with meds. Mental Status Exam: General Appearance: Patient appears to be obese, stated age is alert, directable, and more cooperative today. Poor hygiene and grooming. Behavior: Patient is calmly seated without any agitated behavior. Lennon. More cooperative today. Speech: Patient's speech is fluent and nonpressured. Mood/Affect: Mood is improving mildly, affect is congruent and constricted. Suicidality/Homicidality: Patient denies having any suicidal or homicidal ideation intent or plan. Perceptions: Patient denies any visual hallucinations and denies any auditory hallucinations Though content/process: Lennon, logical. Memory and concentration: AOX3, grossly intact for the purposes of this session Judgment and insight: Improving mildly Assessment Schizophrenia Nicotine dependence Plan: -Patient continues to meet criteria for inpatient psychiatric admission for symptom stabilization and safety. Patient is currently under active treatment order until November 2019. -Medications: Continue with Prolixin D 50 mg IM weekly with her next dose due on 07/10/2019. Continue with Seroquel at 50 mg daily at bedtime for psychosis/insomnia. Continue BuSpar 10 mg 3 times a day for anxiety. -When necessary Ativan and Geodon for agitation/aggression. -NRT - nicotine patch -SW on board for discharge planning. Encouraged the patient to participate in milieu. Patient will be going back to her longterm upon discharge. Likely discharge tomorrow back to longterm.
[2019-07-07] MEDS: MAGNESIUM OXIDE 400 MG TAB PO SCH (12:20)
[2019-07-07] MEDS: HYDROCHLOROTHIAZIDE 12.5 MG CAP PO SCH (12:20)
[2019-07-07] MEDS: busPIRone HCl 10 MG TAB PO SCH ×2 (12:20→22:28)
[2019-07-07] MEDS: metFORMIN 500 MG TAB PO SCH ×2 (12:20→22:28)
[2019-07-07] MEDS: FENOFIBRATE 54 MG TAB PO SCH (12:20)
[2019-07-07] MEDS: NICOTINE 14MG/24HR PATCH TRANSDERM SCH (12:20)
[2019-07-07] MEDS: PANTOPRAZOLE 40 MG TABLET PO SCH (12:20)
[2019-07-07] MEDS: MAG HYDROX/AL HYDROX/SIMETH 30 ML CUP PO PRN (16:37)
[2019-07-07] MEDS: QUEtiapine 50 MG TAB PO SCH (22:28)
[2019-07-08 06:48] VITALS: BP 150/81; PULSE 101; TEMP 97.8
[2019-07-08] MEDS: busPIRone HCl 10 MG TAB PO SCH (08:12)
[2019-07-08] MEDS: HYDROCHLOROTHIAZIDE 12.5 MG CAP PO SCH (08:12)
[2019-07-08] MEDS: PANTOPRAZOLE 40 MG TABLET PO SCH (08:12)
[2019-07-08] MEDS: FENOFIBRATE 54 MG TAB PO SCH (08:12)
[2019-07-08] MEDS: MAGNESIUM OXIDE 400 MG TAB PO SCH (08:12)
[2019-07-08] MEDS: metFORMIN 500 MG TAB PO SCH (08:12)
[2019-07-08] MEDS: NICOTINE 14MG/24HR PATCH TRANSDERM SCH (08:14)
--- NOTE | 2019-07-08 09:25 | P.DS ---
Providers Date of admission: 07/04/19 01:16 Expected date of discharge: 07/08/19 Attending physician: Chris Wray MD Consults: 07/04/19 01:26 Consult Physician Routine Consulting Provider: Mara Physician Consult Reason/Comments: For H & P for Medical Follow Up Do you want consulting provider notified?: Yes Primary care physician: [facility] Diagnosis(es) (1) Schizophrenia Current Visit: Yes Status: Acute Priority: High (2) Nicotine dependence Current Visit: Yes Status: Acute Priority: Low Hospital Course: Admission HPI: Admission was completed by Dr. Griffith "The patient is a single 29-year-old -[place] female who is chronically and persistently mentally ill. She presented to unit involuntarily on a pickup order for noncompliance with her alternate treatment order. I reviewed medical record and interviewed the patient. [facility] initiated the pickup order because she is been refusing her oral medications at her skilled nursing since at least 06/20/2019. However she remains compliant with Prolixin decanoate 50 mg IM weekly. Her last injection was on 07/03/2019. She complained that her medications made her feel "dopey" and "tired". She alleged that she was so fatigued that she was unable to stay awake during the day. I asked her if she spoke to her psychiatrist about her medications. She replied that she did and he recommended to change the medication. Confusingly she alleged that she told him that she didn't want her medications changed. She denied feeling depressed or having thoughts of or suicide. She feels fatigued, tired and alleged she cannot enjoy herself but denied other symptoms suggestive of depression such as change in appetite, concentration or guilt. She denied chronic and persistent anxiety that she is unable to control. She denied obsessions or compulsions. She denied panic attacks. When I asked her about hallucinations she talked about having dreams and "visions". I was unable to determine whether the "visions" which true visual hallucinations. She denied experiencing ideas reference but admitted to schneiderian symptoms of thought control, thought insertion and thought broadcasting. She denied use of alcohol or drugs. Her UDS was negative for drugs of abuse (including marijuana). Her breath alcohol level was 0. " Hospital course: Upon admission to the unit patient was initially directable and agreeable to commence treatment after refusing medications initially.. Patient got along well with other patients on the unit and followed unit protocol however mainly isolated in her room for the first few days. Patient was compliant with the medications and denied any side effects throughout hospital course. Patient was started on her home medication of BuSpar 10 mg 3 times a day for anxiety and Seroquel was decreased down to 50 mg nightly for psychosis/insomnia. Patient is on weekly Prolixin D IM injections of 50 mg with her next dose being due on 07/10/2019. Patient is currently under active treatment order until November 2019. Patient was also seen by medical team for history and physical exam. [] Throughout the course of the hospitalization patient gradually improved with regards to [mood, psychosis], sleep and became future oriented with improved insight and judgment returning back to her baseline. On the day of discharge patient denied any suicidal or homicidal ideations intent or plan denied any auditory or visual hallucinations. Patient endorsed wanting to live for her future and her home. The patient denied any access to guns or weapons. Patient denied any paranoia and did not endorse any delusions. Patient does [not] have a significant history of substance abuse [however] was counseled on abstaining f rom all substances including alcohol and marijuana. Patient was also counseled on the medications and need for regular compliance and was encouraged to follow- up with their outpatient appointment for mental health and also for primary care. Mental status exam: General Appearance: [Patient appears to be obese, stated age is alert, directable and attempts to be cooperative. Patient is in no acute distress and has fair hygiene and grooming] Behavior: [Patient is calmly seated without any agitated behavior.] Attempts to be cooperative. Speech: Patient's speech is fluent and nonpressured. Mood/Affect: Patient reports their mood is "good", affect is congruent and constricted. Suicidality/Homicidality: Patient denies having any suicidal or homicidal ideation intent or plan. Perceptions: Patient denies any auditory or visual hallucinations. Though content/process: There is no evidence of any delusional thought content and thought process is linear, concrete. Logical. Memory and concentration: AOX3, grossly intact for the purposes of this session. Can spell "WORLD" backwards correctly. Judgment and insight: Improved [with guarded prognosis] Impression: Schizophrenia Nicotine dependence Plan: -Continue with discharge today as patient has improved and stabilized psychiatrically and is not currently an imminent threat to herself and/or others. -Patient is currently under alternative treatment order until November 2019. -Continue medications: Continue with Seroquel 50 mg daily at bedtime for psychosis/insomnia, BuSpar 10 mg 3 times a day for anxiety. Patient is on weekly Prolixin D IM injections of 50 mg with her next dose being due on 07/10/2019. -Patient was counseled on the need for medication compliance and appropriate follow-up at mental health and also primary care for medical issues. Patient verbalized understanding and agreed. -Social work also to arrange for patients follow up appointments [with [facility]] for psychiatric care along with follow up with primary care provider. Patient will be returning back to her skilled nursing upon discharge. -Patient counseled on abstaining from recreational drugs and marijuana and alcohol. Was informed/educated on the adverse effects on their physical and mental health. [Patient verbally agreed and understood]. -Patient was instructed to return to the hospital or seek immediate medical care if their psychiatric or medical symptoms do worsen or reoccur. Allergies Allergy/AdvReac Type Severity Reaction Status Date / Time ibuprofen [From Motrin] Allergy Rash/Hives Verified 07/04/19 01:34 pineapple Allergy Rash/Hives Verified 07/04/19 01:34 red dye Allergy Rash/Hives Verified 07/04/19 01:34 haloperidol [From Haldol] AdvReac Hallucinati Verified 07/04/19 01:34 ons Laboratory Results WBC 6.3 k/uL (3.8-10.6) 07/04/19 09:23 RBC 4.06 m/uL (3.80-5.40) 07/04/19 09:23 Hgb 11.6 gm/dL (11.4-16.0) 07/04/19 09: Hct 37.0 % (34.0-46.0) 07/04/19: MCV 91.0 fL (80.0-100.0) 07/04/19 09:23 MCH 28.4 pg (25.0-35.0) 07/04/19 09: MCHC 31.3 g/dL (31.0-37.0) 07/04/19 09: RDW 13.1 % (11.5-15.5) 07/04/19 09:23 Plt Count 204 k/uL (150-450) 07/04/19 09: Neutrophils % 56 % 07/04/19 09: Lymphocytes % 31 % 07/04/19 09:23 Monocytes % 7 % 07/04/19 09: Eosinophils % 2 % 07/04/19 09: Basophils % 1 % 07/04/19 09: Neutrophils # 3.5 k/uL (1.3-7.7) 07/04/19 09: Lymphocytes # 2.0 k/uL (1.0-4.8) 07/04/19 09: Monocytes # 0.4 k/uL (0-1.0) 07/04/19 09: Eosinophils # 0.1 k/uL (0-0.7) 07/04/19 09: Basophils # 0.0 k/uL (0-0.2) 07/04/19 09: Sodium 138 mmol/L (137-145) 07/04/19 09: Potassium 4.1 mmol/L (3.5-5.1) 07/04/19 09: Chloride 102 mmol/L (98-107) 07/04/19 09: Carbon Dioxide 27 mmol/L (22-30) 07/04/19 09:23 Anion Gap 9 mmol/L 07/04/19 09:23 BUN 6 mg/dL (7-17) L 07/04/19 09: Creatinine 0.63 mg/dL (0.52-1.04) 07/04/19 09:23 Est GFR (CKD-EPI)AfAm >90 (>60 ml/min/1.73 sqM) 07/04/19 09:23 Est GFR (CKD-EPI)NonAf >90 (>60 ml/min/1.73 sqM) 07/04/19 09: Glucose 195 mg/dL (74-99) H 07/04/19 09:[address] Glu mg/dL 169 07/04/19 09:23 Hemoglobin A1c 7.5 % (4.0-6.0) H 07/04/19 09:23 Calcium 9.1 mg/dL (8.4-10.2) 07/04/19 09:23 Total Bilirubin 0.2 mg/dL (0.2-1.3) 07/04/19 09: Conjugated Bilirubin 0.0 mg/dL (0.0-0.3) 07/04/19: Unconjugated Bilirubin 0.3 mg/dL (0.0-1.1) 07/04/19 09: Delta Bilirubin 0.0 mg/dL (0.0-0.2) 07/04/19 09: AST 37 U/L (14-36) H 07/04/19 09: ALT 59 U/L (4-34) H 07/04/19: Alkaline Phosphatase 60 U/L (38-126) 07/04/19: Total Protein 7.2 g/dL (6.3-8.2) 07/04/19: Albumin 4.1 g/dL (3.5-5.0) 07/04/19: Triglycerides 124 mg/dL (<150) 07/04/19: Cholesterol 162 mg/dL (<200) 07/04/19 09: LDL Cholesterol, Calc 102 mg/dL (0-99) H 07/04/19: HDL Cholesterol 35 mg/dL (40-60) L 07/04/19: TSH 2.050 mIU/L (0.465-4.680) 07/04/19 09: Urine Color Light Yellow 07/03/19: Urine Appearance Clear (Clear) 07/03/19: Urine pH 7.0 (5.0-8.0) 07/03/19: Ur Specific [place] 1.006 (1.001-1.035) 07/03/19 21: Urine Protein Negative (Negative) 07/03/19: Urine Glucose (UA) Negative (Negative) 07/03/19: Urine Ketones Negative (Negative) 07/03/19: Urine Blood Negative (Negative) 07/03/19 21: Urine Nitrite Negative (Negative) 07/03/19: Urine Bilirubin Negative (Negative) 07/03/19: Urine Urobilinogen <2.0 mg/dL (<2.0) 07/03/19:28 Ur Leukocyte Esterase Negative (Negative) 07/03/19 21:28 Urine HCG, Qual Not Detected (Not Detectd) 07/03/19 21:28 Urine Opiates Screen Not Detected (NotDetected) 07/03/19 21:28 Ur Oxycodone Screen Not Detected (NotDetected) 07/03/19 21:28 Urine Methadone Screen Not Detected (NotDetected) 07/03/19 21:28 Ur Propoxyphene Screen Not Detected (NotDetected) 07/03/19 21:28 Ur Barbiturates Screen Not Detected (NotDetected) 07/03/19 21:28 U Tricyclic Antidepress Not Detected (NotDetected) 07/03/19 21:28 Ur Phencyclidine Scrn Not Detected (NotDetected) 07/03/19 21:28 Ur Amphetamines Screen Not Detected (NotDetected) 07/03/19 21:28 U Methamphetamines Scrn Not Detected (NotDetected) 07/03/19 21:28 U Benzodiazepines Scrn Not Detected (NotDetected) 07/03/19 21:28 Urine Cocaine Screen Not Detected (NotDetected) 07/03/19 21:28 U Marijuana (THC) Screen Not Detected (NotDetected) 07/03/19 21:28 Vital Signs Temp 97.8 F 07/08/19 06:29 Pulse 101 H 07/08/19 06:29 Resp 16 07/08/19 06:29 BP 150/81 07/08/19 06:29 Pulse Ox 96 07/04/19 05:27 Patient Condition at Discharge: Stable Plan - Discharge Summary New Discharge Prescriptions: New busPIRone HCl [Buspar] 10 mg PO BID 30 Days tab Nicotine 14Mg/24Hr Patch [Habitrol] 1 patch TRANSDERM DAILY 14 Days patch QUEtiapine [SEROquel] 50 mg PO HS 30 Days tab Acetaminophen Tab [Tylenol] 650 mg PO Q4HR PRN tab PRN Reason: Pain/Discomfort Continue Ergocalciferol [Vitamin D2 (DRISDOL)] 50,000 unit PO Q7D Hydrochlorothiazide 12.5 mg PO DAILY Docusate [Colace] 100 mg PO DAILY Albuterol Sulfate [Proair Hfa] 2 puff INHALATION RT-Q4H PRN PRN Reason: Shortness Of Breath Pantoprazole Sodium [Protonix] 40 mg PO DAILY Fenofibrate [Lofibra] 54 mg PO DAILY Magnesium Oxide 400 mg PO DAILY metFORMIN HCL [Glucophage] 1,000 mg PO BID fluPHENAZine DECANOATE [Prolixin Decanoate] 50 mg IM Q7D #1 ml Discontinued Polyethylene Glycol 3350 [Miralax] 17 gm PO DAILY QUEtiapine [SEROquel] 100 mg PO HS #30 tab busPIRone HCl [Buspar] 10 mg PO BID Discharge Medication List Ergocalciferol [Vitamin D2 (DRISDOL)] 50,000 unit PO Q7D 04/05/18 [History] Hydrochlorothiazide 12.5 mg PO DAILY 09/22/18 [History] Docusate [Colace] 100 mg PO DAILY 10/15/18 [History] Albuterol Sulfate [Proair Hfa] 2 puff INHALATION RT-Q4H PRN 12/03/18 [History] Pantoprazole Sodium [Protonix] 40 mg PO DAILY 12/03/18 [History] Fenofibrate [Lofibra] 54 mg PO DAILY 07/03/19 [History] Magnesium Oxide 400 mg PO DAILY 07/03/19 [History] metFORMIN HCL [Glucophage] 1,000 mg PO BID 07/03/19 [History] Acetaminophen Tab [Tylenol] 650 mg PO Q4HR PRN tab 07/08/19 [Rx] Nicotine 14Mg/24Hr Patch [Habitrol] 1 patch TRANSDERM DAILY 14 Days patch 07/08/19 [Rx] QUEtiapine [SEROquel] 50 mg PO HS 30 Days tab 07/08/19 [Rx] busPIRone HCl [Buspar] 10 mg PO BID 30 Days tab 07/08/19 [Rx] fluPHENAZine DECANOATE [Prolixin Decanoate] 50 mg IM Q7D #1 ml 07/08/19 [Rx] Follow up Appointment(s)/Referral(s): [facility] [Outside] - 08/12/19 2:30 pm (07-13-19 @ 14:[address] Sebastian at [facility] office on [employer] [facility] ) [facility]Primary [facility]] - 1-2 days Discharge Disposition: HOME SELF-CARE
[2019-07-08] MEDS: ACETAMINOPHEN TAB 325 MG TAB PO PRN (10:05)
[2019-07-08] MEDS: MAG HYDROX/AL HYDROX/SIMETH 30 ML CUP PO PRN (11:16)
[2019-07-10] MEDS ORDERED: fluPHENAZine DECANOATE 25 MG/ML 5ML MDV IM SCH (07:30)
== END 2019-07-08 13:35 | disposition home or self-care (01) | DRG 885 ==
LOC: EC 20:45 → 3MHU 07-04 01:16
PROVIDERS: ADMIT Psychiatry & Neurology Psychiatry; ATTEND Psychiatry & Neurology Psychiatry
DX: F20.9 Schizophrenia, unspecified (principal); Z68.43 Body mass index [BMI] 50.0-59.9, adult; Z71.6 Tobacco abuse counseling; F17.210 Nicotine dependence, cigarettes, uncomplicated; F41.9 Anxiety disorder, unspecified; G40.909 Epilepsy, unspecified, not intractable, without status epilepticus; G47.00 Insomnia, unspecified; I10 Essential (primary) hypertension; J45.909 Unspecified asthma, uncomplicated; E66.9 Obesity, unspecified; Z79.84 Long term (current) use of oral hypoglycemic drugs; Z79.899 Other long term (current) drug therapy; Z81.8 Family history of other mental and behavioral disorders; Z91.14 Patient's other noncompliance with medication regimen; Z91.19 Patient's noncompliance with other medical treatment and regimen; Z81.1 Family history of alcohol abuse and dependence; Z83.3 Family history of diabetes mellitus; Z98.51 Tubal ligation status; Z88.6 Allergy status to analgesic agent; Z88.8 Allergy status to other drugs, medicaments and biological substances
CPT/HCPCS: 80053; 80061; 80306; 81003; 81025; 82075; 82248; 83036; 84443; 85025; 99285

== ENCOUNTER 2019-08-09 19:10 | Emergency (ER) | payer OTHER ==
[2019-08-09 19:15] VITALS: RESP 16
[2019-08-09] MEDS ORDERED: KETOROLAC 60 MG/2 ML VIAL IM STA (19:36)
--- NOTE | 2019-08-09 19:46 | ED ---
General Adult HPI - General Source: patient, EMS Mode of arrival: EMS Limitations: altered mental status <Raquel Nuñez - Last Filed: 08/10/19 00:14> <Marie Martin - Last Filed: 08/13/19 17:03> - General Chief complaint: Nausea/Vomiting/Diarrhea Stated complaint: EPS eval Time Seen by Provider: 08/09/19 19:22 - History of Present Illness Initial comments: Patient is a 29-year-old female, with extensive psych history, presenting to the emergency department via EMS with with complaints of a headache as well as a possible "urinary infection." She has an extensive psychiatric history and is well known to the ER. She denies any recent fever or chills. She states that she has been having diarrhea for "30 months." She denies any abdominal pain, chest pain, shortness of breath, cough, nausea, vomiting. She states her headache is very mild and she has not taken any medicine for this yet. She denies any suicidal or homicidal thoughts at this time. She denies any other complaints at this time. Upon arrival to the ER, her vitals are stable. (Raquel Nuñez) - Related Data Home Medications Medication Instructions Recorded Confirmed Ergocalciferol [Vitamin D2 50,000 unit PO Q7D 04/05/18 07/04/19 (DRISDOL)] Hydrochlorothiazide 12.5 mg PO DAILY 09/22/18 07/04/19 Docusate [Colace] 100 mg PO DAILY 10/15/18 07/04/19 Albuterol Sulfate [Proair Hfa] 2 puff INHALATION RT-Q4H PRN 12/03/18 07/04/19 Pantoprazole Sodium [Protonix] 40 mg PO DAILY 12/03/18 07/04/19 Fenofibrate [Lofibra] 54 mg PO DAILY 07/03/19 07/04/19 Magnesium Oxide 400 mg PO DAILY 07/03/19 07/04/19 metFORMIN HCL [Glucophage] 1,000 mg PO BID 07/03/19 07/04/19 Previous Rx's Medication Instructions Recorded Acetaminophen Tab [Tylenol] 650 mg PO Q4HR PRN tab 07/08/19 Nicotine 14Mg/24Hr Patch [Habitrol] 1 patch TRANSDERM DAILY 14 Days 07/08/19 patch QUEtiapine [SEROquel] 50 mg PO HS 30 Days tab 07/08/19 busPIRone HCl [Buspar] 10 mg PO BID 30 Days tab 07/08/19 fluPHENAZine DECANOATE [Prolixin 50 mg IM Q7D #1 ml 07/08/19 Decanoate] Allergies Allergy/AdvReac Type Severity Reaction Status Date / Time ibuprofen [From Motrin] Allergy Rash/Hives Verified 08/09/19 19:15 pineapple Allergy Rash/Hives Verified 08/09/19 19:15 red dye Allergy Rash/Hives Verified 08/09/19 19:15 haloperidol [From Haldol] AdvReac Hallucinati Verified 08/09/19 19:15 ons Review of Systems ROS Other: All systems not noted in ROS Statement are negative. <Raquel Nuñez - Last Filed: 08/10/19 00:14> ROS Other: All systems not noted in ROS Statement are negative. <Marie Martin - Last Filed: 08/13/19 17:03> ROS Statement: Those systems with pertinent positive or pertinent negative responses have been documented in the HPI. Past Medical History Past Medical History: Asthma, Hypertension, Seizure Disorder Additional Past Medical History / Comment(s): last seizure was December 2018 per Pt History of Any Multi-Drug Resistant Organisms: None Reported Past Surgical History: Section, Tonsillectomy, Tubal Ligation Additional Past Surgical History / Comment(s): facial surgery, 2 C-Sections Past Anesthesia/Blood Transfusion Reactions: No Reported Reaction Past Psychological History: Anxiety, Bipolar, Depression, Schizoaffective Disorder, Schizophrenia Smoking Status: Current every day smoker Past Alcohol Use History: None Reported Past Drug Use History: Marijuana - Past Family History Father Family Medical History: Unable to Obtain Additional Family Medical History / Comment(s): Father is alive and may have diabetes. Mother Family Medical History: Thyroid Disorder Additional Family Medical History / Comment(s): Mother is alive at age 50 with thyroid disorder. Brother(s) Additional Family Medical History / Comment(s): Patient has 2 brothers and 2 sisters with no major medical problems. Patient has two sons that is healthy. <Raquel Nuñez Last Filed: 08/10/19 00:14> General Exam Limitations: altered mental status <Raquel Nuñez Filed: 08/10/19 00:14> - General Exam Comments Initial Comments: GENERAL: Well-appearing, well-nourished and in no acute distress. HEAD: Atraumatic, normocephalic. EYES: Pupils equal round and reactive to light, extraocular movements intact, sclera anicteric, conjunctiva are normal. ENT: TMs normal, nares patent, oropharynx clear without exudates. Moist mucous membranes. NECK: Normal range of motion, supple without lymphadenopathy or JVD. LUNGS: Breath sounds clear to auscultation bilaterally and equal. No wheezes rales or rhonchi. HEART: Regular rate and rhythm without murmurs, rubs or gallops. ABDOMEN: Soft, nontender, normoactive bowel sounds. No guarding, no rebound. No masses appreciated. : Deferred EXTREMITIES: Normal range of motion, no pitting or edema. No clubbing or cyanosis. NEUROLOGICAL: Cranial nerves II through XII grossly intact. Normal speech, normal gait. PSYCH: Normal mood, normal affect. SKIN: Warm, Dry, normal turgor, no rashes or lesions noted. (Raquel Nuñez) Course Vital Signs 08/09/19 08/09/19 19:12 20:49 Temperature 97.9 F 98.1 F Pulse Rate 90 95 Respiratory 16 16 Rate Blood Pressure 126/69 134/91 O2 Sat by Pulse 97 99 Oximetry Medical Decision Making <Raquel Nuñez - Last Filed: 08/10/19 00:14> <Marie Martin - Last Filed: 08/13/19 17:03> - Medical Decision Making Patient is a 29-year-old female, history of psych, presenting for possible UTI as well as a mild headache. Her exam is unremarkable, no acute findings. Her vitals are stable. I did check a urine which was unremarkable, she is not . She was given a shot of Toradol and states she is wanting to go home now. She has no further complaints. She will be discharged. Return parameters were discussed with the patient she verbalized understanding. Case discussed with Dr. Martin. (Raquel Nuñez) I was available for consultation in the emergency department. The history and physical exam were done by the midlevel provider. I was consulted for this patients care. I reviewed the case with the midlevel provider and based on their presentation of the patient, I agree with the assessment, medical decision making and plan of care as documented. Chart was dictated using evolso dictation software. Attempts were made to correct any dictation errors however some typographical errors may persist. Patient was seen during a national state of emergency due to the Covid-19 pandemic. (Marie Martin) - Lab Data Lab Results 08/09/19 08/09/19 Range/Units 19:45 19:45 Urine Color Light Yellow Urine Appearance Clear (Clear) Urine pH 7.0 (5.0-8.0) Ur Specific [place] 1.003 (1.001-1.035) Urine Protein Negative (Negative) Urine Glucose (UA) Negative (Negative) Urine Ketones Negative (Negative) Urine Blood Negative (Negative) Urine Nitrite Negative (Negative) Urine Bilirubin Negative (Negative) Urine Urobilinogen <2.0 (<2.0) mg/dL Ur Leukocyte Esterase Negative (Negative) Urine HCG, Qual Not Detected (Not Detectd) Disposition Is patient prescribed a controlled substance at d/c from ED?: No <Raquel Nuñez - Last Filed: 08/10/19 00:14> <Marie Martin - Last Filed: 08/13/19 17:03> Clinical Impression: Headache Disposition: HOME SELF-CARE Condition: Stable Instructions (If sedation given, give patient instructions): General Headache (ED) Additional Instructions: Please return to the Emergency Department if symptoms worsen or any other concerns. 8 take Tylenol for headache at home. Referrals: [facility] [Primary Care Provider] - 1-2 days
[2019-08-09 19:58] LABS: Appearance,Urine Clear (Clear); Bilirubin,Urine Negative (Negative); Blood,Urine Negative (Negative); Color,Urine Light Yellow; Glucose,Urine (UA) Negative (Negative); Ketones,Urine Negative (Negative); Leukocyte Esterase,Urine Negative (Negative); Nitrite,Urine Negative (Negative); Protein,Urine Negative (Negative); Specific Gravity,Urine 1.003 (1.001-1.035); Urobilinogen,Urine <2.0 mg/dL (<2.0)
[2019-08-09 20:52] VITALS: BP 134/91; PULSE 95; TEMP 98.1
== END 2019-08-09 21:16 | disposition home or self-care (01) ==
LOC: EC 19:10
DX: R51 Headache (principal); R19.7 Diarrhea, unspecified; J45.909 Unspecified asthma, uncomplicated; I10 Essential (primary) hypertension; G40.909 Epilepsy, unspecified, not intractable, without status epilepticus; F17.200 Nicotine dependence, unspecified, uncomplicated; Z79.899 Other long term (current) drug therapy; Z88.6 Allergy status to analgesic agent; Z88.8 Allergy status to other drugs, medicaments and biological substances; Z91.041 Radiographic dye allergy status; Z91.048 Other nonmedicinal substance allergy status
CPT/HCPCS: 99284; 96372; 81003; 81025; J1885

== ENCOUNTER 2019-09-30 22:03 | Emergency (ER) | payer OTHER ==
--- NOTE | 2019-09-30 22:29 | ED ---
Abdominal Pain HPI - General Chief Complaint: Abdominal Pain Stated Complaint: abd pain Time Seen by Provider: 09/30/19 22:28 Source: patient, EMS Mode of arrival: EMS - History of Present Illness Initial Comments: Patient is 29-year-old female presenting to the emergency department with chief complaint of generalized abdominal pain has been going on for the past 2 years. Patient reports she usually vomits whenever she wakes in the morning. She does report eating fairly late at night prior to going to bed. Patient reports the pain travels in different areas of the abdomen. Patient reports most of the pain right now is located in the lower abdominal region. She does report 2 C- sections but otherwise no history of other abdominal surgeries. Denies any possibility of . Denies hematuria, hematochezia or melena. Denies any urinary or vaginal symptoms. Denies chest pain or shortness of breath. - Related Data Home Medications Medication Instructions Recorded Confirmed Ergocalciferol [Vitamin D2 50,000 unit PO Q7D 04/05/18 07/04/19 (DRISDOL)] Hydrochlorothiazide 12.5 mg PO DAILY 09/22/18 07/04/19 [hydroCHLOROthiazide] Docusate [Colace] 100 mg PO DAILY 10/15/18 07/04/19 Albuterol Sulfate [Proair Hfa] 2 puff INHALATION RT-Q4H PRN 12/03/18 07/04/19 Pantoprazole Sodium [Protonix] 40 mg PO DAILY 12/03/18 07/04/19 Fenofibrate [Lofibra] 54 mg PO DAILY 07/03/19 07/04/19 Magnesium Oxide 400 mg PO DAILY 07/03/19 07/04/19 metFORMIN HCL [Glucophage] 1,000 mg PO BID 07/03/19 07/04/19 Previous Rx's Medication Instructions Recorded Acetaminophen Tab [Tylenol] 650 mg PO Q4HR PRN tab 07/08/19 Nicotine 14Mg/24Hr Patch [Habitrol] 1 patch TRANSDERM DAILY 14 Days 07/08/19 patch QUEtiapine [SEROquel] 50 mg PO HS 30 Days tab 07/08/19 busPIRone HCl [Buspar] 10 mg PO BID 30 Days tab 07/08/19 fluPHENAZine decanoate [Prolixin 50 mg IM Q7D #1 ml 07/08/19 Decanoate] Allergies Allergy/AdvReac Type Severity Reaction Status Date / Time ibuprofen [From Motrin] Allergy Rash/Hives Verified 08/09/19 19:15 pineapple Allergy Rash/Hives Verified 08/09/19 19:15 red dye Allergy Rash/Hives Verified 08/09/19 19:15 haloperidol [From Haldol] AdvReac Hallucinati Verified 08/09/19 19:15 ons Review of Systems ROS Statement: Those systems with pertinent positive or pertinent negative responses have been documented in the HPI. ROS Other: All systems not noted in ROS Statement are negative. Past Medical History Past Medical History: Asthma, Hypertension, Seizure Disorder Additional Past Medical History / Comment(s): last seizure was December 2018 per Pt History of Any Multi-Drug Resistant Organisms: None Reported Past Surgical History: Section, Tonsillectomy, Tubal Ligation Additional Past Surgical History / Comment(s): facial surgery, 2 C-Sections Past Anesthesia/Blood Transfusion Reactions: No Reported Reaction Past Psychological History: Anxiety, Bipolar, Depression, Schizoaffective Disorder, Schizophrenia Smoking Status: Current some day smoker Past Alcohol Use History: None Reported Past Drug Use History: None Reported - Past Family History Father Family Medical History: Unable to Obtain Additional Family Medical History / Comment(s): Father is alive and may have diabetes. Mother Family Medical History: Thyroid Disorder Additional Family Medical History / Comment(s): Mother is alive at age 50 with thyroid disorder. Brother(s) Additional Family Medical History / Comment(s): Patient has 2 brothers and 2 sisters with no major medical problems. Patient has two sons that is healthy. General Exam Limitations: no limitations General appearance: alert, in no apparent distress, obese Head exam: Present: atraumatic, normocephalic Eye exam: Present: normal appearance, PERRL, EOMI Pupils: Present: normal accommodation ENT exam: Present: normal exam, normal oropharynx, mucous membranes moist Neck exam: Present: normal inspection, full ROM. Absent: tenderness Respiratory exam: Present: normal lung sounds bilaterally. Absent: respiratory distress, wheezes Cardiovascular Exam: Present: regular rate, normal rhythm, normal heart sounds GI/Abdominal exam: Present: soft, tenderness (Mild diffuse abdominal pain), normal bowel sounds. Absent: distended, guarding, rebound, rigid Extremities exam: Present: normal inspection, full ROM. Absent: tenderness Back exam: Present: normal inspection, full ROM. Absent: tenderness, CVA tenderness (R), CVA tenderness (L) Neurological exam: Present: alert, oriented X3 Psychiatric exam: Present: normal affect, normal mood Skin exam: Present: warm, dry, intact, normal color Course Vital Signs 09/30/19 09/30/19 10/01/19 22:05 23:20 00:20 Temperature 98.7 F 98.5 F 97.9 F Pulse Rate 90 89 90 Respiratory 18 16 18 Rate Blood Pressure 159/94 144/90 137/89 O2 Sat by Pulse 100 100 99 Oximetry Medical Decision Making - Medical Decision Making Patient is 29-year-old female presents emergency chief complaint abdominal pain. Symptoms ongoing for approximately 2 years. Exam there is diffuse mild abdominal pain. She is vomiting after waking up tomorrow morning. I do suspect acid reflux. Patient was advised to avoid eating late at night and do it at least 4 hours prior to going to sleep. Patient given antiemetics and fluids in the emergency department. CBC CMP is unremarkable. UA reveals no signs of urinary tract infection. Patient is not . She was advised to follow-up with primary care physician. Lifestyle changes discussed regarding acid reflux. Strict return parameters were thoroughly discussed the patient was understanding and agreeable. Case discussed with physician. - Lab Data Result diagrams: 09/30/19 22:51 09/30/19 22:51 Lab Results 09/30/19 09/30/19 09/30/19 Range/Units 22:51 22:51 23:26 WBC 8.2 (3.8-10.6) k/uL RBC 4.42 (3.80-5.40) m/uL Hgb 12.6 (11.4-16.0) gm/dL Hct 39.7 (34.0-46.0) % MCV 89.8 (80.0-100.0) fL MCH 28.6 (25.0-35.0) pg MCHC 31.9 (31.0-37.0) g/dL RDW 13.1 (11.5-15.5) % Plt Count 245 (150-450) k/uL Neutrophils % 58 % Lymphocytes % 32 % Monocytes % 5 % Eosinophils % 1 % Basophils % 1 % Neutrophils # 4.7 (1.3-7.7) k/uL Lymphocytes # 2.6 (1.0-4.8) k/uL Monocytes # 0.4 (0-1.0) k/uL Eosinophils # 0.1 (0-0.7) k/uL Basophils # 0.0 (0-0.2) k/uL Sodium 136 L (137-145) mmol/L Potassium 4.1 (3.5-5.1) mmol/L Chloride 102 (98-107) mmol/L Carbon Dioxide 25 (22-30) mmol/L Anion Gap 9 mmol/L BUN 10 (7-17) mg/dL Creatinine 0.75 (0.52-1.04) mg/dL Est GFR (CKD-EPI)AfAm >90 (>60 ml/min/1.73 sqM) Est GFR (CKD-EPI)NonAf >90 (>60 ml/min/1.73 sqM) Glucose 117 H (74-99) mg/dL Calcium 9.6 (8.4-10.2) mg/dL Total Bilirubin 0.2 (0.2-1.3) mg/dL AST 37 H (14-36) U/L ALT 47 H (4-34) U/L Alkaline Phosphatase 69 (38-126) U/L Total Protein 7.6 (6.3-8.2) g/dL Albumin 4.5 (3.5-5.0) g/dL Lipase 95 (23-300) U/L Urine Color Light Yellow Urine Appearance Clear (Clear) Urine pH 5.5 (5.0-8.0) Ur Specific [place] 1.005 (1.001-1.035) Urine Protein Negative (Negative) Urine Glucose (UA) Negative (Negative) Urine Ketones Negative (Negative) Urine Blood Negative (Negative) Urine Nitrite Negative (Negative) Urine Bilirubin Negative (Negative) Urine Urobilinogen <2.0 (<2.0) mg/dL Ur Leukocyte Esterase Negative (Negative) Urine HCG, Qual (Not Detectd) 09/30/19 Range/Units 23:26 WBC (3.8-10.6) k/uL RBC (3.80-5.40) m/uL Hgb (11.4-16.0) gm/dL Hct (34.0-46.0) % MCV (80.0-100.0) fL MCH (25.0-35.0) pg MCHC (31.0-37.0) g/dL RDW (11.5-15.5) % Plt Count (150-450) k/uL Neutrophils % % Lymphocytes % % Monocytes % % Eosinophils % % Basophils % % Neutrophils # (1.3-7.7) k/uL Lymphocytes # (1.0-4.8) k/uL Monocytes # (0-1.0) k/uL Eosinophils # (0-0.7) k/uL Basophils # (0-0.2) k/uL Sodium (137-145) mmol/L Potassium (3.5-5.1) mmol/L Chloride (98-107) mmol/L Carbon Dioxide (22-30) mmol/L Anion Gap mmol/L BUN (7-17) mg/dL Creatinine (0.52-1.04) mg/dL Est GFR (CKD-EPI)AfAm (>60 ml/min/1.73 sqM) Est GFR (CKD-EPI)NonAf (>60 ml/min/1.73 sqM) Glucose (74-99) mg/dL Calcium (8.4-10.2) mg/dL Total Bilirubin (0.2-1.3) mg/dL AST (14-36) U/L ALT (4-34) U/L Alkaline Phosphatase (38-126) U/L Total Protein (6.3-8.2) g/dL Albumin (3.5-5.0) g/dL Lipase (23-300) U/L Urine Color Urine Appearance (Clear) Urine pH (5.0-8.0) Ur Specific [place] (1.001-1.035) Urine Protein (Negative) Urine Glucose (UA) (Negative) Urine Ketones (Negative) Urine Blood (Negative) Urine Nitrite (Negative) Urine Bilirubin (Negative) Urine Urobilinogen (<2.0) mg/dL Ur Leukocyte Esterase (Negative) Urine HCG, Qual Not Detected (Not Detectd) Disposition Clinical Impression: Abdominal pain Disposition: HOME SELF-CARE Condition: Stable Instructions (If sedation given, give patient instructions): Abdominal Pain (E D) Additional Instructions: Follow-up with her primary care physician. Return to emergency department if symptoms worsen. Is patient prescribed a controlled substance at d/c from ED?: No Referrals: [facility] [Primary Care Provider] - 1-2 days Time of Disposition: 23:52
[2019-09-30] MEDS ORDERED: SODIUM CHLORIDE 0.9% 1,000 ML IV STA (22:38)
[2019-09-30 23:12] LABS: Basophils % (A) 1 %; Eosinophils # (A) 0.1 k/uL (0-0.7); Eosinophils % (A) 1 %; HCT 39.7 % (34.0-46.0); HGB 12.6 gm/dL (11.4-16.0); Lymphocytes # (A) 2.6 k/uL (1.0-4.8); Lymphocytes % (A) 32 %; MCH 28.6 pg (25.0-35.0); MCHC 31.9 g/dL (31.0-37.0); MCV 89.8 fL (80.0-100.0); Mean Platelet Volume 8.3; Monocytes # (A) 0.4 k/uL (0-1.0); Monocytes % (A) 5 %; Neutrophils # (A) 4.7 k/uL (1.3-7.7); Neutrophils % (A) 58 %; Platelet Count 245 k/uL (150-450); RBC 4.42 m/uL (3.80-5.40); RDW 13.1 % (11.5-15.5); WBC 8.2 k/uL (3.8-10.6)
[2019-09-30 23:23] LABS: ALT 47 U/L (4-34); AST 37 U/L (14-36); African American GFR (CKD) >90 (>60 ml/min/1.73 sqM); Albumin 4.5 g/dL (3.5-5.0); Alkaline Phosphatase 69 U/L (38-126); Anion Gap 9 mmol/L; Blood Urea Nitrogen 10 mg/dL (7-17); Calcium 9.6 mg/dL (8.4-10.2); Carbon Dioxide 25 mmol/L (22-30); Chloride 102 mmol/L (98-107); Glucose 117 mg/dL (74-99); Non-African American GFR(CKD) >90 (>60 ml/min/1.73 sqM); Potassium 4.1 mmol/L (3.5-5.1); Sodium 136 mmol/L (137-145); Total Bilirubin 0.2 mg/dL (0.2-1.3); Total Protein 7.6 g/dL (6.3-8.2)
[2019-09-30 23:38] LABS: Appearance,Urine Clear (Clear); Bilirubin,Urine Negative (Negative); Blood,Urine Negative (Negative); Color,Urine Light Yellow; Glucose,Urine (UA) Negative (Negative); Ketones,Urine Negative (Negative); Leukocyte Esterase,Urine Negative (Negative); Nitrite,Urine Negative (Negative); PH, Urine 5.5 (5.0-8.0); Protein,Urine Negative (Negative); Specific Gravity,Urine 1.005 (1.001-1.035); Urobilinogen,Urine <2.0 mg/dL (<2.0)
[2019-10-01 00:42] VITALS: BP 137/89; PULSE 90; RESP 18; TEMP 97.9
== END 2019-10-01 00:30 | disposition home or self-care (01) ==
LOC: EC 22:03
DX: R10.84 Generalized abdominal pain (principal); R11.10 Vomiting, unspecified; I10 Essential (primary) hypertension; J45.909 Unspecified asthma, uncomplicated; F17.200 Nicotine dependence, unspecified, uncomplicated; Z79.899 Other long term (current) drug therapy; Z79.84 Long term (current) use of oral hypoglycemic drugs; Z91.048 Other nonmedicinal substance allergy status; Z91.018 Allergy to other foods; Z88.6 Allergy status to analgesic agent; Z88.8 Allergy status to other drugs, medicaments and biological substances; Z98.51 Tubal ligation status
CPT/HCPCS: 36415; 80053; 81003; 81025; 83690; 85025; 96360; 99284

== ENCOUNTER 2019-10-09 17:12 | Emergency (ER) | payer OTHER ==
[2019-10-09 17:38] VITALS: BP 123/82; PULSE 103; RESP 18; TEMP 98.6
--- NOTE | 2019-10-09 17:57 | ED ---
Psych HPI - General Source: patient, police, RN notes reviewed Mode of arrival: ambulatory Limitations: no limitations <Ian Mendoza - Last Filed: 10/09/19 17:54> <Maryann Rodriguez - Last Filed: 10/09/19 23:34> - General Chief Complaint: Psychiatric Symptoms Stated Complaint: Mental health Time Seen by Provider: 10/09/19 17:40 - History of Present Illness Initial Comments: 29-year-old female presents emergency from with police for psychiatric evaluation. Patient was picked up on a pickup order. Patient reportedly had an outburst today and reportedly has not been compliant with all of her treatment program. Patient denies being suicidal homicidal denies any physical complaints denies any drug use no alcohol abuse. (Ian Mendoza) - Related Data Home Medications Medication Instructions Recorded Confirmed Ergocalciferol [Vitamin D2 50,000 unit PO WE@0804/05/18 10/09/19 (DRISDOL)] Hydrochlorothiazide 12.5 mg PO DAILY@79909/22/18 10/09/19 [hydroCHLOROthiazide] Docusate [Colace] 100 mg PO DAILY@79910/15/18 10/09/19 Albuterol Sulfate [Proair Hfa] 2 puff INHALATION RT-Q4H PRN 12/03/18 10/09/19 Pantoprazole Sodium [Protonix] 40 mg PO DAILY@79912/03/18 10/09/19 Fenofibrate [Lofibra] 54 mg PO DAILY@79907/03/19 10/09/19 Magnesium Oxide 400 mg PO DAILY@79907/03/19 10/09/19 metFORMIN HCL [Glucophage] 1,000 mg PO BID@08,209907/03/19 10/09/19 Nicotine Polacrilex [Nicorette] 2 mg BUCCAL Q2H PRN 10/09/19 10/09/19 QUEtiapine [SEROquel] 50 mg PO HS@209910/09/19 10/09/19 busPIRone HCl [Buspar] 10 mg PO BID@0800,209910/09/19 10/09/19 Previous Rx's Medication Instructions Recorded fluPHENAZine decanoate [Prolixin 50 mg IM Q7D #1 ml 05/27/20 Decanoate] Allergies Allergy/AdvReac Type Severity Reaction Status Date / Time ibuprofen [From Motrin] Allergy Rash/Hives Verified 10/09/19 19:34 pineapple Allergy Rash/Hives Verified 10/09/19 19:34 red dye Allergy Rash/Hives Verified 10/09/19 19:34 haloperidol [From Haldol] AdvReac Hallucinati Verified 10/09/19 19:34 ons Review of Systems ROS Other: All systems not noted in ROS Statement are negative. <Ian Mendoza - Last Filed: 10/09/19 17:54> ROS Other: All systems not noted in ROS Statement are negative. <Maryann Rodriguez - Last Filed: 10/09/19 23:34> ROS Statement: Those systems with pertinent positive or pertinent negative responses have been documented in the HPI. Past Medical History Past Medical History: Asthma, Hypertension, Seizure Disorder Additional Past Medical History / Comment(s): last seizure was December 2018 per Pt History of Any Multi-Drug Resistant Organisms: None Reported Past Surgical History: Section, Tonsillectomy, Tubal Ligation Additional Past Surgical History / Comment(s): facial surgery, 2 C-Sections Past Anesthesia/Blood Transfusion Reactions: No Reported Reaction Past Psychological History: Anxiety, Bipolar, Depression, Schizoaffective Disorder, Schizophrenia Smoking Status: Current some day smoker Past Alcohol Use History: None Reported Past Drug Use History: None Reported - Past Family History Father Family Medical History: Unable to Obtain Additional Family Medical History / Comment(s): Father is alive and may have diabetes. Mother Family Medical History: Thyroid Disorder Additional Family Medical History / Comment(s): Mother is alive at age 50 with thyroid disorder. Brother(s) Additional Family Medical History / Comment(s): Patient has 2 brothers and 2 sisters with no major medical problems. Patient has two sons that is healthy. <Ian Mendoza - Last Filed: 10/09/19 17:54> General Exam Limitations: no limitations General appearance: alert, in no apparent distress Head exam: Present: atraumatic, normocephalic, normal inspection Eye exam: Present: normal appearance, PERRL, EOMI. Absent: scleral icterus, conjunctival injection, periorbital swelling ENT exam: Present: normal exam, normal oropharynx, mucous membranes moist Neck exam: Present: normal inspection, full ROM. Absent: tenderness, meningismus, lymphadenopathy Respiratory exam: Present: normal lung sounds bilaterally. Absent: respiratory distress, wheezes, rales, rhonchi, stridor Cardiovascular Exam: Present: regular rate, normal rhythm, normal heart sounds. Absent: systolic murmur, diastolic murmur, rubs, gallop, clicks GI/Abdominal exam: Present: soft, normal bowel sounds. Absent: distended, tenderness, guarding, rebound, rigid Back exam: Absent: CVA tenderness (R), CVA tenderness (L) Neurological exam: Present: alert, oriented X3, CN II-XII intact Skin exam: Present: warm, dry, intact, normal color. Absent: rash <Ian Mendoza - Last Filed: 10/09/19 17:54> Course Vital Signs 10/09/19 17:35 Temperature 98.6 F Pulse Rate 103 H Respiratory 18 Rate Blood Pressure 123/82 O2 Sat by Pulse 97 Oximetry Medical Decision Making <Maryann Rodriguez - Last Filed: 10/09/19 23:34> - Medical Decision Making 29-year-old female patient was brought to the emergency department on a pickup order from a cord for noncompliant with her psychiatric treatment. She was medically cleared, evaluated by emergency psychiatric services. They were able to develop a safety plan. If she is not suicidal at this time. She'll be discharged to follow up with outpatient mental health services. Return parameters were discussed in detail. She verbalizes understanding and agrees this plan. (Maryann Rodriguez) - Lab Data Lab Results 10/09/19 Range/Units 18:43 Urine Opiates Screen Not Detected (NotDetected) Ur Oxycodone Screen Not Detected (NotDetected) Urine Methadone Screen Not Detected (NotDetected) Ur Propoxyphene Screen Not Detected (NotDetected) Ur Barbiturates Screen Not Detected (NotDetected) U Tricyclic Antidepress Not Detected (NotDetected) Ur Phencyclidine Scrn Not Detected (NotDetected) Ur Amphetamines Screen Not Detected (NotDetected) U Methamphetamines Scrn Not Detected (NotDetected) U Benzodiazepines Scrn Not Detected (NotDetected) Urine Cocaine Screen Not Detected (NotDetected) U Marijuana (THC) Screen Not Detected (NotDetected) Disposition <Ian Mendoza M - Last Filed: 10/09/19 17:54> Is patient prescribed a controlled substance at d/c from ED?: No Time of Disposition: 21:39 <Maryann Rodriguez - Last Filed: 10/09/19 23:34> Clinical Impression: Outbursts of anger Disposition: HOME SELF-CARE Condition: Good Instructions (If sedation given, give patient instructions): Mood Disorders (ED) Additional Instructions: Take medications as directed. Follow up with outpatient mental health treatment as directed. Return follow-up with your primary care physician for recheck in 1-2 days. Return to the emergency department immediately for any new, worsening, or concerning symptoms. Referrals: [facility] [Primary Care Provider] - 1-2 days
[2019-10-09 19:34] LABS: Amphetamine Screen,Urine Not Detected (NotDetected); Barbiturate Screen,Urine Not Detected (NotDetected); Benzodiazepines Screen,Urine Not Detected (NotDetected); Cocaine Screen,Urine Not Detected (NotDetected); Methadone Screen, Urine Not Detected (NotDetected); Opiate Screen,Urine Not Detected (NotDetected); Oxycodone Screen, Urine Not Detected (NotDetected); Phencyclidine Screen,Urine Not Detected (NotDetected); Tricyclic Antidepressant,Urine Not Detected (NotDetected); Urn Cannabinoid Scrn Not Detected (NotDetected)
== END 2019-10-09 21:45 | disposition home or self-care (01) ==
LOC: EC 17:12
DX: R45.4 Irritability and anger (principal); Z91.14 Patient's other noncompliance with medication regimen; J45.909 Unspecified asthma, uncomplicated; F41.9 Anxiety disorder, unspecified; F31.9 Bipolar disorder, unspecified; F25.9 Schizoaffective disorder, unspecified; G40.909 Epilepsy, unspecified, not intractable, without status epilepticus; F17.200 Nicotine dependence, unspecified, uncomplicated; Z79.899 Other long term (current) drug therapy; Z79.51 Long term (current) use of inhaled steroids; Z88.6 Allergy status to analgesic agent; Z91.018 Allergy to other foods; Z91.041 Radiographic dye allergy status; Z88.8 Allergy status to other drugs, medicaments and biological substances
CPT/HCPCS: 80306; 82075; 99284

== ENCOUNTER 2019-10-22 16:11 | Emergency (ER) | payer OTHER ==
[2019-10-22 16:22] VITALS: PULSE 92; RESP 18; TEMP 98.7
[2019-10-22 17:09] LABS: Appearance,Urine Clear (Clear); Bilirubin,Urine Negative (Negative); Blood,Urine Negative (Negative); Color,Urine Light Yellow; Glucose,Urine (UA) Negative (Negative); Ketones,Urine Negative (Negative); Leukocyte Esterase,Urine Negative (Negative); Nitrite,Urine Negative (Negative); PH, Urine 6.5 (5.0-8.0); Protein,Urine Negative (Negative); Specific Gravity,Urine 1.003 (1.001-1.035); Urobilinogen,Urine <2.0 mg/dL (<2.0)
--- NOTE | 2019-10-22 17:15 | ED ---
Nausea/Vomiting/Diarrhea HPI - General Chief complaint: Nausea/Vomiting/Diarrhea Stated complaint: abd pain Time Seen by Provider: 10/22/19 16:15 Source: patient, EMS Mode of arrival: EMS Limitations: no limitations - History of Present Illness Initial comments: 29-year-old female presenting today for chief complaint of concern for . Patient states that she is concerned she is . She has no additional complaints she denies severe abdominal pain. Patient denies vomiting, diarrhea, fevers. Denies RLQ tenderness or chest pain/sob. Patient appears well nontoxic in NO acute distress. Magdan states she has been compliant with her psychiatric medications and has been doing really well at her snf. Patient does not appear acute psychotic in comparison with previous visits. - Related Data Home Medications Medication Instructions Recorded Confirmed Ergocalciferol [Vitamin D2 50,000 unit PO WE@0804/05/18 10/09/19 (DRISDOL)] Hydrochlorothiazide 12.5 mg PO DAILY@79909/22/18 10/09/19 [hydroCHLOROthiazide] Docusate [Colace] 100 mg PO DAILY@79910/15/18 10/09/19 Albuterol Sulfate [Proair Hfa] 2 puff INHALATION RT-Q4H PRN 12/03/18 10/09/19 Pantoprazole Sodium [Protonix] 40 mg PO DAILY@79912/03/18 10/09/19 Fenofibrate [Lofibra] 54 mg PO DAILY@79907/03/19 10/09/19 Magnesium Oxide 400 mg PO DAILY@79907/03/19 10/09/19 metFORMIN HCL [Glucophage] 1,000 mg PO BID@799,209907/03/19 10/09/19 Nicotine Polacrilex [Nicorette] 2 mg BUCCAL Q2H PRN 10/09/19 10/09/19 QUEtiapine [SEROquel] 50 mg PO HS@209910/09/19 10/09/19 busPIRone HCl [Buspar] 10 mg PO BID@0800,209910/09/19 10/09/19 Previous Rx's Medication Instructions Recorded fluPHENAZine decanoate [Prolixin 50 mg IM Q7D #1 ml 07/08/19 Decanoate] Allergies Allergy/AdvReac Type Severity Reaction Status Date / Time ibuprofen [From Motrin] Allergy Rash/Hives Verified 10/09/19 19:34 pineapple Allergy Rash/Hives Verified 10/09/19 19:34 red dye Allergy Rash/Hives Verified 10/09/19 19:34 haloperidol [From Haldol] AdvReac Hallucinati Verified 10/09/19 19:34 ons Review of Systems ROS Statement: Those systems with pertinent positive or pertinent negative responses have been documented in the HPI. ROS Other: All systems not noted in ROS Statement are negative. Past Medical History Past Medical History: Asthma, Hypertension, Seizure Disorder Additional Past Medical History / Comment(s): last seizure was December 2018 per Pt History of Any Multi-Drug Resistant Organisms: None Reported Past Surgical History: Section, Tonsillectomy, Tubal Ligation Additional Past Surgical History / Comment(s): facial surgery, 2 C-Sections Past Anesthesia/Blood Transfusion Reactions: No Reported Reaction Past Psychological History: Anxiety, Bipolar, Depression, Schizoaffective Disorder, Schizophrenia Smoking Status: Current some day smoker Past Alcohol Use History: None Reported Past Drug Use History: None Reported - Past Family History Father Family Medical History: Unable to Obtain Additional Family Medical History / Comment(s): Father is alive and may have diabetes. Mother Family Medical History: Thyroid Disorder Additional Family Medical History / Comment(s): Mother is alive at age 50 with thyroid disorder. Brother(s) Additional Family Medical History / Comment(s): Patient has 2 brothers and 2 sisters with no major medical problems. Patient has two sons that is healthy. General Exam - General Exam Comments Initial Comments: General: The patient is awake and alert, in no distress, and does not appear acutely ill-jumped off EMS stretcher herself and walked to ER bed. Eye: Pupils are equal, round and reactive to light, extra-ocular movements are intact. No nystagmus. There is normal conjunctiva bilaterally. No signs of icterus. Ears, nose, mouth and throat: There are moist mucous membranes and no oral lesions. Neck: The neck is supple, there is no tenderness or JVD. Cardiovascular: There is a regular rate and rhythm. No murmur, rub or gallop is appreciated. Respiratory: Lungs are clear to auscultation, respirations are non-labored, breath sounds are equal. No wheezes, stridor, rales, or rhonchi. Gastrointestinal: Soft, non-distended, non-tender abdomen without masses or organomegaly noted. There is no rebound or guarding present Musculoskeletal: Normal ROM, no tenderness. Strength 5/5. Sensation intact. Pulses equal bilaterally 2+. Neurological: A&O x 3. CN II-XII intact grossly, There are no obvious motor or sensory deficits. Coordination appears grossly intact. Speech is normal. Skin: Skin is warm and dry and no rashes or lesions are noted. Psychiatric: Cooperative Limitations: no limitations Course Vital Signs 10/22/19 16:15 Temperature 98.7 F Pulse Rate 92 Respiratory 18 Rate Blood Pressure 119/75 O2 Sat by Pulse 99 Oximetry Medical Decision Making - Medical Decision Making 29yo who comfortably presents emergency department concern for . Hx tubal ligation. Patient at snf. Patient abdomen soft nontender. Patient HCG (-) She does not appear acute psychotic as I have seen patient in psychotic state as well as at baseline. Patietn will be discharged with PCP f/u. - Lab Data Lab Results 10/22/19 Range/Units 16:57 Urine Color Light Yellow Urine Appearance Clear (Clear) Urine pH 6.5 (5.0-8.0) Ur Specific [place] 1.003 (1.001-1.035) Urine Protein Negative (Negative) Urine Glucose (UA) Negative (Negative) Urine Ketones Negative (Negative) Urine Blood Negative (Negative) Urine Nitrite Negative (Negative) Urine Bilirubin Negative (Negative) Urine Urobilinogen <2.0 (<2.0) mg/dL Ur Leukocyte Esterase Negative (Negative) Disposition Clinical Impression: Concern about unplanned without diagnosis Disposition: HOME SELF-CARE Condition: Good Additional Instructions: Please use medication as discussed. Please follow-up with family doctor in the next 2 days.. Please return to emergency room if the symptoms increase or worsen or for any other concerns. Is patient prescribed a controlled substance at d/c from ED?: No Referrals: Nirali Valentin MD [Primary Care Provider] - 1-2 days Time of Disposition: 17:15
[2019-10-22 17:48] VITALS: BP 115/70
== END 2019-10-22 17:49 | disposition home or self-care (01) ==
LOC: EC 16:11
DX: Z32.02 Encounter for pregnancy test, result negative (principal); F41.9 Anxiety disorder, unspecified; F31.9 Bipolar disorder, unspecified; F20.9 Schizophrenia, unspecified; J45.909 Unspecified asthma, uncomplicated; I10 Essential (primary) hypertension; G40.909 Epilepsy, unspecified, not intractable, without status epilepticus; F17.200 Nicotine dependence, unspecified, uncomplicated; Z79.899 Other long term (current) drug therapy; Z88.6 Allergy status to analgesic agent; Z88.8 Allergy status to other drugs, medicaments and biological substances; Z91.018 Allergy to other foods; Z91.041 Radiographic dye allergy status; Z98.51 Tubal ligation status
CPT/HCPCS: 81003; 81025; 99284

== ENCOUNTER 2019-11-08 04:18 | Emergency (ER) | payer OTHER ==
[2019-11-08 04:25] VITALS: BP 153/92; PULSE 89; RESP 18; TEMP 98.9
[2019-11-08 04:50] LABS: Appearance,Urine Clear (Clear); Bilirubin,Urine Negative (Negative); Blood,Urine Negative (Negative); Color,Urine Light Yellow; Glucose,Urine (UA) Negative (Negative); Ketones,Urine Negative (Negative); Leukocyte Esterase,Urine Negative (Negative); Nitrite,Urine Negative (Negative); PH, Urine 5.5 (5.0-8.0); Protein,Urine Negative (Negative); Specific Gravity,Urine 1.006 (1.001-1.035); Urobilinogen,Urine <2.0 mg/dL (<2.0)
--- NOTE | 2019-11-08 05:02 | ED ---
Female Urogenital HPI - General Chief complaint: Urogenital Stated complaint: Abdominal Bloating Time Seen by Provider: 11/08/19 04:27 Source: patient, EMS Mode of arrival: EMS Limitations: no limitations - History of Present Illness Initial comments: Agustin is a 29-year-old female with extensive psychiatric history who is well- known to the ER for her frequent visits and patient reports that she had her tubes tied after her last and after that had normal periods however. 16 months and believes that she is 16 months . Patient states that she has seen her primary care physician, she's been compliant with her mental health regimen including outpatient injections. She states she is not on any control. She denies any abdominal pain or cramping. Denies any vaginal bleeding. - Related Data Home Medications Medication Instructions Recorded Confirmed Ergocalciferol [Vitamin D2 50,000 unit PO WE@79904/05/18 10/09/19 (DRISDOL)] Hydrochlorothiazide 12.5 mg PO DAILY@79909/22/18 10/09/19 [hydroCHLOROthiazide] Docusate [Colace] 100 mg PO DAILY@79910/15/18 10/09/19 Albuterol Sulfate [Proair Hfa] 2 puff INHALATION RT-Q4H PRN 12/03/18 10/09/19 Pantoprazole Sodium [Protonix] 40 mg PO DAILY@79912/03/18 10/09/19 Fenofibrate [Lofibra] 54 mg PO DAILY@79907/03/19 10/09/19 Magnesium Oxide 400 mg PO DAILY@79907/03/19 10/09/19 metFORMIN HCL [Glucophage] 1,000 mg PO BID@799,209907/03/19 10/09/19 Nicotine Polacrilex [Nicorette] 2 mg BUCCAL Q2H PRN 10/09/19 10/09/19 QUEtiapine [SEROquel] 50 mg PO HS@209910/09/19 10/09/19 busPIRone HCl [Buspar] 10 mg PO BID@0800,209910/09/19 10/09/19 Previous Rx's Medication Instructions Recorded fluPHENAZine decanoate [Prolixin 50 mg IM Q7D #1 ml 07/08/19 Decanoate] Allergies Allergy/AdvReac Type Severity Reaction Status Date / Time ibuprofen [From Motrin] Allergy Rash/Hives Verified 10/09/19 19:34 pineapple Allergy Rash/Hives Verified 10/09/19 19:34 red dye Allergy Rash/Hives Verified 10/09/19 19:34 haloperidol [From Haldol] AdvReac Hallucinati Verified 10/09/19 19:34 ons Review of Systems ROS Statement: Those systems with pertinent positive or pertinent negative responses have been documented in the HPI. ROS Other: All systems not noted in ROS Statement are negative. Past Medical History Past Medical History: Asthma, Hypertension, Seizure Disorder Additional Past Medical History / Comment(s): last seizure was December 2018 per Pt History of Any Multi-Drug Resistant Organisms: None Reported Past Surgical History: Section, Tonsillectomy, Tubal Ligation Additional Past Surgical History / Comment(s): facial surgery, 2 C-Sections Past Anesthesia/Blood Transfusion Reactions: No Reported Reaction Past Psychological History: Anxiety, Bipolar, Depression, Schizoaffective Disorder, Schizophrenia Smoking Status: Current some day smoker Past Alcohol Use History: None Reported Past Drug Use History: None Reported - Past Family History Father Family Medical History: Unable to Obtain Additional Family Medical History / Comment(s): Father is alive and may have diabetes. Mother Family Medical History: Thyroid Disorder Additional Family Medical History / Comment(s): Mother is alive at age 50 with thyroid disorder. Brother(s) Additional Family Medical History / Comment(s): Patient has 2 brothers and 2 sisters with no major medical problems. Patient has two sons that is healthy. General Exam - General Exam Comments Initial Comments: Physical Exam GENERAL: Morbidly obese female Patient is well-developed and well-nourished. Patient is nontoxic and well-hydrated and is in no distress. HENT: Normocephalic, Atraumatic. EYES: PERRL, EOMI PULMONARY: Unlabored respirations. CARDIOVASCULAR: RRR Warm and well perfused extremities ABDOMEN: Obese Bedside ultrasound reveals an empty uterus SKIN: No rashes or bruising : Deferred NEUROLOGIC: Alert and oriented Normal speech Normal gait MUSCULOSKELETAL: Moving all extremities with no apparent injury PSYCHIATRIC: No SI/HI Limitations: no limitations Course Vital Signs 11/08/19 04:20 Temperature 98.9 F Pulse Rate 89 Respiratory 18 Rate Blood Pressure 153/92 O2 Sat by Pulse 97 Oximetry Medical Decision Making - Medical Decision Making The patient was seen and evaluated urinalysis and urine were collected a urine was negative Bedside ultrasound showed the patient that there is an empty uterus, however with patient was able to see her stool on ultrasound she stated that she thought that it was 100s of a living inside of her. I attempted to explain to the patient however given the patient's history and that we have discussed this in the past advised the patient currently that she is currently not she can follow with her middleware solutions architect. Patient expressed understanding and agreement with this plan. - Lab Data Lab Results 11/08/19 11/08/19 Range/Units 04:45 04:45 Urine Color Light Yellow Urine Appearance Clear (Clear) Urine pH 5.5 (5.0-8.0) Ur Specific [place] 1.006 (1.001-1.035) Urine Protein Negative (Negative) Urine Glucose (UA) Negative (Negative) Urine Ketones Negative (Negative) Urine Blood Negative (Negative) Urine Nitrite Negative (Negative) Urine Bilirubin Negative (Negative) Urine Urobilinogen <2.0 (<2.0) mg/dL Ur Leukocyte Esterase Negative (Negative) Urine HCG, Qual Not Detected (Not Detectd) Disposition Clinical Impression: Irregular menstrual cycle Disposition: HOME SELF-CARE Condition: Stable Additional Instructions: As we discussed you are not today, your test was negative and your ultrasound showed no babies in the uterus Follow up with your Insulation Board Back Tender about your irregular periods Is patient prescribed a controlled substance at d/c from ED?: No Referrals: Nirali Valentin MD [Primary Care Provider] - 1-2 days
== END 2019-11-08 05:15 | disposition home or self-care (01) ==
LOC: EC 04:18
DX: N92.6 Irregular menstruation, unspecified (principal); I10 Essential (primary) hypertension; F31.9 Bipolar disorder, unspecified; F25.9 Schizoaffective disorder, unspecified; F41.9 Anxiety disorder, unspecified; F17.200 Nicotine dependence, unspecified, uncomplicated; Z79.84 Long term (current) use of oral hypoglycemic drugs; Z79.899 Other long term (current) drug therapy; Z88.6 Allergy status to analgesic agent; Z91.018 Allergy to other foods; Z91.09 Other allergy status, other than to drugs and biological substances; Z88.8 Allergy status to other drugs, medicaments and biological substances; Z98.51 Tubal ligation status
CPT/HCPCS: 81003; 81025; 99284

== ENCOUNTER 2019-12-02 00:57 | Emergency (ER) | payer OTHER ==
[2019-12-02 01:02] VITALS: PULSE 100; RESP 18
[2019-12-02 01:10] VITALS: TEMP 98
[2019-12-02 01:29] LABS: Appearance,Urine Clear (Clear); Bilirubin,Urine Negative (Negative); Blood,Urine Negative (Negative); Color,Urine Light Yellow; Glucose,Urine (UA) Negative (Negative); Ketones,Urine Negative (Negative); Leukocyte Esterase,Urine Negative (Negative); Nitrite,Urine Negative (Negative); Protein,Urine Negative (Negative); Specific Gravity,Urine 1.007 (1.001-1.035); Urobilinogen,Urine <2.0 mg/dL (<2.0)
--- NOTE | 2019-12-02 01:56 | ED ---
General Adult HPI - General Chief complaint: Abdominal Pain Stated complaint: Abdominal pain Time Seen by Provider: 12/02/19 01:07 Source: patient, EMS Mode of arrival: EMS Limitations: no limitations - History of Present Illness Initial comments: This patient is 29-year-old woman who presents with concern that she may be . Patient states she has been experiencing lower abdominal bloating and some pressure. She states she also felt like there may have been some movement. Patient is well-known to the department here and has been seen multiple times for similar complaint. The patient is not having any vaginal bleeding or discharge. No change in urination or bowel movements. -: days(s) Location: abdomen Radiation: non-radiation Quality: dull Consistency: intermittent Improves with: none Worsens with: none Associated Symptoms: denies other symptoms Treatments Prior to Arrival: none - Related Data Home Medications Medication Instructions Recorded Confirmed Ergocalciferol [Vitamin D2 50,000 unit PO WE@79904/05/18 10/09/19 (DRISDOL)] Hydrochlorothiazide 12.5 mg PO DAILY@79909/22/18 10/09/19 [hydroCHLOROthiazide] Docusate [Colace] 100 mg PO DAILY@79910/15/18 10/09/19 Albuterol Sulfate [Proair Hfa] 2 puff INHALATION RT-Q4H PRN 12/03/18 10/09/19 Pantoprazole Sodium [Protonix] 40 mg PO DAILY@0812/03/18 10/09/19 Fenofibrate [Lofibra] 54 mg PO DAILY@79907/03/19 10/09/19 Magnesium Oxide 400 mg PO DAILY@79907/03/19 10/09/19 metFORMIN HCL [Glucophage] 1,000 mg PO BID@08,209907/03/19 10/09/19 Nicotine Polacrilex [Nicorette] 2 mg BUCCAL Q2H PRN 10/09/19 10/09/19 QUEtiapine [SEROquel] 50 mg PO HS@209910/09/19 10/09/19 busPIRone HCl [Buspar] 10 mg PO BID@0800,209910/09/19 10/09/19 Previous Rx's Medication Instructions Recorded fluPHENAZine decanoate [Prolixin 50 mg IM Q7D #1 ml 07/08/19 Decanoate] Allergies Allergy/AdvReac Type Severity Reaction Status Date / Time ibuprofen [From Motrin] Allergy Rash/Hives Verified 12/02/19 01:02 pineapple Allergy Rash/Hives Verified 12/02/19 01:02 red dye Allergy Rash/Hives Verified 12/02/19 01:02 haloperidol [From Haldol] AdvReac Hallucinati Verified 12/02/19 01:02 ons Review of Systems ROS Statement: Those systems with pertinent positive or pertinent negative responses have been documented in the HPI. ROS Other: All systems not noted in ROS Statement are negative. Constitutional: Denies: fever, chills Respiratory: Denies: cough, dyspnea Cardiovascular: Denies: chest pain, edema Gastrointestinal: Reports: as per HPI, abdominal pain. Denies: nausea, vomiting, diarrhea, constipation Genitourinary: Reports: abnormal menses. Denies: dysuria, hematuria, discharge Musculoskeletal: Denies: back pain Skin: Denies: rash Neurological: Denies: headache Past Medical History Past Medical History: Asthma, Hypertension, Seizure Disorder Additional Past Medical History / Comment(s): last seizure was December 2018 per Pt History of Any Multi-Drug Resistant Organisms: None Reported Past Surgical History: Section, Tonsillectomy, Tubal Ligation Additional Past Surgical History / Comment(s): facial surgery, 2 C-Sections Past Anesthesia/Blood Transfusion Reactions: No Reported Reaction Past Psychological History: Anxiety, Bipolar, Depression, Schizoaffective Disorder, Schizophrenia Smoking Status: Current some day smoker Past Alcohol Use History: None Reported Past Drug Use History: None Reported - Past Family History Father Family Medical History: Unable to Obtain Additional Family Medical History / Comment(s): Father is alive and may have diabetes. Mother Family Medical History: Thyroid Disorder Additional Family Medical History / Comment(s): Mother is alive at age 50 with thyroid disorder. Brother(s) Additional Family Medical History / Comment(s): Patient has 2 brothers and 2 sisters with no major medical problems. Patient has two sons that is healthy. General Exam Limitations: no limitations General appearance: alert, in no apparent distress Head exam: Present: atraumatic, normocephalic Eye exam: Present: normal appearance. Absent: scleral icterus, conjunctival injection Respiratory exam: Present: normal lung sounds bilaterally. Absent: respiratory distress, wheezes, rales, rhonchi, stridor Cardiovascular Exam: Present: regular rate, normal rhythm, normal heart sounds. Absent: systolic murmur, diastolic murmur, rubs, gallop GI/Abdominal exam: Present: soft, normal bowel sounds. Absent: distended, tenderness, guarding, rebound, rigid, mass, pulsatile mass, hernia Back exam: Present: normal inspection. Absent: CVA tenderness (R), CVA tenderness (L) Neurological exam: Present: alert Skin exam: Present: warm, dry, intact, normal color. Absent: rash Course Vital Signs 12/02/19 00:58 Temperature 98.0 F Pulse Rate 100 Respiratory 18 Rate O2 Sat by Pulse 100 Oximetry Medical Decision Making - Lab Data Lab Results 12/02/19 12/02/19 Range/Units 01:23 01:23 Urine Color Light Yellow Urine Appearance Clear (Clear) Urine pH 6.0 (5.0-8.0) Ur Specific [place] 1.007 (1.001-1.035) Urine Protein Negative (Negative) Urine Glucose (UA) Negative (Negative) Urine Ketones Negative (Negative) Urine Blood Negative (Negative) Urine Nitrite Negative (Negative) Urine Bilirubin Negative (Negative) Urine Urobilinogen <2.0 (<2.0) mg/dL Ur Leukocyte Esterase Negative (Negative) Urine HCG, Qual Not Detected (Not Detectd) Disposition Clinical Impression: Suspected condition not found, Irregular menstrual cycle Disposition: HOME SELF-CARE Condition: Good Instructions (If sedation given, give patient instructions): Menorrhagia (ED) Is patient prescribed a controlled substance at d/c from ED?: No Referrals: Nirali Valentin MD [Primary Care Provider] - 1-2 days
== END 2019-12-02 02:30 | disposition home or self-care (01) ==
LOC: EC 00:57
DX: N92.6 Irregular menstruation, unspecified (principal); R14.0 Abdominal distension (gaseous); R10.30 Lower abdominal pain, unspecified; J45.909 Unspecified asthma, uncomplicated; I10 Essential (primary) hypertension; G40.909 Epilepsy, unspecified, not intractable, without status epilepticus; F41.9 Anxiety disorder, unspecified; F31.9 Bipolar disorder, unspecified; F25.9 Schizoaffective disorder, unspecified; Z79.899 Other long term (current) drug therapy; Z88.6 Allergy status to analgesic agent; Z88.8 Allergy status to other drugs, medicaments and biological substances; Z91.018 Allergy to other foods; Z91.041 Radiographic dye allergy status; Z79.51 Long term (current) use of inhaled steroids; Z98.51 Tubal ligation status; Z98.890 Other specified postprocedural states
CPT/HCPCS: 81003; 81025; 99284

== ENCOUNTER 2019-12-05 21:49 | Emergency (ER) | payer OTHER ==
[2019-12-05] MEDS ORDERED: ACETAMINOPHEN TAB 500 MG TAB PO STA (22:14)
--- NOTE | 2019-12-05 22:30 | ED ---
General Adult HPI - General Chief complaint: Headache Stated complaint: headache Time Seen by Provider: 12/05/19 21:58 Source: patient, EMS, RN notes reviewed, old records reviewed Mode of arrival: EMS Limitations: no limitations - History of Present Illness Initial comments: Wilma is a 29-year-old female well-known to emergency department with chief c omplaint of lower abdominal cramping believing that she is . Patient states that she's not had her menstrual cycle many months. Patient has a known fixed delusion of this. Patient states that she was not informed of her last ER visit and she is . Patient complains of a headache. Patient arrives from her snf. There is any suicidal or homicidal ideations. - Related Data Home Medications Medication Instructions Recorded Confirmed Ergocalciferol [Vitamin D2 50,000 unit PO WE@0804/05/18 10/09/19 (DRISDOL)] Hydrochlorothiazide 12.5 mg PO DAILY@79909/22/18 10/09/19 [hydroCHLOROthiazide] Docusate [Colace] 100 mg PO DAILY@79910/15/18 10/09/19 Albuterol Sulfate [Proair Hfa] 2 puff INHALATION RT-Q4H PRN 12/03/18 10/09/19 Pantoprazole Sodium [Protonix] 40 mg PO DAILY@79912/03/18 10/09/19 Fenofibrate [Lofibra] 54 mg PO DAILY@79907/03/19 10/09/19 Magnesium Oxide 400 mg PO DAILY@79907/03/19 10/09/19 metFORMIN HCL [Glucophage] 1,000 mg PO BID@799,209907/03/19 10/09/19 Nicotine Polacrilex [Nicorette] 2 mg BUCCAL Q2H PRN 10/09/19 10/09/19 QUEtiapine [SEROquel] 50 mg PO HS@209910/09/19 10/09/19 busPIRone HCl [Buspar] 10 mg PO BID@0800,209910/09/19 10/09/19 Previous Rx's Medication Instructions Recorded fluPHENAZine decanoate [Prolixin 50 mg IM Q7D #1 ml 07/08/19 Decanoate] Allergies Allergy/AdvReac Type Severity Reaction Status Date / Time ibuprofen [From Motrin] Allergy Rash/Hives Verified 12/05/19 21:58 pineapple Allergy Rash/Hives Verified 12/05/19 21:58 red dye Allergy Rash/Hives Verified 12/05/19 21:58 haloperidol [From Haldol] AdvReac Hallucinati Verified 12/05/19 21:58 ons Review of Systems ROS Statement: Those systems with pertinent positive or pertinent negative responses have been documented in the HPI. ROS Other: All systems not noted in ROS Statement are negative. Past Medical History Past Medical History: Asthma, Hypertension, Seizure Disorder Additional Past Medical History / Comment(s): last seizure was December 2018 per Pt History of Any Multi-Drug Resistant Organisms: None Reported Past Surgical History: Section, Tonsillectomy, Tubal Ligation Additional Past Surgical History / Comment(s): facial surgery, 2 C-Sections Past Anesthesia/Blood Transfusion Reactions: No Reported Reaction Past Psychological History: Anxiety, Bipolar, Depression, Schizoaffective Disorder, Schizophrenia Smoking Status: Current some day smoker Past Alcohol Use History: None Reported Past Drug Use History: None Reported - Past Family History Father Family Medical History: Unable to Obtain Additional Family Medical History / Comment(s): Father is alive and may have diabetes. Mother Family Medical History: Thyroid Disorder Additional Family Medical History / Comment(s): Mother is alive at age 50 with thyroid disorder. Brother(s) Additional Family Medical History / Comment(s): Patient has 2 brothers and 2 sisters with no major medical problems. Patient has two sons that is healthy. General Exam - General Exam Comments Initial Comments: 29-year-old -[place] female. No acute distress. Patient is sitting in the room drinking Sprite. Limitations: no limitations General appearance: alert, in no apparent distress Head exam: Present: atraumatic, normocephalic, normal inspection Eye exam: Present: normal appearance, PERRL, EOMI. Absent: scleral icterus, conjunctival injection, periorbital swelling ENT exam: Present: normal exam, mucous membranes moist Neck exam: Present: normal inspection. Absent: tenderness, meningismus, lymphadenopathy Respiratory exam: Present: normal lung sounds bilaterally. Absent: respiratory distress, wheezes, rales, rhonchi, stridor Cardiovascular Exam: Present: regular rate, normal rhythm, normal heart sounds. Absent: systolic murmur, diastolic murmur, rubs, gallop, clicks GI/Abdominal exam: Present: soft, normal bowel sounds. Absent: distended, tenderness, guarding, rebound, rigid Extremities exam: Present: normal inspection, full ROM, normal capillary refill. Absent: tenderness, pedal edema, joint swelling, calf tenderness Back exam: Present: normal inspection Medical Decision Making - Medical Decision Making 29-year-old female presented to the ER today for evaluation for concern for possibly being . She has a known fixed delusion of being . She's seen emergency Department 3 days ago for similar complaints. Her was negative at that time. Patient wasn't lightheaded. She is given Tylenol. Patient was resting comfortable in bed appear no distress. Patient stated that she wanted to leave. The urine analysis was not completely resulted. Patient left without discharge papers or lying me to discuss final treatment plan and care. She will be signed out his counts medical advice. Nurse will contact patient's legal guardian. - Lab Data Lab Results 12/05/19 Range/Units 22:14 Urine Color Colorless Urine Appearance Clear (Clear) Urine pH 7.0 (5.0-8.0) Ur Specific [place] 1.000 L (1.001-1.035) Urine Protein Negative (Negative) Urine Glucose (UA) Negative (Negative) Urine Ketones Negative (Negative) Urine Blood Negative (Negative) Urine Nitrite Negative (Negative) Urine Bilirubin Negative (Negative) Urine Urobilinogen <2.0 (<2.0) mg/dL Ur Leukocyte Esterase Negative (Negative) Disposition Clinical Impression: Abnormal menstrual cycle Disposition: Left Against Medical Advice Condition: Good Is patient prescribed a controlled substance at d/c from ED?: No Referrals: Nirali Valentin MD [Primary Care Provider] - 1-2 days Time of Disposition: 22:59
[2019-12-05 22:36] LABS: Appearance,Urine Clear (Clear); Bilirubin,Urine Negative (Negative); Blood,Urine Negative (Negative); Color,Urine Colorless; Glucose,Urine (UA) Negative (Negative); Ketones,Urine Negative (Negative); Leukocyte Esterase,Urine Negative (Negative); Nitrite,Urine Negative (Negative); Protein,Urine Negative (Negative); Urobilinogen,Urine <2.0 mg/dL (<2.0)
[2019-12-05 22:58] LABS: Amphetamine Screen,Urine Not Detected (NotDetected); Barbiturate Screen,Urine Not Detected (NotDetected); Benzodiazepines Screen,Urine Not Detected (NotDetected); Cocaine Screen,Urine Not Detected (NotDetected); Methadone Screen, Urine Not Detected (NotDetected); Opiate Screen,Urine Not Detected (NotDetected); Oxycodone Screen, Urine Not Detected (NotDetected); Phencyclidine Screen,Urine Not Detected (NotDetected); Tricyclic Antidepressant,Urine Detected (NotDetected); Urn Cannabinoid Scrn Not Detected (NotDetected)
== END 2019-12-05 22:57 | disposition left against medical advice (07) ==
LOC: EC 21:49
DX: N92.6 Irregular menstruation, unspecified (principal); R51.9 Headache, unspecified; R10.30 Lower abdominal pain, unspecified; J45.909 Unspecified asthma, uncomplicated; I10 Essential (primary) hypertension; G40.909 Epilepsy, unspecified, not intractable, without status epilepticus; F17.200 Nicotine dependence, unspecified, uncomplicated; F41.9 Anxiety disorder, unspecified; F31.9 Bipolar disorder, unspecified; F25.9 Schizoaffective disorder, unspecified; Z79.899 Other long term (current) drug therapy; Z88.6 Allergy status to analgesic agent; Z88.8 Allergy status to other drugs, medicaments and biological substances; Z91.018 Allergy to other foods; Z91.041 Radiographic dye allergy status; Z53.29 Procedure and treatment not carried out because of patient's decision for other reasons
CPT/HCPCS: 80306; 81003; 99284

== ENCOUNTER 2020-02-24 17:50 | Emergency (ER) | payer OTHER ==
[2020-02-24 18:00] VITALS: BP 120/83; PULSE 79; RESP 16; TEMP 97
[2020-02-24 18:36] LABS: Appearance,Urine Cloudy (Clear); Bacteria,Urine Occasional /hpf; Bilirubin,Urine Negative (Negative); Blood,Urine Moderate (Negative); Color,Urine Yellow; Glucose,Urine (UA) Negative (Negative); Hyaline Casts,Urine 1 /lpf (0-2); Ketones,Urine Negative (Negative); Leukocyte Esterase,Urine Negative (Negative); Mucus,Urine Rare /hpf; Nitrite,Urine Negative (Negative); Protein,Urine Trace (Negative); RBC,Urine 14 /hpf (0-5); Specific Gravity,Urine 1.013 (1.001-1.035); Squamous Epithelial Cell,Urine 2 /hpf (0-4); Urobilinogen,Urine <2.0 mg/dL (<2.0); WBC,Urine 4 /hpf (0-5)
--- NOTE | 2020-02-24 19:07 | ED ---
General Adult HPI - General Chief complaint: Recheck/Abnormal Lab/Rx Stated complaint: pain all over Source: EMS Mode of arrival: EMS Limitations: no limitations - History of Present Illness Initial comments: 30-year-old female well known to this emergency room presents to the emergency department for vague complaints. Patient states that she has not had her period. Patient is concerned she is . Patient also reports that she has pain everywhere for 3 years. She takes nothing at home for pain. Patient does see her primary care provider tomorrow.Patient has no other complaints at this time including shortness of breath, chest pain, abdominal pain, nausea or vomiting, headache, or visual changes. - Related Data Home Medications Medication Instructions Recorded Confirmed Ergocalciferol [Vitamin D2 50,000 unit PO WE@0804/05/18 02/24/20 (DRISDOL)] Hydrochlorothiazide 12.5 mg PO DAILY@0809/22/18 02/24/20 [hydroCHLOROthiazide] Docusate [Colace] 100 mg PO DAILY@79910/15/18 02/24/20 Albuterol Sulfate [Proair Hfa] 2 puff INHALATION RT-Q4H PRN 12/03/18 02/24/20 Pantoprazole Sodium [Protonix] 40 mg PO DAILY@79912/03/18 02/24/20 Fenofibrate [Lofibra] 54 mg PO DAILY@79907/03/19 02/24/20 Magnesium Oxide 400 mg PO DAILY@79907/03/19 02/24/20 metFORMIN HCL [Glucophage] 1,000 mg PO BID@08,199907/03/19 02/24/20 Nicotine Polacrilex [Nicorette] 2 mg BUCCAL Q2H PRN 10/09/19 02/24/20 Bismuth Subsalicylate 524 mg PO Q1H PRN 02/24/20 02/24/20 [Pepto-Bismol] busPIRone HCL 15 mg PO BID@0800,199902/24/20 02/24/20 clonazePAM [KlonoPIN] 1 mg PO HS@199902/24/20 02/24/20 Previous Rx's Medication Instructions Recorded fluPHENAZine decanoate [Prolixin 50 mg IM Q7D #1 ml 05/27/20 Decanoate] Allergies Allergy/AdvReac Type Severity Reaction Status Date / Time ibuprofen [From Motrin] Allergy Rash/Hives Verified 02/24/20 18:40 pineapple Allergy Rash/Hives Verified 02/24/20 18:40 red dye Allergy Rash/Hives Verified 02/24/20 18:40 haloperidol [From Haldol] AdvReac Hallucinati Verified 02/24/20 18:40 ons Review of Systems ROS Statement: Those systems with pertinent positive or pertinent negative responses have been documented in the HPI. ROS Other: All systems not noted in ROS Statement are negative. Past Medical History Past Medical History: Asthma, Hypertension, Seizure Disorder Additional Past Medical History / Comment(s): last seizure was December 2018 per Pt History of Any Multi-Drug Resistant Organisms: None Reported Past Surgical History: Section, Tonsillectomy, Tubal Ligation Additional Past Surgical History / Comment(s): facial surgery, 2 C-Sections Past Anesthesia/Blood Transfusion Reactions: No Reported Reaction Past Psychological History: Anxiety, Bipolar, Depression, Schizoaffective Disorder, Schizophrenia Smoking Status: Current every day smoker Past Alcohol Use History: None Reported Past Drug Use History: None Reported - Past Family History Father Family Medical History: Unable to Obtain Additional Family Medical History / Comment(s): Father is alive and may have diabetes. Mother Family Medical History: Thyroid Disorder Additional Family Medical History / Comment(s): Mother is alive at age 50 with thyroid disorder. Brother(s) Additional Family Medical History / Comment(s): Patient has 2 brothers and 2 sisters with no major medical problems. Patient has two sons that is healthy. General Exam Limitations: no limitations General appearance: alert, in no apparent distress Head exam: Present: atraumatic Eye exam: Present: normal appearance, PERRL, EOMI ENT exam: Present: normal exam, mucous membranes moist Neck exam: Present: normal inspection, full ROM. Absent: tenderness, meningismus, lymphadenopathy Respiratory exam: Present: normal lung sounds bilaterally. Absent: respiratory distress, wheezes, rales, rhonchi, stridor Cardiovascular Exam: Present: regular rate, normal rhythm, normal heart sounds. Absent: systolic murmur, diastolic murmur, rubs, gallop, clicks GI/Abdominal exam: Present: soft, normal bowel sounds. Absent: distended, tenderness, guarding, rebound, rigid Extremities exam: Present: normal inspection (Of bilateral lower extremities), full ROM, normal capillary refill. Absent: tenderness, pedal edema, joint swelling, calf tenderness Course Vital Signs 02/24/20 17:55 Temperature 97 F L Pulse Rate 79 Respiratory 16 Rate Blood Pressure 120/83 O2 Sat by Pulse 100 Oximetry Medical Decision Making - Medical Decision Making Vitals are stable. Patient is well appearing. Abdomen is nontender. Legs are nontender and nonedematous. Patient ambulated to the bathroom without any assistance or difficulty. At this time urinalysis was performed. There is no evidence of infection although there is some blood. Patient denies being on her period. HCG is negative. Patient will follow-up with her primary care doctor tomorrow morning to discuss this chronic pain and hematuria. - Lab Data Lab Results 02/24/20 02/24/20 Range/Units 18:03 18:03 Urine Color Yellow Urine Appearance Cloudy H (Clear) Urine pH 7.0 (5.0-8.0) Ur Specific [place] 1.013 (1.001-1.035) Urine Protein Trace H (Negative) Urine Glucose (UA) Negative (Negative) Urine Ketones Negative (Negative) Urine Blood Moderate H (Negative) Urine Nitrite Negative (Negative) Urine Bilirubin Negative (Negative) Urine Urobilinogen <2.0 (<2.0) mg/dL Ur Leukocyte Esterase Negative (Negative) Urine RBC 14 H (0-5) /hpf Urine WBC 4 (0-5) /hpf Ur Squamous Epith Cells 2 (0-4) /hpf Urine Bacteria Occasional H (None) /hpf Hyaline Casts 1 (0-2) /lpf Urine Mucus Rare H (None) /hpf Urine HCG, Qual Not Detected (Not Detectd) Disposition Clinical Impression: Chronic pain, Hematuria Disposition: HOME SELF-CARE Condition: Good Instructions (If sedation given, give patient instructions): Hematuria (ED) Additional Instructions: Please follow up with your primary care doctor at your appointment tomorrow. Return to the emergency room for any worsening symptoms. Is patient prescribed a controlled substance at d/c from ED?: No Referrals: Nirali Valentin MD [Primary Care Provider] - 1-2 days
== END 2020-02-24 19:25 | disposition home or self-care (01) ==
LOC: EC 17:50
DX: G89.29 Other chronic pain (principal); R31.9 Hematuria, unspecified; J45.909 Unspecified asthma, uncomplicated; I10 Essential (primary) hypertension; G40.909 Epilepsy, unspecified, not intractable, without status epilepticus; F41.9 Anxiety disorder, unspecified; F31.9 Bipolar disorder, unspecified; F20.9 Schizophrenia, unspecified; F17.200 Nicotine dependence, unspecified, uncomplicated; Z79.84 Long term (current) use of oral hypoglycemic drugs; Z79.899 Other long term (current) drug therapy; Z88.6 Allergy status to analgesic agent; Z91.018 Allergy to other foods; Z88.8 Allergy status to other drugs, medicaments and biological substances
CPT/HCPCS: 81001; 81025; 99283

== ENCOUNTER 2020-06-11 11:46 | Emergency (ER) | payer OTHER ==
--- NOTE | 2020-06-11 12:12 | ED ---
General Adult HPI - General Stated complaint: Weakness Time Seen by Provider: 06/11/20 11:50 - History of Present Illness Initial comments: Patient is a 30-year-old female, well-known to the ER, with a psychiatric history, presenting to the emergency department via EMS with complaints of generalized weakness and some mild nausea. Patient states she had the Covid vaccine a few days ago and states she's been having some body aches and feels fatigued. She also states she's been trying to quit smoking. She got a recent diagnosis of GERD and has been taking medication for that is bowel. She states she took some Tylenol about 2 AM this morning. No fevers, no chest pain or shortness of breath. No vomiting. She has been eating and drinking as normal. Her kitchen mechanic is with her as well. [employer] states that he tried to explain the side effects of the vaccine to the patient however she was not listening. Patient denies any abdominal pain. She has no further complaints at this time. She denies being . - Related Data Home Medications Medication Instructions Recorded Confirmed Ergocalciferol [Vitamin D2 50,000 unit PO WE@0804/05/18 02/24/20 (DRISDOL)] Hydrochlorothiazide 12.5 mg PO DAILY@79909/22/18 02/24/20 [hydroCHLOROthiazide] Docusate [Colace] 100 mg PO DAILY@79910/15/18 02/24/20 Albuterol Sulfate [Proair Hfa] 2 puff INHALATION RT-Q4H PRN 12/03/18 02/24/20 Pantoprazole Sodium [Protonix] 40 mg PO DAILY@79912/03/18 02/24/20 Fenofibrate [Lofibra] 54 mg PO DAILY@79907/03/19 02/24/20 Magnesium Oxide 400 mg PO DAILY@79907/03/19 02/24/20 metFORMIN HCL [Glucophage] 1,000 mg PO BID@07/03/19 02/24/20 Nicotine Polacrilex [Nicorette] 2 mg BUCCAL Q2H PRN 10/09/19 02/24/20 Bismuth Subsalicylate 524 mg PO Q1H PRN 02/24/20 02/24/20 [Pepto-Bismol] busPIRone HCL 15 mg PO BID@0800,199902/24/20 02/24/20 clonazePAM [KlonoPIN] 1 mg PO HS@199902/24/20 02/24/20 Previous Rx's Medication Instructions Recorded fluPHENAZine decanoate [Prolixin 50 mg IM Q7D #1 ml 07/08/19 Decanoate] Allergies Allergy/AdvReac Type Severity Reaction Status Date / Time ibuprofen [From Motrin] Allergy Rash/Hives Verified 06/11/20 12:28 pineapple Allergy Rash/Hives Verified 06/11/20 12:28 red dye Allergy Rash/Hives Verified 06/11/20 12:28 haloperidol [From Haldol] AdvReac Hallucinati Verified 06/11/20 12:28 ons Review of Systems ROS Statement: Those systems with pertinent positive or pertinent negative responses have been documented in the HPI. ROS Other: All systems not noted in ROS Statement are negative. Past Medical History Past Medical History: Asthma, Hypertension, Seizure Disorder Additional Past Medical History / Comment(s): last seizure was December 2018 per Pt History of Any Multi-Drug Resistant Organisms: None Reported Past Surgical History: Section, Tonsillectomy, Tubal Ligation Additional Past Surgical History / Comment(s): facial surgery, 2 C-Sections Past Anesthesia/Blood Transfusion Reactions: No Reported Reaction Past Psychological History: Anxiety, Bipolar, Depression, Schizoaffective Disorder, Schizophrenia Smoking Status: Current every day smoker Past Alcohol Use History: None Reported Past Drug Use History: None Reported - Past Family History Father Family Medical History: Unable to Obtain Additional Family Medical History / Comment(s): Father is alive and may have diabetes. Mother Family Medical History: Thyroid Disorder Additional Family Medical History / Comment(s): Mother is alive at age 50 with thyroid disorder. Brother(s) Additional Family Medical History / Comment(s): Patient has 2 brothers and 2 sisters with no major medical problems. Patient has two sons that is healthy. General Exam - General Exam Comments Initial Comments: GENERAL: Patient is well-developed and well-nourished. Patient is nontoxic and in no acute distress. HEAD: Atraumatic, normocephalic. EYES: Pupils equal round and reactive to light, extraocular movements intact, sclera anicteric, conjunctiva are normal. Eyelids were unremarkable. ENT: TMs normal, nares patent, oropharynx clear without exudates. Moist mucous membranes. NECK: Normal range of motion, supple without lymphadenopathy or JVD. LUNGS: Unlabored respirations. Breath sounds clear to auscultation bilaterally and equal. No wheezes rales or rhonchi. HEART: Regular rate and rhythm without murmurs, rubs or gallops. ABDOMEN: Soft, nontender, normoactive bowel sounds. No guarding, no rebound. No masses appreciated. : Deferred MUSCULOSKELETAL: Normal extremities with adequate strength and normal range of motion, no pitting or edema. No clubbing or cyanosis. NEUROLOGICAL: Patient is alert and oriented x 3. Motor and sensory are also intact. Cranial nerves II through XII grossly intact. Symmetrical smile. Normal speech, normal gait. PSYCH: Normal mood, normal affect. SKIN: Warm, Dry, normal turgor, no rashes or lesions noted. Course Vital Signs 06/11/20 12:15 Temperature 97.9 F Pulse Rate 82 Respiratory 20 Rate Blood Pressure 129/63 O2 Sat by Pulse 98 Oximetry Medical Decision Making - Medical Decision Making Patient is a 30-year-old female here via EMS with mild complaints of some nausea and body aches as well as some fatigue. She had the code vaccine a few days ago. She has a psychiatric history. Her kitchen mechanic is with her now. She denies any suicidal or homicidal thoughts. She just feels fatigued from the shot. Patient given Tylenol and some Zofran today. Her exam is unremarkable, vital signs are stable. I discussed with her these are common side effects of the vaccine. Recommended taking Tylenol and Aleve for her symptoms. She is in agreement with this plan of care. She is stable for discharge. She can follow up with her regular doctor. Case discussed with Dr. Fonseca. Disposition Clinical Impression: Nausea, Fatigue after COVID-19 vaccination Disposition: HOME SELF-CARE Condition: Stable Instructions (If sedation given, give patient instructions): Normal Exam (ED) Additional Instructions: Please return to the Emergency Department if symptoms worsen or any other concerns. Recommend alternating between Tylenol and Aleve for your symptoms. Drink plenty of water. Follow-up with your regular doctor. Is patient prescribed a controlled substance at d/c from ED?: No Referrals: Nirali Valentin MD [Primary Care Provider] - 1-2 days Time of Disposition: 12:39
[2020-06-11] MEDS ORDERED: ONDANSETRON ODT 4 MG TAB PO STA (12:13)
[2020-06-11] MEDS ORDERED: ACETAMINOPHEN TAB 500 MG TAB PO STA (12:13)
[2020-06-11 12:29] VITALS: BP 129/63; PULSE 82; RESP 20; TEMP 97.9
== END 2020-06-11 13:01 | disposition home or self-care (01) ==
LOC: EC 11:46
DX: R53.83 Other fatigue (principal); T50.B95A Adverse effect of other viral vaccines, initial encounter; R11.0 Nausea; G40.909 Epilepsy, unspecified, not intractable, without status epilepticus; I10 Essential (primary) hypertension; J45.909 Unspecified asthma, uncomplicated; K21.9 Gastro-esophageal reflux disease without esophagitis; F32.9 Major depressive disorder, single episode, unspecified; F25.9 Schizoaffective disorder, unspecified; F17.200 Nicotine dependence, unspecified, uncomplicated; Z90.09 Acquired absence of other part of head and neck; Z98.51 Tubal ligation status; T88.1XXA Other complications following immunization, not elsewhere classified, initial encounter
CPT/HCPCS: 99285

== ENCOUNTER 2020-07-23 13:58 | Emergency (ER) | payer OTHER ==
--- NOTE | 2020-07-23 14:23 | ED ---
General Adult HPI - General Stated complaint: Knee Pain Time Seen by Provider: 07/23/20 14:12 Source: RN notes reviewed - History of Present Illness Initial comments: 30-year-old female with a past medical history of asthma, hypertension presents to the emergency room for a chief complaint of cough. Patient states she has had a cough for the past couple of days and hasn't been feeling well. She is here because she wants to make sure she doesn't need antibiotics for this. She reports she does not want a covert test as she was arty vaccinated. Both EMS and nursing for the patient's primary complaint was bilateral knee pain 6 months. However patient states she does not want this evaluated when I saw her and is refusing any x-rays.Patient has no other complaints at this time including shortness of breath, chest pain, abdominal pain, nausea or vomiting, headache, or visual changes. - Related Data Home Medications Medication Instructions Recorded Confirmed Ergocalciferol [Vitamin D2 50,000 unit PO WE@79904/05/18 02/24/20 (DRISDOL)] Hydrochlorothiazide 12.5 mg PO DAILY@0809/22/18 02/24/20 [hydroCHLOROthiazide] Docusate [Colace] 100 mg PO DAILY@79910/15/18 02/24/20 Albuterol Sulfate [Proair Hfa] 2 puff INHALATION RT-Q4H PRN 12/03/18 02/24/20 Pantoprazole Sodium [Protonix] 40 mg PO DAILY@79912/03/18 02/24/20 Fenofibrate [Lofibra] 54 mg PO DAILY@79907/03/19 02/24/20 Magnesium Oxide 400 mg PO DAILY@79907/03/19 02/24/20 metFORMIN HCL [Glucophage] 1,000 mg PO BID@799,199907/03/19 02/24/20 Nicotine Polacrilex [Nicorette] 2 mg BUCCAL Q2H PRN 10/09/19 02/24/20 Bismuth Subsalicylate 524 mg PO Q1H PRN 02/24/20 02/24/20 [Pepto-Bismol] busPIRone HCL 15 mg PO BID@799,199902/24/20 02/24/20 clonazePAM [KlonoPIN] 1 mg PO HS@199902/24/20 02/24/20 Previous Rx's Medication Instructions Recorded fluPHENAZine decanoate [Prolixin 50 mg IM Q7D #1 ml 07/08/19 Decanoate] Allergies Allergy/AdvReac Type Severity Reaction Status Date / Time ibuprofen [From Motrin] Allergy Rash/Hives Verified 07/23/20 14:24 pineapple Allergy Rash/Hives Verified 07/23/20 14:24 red dye Allergy Rash/Hives Verified 07/23/20 14:24 haloperidol [From Haldol] AdvReac Hallucinati Verified 07/23/20 14:24 ons Review of Systems ROS Statement: Those systems with pertinent positive or pertinent negative responses have been documented in the HPI. ROS Other: All systems not noted in ROS Statement are negative. Past Medical History Past Medical History: Asthma, Hypertension, Seizure Disorder Additional Past Medical History / Comment(s): last seizure was December 2018 per Pt History of Any Multi-Drug Resistant Organisms: None Reported Past Surgical History: Section, Tonsillectomy, Tubal Ligation Additional Past Surgical History / Comment(s): facial surgery, 2 C-Sections Past Anesthesia/Blood Transfusion Reactions: No Reported Reaction Past Psychological History: Anxiety, Bipolar, Depression, Schizoaffective Disorder, Schizophrenia Smoking Status: Current every day smoker Past Alcohol Use History: None Reported Past Drug Use History: None Reported - Past Family History Father Family Medical History: Unable to Obtain Additional Family Medical History / Comment(s): Father is alive and may have diabetes. Mother Family Medical History: Thyroid Disorder Additional Family Medical History / Comment(s): Mother is alive at age 50 with thyroid disorder. Brother(s) Additional Family Medical History / Comment(s): Patient has 2 brothers and 2 sisters with no major medical problems. Patient has two sons that is healthy. General Exam - General Exam Comments Initial Comments: Full range of motion of the bilateral lower extremities including flexion and extension of the bilateral knees. Ambulatory without difficulty. DP pulses 2+, capillary refill less than 2 seconds bilaterally. General appearance: alert, in no apparent distress Head exam: Present: atraumatic, normocephalic, normal inspection Eye exam: Present: normal appearance, PERRL, EOMI. Absent: scleral icterus, conjunctival injection, periorbital swelling ENT exam: Present: normal exam, mucous membranes moist Neck exam: Present: normal inspection, full ROM. Absent: tenderness, meningismus, lymphadenopathy Respiratory exam: Present: normal lung sounds bilaterally. Absent: respiratory distress, wheezes, rales, rhonchi, stridor Cardiovascular Exam: Present: regular rate, normal rhythm, normal heart sounds. Absent: systolic murmur, diastolic murmur, rubs, gallop, clicks GI/Abdominal exam: Present: soft, normal bowel sounds. Absent: distended, tenderness, guarding, rebound, rigid Course Vital Signs 07/23/20 14:10 Temperature 98.1 F Pulse Rate 85 Respiratory 20 Rate Blood Pressure 131/77 O2 Sat by Pulse 99 Oximetry Medical Decision Making - Medical Decision Making Vitals are stable. Physical exam unremarkable. Patient well-appearing. No respiratory distress. Chest x-ray shows normal chest. No change. Likely viral respiratory infection. Discussed doing [id number] cold and flu medications. Patient will be discharged home to follow up with primary care. Will return here for any worsening symptoms. Disposition Clinical Impression: Cough Disposition: HOME SELF-CARE Condition: Good Instructions (If sedation given, give patient instructions): Acute Cough (ED) Additional Instructions: Please follow-up with your doctor in one to 2 days. Take [id number] cold and flu medications. Return to the emergency room for any worsening symptoms. Is patient prescribed a controlled substance at d/c from ED?: No Referrals: Nirali Valentin MD [Primary Care Provider] - 1-2 days Time of Disposition: 15:36
[2020-07-23 14:26] VITALS: RESP 20
--- NOTE | 2020-07-23 14:49 | XR ---
EXAMINATION TYPE: XR chest 2V DATE OF EXAM: 07/23/2020 COMPARISON: 09/23/2018 HISTORY: Cough. Short of breath. TECHNIQUE: 2 views FINDINGS: Heart and mediastinum are normal. Lungs are clear. Diaphragm is normal. Bony thorax is inta ct. IMPRESSION: Normal chest. No change.
[2020-07-23 15:48] VITALS: BP 120/70; PULSE 79; TEMP 98.2
== END 2020-07-23 15:40 | disposition home or self-care (01) ==
LOC: EC 13:58
DX: R05 Cough (principal); M25.561 Pain in right knee; M25.562 Pain in left knee; J45.909 Unspecified asthma, uncomplicated; I10 Essential (primary) hypertension; G40.909 Epilepsy, unspecified, not intractable, without status epilepticus; F17.200 Nicotine dependence, unspecified, uncomplicated; F41.9 Anxiety disorder, unspecified; F31.9 Bipolar disorder, unspecified; F20.9 Schizophrenia, unspecified; Z79.84 Long term (current) use of oral hypoglycemic drugs; Z79.899 Other long term (current) drug therapy
CPT/HCPCS: 71046; 99285

== ENCOUNTER 2021-05-24 14:58 | Inpatient (IN) | payer MEDICAID, OTHER ==
--- NOTE | 2021-05-24 15:56 | ED ---
Psych HPI - General Chief Complaint: Psychiatric Symptoms Stated Complaint: Police Petition, Mental health Time Seen by Provider: 05/24/21 15:33 Source: patient, police Mode of arrival: ambulatory - History of Present Illness Initial Comments: Agustin is a 31 yo F who is brought to the ER in police custody for a psychiatric evaluation. Police report the patient has been making threats to people and appeared to be psychotic, she was petitioned. Patient states the police brought her here because her family and plantar do not feel safe. Patient tries to explain that she has a shruthi who she was previously in a relationship with. She explains to me that he took her uterus anteverted apart to give to other women so that they could have children with him. Patient's speech is rapid, pressured and tangential. In explaining her history to me she was trying to explain that she's been accused of stealing menstural blood from somebody else to have their child. - Related Data Home Medications Medication Instructions Recorded Confirmed Hydrochlorothiazide 12.5 mg PO DAILY@1700 09/22/18 05/24/21 [hydroCHLOROthiazide] Pantoprazole Sodium [Protonix] 40 mg PO DAILY@1700 12/03/18 05/24/21 metFORMIN HCL [Glucophage] 1,000 mg PO DAILY@1700 07/03/19 05/24/21 clonazePAM [KlonoPIN] 1 mg PO HS 02/24/20 05/24/21 Benztropine Mesylate [Cogentin] 1 mg PO BID PRN 05/24/21 05/24/21 Propylene Glycol [Systane Complete] 1 drop BOTH EYES QID PRN 05/24/21 05/24/21 Previous Rx's Medication Instructions Recorded fluPHENAZine decanoate [Prolixin 50 mg IM Q7D #1 ml 07/08/19 Decanoate] Allergies Allergy/AdvReac Type Severity Reaction Status Date / Time ibuprofen [From Motrin] Allergy Rash/Hives Verified 05/24/21 16:51 NSAIDS (Non-Steroidal Allergy Unknown Verified 05/24/21 16:51 Anti-Inflamma pineapple Allergy Rash/Hives Verified 05/24/21 16:51 red dye Allergy Rash/Hives Verified 05/24/21 16:51 haloperidol [From Haldol] AdvReac Hallucinati Verified 05/24/21 16:51 ons Review of Systems ROS Statement: Those systems with pertinent positive or pertinent negative responses have been documented in the HPI. ROS Other: All systems not noted in ROS Statement are negative. Past Medical History Past Medical History: Asthma, Hypertension, Seizure Disorder Additional Past Medical History / Comment(s): last seizure was December 2018 per Pt History of Any Multi-Drug Resistant Organisms: None Reported Past Surgical History: Section, Tonsillectomy, Tubal Ligation Additional Past Surgical History / Comment(s): facial surgery, 2 C-Sections Past Anesthesia/Blood Transfusion Reactions: No Reported Reaction Past Psychological History: Anxiety, Bipolar, Depression, Schizoaffective Disorder, Schizophrenia Smoking Status: Current every day smoker Past Alcohol Use History: None Reported Past Drug Use History: None Reported - Past Family History Father Family Medical History: Unable to Obtain Additional Family Medical History / Comment(s): Father is alive and may have diabetes. Mother Family Medical History: Thyroid Disorder Additional Family Medical History / Comment(s): Mother is alive at age 50 with thyroid disorder. Brother(s) Additional Family Medical History / Comment(s): Patient has 2 brothers and 2 sisters with no major medical problems. Patient has two sons that is healthy. General Exam - General Exam Comments Initial Comments: Physical Exam GENERAL: Patient is well-developed and well-nourished HENT: Normocephalic, Atraumatic. EYES: PERRL, EOMI PULMONARY: Unlabored respirations. CARDIOVASCULAR: Tachycardic, regular ABDOMEN: Non-distended SKIN: No rashes or bruising : Deferred NEUROLOGIC: Alert and oriented Normal gait MUSCULOSKELETAL: Moving all extremities with no apparent injury PSYCHIATRIC: psychotic, admits to plans to harm her stalkers new girlfriend Limitations: no limitations Course Vital Signs 05/24/21 15:02 Temperature 99 F Pulse Rate 120 H Respiratory 18 Rate Blood Pressure 117/69 O2 Sat by Pulse 100 Oximetry Medical Decision Making - Medical Decision Making Patient was seen and evaluated, patient appears to be delusional or acutely psychotic she was evaluated by psychiatry and determined to be candidate for admission to psychiatric unit. The patient was completed by police, service completed by [facility] patient was admitted to psychiatry. - Lab Data Result diagrams: 05/24/21 16:07 05/24/21 16:07 Lab Results 05/24/21 05/24/21 05/24/21 Range/Units 16:07 16:07 17:31 WBC 7.2 (3.8-10.6) k/uL RBC 4.12 (3.80-5.40) m/uL Hgb 11.8 (11.4-16.0) gm/dL Hct 37.9 (34.0-46.0) % MCV 92.0 (80.0-100.0) fL MCH 28.7 (25.0-35.0) pg MCHC 31.2 (31.0-37.0) g/dL RDW 13.5 (11.5-15.5) % Plt Count 262 (150-450) k/uL MPV 8.0 Neutrophils % 74 % Lymphocytes % 20 % Monocytes % 4 % Eosinophils % 0 % Basophils % 1 % Neutrophils # 5.3 (1.3-7.7) k/uL Lymphocytes # 1.5 (1.0-4.8) k/uL Monocytes # 0.3 (0-1.0) k/uL Eosinophils # 0.0 (0-0.7) k/uL Basophils # 0.0 (0-0.2) k/uL Sodium 139 (137-145) mmol/L Potassium 3.6 (3.5-5.1) mmol/L Chloride 105 (98-107) mmol/L Carbon Dioxide 25 (22-30) mmol/L Anion Gap 9 mmol/L BUN 3 L (7-17) mg/dL Creatinine 0.55 (0.52-1.04) mg/dL Est GFR (CKD-EPI)AfAm >90 (>60 ml/min/1.73 sqM) Est GFR (CKD-EPI)NonAf >90 (>60 ml/min/1.73 sqM) Glucose 186 H (74-99) mg/dL Calcium 9.0 (8.4-10.2) mg/dL Total Bilirubin 0.3 (0.2-1.3) mg/dL AST 25 (14-36) U/L ALT 24 (4-34) U/L Alkaline Phosphatase 52 (38-126) U/L Total Protein 7.4 (6.3-8.2) g/dL Albumin 4.1 (3.5-5.0) g/dL Urine Color Light Yellow Urine Appearance Clear (Clear) Urine pH 6.5 (5.0-8.0) Ur Specific [place] 1.001 (1.001-1.035) Urine Protein Negative (Negative) Urine Glucose (UA) Negative (Negative) Urine Ketones Negative (Negative) Urine Blood Large H (Negative) Urine Nitrite Negative (Negative) Urine Bilirubin Negative (Negative) Urine Urobilinogen <2.0 (<2.0) mg/dL Ur Leukocyte Esterase Negative (Negative) Urine RBC <1 (0-5) /hpf Urine WBC 1 (0-5) /hpf Ur Squamous Epith Cells 1 (0-4) /hpf Urine HCG, Qual (Not Detectd) Salicylates <1.0 mg/dL Urine Opiates Screen Not Detected (NotDetected) Ur Oxycodone Screen Not Detected (NotDetected) Urine Methadone Screen Not Detected (NotDetected) Ur Propoxyphene Screen Not Detected (NotDetected) Acetaminophen <10.0 ug/mL Ur Barbiturates Screen Not Detected (NotDetected) U Tricyclic Antidepress Not Detected (NotDetected) Ur Phencyclidine Scrn Not Detected (NotDetected) Ur Amphetamines Screen Not Detected (NotDetected) U Methamphetamines Scrn Not Detected (NotDetected) U Benzodiazepines Scrn Not Detected (NotDetected) Urine Cocaine Screen Not Detected (NotDetected) U Marijuana (THC) Screen Not Detected (NotDetected) Serum Alcohol <10 mg/dL 05/24/21 Range/Units 17:31 WBC (3.8-10.6) k/uL RBC (3.80-5.40) m/uL Hgb (11.4-16.0) gm/dL Hct (34.0-46.0) % MCV (80.0-100.0) fL MCH (25.0-35.0) pg MCHC (31.0-37.0) g/dL RDW (11.5-15.5) % Plt Count (150-450) k/uL MPV Neutrophils % % Lymphocytes % % Monocytes % % Eosinophils % % Basophils % % Neutrophils # (1.3-7.7) k/uL Lymphocytes # (1.0-4.8) k/uL Monocytes # (0-1.0) k/uL Eosinophils # (0-0.7) k/uL Basophils # (0-0.2) k/uL Sodium (137-145) mmol/L Potassium (3.5-5.1) mmol/L Chloride (98-107) mmol/L Carbon Dioxide (22-30) mmol/L Anion Gap mmol/L BUN (7-17) mg/dL Creatinine (0.52-1.04) mg/dL Est GFR (CKD-EPI)AfAm (>60 ml/min/1.73 sqM) Est GFR (CKD-EPI)NonAf (>60 ml/min/1.73 sqM) Glucose (74-99) mg/dL Calcium (8.4-10.2) mg/dL Total Bilirubin (0.2-1.3) mg/dL AST (14-36) U/L ALT (4-34) U/L Alkaline Phosphatase (38-126) U/L Total Protein (6.3-8.2) g/dL Albumin (3.5-5.0) g/dL Urine Color Urine Appearance (Clear) Urine pH (5.0-8.0) Ur Specific [place] (1.001-1.035) Urine Protein (Negative) Urine Glucose (UA) (Negative) Urine Ketones (Negative) Urine Blood (Negative) Urine Nitrite (Negative) Urine Bilirubin (Negative) Urine Urobilinogen (<2.0) mg/dL Ur Leukocyte Esterase (Negative) Urine RBC (0-5) /hpf Urine WBC (0-5) /hpf Ur Squamous Epith Cells (0-4) /hpf Urine HCG, Qual Not Detected (Not Detectd) Salicylates mg/dL Urine Opiates Screen (NotDetected) Ur Oxycodone Screen (NotDetected) Urine Methadone Screen (NotDetected) Ur Propoxyphene Screen (NotDetected) Acetaminophen ug/mL Ur Barbiturates Screen (NotDetected) U Tricyclic Antidepress (NotDetected) Ur Phencyclidine Scrn (NotDetected) Ur Amphetamines Screen (NotDetected) U Methamphetamines Scrn (NotDetected) U Benzodiazepines Scrn (NotDetected) Urine Cocaine Screen (NotDetected) U Marijuana (THC) Screen (NotDetected) Serum Alcohol mg/dL Disposition Clinical Impression: Psychosis Disposition: TRANSFER TO PSYCH HOSP/UNIT Condition: Serious Is patient prescribed a controlled substance at d/c from ED?: No Referrals: Nirali Valentin MD [Primary Care Provider] - 1-2 days
[2021-05-24 16:40] LABS: Basophils % (A) 1 %; Eosinophils % (A) 0 %; HCT 37.9 % (34.0-46.0); HGB 11.8 gm/dL (11.4-16.0); Lymphocytes # (A) 1.5 k/uL (1.0-4.8); Lymphocytes % (A) 20 %; MCH 28.7 pg (25.0-35.0); MCHC 31.2 g/dL (31.0-37.0); Monocytes # (A) 0.3 k/uL (0-1.0); Monocytes % (A) 4 %; Neutrophils # (A) 5.3 k/uL (1.3-7.7); Neutrophils % (A) 74 %; Platelet Count 262 k/uL (150-450); RBC 4.12 m/uL (3.80-5.40); RDW 13.5 % (11.5-15.5); WBC 7.2 k/uL (3.8-10.6)
[2021-05-24 16:50] LABS: ALT 24 U/L (4-34); AST 25 U/L (14-36); Acetaminophen <10.0 ug/mL; African American GFR (CKD) >90 (>60 ml/min/1.73 sqM); Albumin 4.1 g/dL (3.5-5.0); Alcohol <10 mg/dL; Alkaline Phosphatase 52 U/L (38-126); Anion Gap 9 mmol/L; Blood Urea Nitrogen 3 mg/dL (7-17); Carbon Dioxide 25 mmol/L (22-30); Chloride 105 mmol/L (98-107); Glucose 186 mg/dL (74-99); Non-African American GFR(CKD) >90 (>60 ml/min/1.73 sqM); Potassium 3.6 mmol/L (3.5-5.1); Salicylate <1.0 mg/dL; Sodium 139 mmol/L (137-145); Total Bilirubin 0.3 mg/dL (0.2-1.3); Total Protein 7.4 g/dL (6.3-8.2)
[2021-05-24 17:44] LABS: Appearance,Urine Clear (Clear); Bilirubin,Urine Negative (Negative); Blood,Urine Large (Negative); Color,Urine Light Yellow; Glucose,Urine (UA) Negative (Negative); Ketones,Urine Negative (Negative); Leukocyte Esterase,Urine Negative (Negative); Nitrite,Urine Negative (Negative); PH, Urine 6.5 (5.0-8.0); Protein,Urine Negative (Negative); RBC,Urine <1 /hpf (0-5); Specific Gravity,Urine 1.001 (1.001-1.035); Squamous Epithelial Cell,Urine 1 /hpf (0-4); Urobilinogen,Urine <2.0 mg/dL (<2.0); WBC,Urine 1 /hpf (0-5)
[2021-05-24 17:59] LABS: Amphetamine Screen,Urine Not Detected (NotDetected); Barbiturate Screen,Urine Not Detected (NotDetected); Benzodiazepines Screen,Urine Not Detected (NotDetected); Cocaine Screen,Urine Not Detected (NotDetected); Methadone Screen, Urine Not Detected (NotDetected); Opiate Screen,Urine Not Detected (NotDetected); Oxycodone Screen, Urine Not Detected (NotDetected); Phencyclidine Screen,Urine Not Detected (NotDetected); Tricyclic Antidepressant,Urine Not Detected (NotDetected); Urn Cannabinoid Scrn Not Detected (NotDetected)
[2021-05-24] MEDS ORDERED: MAG HYDROX/AL HYDROX/SIMETH 30 ML CUP PO PRN (21:16)
[2021-05-24] MEDS ORDERED: LORazepam 2 MG/ML INJ IM PRN (21:20)
[2021-05-24] MEDS ORDERED: flUPHENAZine 2.5 MG/ML (MDV) 10 ML VIAL IM PRN (21:20)
[2021-05-24] MEDS ORDERED: BENZTROPINE MESYLATE 1 MG TAB PO PRN (21:22)
[2021-05-24] MEDS ORDERED: ARTIFICIAL TEARS-HYPROMELLOSE DROPS 15 ML BTL BOTH EYES PRN (21:22)
[2021-05-24] MEDS ORDERED: clonazePAM 1 MG TAB PO SCH (21:45)
[2021-05-25] MEDS: LORazepam 1 MG TAB PO PRN (02:45)
[2021-05-25] MEDS: NICOTINE 7MG/24HR PATCH TRANSDERM SCH ×3 (08:54→21:00)
[2021-05-25] MEDS ORDERED: fluPHENAZine DECANOATE 25 MG/ML 5ML MDV IM SCH (09:00)
[2021-05-25 12:51] LABS: Glucose,Whole Blood 97 mg/dL (75-99)
[2021-05-25 14:09] LABS: Chol/HDL Ratio 3.11 Ratio; LDL Cholesterol,Calculated 108.9 mg/dL (0.0-131.0); VLDL Calculation 14.58 mg/dL (5.00-40.00)
--- NOTE | 2021-05-25 14:19 | P.HP ---
Psychiatric H&P - . H&P Date: 05/25/21 History & Physical: Allergies Allergy/AdvReac Type Severity Reaction Status Date / Time ibuprofen From Motrin Allergy Rash/Hives Verified 05/24/21 16:51 NSAIDS (Non-Steroidal Allergy Unknown Verified 05/24/21 16:51 Anti-Inflamma pineapple Allergy Rash/Hives Verified 05/24/21 16:51 red dye Allergy Rash/Hives Verified 05/24/21 16:51 haloperidol From Haldol AdvReac Hallucinati Verified 05/24/21 16:51 ons Vital Signs Temp 97.8 F 05/24/21 22:44 Pulse 73 05/25/21 08:55 Resp 18 05/24/21 21:30 BP 110/74 05/25/21 08:55 Pulse Ox 99 05/24/21 21:30 Intake & Output 05/24/21 05/25/21 05/25/21 18:59 06:59 18:59 Weight 97.976 kg 98 kg Laboratory Last Values WBC 7.2 k/uL (3.8-10.6) 05/24/21 16:07 RBC 4.12 m/uL (3.80-5.40) 05/24/21 16:07 Hgb 11.8 gm/dL (11.4-16.0) 05/24/21 16:07 Hct 37.9 % (34.0-46.0) 05/24/21 16:07 MCV 92.0 fL (80.0-100.0) 05/24/21 16:07 MCH 28.7 pg (25.0-35.0) 05/24/21 16:07 MCHC 31.2 g/dL (31.0-37.0) 05/24/21 16:07 RDW 13.5 % (11.5-15.5) 05/24/21 16:07 Plt Count 262 k/uL (150-450) 05/24/21 16:07 MPV 8.0 05/24/21 16:07 Neutrophils % 74 % 05/24/21 16:07 Lymphocytes % 20 % 05/24/21 16:07 Monocytes % 4 % 05/24/21 16:07 Eosinophils % 0 % 05/24/21 16:07 Basophils % 1 % 05/24/21 16:07 Neutrophils # 5.3 k/uL (1.3-7.7) 05/24/21 16:07 Lymphocytes # 1.5 k/uL (1.0-4.8) 05/24/21 16:07 Monocytes # 0.3 k/uL (0-1.0) 05/24/21 16:07 Eosinophils # 0.0 k/uL (0-0.7) 05/24/21 16:07 Basophils # 0.0 k/uL (0-0.2) 05/24/21 16:07 Sodium 139 mmol/L (137-145) 05/24/21 16:07 Potassium 3.6 mmol/L (3.5-5.1) 05/24/21 16:07 Chloride 105 mmol/L (98-107) 05/24/21 16:07 Carbon Dioxide 25 mmol/L (22-30) 05/24/21 16:07 Anion Gap 9 mmol/L 05/24/21 16:07 BUN 3 mg/dL (7-17) L 05/24/21 16:07 Creatinine 0.55 mg/dL (0.52-1.04) 05/24/21 16:07 Est GFR (CKD-EPI)AfAm >90 (>60 ml/min/1.73 sqM) 05/24/21 16:07 Est GFR (CKD-EPI)NonAf >90 (>60 ml/min/1.73 sqM) 05/24/21 16:07 Glucose 186 mg/dL (74-99) H 05/24/21 16:07 POC Glucose (mg/dL) 97 mg/dL (75-99) 05/25/21 12:49 POC Glu Hyperbaric Nurse ID Wai Sevilla 05/25/21 12:[address] Glu mg/dL 129 05/24/21 10:32 Hemoglobin A1c 6.1 % (0.0-6.0) H 05/24/21 10:32 Calcium 9.0 mg/dL (8.4-10.2) 05/24/21 16:07 Total Bilirubin 0.3 mg/dL (0.2-1.3) 05/24/21 16:07 AST 25 U/L (14-36) 05/24/21 16:07 ALT 24 U/L (4-34) 05/24/21 16:07 Alkaline Phosphatase 52 U/L (38-126) 05/24/21 16:07 Total Protein 7.4 g/dL (6.3-8.2) 05/24/21 16:07 Albumin 4.1 g/dL (3.5-5.0) 05/24/21 16:07 TSH 0.573 mIU/L (0.465-4.680) 05/24/21 10:32 Urine Color Light Yellow 05/24/21 17:31 Urine Appearance Clear (Clear) 05/24/21 17:31 Urine pH 6.5 (5.0-8.0) 05/24/21 17:31 Ur Specific [place] 1.001 (1.001-1.035) 05/24/21 17:31 Urine Protein Negative (Negative) 05/24/21 17:31 Urine Glucose (UA) Negative (Negative) 05/24/21 17: Urine Ketones Negative (Negative) 05/24/21 17:31 Urine Blood Large (Negative) H 05/24/21 17:31 Urine Nitrite Negative (Negative) 05/24/21 17:31 Urine Bilirubin Negative (Negative) 05/24/21 17:31 Urine Urobilinogen <2.0 mg/dL (<2.0) 05/24/21 17:31 Ur Leukocyte Esterase Negative (Negative) 05/24/21 17:31 Urine RBC <1 /hpf (0-5) 05/24/21 17:31 Urine WBC 1 /hpf (0-5) 05/24/21 17:31 Ur Squamous Epith Cells 1 /hpf (0-4) 05/24/21 17:31 Urine HCG, Qual Not Detected (Not Detectd) 05/24/21 17:31 Salicylates <1.0 mg/dL 05/24/21 16:07 Urine Opiates Screen Not Detected (NotDetected) 05/24/21 17:31 Ur Oxycodone Screen Not Detected (NotDetected) 05/24/21 17:31 Urine Methadone Screen Not Detected (NotDetected) 05/24/21 17:31 Ur Propoxyphene Screen Not Detected (NotDetected) 05/24/21 17:31 Acetaminophen <10.0 ug/mL 05/24/21 16:07 Ur Barbiturates Screen Not Detected (NotDetected) 05/24/21 17:31 U Tricyclic Antidepress Not Detected (NotDetected) 05/24/21 17:31 Ur Phencyclidine Scrn Not Detected (NotDetected) 05/24/21 17:31 Ur Amphetamines Screen Not Detected (NotDetected) 05/24/21 17:31 U Methamphetamines Scrn Not Detected (NotDetected) 05/24/21 17:31 U Benzodiazepines Scrn Not Detected (NotDetected) 05/24/21 17:31 Urine Cocaine Screen Not Detected (NotDetected) 05/24/21 17:31 U Marijuana (THC) Screen Not Detected (NotDetected) 05/24/21 17:31 Serum Alcohol <10 mg/dL 05/24/21 16:07 Coronavirus (PCR) Not Detected (Not Detectd) 05/24/21 19:28 05/25/21 13:30 IDENTIFYING DATA: Patient is a 31-year-old -Dominican female with a history of chronic schizophrenia, currently lives at a chcf on [facility], has 2 kids. HPI: Patient presented to the hospital yesterday and was picked up by the police. Petition by police states that patient "advised she would physically assault a female at [address] over imaginary incident. Also thinks Brother is wearing her skin". Patient was seen today wandering the hallways and agreeable to speak to fiction and nonfiction writer prose. She has a history of several psychiatric hospitalizations in the past and history of chronic schizophrenia. Patient is currently on Prolixin D 50 mg IM weekly given by [facility] and follows Dr. Sebastian. Patient is currently living in a chcf. She appears to be rambling at times and claims that she has been "surrounded by the martin in different colors". She made several illogical and bizarre statements. She was grossly delusional. She spoke about her "baby daddy" that has been stalking her and also listening to her through the radio and trying to go after her. She states that she has been receiving her Prolixin D weekly and tolerating it well. She claims that she knows she needs medications. She states that she is sleeping approximately 6-8 hours a night. Fair appetite. She states that she has been doing fairly well in the chcf. Patient denies any suicidal or homicidal ideations intent or plan. At this time patient denies any auditory or visual hallucinations. Patient admits to using cigarettes only. Denying any other recreational drug use. PAST PSYCHIATRIC HISTORY: Patient states that she has a history of chronic schizophrenia. . Patient is currently on Prolixin D 50 mg IM weekly. She has been admitted psychiatrically several times in the past. Last hospitalization was 2 years ago. She currently follows up with Dr. sebastian at [facility]. She states that several years ago she tried to hang herself with a belt. Past Medical History: Asthma, Hypertension, Seizure Disorder Additional Past Medical History / Comment(s): last seizure was December 2018 per Pt ALLERGIES: as per EMR CHEMICAL DEPENDENCY HISTORY: as per HPI FAMILY PSYCHIATRIC/SUBSTANCE USE HISTORY: denies SOCIAL HISTORY: Patient was born and raised in [place]. She states that she also lived in [place] for quite a while. She states that she completed up to the ninth grade in school. She states that she has been to care home previously however did not mention the charges. She has 2 kids. Lives in a chcf on [facility].. MENTAL STATUS EXAM: General Appearance: Patient appears to be overweight, disheveled, stated age is alert, attempts to cooperate. Bizarre. Patient appears to have poor hygiene and grooming. Behavior: Patient is seated without any agitated behavior. Attempts to cooperate. Bizarre. Speech: Patient's speech is fluent and nonpressured. Illogical at times. Mood/Affect: Patient reports their mood is "ok", affect is congruent and constricted. Suicidality/Homicidality: Patient denies having any homicidal ideation intent or plan. Denies any suicidal ideations intent or plan Perceptions: Patient denies any visual hallucinations and denies any auditory hallucinations Though content/process: Illogical, loose associations, bizarre content. Grossly delusional. Memory and concentration: AOX3, grossly intact for the purposes of this session. Can spell "WORLD" backwards Judgment and insight: Chronically poor STRENGTHS/WEAKNESSES: strength is that patient is resilient. Weakness is that patient has poor judgment and is impulsive INTELLECT: average IMPRESSIONS: Schizophrenia, acute exacerbation Nicotine dependence PLAN: -Patient is admitted under involuntarily under a current court order for mental health treatment to [facility] for stabilization of psychiatric symptoms and safety. Patient has signed medication consent and is placed in patient's chart. -Medications : Will start patient on Prolixin D 50 mg IM every weekly, gave dose today on 05/25. We'll also supplement with Zyprexa 5 mg daily at bedtime for psychosis/sleep. cogentin 1 mg bid prn for eps prophylaxis -Ativan and Prolixin PRN for agitation/aggression -Patient was informed of the risks, benefits and side effects of the medication and patient verbally consented to taking the medications. Patient signed med co nsent form and was placed in chart. -Internal Medicine consult to perform medical evaluation and physical. -NRT - nicotine patch -SW on board for discharge planning. Encourage patient to participate in groups to work on coping skills. Patient will be going back to her chcf upon discharge.
[2021-05-25 17:34] LABS: Glucose,Whole Blood 93 mg/dL (75-99)
[2021-05-25] MEDS: hydroCHLOROthiazide 12.5 MG CAP PO SCH (17:39)
[2021-05-25] MEDS: PANTOPRAZOLE 40 MG TABLET PO SCH (17:39)
[2021-05-25] MEDS: metFORMIN 500 MG TAB PO SCH (17:39)
[2021-05-25 20:23] LABS: Glucose,Whole Blood 99 mg/dL (75-99)
[2021-05-25] MEDS ORDERED: OLANZapine 5 MG TAB PO SCH (21:00)
[2021-05-26] MEDS: LORazepam 1 MG TAB PO PRN ×2 (02:22→17:57)
[2021-05-26 07:58] LABS: Glucose,Whole Blood 91 mg/dL (75-99)
[2021-05-26] MEDS: NICOTINE 7MG/24HR PATCH TRANSDERM SCH (07:58)
--- NOTE | 2021-05-26 10:25 | P.PN ---
Progress Note - Text Progress Note Date: 05/26/21 Interval History: Patient was seen lying in her bed today and was directable and agreeable to sp marcelo with poem writer. Patient states that she feels a bit better today and feels more clear and her thought process. She continues to be tangential at times and make bizarre comments. She states that she did not sleep at all last night and was feeling tired this morning. She states that she does like taking the Zyprexa however wants to be back on her Klonopin. She claims that she is not feeling depressed or anxious today. She did make some illogical statements regarding her "baby daddy". She states that she will be showering today and has been going to groups. She got up out of bed and asked where the groups are being held right now. At this time patient denies any suicidal or homical ideations, intent or plan. Patient denies any visual hallucinations and denies any paranoia or delusions. Patient denies any side effects from the medications and has been compliant with meds. She claims that she is hearing voices however it is unclear whether these are chronic, patient states that they are non- distressing at this time. Mental Status Exam: General Appearance: Patient appears to be overweight, stated age is alert, attempts to cooperate. Bizarre. Patient appears to have poor hygiene and grooming. Behavior: Patient is seated without any agitated behavior. Attempts to cooperate. Bizarre, improving midlly Speech: Patient's speech is fluent and nonpressured. Illogical at times, improving mildly Mood/Affect: Patient reports their mood is "fine", affect is congruent and constricted. Suicidality/Homicidality: Patient denies having any homicidal ideation intent or plan. Denies any suicidal ideations intent or plan Perceptions: Patient denies any visual hallucinations and admits to , unsure if they are chronic. She states they are non distressing. Though content/process: Illogical, loose associations, bizarre content, improving mildly Memory and concentration: AOX3, grossly intact for the purposes of this session Judgment and insight: Chronically poor, improving mildly IMPRESSIONS: Schizophrenia, acute exacerbation Nicotine dependence Plan: -Patient continues to meet criteria for inpatient psychiatric admission for symptom stabilization and safety. Patient has signed medication consent and was placed in patient's chart. -Medications: Continue with Prolixin D 50 mg IM every weekly, gave last dose on 05/25, will be due for next dose on 06/01. increase zyprexa to 7.5 mg qhs for psychosis/sleep, this can be increased over the weekend if needed/tolerated. added back klonopin 1 mg hs for anxiety/sleep. cogentin 1 mg bid prn for eps prophylaxis. -When necessary Ativan and Prolixin for agitation/aggression. -NRT - nicotine patch -SW on board for discharge planning. Encouraged the patient to participate in milieu. Patient is currently on a court order. Patient will be going back to her alf upon discharge, likely discharge either saturday or saturday.
[2021-05-26 12:26] LABS: Glucose,Whole Blood 84 mg/dL (75-99)
--- NOTE | 2021-05-26 15:02 | P.MDCNMH ---
History of Present Illness H&P Date: 05/25/21 Chief Complaint: Acute psychosis Patient is a 31-year-old female with a known history of hypertension, diabetes type 2 [id number], asthma, seizure disorder, anxiety/depression and schizoaffective disorder everyday smoker was brought to the hospital by police for psychiatric evaluation. Apparently patient has been making threats to people and appeared to be psychotic. Patient was petition and family thought they do not feel safe. Patient was paranoid in the ER and told the ER physician that her ex-boyfriend is stacking her. Laboratory data showed WBC 7.2 hemoglobin 11.8 and platelets 262 Sodium 139 potassium 3.6 chloride 105 bicarb is 25 BUN 3 and creatinine 0.55 blood sugar is 186 and A1c level is 6.1 liver enzymes are not elevated LDL 108.9 and urinalysis showed large blood and 1 RBC. Negative for infection. UDS is negative and coronavirus PCR not detected. Review of Systems Constitutional: Patient denies any fever or chills . No generalized weakness or weight loss. Abdomen: Patient denied nausea vomiting and diarrhea and abdominal pain. Cardiovascular: Patient denies any chest pain or short of breath no palpitations. Respiratory: patient denied any cough is from production. No shortness of breath Neurologic: Patient denied any numbness or tingling headache. Musculoskeletal: Patient denies any complaints of joint swelling or deformity. Skin: Negative Psychiatric: Negative Endocrine: No heat or cold intolerance. No recent weight gain. Genitourinary: No dysuria or hematuria. All other 14 point ROS negative except the above Past Medical History Past Medical History: Asthma, Hypertension, Seizure Disorder Additional Past Medical History / Comment(s): last seizure was December 2018 per Pt History of Any Multi-Drug Resistant Organisms: None Reported Past Surgical History: Section, Tonsillectomy, Tubal Ligation Additional Past Surgical History / Comment(s): facial surgery, 2 C-Sections Past Anesthesia/Blood Transfusion Reactions: No Reported Reaction Past Psychological History: Anxiety, Bipolar, Depression, Schizoaffective Disorder, Schizophrenia Smoking Status: Current every day smoker Past Alcohol Use History: None Reported Past Drug Use History: None Reported - Past Family History Father Family Medical History: Unable to Obtain Additional Family Medical History / Comment(s): Father is alive and may have diabetes. Mother Family Medical History: Thyroid Disorder Additional Family Medical History / Comment(s): Mother is alive at age 50 with thyroid disorder. Brother(s) Additional Family Medical History / Comment(s): Patient has 2 brothers and 2 sisters with no major medical problems. Patient has two sons that is healthy. Medications and Allergies Home Medications Medication Instructions Recorded Confirmed Type Hydrochlorothiazide 12.5 mg PO DAILY@1700 09/22/18 05/24/21 History [hydroCHLOROthiazide] Pantoprazole Sodium [Protonix] 40 mg PO DAILY@1700 12/03/18 05/24/21 History metFORMIN HCL [Glucophage] 1,000 mg PO DAILY@1700 07/03/19 05/24/21 History fluPHENAZine decanoate [Prolixin 50 mg IM Q7D #1 ml 07/08/19 05/24/21 Rx Decanoate] clonazePAM [KlonoPIN] 1 mg PO HS 02/24/20 05/24/21 History Benztropine Mesylate [Cogentin] 1 mg PO BID PRN 05/24/21 05/24/21 History Propylene Glycol [Systane Complete] 1 drop BOTH EYES QID PRN 05/24/21 05/24/21 History Allergies Allergy/AdvReac Type Severity Reaction Status Date / Time ibuprofen [From Motrin] Allergy Rash/Hives Verified 05/24/21 16:51 NSAIDS (Non-Steroidal Allergy Unknown Verified 05/24/21 16:51 Anti-Inflamma pineapple Allergy Rash/Hives Verified 05/24/21 16:51 red dye Allergy Rash/Hives Verified 05/24/21 16:51 haloperidol [From Haldol] AdvReac Hallucinati Verified 05/24/21 16:51 ons Physical Exam Vitals: Vital Signs Temp Pulse Pulse Resp BP BP Pulse Ox 05/25/21 08:55 73 110/74 05/24/21 22:44 97.8 F 77 126/82 05/24/21 21:30 98.7 F 74 18 132/87 99 05/24/21 19:34 76 18 115/71 100 PHYSICAL EXAMINATION: Patient is lying in the bed comfortably, no acute distress, awake alert and oriented.. HEENT: Normocephalic. Neck is supple. Pupils reactive. Nostrils clear. Oral cavity is moist. Neck reveals no JVD, carotid bruits, or thyromegaly. CHEST EXAMINATION: Trachea is central. Symmetrical expansion. Lung squires clear to auscultation and percussion. CARDIAC: Normal S1, S2 with no gallops. No murmurs ABDOMEN: Soft. Bowel sounds normal. No organomegaly. No abdominal bruits. Extremities: reveal no edema. No clubbing or cyanosis Neurologically awake, alert, oriented x3 with well-coordinated movements. No focal deficits noted Skin: No rash or skin lesions. Psychiatric: Noncooperative. Denied any suicidal ideation. Musculoskeletal: No joint swelling or deformity. Normal range of motion. Cranial Nerve Examination - Cranial Nerves Cranial Nerve I- Olfactory: Intact Cranial Nerve II- Optic: Intact Cranial Nerve III- Oculomotor: Intact Cranial Nerve IV- Trochlear: Intact Cranial Nerve V- Trigeminal: Intact Cranial Nerve - Abducens: Intact Cranial Nerve VII- Facial: Intact Cranial Nerve VIII- Auditory: Intact Cranial Nerve IX- Glossopharyngeal: Intact Cranial Nerve X- Vagus: Intact Cranial Nerve XI- Accessory: Intact Cranial Nerve XII- Hypoglossal: Intact Results CBC & Chem 7: 05/24/21 16:07 05/24/21 16:07 Labs: Abnormal Lab Results - Last 24 Hours (Table) 05/24/21 05/24/21 05/24/21 Range/Units 10:32 16:07 17:31 BUN 3 L (7-17) mg/dL Glucose 186 H (74-99) mg/dL Hemoglobin A1c 6.1 H (0.0-6.0) % Urine Blood Large H (Negative) Assessment and Plan Assessment: Acute psychosis Paranoid schizophrenia Hypertension controlled Diabetes type 2 [id number] History of seizure disorder Asthma not in exacerbation Anxiety/depression and bipolar disorder. Currently everyday smoker DVT prophylaxis with early ambulation Plan: Patient will be continued on hydrochlorothiazide and metformin. Insulin sliding scale as needed. Continue with current psychiatric management and plan. Patient was counseled extensively for smoking cessation. We will continue to follow with you and further recommendations based on the clinical course. Time with Patient: Greater than 30
[2021-05-26] MEDS: hydroCHLOROthiazide 12.5 MG CAP PO SCH (17:37)
[2021-05-26] MEDS: metFORMIN 500 MG TAB PO SCH (17:37)
[2021-05-26] MEDS: PANTOPRAZOLE 40 MG TABLET PO SCH (17:37)
[2021-05-26 17:41] LABS: Glucose,Whole Blood 82 mg/dL (75-99)
[2021-05-26] MEDS: ACETAMINOPHEN TAB 325 MG TAB PO PRN (17:57)
[2021-05-26 20:09] LABS: Glucose,Whole Blood 106 mg/dL (75-99)
[2021-05-26] MEDS: OLANZapine 2.5 MG TAB PO SCH (20:54)
[2021-05-26] MEDS: clonazePAM 1 MG TAB PO SCH (20:54)
[2021-05-27] MEDS: ACETAMINOPHEN TAB 325 MG TAB PO PRN (01:25)
[2021-05-27] MEDS: LORazepam 1 MG TAB PO PRN (01:26)
[2021-05-27 07:48] LABS: Glucose,Whole Blood 83 mg/dL (75-99)
[2021-05-27] MEDS: NICOTINE 7MG/24HR PATCH TRANSDERM SCH (07:50)
[2021-05-27 13:00] LABS: Glucose,Whole Blood 75 mg/dL (75-99)
--- NOTE | 2021-05-27 13:34 | P.PN ---
Progress Note - Text Interval history: Patient was seen in her room and was directable and agreeable to speak with proposal lead writer. States that she is doing "good". At this time patient denies any suicidal or homicidal ideations intent or plan. Denies any Auditory or visual hallucinations. Patient denies any side effects from the medications and has been compliant with meds. Per staff she did not sleep last night. During interview, patient was very drowsy. She did get Ativan 1 mg by mouth at 1:30 AM Mental status exam: General Appearance: [Patient appears to be older than stated age. Lying in bed.] Behavior: [No agitated behavior. Patient is calm and directable] Speech: Patient's speech is slow Mood/Affect: Mood is "good", affect is not mood congruent and constricted. Suicidality/Homicidality: Patient denies having any suicidal or homicidal ideation intent or plan. Perceptions: Patient denies any auditory or visual hallucinations. Though content/process: [There is no evidence of any delusional thought content and thought process is linear and goal-directed.] Memory and concentration: AOX3, grossly intact for the purposes of this session Judgment and insight: improving mildly Assessment/Plan: Continue with current diagnosis. Patient continues to meet criteria for inpatient psychiatric admission for symptom stabilization and safety.[Patient will be maintained on current psychotropic medication regimen.] Monitor for medication compliance and for any psychotropic medication side effects. Will continue to monitor ongoing response to treatment. Encouraged participation in milieu.
[2021-05-27] MEDS: metFORMIN 500 MG TAB PO SCH (17:13)
[2021-05-27] MEDS: hydroCHLOROthiazide 12.5 MG CAP PO SCH (17:13)
[2021-05-27] MEDS: PANTOPRAZOLE 40 MG TABLET PO SCH (17:13)
[2021-05-27 17:14] LABS: Glucose,Whole Blood 96 mg/dL (75-99)
[2021-05-27] MEDS: OLANZapine 2.5 MG TAB PO SCH (21:04)
[2021-05-27] MEDS: clonazePAM 1 MG TAB PO SCH (21:04)
[2021-05-28 08:38] VITALS: BP 111/56; PULSE 77; RESP 16; TEMP 98.2
[2021-05-28] MEDS: NICOTINE 7MG/24HR PATCH TRANSDERM SCH (08:38)
[2021-05-28 12:39] LABS: Glucose,Whole Blood 97 mg/dL (75-99)
--- NOTE | 2021-05-28 14:39 | P.PN ---
Progress Note - Text Interval history: Patient was seen in her room and was directable and agreeable to speak with publications writer. States that she is doing "good". At this time patient denies any suicidal or homicidal ideations intent or plan. Denies any Auditory or visual hallucinations. Patient denies any side effects from the medications and has been compliant with meds. Was later seen lying in the hallway with a blanket over herself, but she was redirected to go to her room Mental status exam: General Appearance: [Patient appears to be stated age is alert, directable, and cooperative.] Behavior: [No agitated behavior. Patient is calm and directable] Speech: Patient's speech is fluent and nonpressured. Mood/Affect: Mood is "good", affect is constricted. Suicidality/Homicidality: Patient denies having any suicidal or homicidal ideation intent or plan. Perceptions: Patient denies any auditory or visual hallucinations. Though content/process: [There is no evidence of any delusional thought content and thought process is linear and goal-directed.] Memory and concentration: AOX3, grossly intact for the purposes of this session Judgment and insight: improving mildly Assessment/Plan: Continue with current diagnosis. Patient continues to meet criteria for inpatient psychiatric admission for symptom stabilization and safety.[Patient will be maintained on current psychotropic medication regimen.] Monitor for medication compliance and for any psychotropic medication side effects. Will continue to monitor ongoing response to treatment. Encouraged participation in milieu.
[2021-05-28 17:21] LABS: Glucose,Whole Blood 84 mg/dL (75-99)
[2021-05-28] MEDS: hydroCHLOROthiazide 12.5 MG CAP PO SCH (17:30)
[2021-05-28] MEDS: PANTOPRAZOLE 40 MG TABLET PO SCH (17:30)
[2021-05-28] MEDS: metFORMIN 500 MG TAB PO SCH (17:30)
[2021-05-28 20:02] LABS: Glucose,Whole Blood 103 mg/dL (75-99)
[2021-05-28] MEDS: clonazePAM 1 MG TAB PO SCH (21:18)
[2021-05-28] MEDS: OLANZapine 2.5 MG TAB PO SCH (21:18)
[2021-05-28] MEDS: ACETAMINOPHEN TAB 325 MG TAB PO PRN (22:30)
[2021-05-29 07:55] LABS: Glucose,Whole Blood 99 mg/dL (75-99)
[2021-05-29] MEDS: NICOTINE 7MG/24HR PATCH TRANSDERM SCH (08:47)
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
== END 2021-05-29 13:10 | disposition home or self-care (01) | DRG 885 ==
LOC: EC 14:58 → 3MHU 21:13
PROVIDERS: ADMIT Psychiatry & Neurology Psychiatry; ATTEND Psychiatry & Neurology Psychiatry
DX: F25.9 Schizoaffective disorder, unspecified (principal); F17.210 Nicotine dependence, cigarettes, uncomplicated; F31.9 Bipolar disorder, unspecified; F41.9 Anxiety disorder, unspecified; G40.909 Epilepsy, unspecified, not intractable, without status epilepticus; I10 Essential (primary) hypertension; J45.909 Unspecified asthma, uncomplicated; Z20.822 Contact with and (suspected) exposure to COVID-19
CPT/HCPCS: 36415; 80053; 80061; 80143; 80179; 80306; 80320; 81001; 81025; 82075; 83036; 84443; 85025; 87635; 99285

== ENCOUNTER 2021-06-07 01:46 | Emergency (ER) | payer OTHER ==
[2021-06-07 02:20] VITALS: RESP 18
[2021-06-07 03:16] LABS: Amphetamine Screen,Urine Not Detected (NotDetected); Barbiturate Screen,Urine Not Detected (NotDetected); Benzodiazepines Screen,Urine Not Detected (NotDetected); Cocaine Screen,Urine Not Detected (NotDetected); Methadone Screen, Urine Not Detected (NotDetected); Opiate Screen,Urine Not Detected (NotDetected); Oxycodone Screen, Urine Not Detected (NotDetected); Phencyclidine Screen,Urine Not Detected (NotDetected); Tricyclic Antidepressant,Urine Not Detected (NotDetected); Urn Cannabinoid Scrn Not Detected (NotDetected)
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
[2021-06-07 07:20] VITALS: BP 121/81; PULSE 77; TEMP 97.2
[2021-06-07 11:52] LABS: Glucose,Whole Blood 99 mg/dL (75-99)
[2021-06-07] MEDS ORDERED: fluPHENAZine DECANOATE 25 MG/ML 5ML MDV IM ONE (12:00)
== END 2021-06-07 12:37 | disposition home or self-care (01) ==
LOC: EC 01:46
DX: R45.6 Violent behavior (principal); I10 Essential (primary) hypertension; J45.909 Unspecified asthma, uncomplicated; G40.909 Epilepsy, unspecified, not intractable, without status epilepticus; F41.9 Anxiety disorder, unspecified; F31.9 Bipolar disorder, unspecified; F25.9 Schizoaffective disorder, unspecified; F17.200 Nicotine dependence, unspecified, uncomplicated; Z79.84 Long term (current) use of oral hypoglycemic drugs; Z88.6 Allergy status to analgesic agent; Z98.51 Tubal ligation status
CPT/HCPCS: 36415; 80306; 82075; 96372; 99285

== ENCOUNTER 2021-09-09 13:01 | Inpatient (IN) | payer MEDICAID, OTHER ==
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
[2021-09-09] MEDS ORDERED: MAGNESIUM HYDROXIDE 2,400 MG/10 ML CUP PO PRN (16:32)
[2021-09-09] MEDS ORDERED: MAG HYDROX/AL HYDROX/SIMETH 30 ML CUP PO PRN (16:32)
[2021-09-09] MEDS ORDERED: BENZTROPINE MESYLATE 1 MG TAB PO PRN (16:36)
[2021-09-09] MEDS ORDERED: fluPHENAZine DECANOATE 25 MG/ML 5ML MDV IM SCH (16:45)
[2021-09-09 18:00] VITALS: RESP 16; TEMP 98.4
[2021-09-09] MEDS: hydroCHLOROthiazide 12.5 MG CAP PO SCH (18:09)
[2021-09-09] MEDS: metFORMIN 500 MG TAB PO SCH (18:10)
[2021-09-09] MEDS: PANTOPRAZOLE 40 MG TABLET PO SCH (18:10)
[2021-09-09] MEDS ORDERED: OLANZapine 10 MG TAB PO SCH (21:00)
[2021-09-09] MEDS: clonazePAM 1 MG TAB PO SCH (21:13)
[2021-09-10] MEDS: NICOTINE 7MG/24HR PATCH TRANSDERM SCH (08:16)
[2021-09-10 08:49] LABS: ALT 21 U/L (4-34); AST 28 U/L (14-36); African American GFR (CKD) >90 (>60 ml/min/1.73 sqM); Albumin 4.7 g/dL (3.5-5.0); Alkaline Phosphatase 67 U/L (38-126); Anion Gap 9 mmol/L; Blood Urea Nitrogen 8 mg/dL (7-17); Calcium 9.2 mg/dL (8.4-10.2); Carbon Dioxide 26 mmol/L (22-30); Chloride 102 mmol/L (98-107); Glucose 109 mg/dL (74-99); Non-African American GFR(CKD) >90 (>60 ml/min/1.73 sqM); Potassium 4.1 mmol/L (3.5-5.1); Sodium 137 mmol/L (137-145); Total Bilirubin 0.5 mg/dL (0.2-1.3); Total Protein 8.3 g/dL (6.3-8.2)
[2021-09-10 08:53] LABS: Basophils % (A) 1 %; Eosinophils # (A) 0.1 k/uL (0-0.7); Eosinophils % (A) 2 %; HCT 37.4 % (34.0-46.0); HGB 11.8 gm/dL (11.4-16.0); Lymphocytes # (A) 1.6 k/uL (1.0-4.8); Lymphocytes % (A) 24 %; MCHC 31.4 g/dL (31.0-37.0); MCV 89.3 fL (80.0-100.0); Mean Platelet Volume 8.4; Monocytes # (A) 0.6 k/uL (0-1.0); Monocytes % (A) 8 %; Neutrophils # (A) 4.4 k/uL (1.3-7.7); Neutrophils % (A) 64 %; Platelet Count 250 k/uL (150-450); WBC 6.9 k/uL (3.8-10.6)
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
[2021-09-10 09:18] LABS: Appearance,Urine Clear (Clear); Bilirubin,Urine Negative (Negative); Blood,Urine Negative (Negative); Color,Urine Colorless; Glucose,Urine (UA) Negative (Negative); Ketones,Urine Negative (Negative); Leukocyte Esterase,Urine Negative (Negative); Nitrite,Urine Negative (Negative); Protein,Urine Negative (Negative); Specific Gravity,Urine 1.003 (1.001-1.035); Urobilinogen,Urine <2.0 mg/dL (<2.0)
[2021-09-10 09:34] LABS: Amphetamine Screen,Urine Not Detected (NotDetected); Barbiturate Screen,Urine Not Detected (NotDetected); Benzodiazepines Screen,Urine Not Detected (NotDetected); Cocaine Screen,Urine Not Detected (NotDetected); Methadone Screen, Urine Not Detected (NotDetected); Opiate Screen,Urine Not Detected (NotDetected); Oxycodone Screen, Urine Not Detected (NotDetected); Phencyclidine Screen,Urine Not Detected (NotDetected); Tricyclic Antidepressant,Urine Not Detected (NotDetected); Urn Cannabinoid Scrn Not Detected (NotDetected)
[2021-09-10 12:01] LABS: Chol/HDL Ratio 3.52 Ratio; LDL Cholesterol,Calculated 125.7 mg/dL (0.0-131.0); VLDL Calculation 14.64 mg/dL (5.00-40.00)
[2021-09-10] MEDS: ACETAMINOPHEN TAB 325 MG TAB PO PRN ×2 (15:58→22:02)
[2021-09-10] MEDS: PANTOPRAZOLE 40 MG TABLET PO SCH (16:57)
[2021-09-10] MEDS: metFORMIN 500 MG TAB PO SCH (16:57)
[2021-09-10] MEDS: hydroCHLOROthiazide 12.5 MG CAP PO SCH (16:57)
[2021-09-10] MEDS: clonazePAM 1 MG TAB PO SCH (20:43)
[2021-09-10] MEDS ORDERED: OLANZapine 10 MG TAB PO SCH (21:00)
--- NOTE | 2021-09-10 22:13 | P.CONS ---
History of Present Illness - History of Present Illness This is a pleasant 51 years old -[place] female with Past medical his tory of diabetes mellitus type 2, hypertension, asthma, seizure disorder, anxiety bipolar schizoaffective disorder Was admitted to the mental health unit for signs and symptoms of psychosis related to her diagnosis of schizophrenia of unspecified type. Medical consult has been requested for the medical management. Patient is awake alert denies chest pain or dyspnea. No vomiting or diarrhea. No urinary complaints or fever. Gait is normal She smokes about less than half pack per day and she was counseled to quit. She denies alcohol or illicit drugs Vitals are stable and patient is afebrile. Labs including CBC, BMP, liver enzymes are unremarkable. TSH 2.1, status in the serum is negative. Urine drug screen is negative. Coronavirus nondetected Review of Systems Review of systems CONSTITUTIONAL: No fever, no malaise, no fatigue. HEENT: No recent visual problems or hearing problems. Denied any sore throat. CARDIOVASCULAR: No orthopnea, PND, no palpitations, no syncope. PULMONARY: No shortness of breath, no cough, no hemoptysis. GASTROINTESTINAL: No diarrhea, no nausea, no vomiting, no abdominal pain. Normoactive bowel sounds. NEUROLOGICAL: No headaches, no weakness, no numbness. HEMATOLOGICAL: Denies any bleeding or petechiae. GENITOURINARY: Denies any burning micturition, frequency, or urgency. MUSCULOSKELETAL/RHEUMATOLOGICAL: Denies any joint pain, swelling, or any muscle pain. ENDOCRINE: Denies any polyuria or polydipsia. Past Medical History Past Medical History: Asthma, Hypertension, Seizure Disorder Additional Past Medical History / Comment(s): last seizure was December 2018 per , tubal History of Any Multi-Drug Resistant Organisms: None Reported Past Surgical History: Section, Tonsillectomy, Tubal Ligation Additional Past Surgical History / Comment(s): facial surgery, 2 C-Sections Past Anesthesia/Blood Transfusion Reactions: No Reported Reaction Past Psychological History: Anxiety, Bipolar, Depression, Schizoaffective Disorder, Schizophrenia Additional Psychological History / Comment(s): pt states that before this admission pt had been in this hospital and [facility] multiple time Smoking Status: Current every day smoker Past Alcohol Use History: None Reported Additional Past Alcohol Use History / Comment(s): Patient denies any alcohol use Past Drug Use History: None Reported Additional Drug Use History / Comment(s): Pt states that she has not smoked MJ in "years". - Past Family History Father Family Medical History: Unable to Obtain Additional Family Medical History / Comment(s): Father is alive and may have diabetes. Mother Family Medical History: Thyroid Disorder Additional Family Medical History / Comment(s): Mother is alive at age 50 with thyroid disorder. Brother(s) Additional Family Medical History / Comment(s): Patient has 2 brothers and 2 s isters with no major medical problems. Patient has two sons that is healthy. Medications and Allergies Home Medications Medication Instructions Recorded Confirmed Type Benztropine Mesylate [Cogentin] 1 mg PO BID PRN 05/24/21 09/09/21 History Pantoprazole Sodium [Protonix] 40 mg PO DAILY@1700 30 Days tab 05/29/21 09/09/21 Rx fluPHENAZine decanoate [Prolixin 50 mg IM Q7D #1 ml 05/29/21 09/09/21 Rx Decanoate] hydroCHLOROthiazide 12.5 mg PO DAILY@1700 30 Days cap 05/29/21 09/09/21 Rx OLANZapine 10 mg PO HS@2100 06/07/21 09/09/21 History clonazePAM [KlonoPIN] 2 mg PO HS@2100 06/07/21 09/09/21 History metFORMIN HCL [Glucophage] 1,000 mg PO DAILY@1700 06/07/21 09/09/21 History Allergies Allergy/AdvReac Type Severity Reaction Status Date / Time ibuprofen [From Motrin] Allergy Rash/Hives Verified 09/09/21 17:46 NSAIDS (Non-Steroidal Allergy Unknown Verified 09/09/21 17:46 Anti-Inflamma pineapple Allergy Rash/Hives Verified 09/09/21 17:46 red dye Allergy Rash/Hives Verified 09/09/21 17:46 haloperidol [From Haldol] AdvReac Hallucinati Verified 09/09/21 17:46 ons Physical Exam Vitals: Vital Signs Temp Pulse Pulse Resp BP BP Pulse Ox 09/09/21 18:11 82 122/74 09/09/21 17:58 98.4 F 99 16 140/80 09/09/21 17:04 18 09/09/21 16:05 18 09/09/21 14:05 18 09/09/21 13:02 98.1 F 115 H 18 119/70 97 Intake and Output 09/09/21 09/10/21 09/10/21 22:59 06:59 14:59 Other: Weight 102 kg GENERAL: The patient is alert and oriented x3, not in any acute distress. Well developed, well nourished. HEENT: Pupils are round and equally reacting to light. EOMI. No scleral icterus. No conjunctival pallor. Normocephalic, atraumatic. No pharyngeal erythema. No thyromegaly. CARDIOVASCULAR: S1 and S2 present. No murmurs, rubs, or gallops. PULMONARY: Chest is clear to auscultation, no wheezing or crackles. ABDOMEN: Soft, nontender, nondistended, normoactive bowel sounds. No palpable organomegaly. MUSCULOSKELETAL: No joint swelling or deformity. EXTREMITIES: No cyanosis, clubbing, or pedal edema. NEUROLOGICAL: Gross neurological examination did not reveal any focal deficits. SKIN: No rashes. no petechiae. Results CBC & Chem 7: 09/10/21 07:55 09/10/21 07:55 Labs: Abnormal Lab Results - Last 24 Hours (Table) 09/10/21 09/10/21 Range/Units 07:55 07:55 Glucose 109 H (74-99) mg/dL Hemoglobin A1c 6.1 H (0.0-6.0) % Total Protein 8.3 H (6.3-8.2) g/dL Assessment and Plan Assessment: - Schizophrenia, psychosis and other psychiatric illnesses: Management as per sec team - Nicotine dependence, patient was counseled she does not want to quit. She declined nicotine patch - diabetes mellitus, continue with metformin - hypertension continue with hydrochlorothiazide - History of seizure, continue with a clotted - Obesity, with BMI of 37.4 - asthma, not an active issue Patient was instructed to follow up with her PCP Dr. whalen one week and she agrees Thank you for consulting us
[2021-09-11] MEDS: NICOTINE 7MG/24HR PATCH TRANSDERM SCH (08:45)
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
[2021-09-11] MEDS: hydroCHLOROthiazide 12.5 MG CAP PO SCH (15:59)
[2021-09-11] MEDS: metFORMIN 500 MG TAB PO SCH (15:59)
[2021-09-11] MEDS: PANTOPRAZOLE 40 MG TABLET PO SCH (15:59)
[2021-09-11 20:19] LABS: Glucose,Whole Blood 122 mg/dL (70-110)
[2021-09-11] MEDS ORDERED: OLANZapine 7.5 MG TAB PO SCH (21:00)
[2021-09-11 21:09] VITALS: BP 132/65; PULSE 68
[2021-09-11] MEDS: clonazePAM 1 MG TAB PO SCH (21:09)
[2021-09-11] MEDS: ACETAMINOPHEN TAB 325 MG TAB PO PRN (21:50)
[2021-09-12 07:47] LABS: Glucose,Whole Blood 109 mg/dL (70-110)
[2021-09-12] MEDS: NICOTINE 7MG/24HR PATCH TRANSDERM SCH (08:47)
--- NOTE | 2021-09-12 09:52 | P.DS ---
Providers Date of admission: 09/09/21 16:29 Expected date of discharge: 09/12/21 Attending physician: Chris Wray MD Consults: 09/09/21 16:32 Consult Physician Routine Consulting Provider: Dona Davila Consult Reason/Comments: medical management Do you want consulting provider notified?: Yes, Notify in am Primary care physician: Nirali Valentin - Discharge Diagnosis(es) (1) Schizophrenia Current Visit: Yes Status: Acute Priority: High (2) Nicotine dependence Current Visit: Yes Status: Acute Priority: Low Hospital Course: Admission HPI: Admission note was completed by Dr Price "Patient is a 31-year-old female she states she walked over here from one of the group homes. She states that she is being bullied at the shelter. She states that she got into confrontation became aggressive. Patient states she is hearing voices. She states she is here she feels like she is going crazy. Patient denies any suicidal or homicidal ideation. Subjective: The patient says that she is on probation and has a court date on Saturday. She says she is on probation because of fighting. She says she came downstairs at the [facility] and there was a worker there who started her resting, she was afraid that she would respond by getting into a fight and more legal trouble. So for she called the police to get a "police escort" or to the hospital and says they told her that it wasn't emergency and she should call for not emergencies. So she walked over to the hospital. The patient says that no matter whether she takes medicine or not the devil harasses her. He gives that the feeling that she is under attack and in danger. Then there is clashing in her head noises of sirens and things banging. She says they're somewhat better on the Zyprexa but sometimes she forgets the Zyprexa. She does not feel that anyone is poisoning her she does not have people touch her when no one was around she does not see clear hallucinations. However she gets the feeling that there is somebody coming into her private space and taking are moving her things." Hospital course: Upon admission to the unit patient was directable and agreeable to commence treatment and signed adult voluntary form . Patient got along well with other patients on the unit and followed unit protocol. Patient was compliant with the medications and denied any side effects throughout hospital course. Patient was started on olanzapine and increase to a dose of 15 mg daily at bedtime for psychosis/insomnia. Patient is currently on 50 mg of Prolixin D every IM. She will be due for her next Prolixin D injection on 09/14. She was resumed back on her Klonopin 2 mg daily at bedtime for anxiety/sleep. Cogentin 1 mg twice a day when necessary for EPS prophylaxis. Patient spoke of her stressors and engaged in therapy both group and individual. Patient was also seen by medical team for history and physical exam. Throughout the course of the hospitalization patient gradually improved with regards to psychosis, delusions, mood/anxiety, sleep and returned back to their baseline level of functioning. On the day of discharge patient denied any suicidal or homicidal ideations intent or plan denied any auditory or visual hallucinations. Patient endorsed wanting to live for her health and her future. The patient denied any access to guns or weapons. Patient denied any paranoia and did not endorse any delusions. Patient does not have a significant history of substance abuse and was counseled on abstaining from all substances including alcohol and marijuana. Patient was also counseled on the medications and need for regular compliance and was encouraged to follow-up with their outpatient appointment for mental health and also for primary care. Prior to discharge a family meeting will be arranged by social service agency director to answer any questions and ensure safety upon discharge. Social work and [facility] will be coordinating patient's discharge today as she will be transitioning to a new apartment. Mental status exam: General Appearance: Patient appears to be overweight, stated age is alert, pleasant, and cooperative. Patient is in no acute distress and has improved hygiene and grooming Behavior: Patient is calmly seated without any agitated behavior. Speech: Patient's speech is fluent and nonpressured. Monotone. Mood/Affect: Patient reports their mood is "ok", affect is congruent and constricted Suicidality/Homicidality: Patient denies having any suicidal or homicidal ideation intent or plan. Perceptions: Patient denies any auditory or visual hallucinations. Though content/process: There is no evidence of any delusional thought content and thought process is linear and goal-directed. Memory and concentration: AOX3, grossly intact for the purposes of this session. Can spell "WORLD" backwards correctly. Judgment and insight: chronically poor, however has improved with guarded prognosis Impression: Schizophrenia Nicotine dependence Plan: -Continue with discharge today as patient has improved and stabilized psychiatrically and is not currently an imminent threat to herself and/or others. Patient will remain at chronically elevated risk for harm to self and/or others due to her chronic mental illness and chronically poor insight and judgment. -Continue medications: Klonopin 2 mg daily at bedtime when necessary for anxiety/sleep, Cogentin 1 mg twice a day when necessary for EPS prophylaxis, continue with Prolixin D 50 mg IM every weekly on . Zyprexa 15 mg daily at bedtime for psychosis/sleep -Patient was counseled on the need for medication compliance and appropriate follow-up at mental health and also primary care for medical issues. Patient verbalized understanding and agreed. -Social work to help coordinate patient's discharge with [facility] as she'll be transitioning to a new apartment. Social work also to arrange for patients follow up appointments with [facility] for psychiatric care along with follow up with primary care provider. -Patient counseled on abstaining from recreational drugs and marijuana and alcohol. Was informed/educated on the adverse effects on their physical and mental health. Patient verbally agreed and understood. -Patient was instructed to return to the hospital or seek immediate medical care if their psychiatric or medical symptoms do worsen or reoccur. Allergies Allergy/AdvReac Type Severity Reaction Status Date / Time ibuprofen [From Motrin] Allergy Rash/Hives Verified 09/09/21 17:46 NSAIDS (Non-Steroidal Allergy Unknown Verified 09/09/21 17:46 Anti-Inflamma pineapple Allergy Rash/Hives Verified 09/09/21 17:46 red dye Allergy Rash/Hives Verified 09/09/21 17:46 haloperidol [From Haldol] AdvReac Hallucinati Verified 09/09/21 17:46 ons Laboratory Results WBC 6.9 k/uL (3.8-10.6) 09/10/21 07:55 RBC 4.20 m/uL (3.80-5.40) 09/10/21 07:55 Hgb 11.8 gm/dL (11.4-16.0) 09/10/21 07:55 Hct 37.4 % (34.0-46.0) 09/10/21 07:55 MCV 89.3 fL (80.0-100.0) 09/10/21 07:55 MCH 28.0 pg (25.0-35.0) 09/10/21 07:55 MCHC 31.4 g/dL (31.0-37.0) 09/10/21 07:55 RDW 14.0 % (11.5-15.5) 09/10/21 07:55 Plt Count 250 k/uL (150-450) 09/10/21 07:55 MPV 8.4 09/10/21 07:55 Neutrophils % 64 % 09/10/21 07:55 Lymphocytes % 24 % 09/10/21 07:55 Monocytes % 8 % 09/10/21 07:55 Eosinophils % 2 % 09/10/21 07:55 Basophils % 1 % 09/10/21 07:55 Neutrophils # 4.4 k/uL (1.3-7.7) 09/10/21 07:55 Lymphocytes # 1.6 k/uL (1.0-4.8) 09/10/21 07:55 Monocytes # 0.6 k/uL (0-1.0) 09/10/21 07:55 Eosinophils # 0.1 k/uL (0-0.7) 09/10/21 07:55 Basophils # 0.0 k/uL (0-0.2) 09/10/21 07:55 Sodium 137 mmol/L (137-145) 09/10/21 07:55 Potassium 4.1 mmol/L (3.5-5.1) 09/10/21 07:55 Chloride 102 mmol/L (98-107) 09/10/21 07:55 Carbon Dioxide 26 mmol/L (22-30) 09/10/21 07:55 Anion Gap 9 mmol/L 09/10/21 07:55 BUN 8 mg/dL (7-17) 09/10/21 07:55 Creatinine 0.76 mg/dL (0.52-1.04) 09/10/21 07:55 Est GFR (CKD-EPI)AfAm >90 (>60 ml/min/1.73 sqM) 09/10/21 07:55 Est GFR (CKD-EPI)NonAf >90 (>60 ml/min/1.73 sqM) 09/10/21 07:55 Glucose 109 mg/dL (74-99) H 09/10/21 07:55 POC Glucose (mg/dL) 109 mg/dL (70-110) 09/12/21 07:44 POC Glu Healthcare Manager ID Brenda Hayes 09/12/21 07:[address] Glu mg/dL 128 09/10/21 07:55 Hemoglobin A1c 6.1 % (0.0-6.0) H 09/10/21 07:55 Calcium 9.2 mg/dL (8.4-10.2) 09/10/21 07:55 Total Bilirubin 0.5 mg/dL (0.2-1.3) 09/10/21 07:55 AST 28 U/L (14-36) 09/10/21 07:55 ALT 21 U/L (4-34) 09/10/21 07:55 Alkaline Phosphatase 67 U/L (38-126) 09/10/21 07:55 Total Protein 8.3 g/dL (6.3-8.2) H 09/10/21 07:55 Albumin 4.7 g/dL (3.5-5.0) 09/10/21 07:55 Triglycerides 73.20 mg/dL (0.00-149.00) 09/10/21 07:55 Cholesterol 196.00 mg/dL (0.00-200.00) 09/10/21 07:55 LDL Cholesterol, Calc 125.7 mg/dL (0.0-131.0) 09/10/21 07:55 VLDL Cholesterol, Calc 14.64 mg/dL (5.00-40.00) 09/10/21 07:55 HDL Cholesterol 55.70 mg/dL (40.00-60.00) 09/10/21 07:55 Cholesterol/HDL Ratio 3.52 Ratio 09/10/21 07:55 TSH 2.160 mIU/L (0.465-4.680) 09/10/21 07:55 HCG, Qual Not Detected 09/10/21 17:15 Urine Color Colorless 09/10/21 08:30 Urine Appearance Clear (Clear) 09/10/21 08:30 Urine pH 6.0 (5.0-8.0) 09/10/21 08:30 Ur Specific [place] 1.003 (1.001-1.035) 09/10/21 08:30 Urine Protein Negative (Negative) 09/10/21 08:30 Urine Glucose (UA) Negative (Negative) 09/10/21 08:30 Urine Ketones Negative (Negative) 09/10/21 08:30 Urine Blood Negative (Negative) 09/10/21 08:30 Urine Nitrite Negative (Negative) 09/10/21 08:30 Urine Bilirubin Negative (Negative) 09/10/21 08:30 Urine Urobilinogen <2.0 mg/dL (<2.0) 09/10/21 08:30 Ur Leukocyte Esterase Negative (Negative) 09/10/21 08:30 Urine HCG, Qual Not Detected (Not Detectd) 09/09/21 13:47 Urine Opiates Screen Not Detected (NotDetected) 09/10/21 08:30 Ur Oxycodone Screen Not Detected (NotDetected) 09/10/21 08:30 Urine Methadone Screen Not Detected (NotDetected) 09/10/21 08:30 Ur Propoxyphene Screen Not Detected (NotDetected) 09/10/21 08:30 Ur Barbiturates Screen Not Detected (NotDetected) 09/10/21 08:30 U Tricyclic Antidepress Not Detected (NotDetected) 09/10/21 08:30 Ur Phencyclidine Scrn Not Detected (NotDetected) 09/10/21 08:30 Ur Amphetamines Screen Not Detected (NotDetected) 09/10/21 08:30 U Methamphetamines Scrn Not Detected (NotDetected) 09/10/21 08:30 U Benzodiazepines Scrn Not Detected (NotDetected) 09/10/21 08:30 Urine Cocaine Screen Not Detected (NotDetected) 09/10/21 08:30 U Marijuana (THC) Screen Not Detected (NotDetected) 09/10/21 08:30 Coronavirus (PCR) Not Detected (Not Detectd) 09/09/21 13:47 Vital Signs Temp 98.4 F 09/09/21 17:58 Pulse 68 09/11/21 21:08 Resp 16 09/11/21 21:08 BP 132/65 09/11/21 21:08 Pulse Ox 98 09/11/21 21:08 FiO2 Patient Condition at Discharge: Stable Plan - Discharge Summary New Discharge Prescriptions: New Nicotine 7Mg/24Hr Patch [Habitrol] 1 patch TRANSDERM DAILY 14 Days patch hydroCHLOROthiazide [Hydrodiuril] 12.5 mg PO DAILY@1700 30 Days cap OLANZapine [ZyPREXA] 15 mg PO HS 30 Days tab Continue Benztropine Mesylate [Cogentin] 1 mg PO BID PRN PRN Reason: Side effects of Prolixin fluPHENAZine decanoate [Prolixin Decanoate] 50 mg IM Q7D #1 ml metFORMIN HCL [Glucophage] 1,000 mg PO DAILY@1700 30 Days tab Pantoprazole Sodium [Protonix] 40 mg PO DAILY@1700 30 Days tab Changed clonazePAM [KlonoPIN] 2 mg PO HS@2100 PRN 3 Days tab PRN Reason: Anxiety Discontinued OLANZapine 10 mg PO HS@2100 hydroCHLOROthiazide 12.5 mg PO DAILY@1700 30 Days cap Discharge Medication List Benztropine Mesylate [Cogentin] 1 mg PO BID PRN 05/24/21 [History] Nicotine 7Mg/24Hr Patch [Habitrol] 1 patch TRANSDERM DAILY 14 Days patch 09/12/21 [Rx] OLANZapine [ZyPREXA] 15 mg PO HS 30 Days tab 09/12/21 [Rx] Pantoprazole Sodium [Protonix] 40 mg PO DAILY@1700 30 Days tab 09/12/21 [Rx] clonazePAM [KlonoPIN] 2 mg PO HS@2100 PRN 3 Days tab 09/12/21 [Rx] fluPHENAZine decanoate [Prolixin Decanoate] 50 mg IM Q7D #1 ml 09/12/21 [Rx] hydroCHLOROthiazide [Hydrodiuril] 12.5 mg PO DAILY@1700 30 Days cap 09/12/21 [Rx] metFORMIN HCL [Glucophage] 1,000 mg PO DAILY@1700 30 Days tab 09/12/21 [Rx] Follow up Appointment(s)/Referral(s): [facility] [Outside] - 09/12/21 11:30 am (09/12/21 @ 11:30 with Nydia Gunter 09/21/2021 1:30PM - 2:00PM with Dr Sebastian ) Nirali Valentin MD [Primary Care Provider] - 1-2 days Activity/Diet/Wound Care/Special Instructions: Avoid the use of street drugs and alcohol. Take all prescriptions as prescribed. When you are in need of refills on your medications, please contact your medical provider and/or outpatient psychiatrist to have this done. Please go to scheduled outpatient appointment for aftercare treatment. If symptoms return or become worse, call the crisis line at and/or go to the nearest emergency room for evaluation. Discharge Disposition: HOME SELF-CARE
[2021-09-14] MEDS ORDERED: fluPHENAZine DECANOATE 25 MG/ML 5ML MDV IM SCH (09:00)
== END 2021-09-12 11:47 | disposition home or self-care (01) | DRG 885 ==
LOC: EC 13:01 → 3MHU 16:29
PROVIDERS: ADMIT Psychiatry & Neurology Psychiatry; ATTEND Psychiatry & Neurology Psychiatry
DX: F25.0 Schizoaffective disorder, bipolar type (principal); E11.9 Type 2 diabetes mellitus without complications; E66.9 Obesity, unspecified; Z71.6 Tobacco abuse counseling; F17.210 Nicotine dependence, cigarettes, uncomplicated; F41.9 Anxiety disorder, unspecified; G40.909 Epilepsy, unspecified, not intractable, without status epilepticus; G47.00 Insomnia, unspecified; I10 Essential (primary) hypertension; J45.909 Unspecified asthma, uncomplicated; T74.31XA Adult psychological abuse, confirmed, initial encounter; Z65.3 Problems related to other legal circumstances; Z68.37 Body mass index [BMI] 37.0-37.9, adult; Z79.84 Long term (current) use of oral hypoglycemic drugs; Z79.899 Other long term (current) drug therapy; Z28.310 Unvaccinated for COVID-19; Z20.822 Contact with and (suspected) exposure to COVID-19; Z28.21 Immunization not carried out because of patient refusal; Z88.6 Allergy status to analgesic agent
CPT/HCPCS: 80053; 80061; 80306; 81003; 81025; 82075; 83036; 84443; 84703; 85025; 87635

== ENCOUNTER 2021-10-29 15:06 | Emergency (ER) | payer OTHER ==
[2021-10-29 16:02] VITALS: BP 136/77; PULSE 94; RESP 18; TEMP 98.2
[2021-10-29 16:59] LABS: Appearance,Urine Clear (Clear); Bilirubin,Urine Negative (Negative); Blood,Urine Negative (Negative); Color,Urine Light Yellow; Glucose,Urine (UA) Negative (Negative); Ketones,Urine Negative (Negative); Leukocyte Esterase,Urine Negative (Negative); Nitrite,Urine Negative (Negative); PH, Urine 7.5 (5.0-8.0); Protein,Urine Negative (Negative); Specific Gravity,Urine 1.002 (1.001-1.035); Urobilinogen,Urine <2.0 mg/dL (<2.0)
--- NOTE | 2021-10-29 17:55 | ED ---
Psych HPI - General Chief Complaint: Psychiatric Symptoms Stated Complaint: Mental health Time Seen by Provider: 10/29/21 16:00 Source: patient Mode of arrival: ambulatory - History of Present Illness Initial Comments: 31-year-old female well known to the emergency room if presents with concerns for . States that she is with "6 babies" in her abdomen. Requesting D&C for removal. Patient has been seen several times for complaints. She has had a tubal ligation. She does have a known history of schizophrenia. Denies any suicidal or homicidal ideations. - Related Data Home Medications Medication Instructions Recorded Confirmed Benztropine Mesylate [Cogentin] 1 mg PO BID PRN 05/24/21 09/09/21 Previous Rx's Medication Instructions Recorded Nicotine 7Mg/24Hr Patch [Habitrol] 1 patch TRANSDERM DAILY 14 Days 09/12/21 patch OLANZapine [ZyPREXA] 15 mg PO HS 30 Days tab 09/12/21 Pantoprazole Sodium [Protonix] 40 mg PO DAILY@1700 30 Days tab 09/12/21 clonazePAM [KlonoPIN] 2 mg PO HS@2100 PRN 3 Days tab 09/12/21 fluPHENAZine decanoate [Prolixin 50 mg IM Q7D #1 ml 09/12/21 Decanoate] hydroCHLOROthiazide [Hydrodiuril] 12.5 mg PO DAILY@1700 30 Days cap 09/12/21 metFORMIN HCL [Glucophage] 1,000 mg PO DAILY@1700 30 Days tab 09/12/21 Allergies Allergy/AdvReac Type Severity Reaction Status Date / Time ibuprofen [From Motrin] Allergy Rash/Hives Verified 11/01/21 21:02 NSAIDS (Non-Steroidal Allergy Unknown Verified 11/01/21 21:02 Anti-Inflamma pineapple Allergy Rash/Hives Verified 11/01/21 21:02 red dye Allergy Rash/Hives Verified 11/01/21 21:02 haloperidol [From Haldol] AdvReac Hallucinati Verified 11/01/21 21:02 ons Review of Systems ROS Statement: Those systems with pertinent positive or pertinent negative responses have been documented in the HPI. ROS Other: All systems not noted in ROS Statement are negative. Past Medical History Past Medical History: Asthma, Hypertension, Seizure Disorder Additional Past Medical History / Comment(s): last seizure was December 2018 per , tubal History of Any Multi-Drug Resistant Organisms: None Reported Past Surgical History: Section, Tonsillectomy, Tubal Ligation Additional Past Surgical History / Comment(s): facial surgery, 2 C-Sections Past Anesthesia/Blood Transfusion Reactions: No Reported Reaction Past Psychological History: Anxiety, Bipolar, Depression, Schizoaffective Disorder, Schizophrenia Smoking Status: Current every day smoker Past Alcohol Use History: None Reported Past Drug Use History: None Reported - Past Family History Father Family Medical History: Unable to Obtain Additional Family Medical History / Comment(s): Father is alive and may have diabetes. Mother Family Medical History: Thyroid Disorder Additional Family Medical History / Comment(s): Mother is alive at age 50 with thyroid disorder. Brother(s) Additional Family Medical History / Comment(s): Patient has 2 brothers and 2 sisters with no major medical problems. Patient has two sons that is healthy. General Exam Limitations: altered mental status General appearance: alert, in no apparent distress Head exam: Present: atraumatic, normocephalic, normal inspection Eye exam: Present: normal appearance, PERRL, EOMI. Absent: scleral icterus, conjunctival injection, periorbital swelling ENT exam: Present: normal exam, mucous membranes moist Neck exam: Present: normal inspection. Absent: tenderness, meningismus, lymphadenopathy Respiratory exam: Present: normal lung sounds bilaterally. Absent: respiratory distress, wheezes, rales, rhonchi, stridor Cardiovascular Exam: Present: regular rate, normal rhythm, normal heart sounds. Absent: systolic murmur, diastolic murmur, rubs, gallop, clicks GI/Abdominal exam: Present: soft, normal bowel sounds. Absent: distended, tenderness, guarding, rebound, rigid Extremities exam: Present: normal inspection, full ROM, normal capillary refill. Absent: tenderness, pedal edema, joint swelling, calf tenderness Back exam: Present: normal inspection Neurological exam: Present: alert, CN II-XII intact Psychiatric exam: Present: other (abnormal thoughts/ideas. not suicidal or homicidal) Skin exam: Present: warm, dry, intact, normal color. Absent: rash Course Vital Signs 10/29/21 15:58 Temperature 98.2 F Pulse Rate 94 Respiratory 18 Rate Blood Pressure 136/77 O2 Sat by Pulse 99 Oximetry Medical Decision Making - Medical Decision Making Upon arrival patient was placed in room 14. A thorough history and physical exam is performed. Patient does provide a urine sample which demonstrates negative for . Results are discussed with the patient. We were going to obtain an EPS evaluation however the patient feels comfortable for discharge home at this time. She is not suicidal, homicidal or acutely manic the patient will be discharged home. Needs to follow up with her psychiatrist as directed and return for any new or worsening symptoms. - Lab Data Lab Results 10/29/21 10/29/21 Range/Units 16:45 16:45 Urine Color Light Yellow Urine Appearance Clear (Clear) Urine pH 7.5 (5.0-8.0) Ur Specific [place] 1.002 (1.001-1.035) Urine Protein Negative (Negative) Urine Glucose (UA) Negative (Negative) Urine Ketones Negative (Negative) Urine Blood Negative (Negative) Urine Nitrite Negative (Negative) Urine Bilirubin Negative (Negative) Urine Urobilinogen <2.0 (<2.0) mg/dL Ur Leukocyte Esterase Negative (Negative) Urine HCG, Qual Not Detected (Not Detectd) Disposition Clinical Impression: Schizophrenia Disposition: HOME SELF-CARE Condition: Stable Is patient prescribed a controlled substance at d/c from ED?: No Referrals: Nirali Valentin MD [Primary Care Provider] - 1-2 days Time of Disposition: 17:55
== END 2021-10-29 18:00 | disposition home or self-care (01) ==
LOC: EC 15:06
DX: F20.9 Schizophrenia, unspecified (principal); J45.909 Unspecified asthma, uncomplicated; I10 Essential (primary) hypertension; F17.200 Nicotine dependence, unspecified, uncomplicated
CPT/HCPCS: 81003; 81025; 99284

== ENCOUNTER 2021-12-17 13:39 | Emergency (ER) | payer OTHER ==
[2021-12-17 13:49] VITALS: BP 117/74; PULSE 72; RESP 18; TEMP 97.8
--- NOTE | 2021-12-17 14:15 | ED ---
General Adult HPI - General Chief complaint: Abdominal Pain Stated complaint: Rt Hip Pain Time Seen by Provider: 12/17/21 13:47 Source: patient, EMS, RN notes reviewed Mode of arrival: EMS Limitations: no limitations - History of Present Illness Initial comments: 31-year-old female presents emergency from chief complaint of right hip, low back pain. Patient states pains and off for over a month. Patient states worsening leg better at rest. Denies any bowel, bladder incontinence or retention of saddle anesthesias. Patient states that she has no dysuria no hematuria denies any chance states that she's had tubal ligation. Patient states pain is worse with movement better at rest. She has not follow- up with anybody. Patient states she's been taken Tylenol. Patient denies any recent falls no trauma. - Related Data Home Medications Medication Instructions Recorded Confirmed Benztropine Mesylate [Cogentin] 1 mg PO BID PRN 05/24/21 09/09/21 Previous Rx's Medication Instructions Recorded Nicotine 7Mg/24Hr Patch [Habitrol] 1 patch TRANSDERM DAILY 14 Days 09/12/21 patch OLANZapine [ZyPREXA] 15 mg PO HS 30 Days tab 09/12/21 Pantoprazole Sodium [Protonix] 40 mg PO DAILY@1700 30 Days tab 09/12/21 clonazePAM [KlonoPIN] 2 mg PO HS@2100 PRN 3 Days tab 09/12/21 fluPHENAZine decanoate [Prolixin 50 mg IM Q7D #1 ml 09/12/21 Decanoate] hydroCHLOROthiazide [Hydrodiuril] 12.5 mg PO DAILY@1700 30 Days cap 09/12/21 metFORMIN HCL [Glucophage] 1,000 mg PO DAILY@1700 30 Days tab 09/12/21 Cyclobenzaprine [Flexeril] 10 mg PO TID PRN #15 tab 12/17/21 predniSONE 50 mg PO DAILY #5 tab 12/17/21 Allergies Allergy/AdvReac Type Severity Reaction Status Date / Time ibuprofen [From Motrin] Allergy Rash/Hives Verified 12/17/21 13:49 NSAIDS (Non-Steroidal Allergy Unknown Verified 12/17/21 13:49 Anti-Inflamma pineapple Allergy Rash/Hives Verified 12/17/21 13:49 red dye Allergy Rash/Hives Verified 12/17/21 13:49 haloperidol [From Haldol] AdvReac Hallucinati Verified 12/17/21 13:49 ons Review of Systems ROS Statement: Those systems with pertinent positive or pertinent negative responses have been documented in the HPI. ROS Other: All systems not noted in ROS Statement are negative. Past Medical History Past Medical History: Asthma, Hypertension, Seizure Disorder Additional Past Medical History / Comment(s): last seizure was December 2018 per , tubal History of Any Multi-Drug Resistant Organisms: None Reported Past Surgical History: Section, Tonsillectomy, Tubal Ligation Additional Past Surgical History / Comment(s): facial surgery, 2 C-Sections Past Anesthesia/Blood Transfusion Reactions: No Reported Reaction Past Psychological History: Anxiety, Bipolar, Depression, Schizoaffective Disorder, Schizophrenia Smoking Status: Current every day smoker Past Alcohol Use History: None Reported Past Drug Use History: None Reported - Past Family History Father Family Medical History: Unable to Obtain Additional Family Medical History / Comment(s): Father is alive and may have diabetes. Mother Family Medical History: Thyroid Disorder Additional Family Medical History / Comment(s): Mother is alive at age 50 with thyroid disorder. Brother(s) Additional Family Medical History / Comment(s): Patient has 2 brothers and 2 sisters with no major medical problems. Patient has two sons that is healthy. General Exam Limitations: no limitations General appearance: alert, in no apparent distress Head exam: Present: atraumatic, normocephalic, normal inspection Respiratory exam: Present: normal lung sounds bilaterally. Absent: respiratory distress, wheezes, rales, rhonchi, stridor Cardiovascular Exam: Present: regular rate, normal rhythm, normal heart sounds. Absent: systolic murmur, diastolic murmur, rubs, gallop, clicks GI/Abdominal exam: Present: soft, normal bowel sounds. Absent: distended, tenderness, guarding, rebound, rigid Extremities exam: Present: normal inspection, full ROM, other (Lower extremity pulses equal bilaterally, equal color equal warmth ) Back exam: Present: full ROM, tenderness, paraspinal tenderness. Absent: vertebral tenderness Neurological exam: Present: alert, oriented X3, reflexes normal. Absent: motor sensory deficit Course Vital Signs 12/17/21 13:42 Temperature 97.8 F Pulse Rate 72 Respiratory 18 Rate Blood Pressure 117/74 O2 Sat by Pulse 99 Oximetry Medical Decision Making - Medical Decision Making 31-year-old presented for low back pain right hip pain seems to be related to sciatica. Patient has no red flag symptoms. Patient discharged in stable condition return parameters discussed. Disposition Clinical Impression: Lumbar radiculopathy Disposition: HOME SELF-CARE Condition: Stable Instructions (If sedation given, give patient instructions): Lumbar Radiculopathy (ED) Additional Instructions: Please return to the Emergency Department if symptoms worsen or any other concerns. Prescriptions: Cyclobenzaprine [Flexeril] 10 mg PO TID PRN #15 tab PRN Reason: Muscle Spasm predniSONE 50 mg PO DAILY #5 tab Is patient prescribed a controlled substance at d/c from ED?: No Referrals: Nirali Valentin MD [Primary Care Provider] - 1-2 days Time of Disposition: 14:15
== END 2021-12-17 14:30 | disposition home or self-care (01) ==
LOC: EC 13:39
DX: M54.16 Radiculopathy, lumbar region (principal); J45.909 Unspecified asthma, uncomplicated; I10 Essential (primary) hypertension; F41.9 Anxiety disorder, unspecified; F31.9 Bipolar disorder, unspecified; F17.200 Nicotine dependence, unspecified, uncomplicated; Z88.6 Allergy status to analgesic agent; Z91.018 Allergy to other foods; Z91.041 Radiographic dye allergy status; Z79.84 Long term (current) use of oral hypoglycemic drugs; Z79.899 Other long term (current) drug therapy
CPT/HCPCS: 99283; 96372; J3360

== ENCOUNTER 2022-07-10 09:42 | Emergency (ER) | payer OTHER ==
[2022-07-10 09:58] VITALS: BP 138/99; PULSE 78; RESP 18; TEMP 98.7
--- NOTE | 2022-07-10 10:55 | ED ---
General Adult HPI - General Chief complaint: Recheck/Abnormal Lab/Rx Stated complaint: abd pain Time Seen by Provider: 07/10/22 09:48 Source: patient, EMS, RN notes reviewed Mode of arrival: EMS Limitations: no limitations - History of Present Illness Initial comments: 32-year-old female presents emergency Department with chief complaint of stating that she is . Patient is well-known emergency from with this complaint. Patient had a prior tubal ligation. Patient states she had some urinary problems. Denies any nausea vomiting diarrhea constipation no fevers chills - Related Data Home Medications Medication Instructions Recorded Confirmed Atorvastatin [Lipitor] 10 mg PO HS 06/12/22 06/12/22 OLANZapine [ZyPREXA] 20 mg PO HS 06/12/22 06/12/22 Pantoprazole Sodium [Protonix] 40 mg PO DAILY 06/12/22 06/12/22 Mtz-Qqnd-Fviei Acid 1 cap PO DAILY 06/12/22 06/12/22 [-U Capsule (formulary)] clonazePAM [KlonoPIN] 1 mg PO HS 06/12/22 06/12/22 hydroCHLOROthiazide [Hydrodiuril] 12.5 mg PO DAILY 06/12/22 06/12/22 metFORMIN HCL [Glucophage] 1,000 mg PO DAILY 06/12/22 06/12/22 Previous Rx's Medication Instructions Recorded fluPHENAZine decanoate [Prolixin 50 mg IM Q7D #1 ml 09/12/21 Decanoate] Allergies Allergy/AdvReac Type Severity Reaction Status Date / Time ibuprofen [From Motrin] Allergy Rash/Hives Verified 07/10/22 09:58 NSAIDS (Non-Steroidal Allergy Unknown Verified 07/10/22 09:58 Anti-Inflamma pineapple Allergy Rash/Hives Verified 07/10/22 09:58 red dye Allergy Rash/Hives Verified 07/10/22 09:58 haloperidol [From Haldol] AdvReac Hallucinati Verified 07/10/22 09:58 ons Review of Systems ROS Statement: Those systems with pertinent positive or pertinent negative responses have been documented in the HPI. ROS Other: All systems not noted in ROS Statement are negative. Past Medical History Past Medical History: Asthma, Diabetes Mellitus, Hypertension, Seizure Disorder Additional Past Medical History / Comment(s): last seizure was December 2018 per , tubal History of Any Multi-Drug Resistant Organisms: None Reported Past Surgical History: Section, Tonsillectomy, Tubal Ligation Additional Past Surgical History / Comment(s): facial surgery, 2 C-Sections Past Anesthesia/Blood Transfusion Reactions: No Reported Reaction Past Psychological History: Anxiety, Bipolar, Depression, Schizoaffective Disorder, Schizophrenia Smoking Status: Current every day smoker Past Alcohol Use History: Occasional Past Drug Use History: Marijuana - Past Family History Father Family Medical History: Unable to Obtain Additional Family Medical History / Comment(s): Father is alive and may have diabetes. Mother Family Medical History: Thyroid Disorder Additional Family Medical History / Comment(s): Mother is alive at age 50 with thyroid disorder. Brother(s) Additional Family Medical History / Comment(s): Patient has 2 brothers and 2 sisters with no major medical problems. Patient has two sons that is healthy. General Exam Limitations: no limitations General appearance: alert, in no apparent distress Head exam: Present: atraumatic, normocephalic, normal inspection Eye exam: Present: normal appearance, PERRL, EOMI. Absent: scleral icterus, conjunctival injection, periorbital swelling ENT exam: Present: normal exam, mucous membranes moist Neck exam: Present: normal inspection, full ROM. Absent: tenderness, meningismus, lymphadenopathy Respiratory exam: Present: normal lung sounds bilaterally. Absent: respiratory distress, wheezes, rales, rhonchi, stridor Cardiovascular Exam: Present: regular rate, normal rhythm, normal heart sounds. Absent: systolic murmur, diastolic murmur, rubs, gallop, clicks GI/Abdominal exam: Present: soft, normal bowel sounds. Absent: distended, tenderness, guarding, rebound, rigid Course Vital Signs 07/10/22 09:50 Temperature 98.7 F Pulse Rate 78 Respiratory 18 Rate Blood Pressure 138/99 O2 Sat by Pulse 96 Oximetry Medical Decision Making - Medical Decision Making Was pt. sent in by a medical professional or institution (ERNESTO Woods, ELECTROLYSIS OPERATOR, urgent care, hospital, or long term...) When possible be specific @ -No Did you speak to anyone other than the patient for history (EMS, parent, family, police, friend...)? What history was obtained from this source @ -[EMS from prehospital care Did you review nursing and triage notes (agree or disagree)? Why? @ -I reviewed and agree with nursing and triage notes Were old charts reviewed (outside hosp., previous admission, EMS record, old EKG, old radiological studies, urgent care reports/EKG's, long term records)? Report findings @ -Reviewed past medical history and recent laboratory studies Differential Diagnosis (chest pain, altered mental status, abdominal pain women, abdominal pain men, vaginal bleeding, weakness, fever, dyspnea, syncope, headache, dizziness, GI bleed, back pain, seizure, CVA, palpatations, mental health, musculoskeletal)? @ -nDifferential Abdominal Pain Women: Appendicitis, Cholecystitis, diverticulosis, ischemic bowel, pancreatitis, hepatitis, UTI, gastroenteritis, AAA, incarcerated hernia, bowel obstruction, constipation, inflammatory bowel, hepatitis, peptic ulcer disease, splenic infar ction, perforated viscus, vulvitis, ovarian torsion, PID, kidney stone, placenta abruption, this is not meant to be an all-inclusive listable EKG interpreted by me (3pts min.). @ -None X-rays interpreted by me (1pt min.). @ -None done CT interpreted by me (1pt min.). @ -None done U/S interpreted by me (1pt. min.). @ -None done What testing was considered but not performed or refused? (CT, X-rays, U/S, labs)? Why? @ -None What meds were considered but not given or refused? Why? @ -None Did you discuss the management of the patient with other professionals (professionals i.e. , PA, ELECTROLYSIS OPERATOR, lab, RT, psych nurse, director social service, editing computer publisher, teacher, sergeant of officers, shoe caser)? Give summary @ -No Was smoking cessation discussed for >3mins.? @ -No Was critical care preformed (if so, how long)? @ -No Were there social determinants of health that impacted care today? How? (Homelessness, low income, unemployed, alcoholism, drug addiction, transportation, low edu. Level, literacy, decrease access to med. care, [facility], rehab)? @ -No Was there de-escalation of care discussed even if they declined (Discuss DNR or withdrawal of care, Hospice)? DNR status @ -No What co-morbidities impacted this encounter? (DM, HTN, Smoking, COPD, CAD, Cancer, CVA, ARF, Chemo, Hep., AIDS, mental health diagnosis, sleep apnea, morbid obesity)? @ -None Was patient admitted / discharged? Hospital course, mention meds given and route, prescriptions, significant lab abnormalities, going to OR and other pertinent info. @ -Discharged patient's became argumentative when updated on urinalysis results stated that she wanted to leave she wanted no further testing. Undiagnosed new problem with uncertain prognosis? @ -No Drug Therapy requiring intensive monitoring for toxicity (Heparin, Nitro, Insulin, Cardizem)? @ -No Were any procedures done? @ -No Diagnosis/symptom? @ -Abdominal pain Acute, or Chronic, or Acute on Chronic? @ -Acute Uncomplicated (without systemic symptoms) or Complicated (systemic symptoms)? @ -Uncomplicated Side effects of treatment? @ -No Exacerbation, Progression, or Severe Exacerbation? @ -No Poses a threat to life or bodily function? How? (Chest pain, [place], [place], pneumonia, PE, COPD, DKA, ARF, appy, cholecystitis, CVA, Diverticulitis, Homicidal, Suicidal, threat to staff... and all critical care pts) @ -No - Lab Data Lab Results 07/10/22 07/10/22 Range/Units 10:23 10:23 Urine Color Colorless Urine Appearance Clear (Clear) Urine pH 5.5 (5.0-8.0) Ur Specific [place] 1.002 (1.001-1.035) Urine Protein Negative (Negative) Urine Glucose (UA) Negative (Negative) Urine Ketones Negative (Negative) Urine Blood Negative (Negative) Urine Nitrite Negative (Negative) Urine Bilirubin Negative (Negative) Urine Urobilinogen <2.0 (<2.0) mg/dL Ur Leukocyte Esterase Negative (Negative) Urine HCG, Qual Not Detected (Not Detectd) Disposition Clinical Impression: Psychosis, test negative, Abdominal pain Disposition: HOME SELF-CARE Condition: Stable Additional Instructions: Please return to the Emergency Department if symptoms worsen or any other concerns. Is patient prescribed a controlled substance at d/c from ED?: No Referrals: Nirali Valentin MD [Primary Care Provider] - 1-2 days Time of Disposition: 10:55
[2022-07-10 13:08] LABS: Appearance,Urine Clear (Clear); Bilirubin,Urine Negative (Negative); Blood,Urine Negative (Negative); Color,Urine Colorless; Glucose,Urine (UA) Negative (Negative); Ketones,Urine Negative (Negative); Leukocyte Esterase,Urine Negative (Negative); Nitrite,Urine Negative (Negative); PH, Urine 5.5 (5.0-8.0); Protein,Urine Negative (Negative); Specific Gravity,Urine 1.002 (1.001-1.035); Urobilinogen,Urine <2.0 mg/dL (<2.0)
== END 2022-07-10 11:07 | disposition home or self-care (01) ==
LOC: EC 09:42
DX: F29 Unspecified psychosis not due to a substance or known physiological condition (principal); R10.9 Unspecified abdominal pain; Z32.02 Encounter for pregnancy test, result negative; I10 Essential (primary) hypertension; J45.909 Unspecified asthma, uncomplicated; E11.9 Type 2 diabetes mellitus without complications; F31.9 Bipolar disorder, unspecified; F41.9 Anxiety disorder, unspecified; F12.90 Cannabis use, unspecified, uncomplicated; F17.200 Nicotine dependence, unspecified, uncomplicated; Z79.899 Other long term (current) drug therapy; Z79.84 Long term (current) use of oral hypoglycemic drugs; Z88.6 Allergy status to analgesic agent; Z88.8 Allergy status to other drugs, medicaments and biological substances
CPT/HCPCS: 81003; 81025; 99284

== ENCOUNTER 2022-07-31 03:39 | Emergency (ER) | payer OTHER ==
[2022-07-31 03:46] VITALS: BP 132/77; PULSE 75; RESP 18; TEMP 98.2
[2022-07-31 04:39] LABS: Glucose,Whole Blood 113 mg/dL (70-110)
--- NOTE | 2022-07-31 04:40 | ED ---
General Adult HPI - General Chief complaint: Upper Respiratory Infection Stated complaint: sick Time Seen by Provider: 07/31/22 03:45 Source: patient, EMS Mode of arrival: EMS Limitations: no limitations - History of Present Illness Initial comments: 32-year-old female with past history of seizure disorder, asthma who presents to the emergency department stating that she doesn't feel well. She called EMS however would not provide them much history other than she didn't feel well. Patient arrives and states to me that she is concerned that she has bone marrow cancer. She reports that she is nauseated and has been unable to hold down any food. Patient has already eaten 2 sandwiches by the time I have evaluated the patient. She denies any vomiting. She has no chest pain or shortness of breath. No fevers. HPI is limited - Related Data Home Medications Medication Instructions Recorded Confirmed Atorvastatin [Lipitor] 10 mg PO HS 06/12/22 06/12/22 OLANZapine [ZyPREXA] 20 mg PO HS 06/12/22 06/12/22 Pantoprazole Sodium [Protonix] 40 mg PO DAILY 06/12/22 06/12/22 Unu-Eebx-Itdtb Acid 1 cap PO DAILY 06/12/22 06/12/22 [-U Capsule (formulary)] clonazePAM [KlonoPIN] 1 mg PO HS 06/12/22 06/12/22 hydroCHLOROthiazide [Hydrodiuril] 12.5 mg PO DAILY 06/12/22 06/12/22 metFORMIN HCL [Glucophage] 1,000 mg PO DAILY 06/12/22 06/12/22 Previous Rx's Medication Instructions Recorded fluPHENAZine decanoate [Prolixin 50 mg IM Q7D #1 ml 09/12/21 Decanoate] Allergies Allergy/AdvReac Type Severity Reaction Status Date / Time ibuprofen [From Motrin] Allergy Rash/Hives Verified 07/31/22 03:46 NSAIDS (Non-Steroidal Allergy Unknown Verified 07/31/22 03:46 Anti-Inflamma pineapple Allergy Rash/Hives Verified 07/31/22 03:46 red dye Allergy Rash/Hives Verified 07/31/22 03:46 haloperidol [From Haldol] AdvReac Hallucinati Verified 07/31/22 03:46 ons Review of Systems ROS Statement: Those systems with pertinent positive or pertinent negative responses have been documented in the HPI. ROS Other: All systems not noted in ROS Statement are negative. Past Medical History Past Medical History: Asthma, Diabetes Mellitus, Hypertension, Seizure Disorder Additional Past Medical History / Comment(s): last seizure was December 2018 per , tubal History of Any Multi-Drug Resistant Organisms: None Reported Past Surgical History: Section, Tonsillectomy, Tubal Ligation Additional Past Surgical History / Comment(s): facial surgery, 2 C-Sections Past Anesthesia/Blood Transfusion Reactions: No Reported Reaction Past Psychological History: Anxiety, Bipolar, Depression, Schizoaffective Disorder, Schizophrenia Smoking Status: Current every day smoker Past Alcohol Use History: Occasional Past Drug Use History: None Reported - Past Family History Father Family Medical History: Unable to Obtain Additional Family Medical History / Comment(s): Father is alive and may have diabetes. Mother Family Medical History: Thyroid Disorder Additional Family Medical History / Comment(s): Mother is alive at age 50 with thyroid disorder. Brother(s) Additional Family Medical History / Comment(s): Patient has 2 brothers and 2 sisters with no major medical problems. Patient has two sons that is healthy. General Exam Limitations: no limitations General appearance: alert, in no apparent distress Head exam: Present: atraumatic, normocephalic, normal inspection Eye exam: Present: normal appearance, PERRL, EOMI. Absent: scleral icterus, conjunctival injection, periorbital swelling ENT exam: Present: normal exam, mucous membranes moist Neck exam: Present: normal inspection. Absent: tenderness, meningismus, lymphadenopathy Respiratory exam: Present: normal lung sounds bilaterally. Absent: respiratory distress, wheezes, rales, rhonchi, stridor Cardiovascular Exam: Present: regular rate, normal rhythm, normal heart sounds. Absent: systolic murmur, diastolic murmur, rubs, gallop, clicks GI/Abdominal exam: Present: soft, normal bowel sounds. Absent: distended, tenderness, guarding, rebound, rigid Extremities exam: Present: normal inspection, full ROM, normal capillary refill. Absent: tenderness, pedal edema, joint swelling, calf tenderness Back exam: Present: normal inspection Neurological exam: Present: alert, oriented X3, CN II-XII intact Psychiatric exam: Present: normal affect, normal mood Skin exam: Present: warm, dry, intact, normal color. Absent: rash Course Vital Signs 06/20/23 03:44 Temperature 98.2 F Pulse Rate 75 Respiratory 18 Rate Blood Pressure 132/77 O2 Sat by Pulse 100 Oximetry Medical Decision Making - Medical Decision Making Was pt. sent in by a medical professional or institution (ERNESTO Woods, AGRICULTURAL RESEARCH DIRECTOR, urgent care, hospital, or alf...) When possible be specific @ -No Did you speak to anyone other than the patient for history (EMS, parent, family, police, friend...)? What history was obtained from this source @ -EMS Did you review nursing and triage notes (agree or disagree)? Why? @ -I reviewed and agree with nursing and triage notes Were old charts reviewed (outside hosp., previous admission, EMS record, old EKG, old radiological studies, urgent care reports/EKG's, alf records)? Report findings @ -No old charts were reviewed Differential Diagnosis (chest pain, altered mental status, abdominal pain women, abdominal pain men, vaginal bleeding, weakness, fever, dyspnea, syncope, headache, dizziness, GI bleed, back pain, seizure, CVA, palpatations, mental health, musculoskeletal)? @ -uri, hyperglycemia, hypoglycemia, dehydration EKG interpreted by me (3pts min.). @ -Not done X-rays interpreted by me (1pt min.). @ -None done CT interpreted by me (1pt min.). @ -None done U/S interpreted by me (1pt. min.). @ -None done What testing was considered but not performed or refused? (CT, X-rays, U/S, labs)? Why? @ -None What meds were considered but not given or refused? Why? @ -None Did you discuss the management of the patient with other professionals (professionals i.e. ERNESTO Woods, AGRICULTURAL RESEARCH DIRECTOR, lab, RT, psych nurse, social media sr strategy manager, agricultural research director, teacher, business development officer, residential case manager)? Give summary @ -No Was smoking cessation discussed for >3mins.? @ -No Was critical care preformed (if so, how long)? @ -No Were there social determinants of health that impacted care today? How? (Homelessness, low income, unemployed, alcoholism, drug addiction, transportation, low edu. Level, literacy, decrease access to med. care, [facility], rehab)? @ -No Was there de-escalation of care discussed even if they declined (Discuss DNR or withdrawal of care, Hospice)? DNR status @ -No What co-morbidities impacted this encounter? (DM, HTN, Smoking, COPD, CAD, Cancer, CVA, ARF, Chemo, Hep., AIDS, mental health diagnosis, sleep apnea, morbid obesity)? @ -None Was patient admitted / discharged? Hospital course, mention meds given and route, prescriptions, significant lab abnormalities, going to OR and other pertinent info. @ -Upon arrival patient was placed into room 11. Thorough history and physical exam was performed. Covid is performed as the patient is requesting this testing. Accu-Chek was performed. Viral swab is negative. Accu-Chek is 113. Patient is stable for discharge at this time. Told her to follow up with her doctor in 2-4 days Undiagnosed new problem with uncertain prognosis? @ -No Drug Therapy requiring intensive monitoring for toxicity (Heparin, Nitro, Insulin, Cardizem)? @ -No Were any procedures done? @ -No Diagnosis/symptom? @ -acute cough Acute, or Chronic, or Acute on Chronic? @ -acute Uncomplicated (without systemic symptoms) or Complicated (systemic symptoms)? @ -uncomplicated Side effects of treatment? @ -No Exacerbation, Progression, or Severe Exacerbation? @ -No Poses a threat to life or bodily function? How? (Chest pain, [place], [place], pneumonia, PE, COPD, DKA, ARF, appy, cholecystitis, CVA, Diverticulitis, Homicidal, Suicidal, threat to staff... and all critical care pts) @ -No - Lab Data Lab Results 07/31/22 07/31/22 Range/Units 03:56 04:37 POC Glucose (mg/dL) 113 H (70-110) mg/dL POC Glu [place] Tailer ID Marie Hummel Influenza Type A (PCR) Not Detected (Not Detectd) Influenza Type B (PCR) Not Detected (Not Detectd) RSV (PCR) Not Detected (Not Detectd) SARS-CoV-2 (PCR) Not Detected (Not Detectd) Disposition Clinical Impression: Nausea Disposition: HOME SELF-CARE Condition: Stable Instructions (If sedation given, give patient instructions): Normal Exam (ED) Is patient prescribed a controlled substance at d/c from ED?: No Referrals: None,Stated [Primary Care Provider] - 1-2 days Time of Disposition: 04:40
== END 2022-07-31 04:50 | disposition home or self-care (01) ==
LOC: EC 03:39
DX: R11.0 Nausea (principal); R05.9 Cough, unspecified; E11.9 Type 2 diabetes mellitus without complications; I10 Essential (primary) hypertension; J45.909 Unspecified asthma, uncomplicated; G40.909 Epilepsy, unspecified, not intractable, without status epilepticus; F25.9 Schizoaffective disorder, unspecified; F31.9 Bipolar disorder, unspecified; F17.200 Nicotine dependence, unspecified, uncomplicated; Z20.822 Contact with and (suspected) exposure to COVID-19; Z79.84 Long term (current) use of oral hypoglycemic drugs; Z88.6 Allergy status to analgesic agent; Z88.8 Allergy status to other drugs, medicaments and biological substances; Z91.018 Allergy to other foods
CPT/HCPCS: 36415; 87636; 99284

== ENCOUNTER 2022-08-07 21:14 | Emergency (ER) | payer OTHER ==
[2022-08-07 21:25] VITALS: BP 152/87; PULSE 106; RESP 20; TEMP 98.4
--- NOTE | 2022-08-07 23:23 | ED ---
Psych HPI - General Chief Complaint: Psychiatric Symptoms Stated Complaint: mental health Time Seen by Provider: 08/07/22 21:55 Source: patient, RN notes reviewed Mode of arrival: ambulatory Limitations: no limitations - History of Present Illness Initial Comments: This is a 32-year-old female who presents to the emergency department for psychiatric evaluation. Patient had called police stating that girls were stalking her, prompting them to bring her to the emergency department. It is unclear if there is any truth to these statements. However, she did come voluntarily. She does have a history of schizophrenia and is on multiple psychiatric medications and has a history of multiple hospitalizations. However, she has been very compliant with her medications and [facility] visits. Denies any suicidal or homicidal ideations. Denies any fevers, chills, sore throat, cough, dyspnea, chest pain, palpitations, abdominal pain, nausea, vomiting, diarrhea, back pain, or headaches. - Related Data Home Medications Medication Instructions Recorded Confirmed Atorvastatin [Lipitor] 10 mg PO HS 06/12/22 06/12/22 OLANZapine [ZyPREXA] 20 mg PO HS 06/12/22 06/12/22 Pantoprazole Sodium [Protonix] 40 mg PO DAILY 06/12/22 06/12/22 Dzk-Vqaw-Jxufc Acid 1 cap PO DAILY 06/12/22 06/12/22 [-U Capsule (formulary)] clonazePAM [KlonoPIN] 1 mg PO HS 06/12/22 06/12/22 hydroCHLOROthiazide [Hydrodiuril] 12.5 mg PO DAILY 06/12/22 06/12/22 metFORMIN HCL [Glucophage] 1,000 mg PO DAILY 06/12/22 06/12/22 Previous Rx's Medication Instructions Recorded fluPHENAZine decanoate [Prolixin 50 mg IM Q7D #1 ml 09/12/21 Decanoate] Allergies Allergy/AdvReac Type Severity Reaction Status Date / Time ibuprofen [From Motrin] Allergy Rash/Hives Verified 07/31/22 03:46 NSAIDS (Non-Steroidal Allergy Unknown Verified 07/31/22 03:46 Anti-Inflamma pineapple Allergy Rash/Hives Verified 07/31/22 03:46 red dye Allergy Rash/Hives Verified 07/31/22 03:46 haloperidol [From Haldol] AdvReac Hallucinati Verified 07/31/22 03:46 ons Review of Systems ROS Statement: Those systems with pertinent positive or pertinent negative responses have been documented in the HPI. ROS Other: All systems not noted in ROS Statement are negative. Past Medical History Past Medical History: Asthma, Diabetes Mellitus, Hypertension, Seizure Disorder Additional Past Medical History / Comment(s): last seizure was December 2018 per , tubal History of Any Multi-Drug Resistant Organisms: None Reported Past Surgical History: Section, Tonsillectomy, Tubal Ligation Additional Past Surgical History / Comment(s): facial surgery, 2 C-Sections Past Anesthesia/Blood Transfusion Reactions: No Reported Reaction Past Psychological History: Anxiety, Bipolar, Depression, Schizoaffective Disorder, Schizophrenia Smoking Status: Current every day smoker Past Alcohol Use History: Occasional Past Drug Use History: None Reported - Past Family History Father Family Medical History: Unable to Obtain Additional Family Medical History / Comment(s): Father is alive and may have diabetes. Mother Family Medical History: Thyroid Disorder Additional Family Medical History / Comment(s): Mother is alive at age 50 with thyroid disorder. Brother(s) Additional Family Medical History / Comment(s): Patient has 2 brothers and 2 sisters with no major medical problems. Patient has two sons that is healthy. General Exam Limitations: no limitations General appearance: alert, in no apparent distress Head exam: Present: atraumatic, normocephalic, normal inspection Respiratory exam: Present: normal lung sounds bilaterally. Absent: respiratory distress, wheezes, rales, rhonchi, stridor Cardiovascular Exam: Present: regular rate, normal rhythm, normal heart sounds. Absent: systolic murmur, diastolic murmur, rubs, gallop, clicks Neurological exam: Present: alert, oriented X3, CN II-XII intact Psychiatric exam: Present: normal affect, normal mood. Absent: homicidal ideation, suicidal ideation Skin exam: Present: warm, dry, intact, normal color. Absent: rash Course Vital Signs 08/07/22 21:23 Temperature 98.4 F Pulse Rate 106 H Respiratory 20 Rate Blood Pressure 152/87 O2 Sat by Pulse 99 Oximetry Medical Decision Making - Medical Decision Making This is a 32 year old female who presents to the emergency department for psychiatric evaluation. Was pt. sent in by a medical professional or institution? @ -No Did you speak to anyone other than the patient for history? @ -No Did you review nursing and triage notes? @ -Yes, and I agree, it is accurate with regards to the patient's symptoms. Were old charts reviewed? @ -No Differential Diagnosis? @ -Differential Mental Health Depression, anxiety, bipolar, psychosis, schizophrenia, borderline personality, situational depression, adjustment disorder, behavioral disorder, brain tumor, malingering, substance abuse, encephalopathy, medication reaction, dementia, hypothyroidism, degenerative neurologic disorder, lupus.... This is not meant to be all-inclusive list EKG interpreted by me (3pts min.)? @ -Not obtained X-rays interpreted by me (1pt min.)? @ -Not obtained CT interpreted by me (1pt min.)? @ -Not obtained U/S interpreted by me (1pt. min.)? @ -Not obtained What testing was considered but not performed? (CT, X-rays, U/S, labs)? Why? @ -None What meds were considered but not given? Why? @ -None Did you discuss the management of the patient with other professionals? @ -Yes, EPS, who determined the patient to be safe for discharge home. Did you reconcile home meds? @ -No Was smoking cessation discussed for >3mins.? @ -No Was critical care preformed (if so, how long)? @ -No Were there social determinants of health that impacted care today? How? (Homelessness, low income, unemployed, alcoholism, drug addiction, transpor tation, low edu. Level, literacy, decrease access to med. care, [facility], rehab)? @ -No Was there de-escalation of care discussed even if they declined? (Discuss DNR or withdrawal of care, Hospice)? @ -No What co-morbidities impacted this encounter? (DM, HTN, Smoking, COPD, CAD, Cancer, CVA, Hep., AIDS, mental health diagnosis, sleep apnea, morbid obesity)? @ -Schizophrenia Was patient admitted / discharged? @ -Discharged. Patient's BAT was 0 and she was cleared for EPS evaluation. EPS determined the patient to be safe for discharge home. While it is unclear if her statements of girls stalking her are truthful or not, she is currently at her baseline per EPS. She is also compliant with medications and [facility] follow-up visits. A safety plan was created and the patient was discharged home in stable condition. Undiagnosed new problem with uncertain prognosis? @ -None Drug Therapy requiring intensive monitoring for toxicity (Heparin, Nitro, Insulin, Cardizem)? @ -None Were any procedures done? @ -None Diagnosis/symptom? @ -Schizophrenia Acute, or Chronic, or Acute on Chronic? @ -Chronic Uncomplicated (without systemic symptoms) or Complicated (systemic symptoms)? @ -Uncomplicated Side effects of treatment? @ -None Exacerbation, Progression, or Severe Exacerbation] @ -Stable Poses a threat to life or bodily function? @ -No Return precautions reviewed in depth, the patient is instructed to return to the emergency department with any new, worsening, or concerning symptoms. Patient verbalized understanding. This case was discussed in detail with the attending ED physician, Dr. Mancilla. Presentation, findings, and treatment plan discussed in detail as well. - Lab Data Lab Results 08/07/22 Range/Units 23:34 Urine Opiates Screen Not Detected (NotDetected) Ur Oxycodone Screen Not Detected (NotDetected) Urine Methadone Screen Not Detected (NotDetected) Ur Propoxyphene Screen Not Detected (NotDetected) Ur Barbiturates Screen Not Detected (NotDetected) U Tricyclic Antidepress Detected H (NotDetected) Ur Phencyclidine Scrn Not Detected (NotDetected) Ur Amphetamines Screen Not Detected (NotDetected) U Methamphetamines Scrn Not Detected (NotDetected) U Benzodiazepines Scrn Not Detected (NotDetected) Urine Cocaine Screen Not Detected (NotDetected) U Marijuana (THC) Screen Not Detected (NotDetected) Disposition Clinical Impression: Chronic schizophrenia Disposition: HOME SELF-CARE Condition: Stable Instructions (If sedation given, give patient instructions): Schizophrenia (ED) Additional Instructions: Return to the emergency department with any new, worsening, or concerning symptoms. Follow up with your primary care provider in 1-2 days. Is patient prescribed a controlled substance at d/c from ED?: No Referrals: None,Stated [Primary Care Provider] - 1-2 days
[2022-08-07 23:59] LABS: Amphetamine Screen,Urine Not Detected (NotDetected); Barbiturate Screen,Urine Not Detected (NotDetected); Benzodiazepines Screen,Urine Not Detected (NotDetected); Cocaine Screen,Urine Not Detected (NotDetected); Methadone Screen, Urine Not Detected (NotDetected); Opiate Screen,Urine Not Detected (NotDetected); Oxycodone Screen, Urine Not Detected (NotDetected); Phencyclidine Screen,Urine Not Detected (NotDetected); Tricyclic Antidepressant,Urine Detected (NotDetected); Urn Cannabinoid Scrn Not Detected (NotDetected)
[2022-08-08] MEDS ORDERED: ACETAMINOPHEN TAB 325 MG TAB PO STA (00:06)
== END 2022-08-08 03:56 | disposition home or self-care (01) ==
LOC: EC 21:14
DX: F20.9 Schizophrenia, unspecified (principal); J45.909 Unspecified asthma, uncomplicated; E11.9 Type 2 diabetes mellitus without complications; I10 Essential (primary) hypertension; F41.9 Anxiety disorder, unspecified; F31.9 Bipolar disorder, unspecified; F17.200 Nicotine dependence, unspecified, uncomplicated; Z88.6 Allergy status to analgesic agent; Z91.018 Allergy to other foods; Z88.8 Allergy status to other drugs, medicaments and biological substances; Z79.84 Long term (current) use of oral hypoglycemic drugs; Z79.899 Other long term (current) drug therapy
CPT/HCPCS: 80306; 82075; 99285

== ENCOUNTER 2022-08-18 12:08 | Inpatient (IN) | payer MEDICAID, OTHER ==
--- NOTE | 2022-08-18 13:15 | ED ---
General Adult HPI - General Chief complaint: Psychiatric Symptoms Stated complaint: Mental Health Time Seen by Provider: 08/18/22 12:18 Source: patient, EMS, RN notes reviewed Mode of arrival: EMS Limitations: altered mental status - History of Present Illness Initial comments: Patient is a pleasant 32-year-old female presenting to the emergency department with concerns with hallucinations. Patient states the blood from her food was talking to her and it made her upset. Patient states she's been off her medications for months. Patient has not been sleeping well and did not sleep at all last night. No suicidal or homicidal thoughts. Patient believes she drink alcohol this morning. - Related Data Home Medications Medication Instructions Recorded Confirmed Atorvastatin [Lipitor] 10 mg PO HS 06/12/22 08/18/22 Pantoprazole Sodium [Protonix] 40 mg PO DAILY 06/12/22 08/18/22 hydroCHLOROthiazide [Hydrodiuril] 12.5 mg PO DAILY 06/12/22 08/18/22 metFORMIN HCL [Glucophage] 1,000 mg PO DAILY 06/12/22 08/18/22 Orphenadrine [Norflex] 100 mg PO DIRECTED 08/18/22 08/18/22 QUEtiapine [SEROquel] 200 mg PO DAILY@1800 08/18/22 08/18/22 fluPHENAZine decanoate [Prolixin 50 mg IM FR 08/18/22 08/18/22 Decanoate] Allergies Allergy/AdvReac Type Severity Reaction Status Date / Time ibuprofen [From Motrin] Allergy Rash/Hives Verified 08/18/22 12:26 NSAIDS (Non-Steroidal Allergy Unknown Verified 08/18/22 12:26 Anti-Inflamma pineapple Allergy Anaphylaxis Verified 08/18/22 12:26 red dye Allergy Rash/Hives Verified 08/18/22 12:26 haloperidol [From Haldol] AdvReac Hallucinati Verified 08/18/22 12:26 ons Review of Systems ROS Statement: Those systems with pertinent positive or pertinent negative responses have been documented in the HPI. ROS Other: All systems not noted in ROS Statement are negative. Constitutional: Denies: fever Eyes: Denies: eye pain ENT: Denies: ear pain Respiratory: Denies: cough, dyspnea Cardiovascular: Denies: chest pain Endocrine: Denies: fatigue Gastrointestinal: Denies: abdominal pain Psychiatric: Reports: as per HPI, visual hallucinations. Denies: homicidal thoughts, suicidal thoughts Past Medical History Past Medical History: Asthma, Diabetes Mellitus, Hypertension, Seizure Disorder Additional Past Medical History / Comment(s): last seizure was December 2018 per , tubal History of Any Multi-Drug Resistant Organisms: None Reported Past Surgical History: Section, Tonsillectomy, Tubal Ligation Additional Past Surgical History / Comment(s): facial surgery, 2 C-Sections Past Anesthesia/Blood Transfusion Reactions: No Reported Reaction Past Psychological History: Anxiety, Bipolar, Depression, Schizoaffective Disorder, Schizophrenia Smoking Status: Current every day smoker Past Alcohol Use History: Occasional Past Drug Use History: None Reported - Past Family History Father Family Medical History: Unable to Obtain Additional Family Medical History / Comment(s): Father is alive and may have diabetes. Mother Family Medical History: Thyroid Disorder Additional Family Medical History / Comment(s): Mother is alive at age 50 with thyroid disorder. Brother(s) Additional Family Medical History / Comment(s): Patient has 2 brothers and 2 sisters with no major medical problems. Patient has two sons that is healthy. General Exam Limitations: altered mental status General appearance: alert, in no apparent distress Head exam: Present: atraumatic Eye exam: Present: normal appearance Neck exam: Present: normal inspection Respiratory exam: Present: normal lung sounds bilaterally Cardiovascular Exam: Present: regular rate, normal rhythm GI/Abdominal exam: Present: soft. Absent: tenderness Extremities exam: Present: normal inspection, full ROM. Absent: tenderness Neurological exam: Present: alert Psychiatric exam: Present: normal affect, normal mood Skin exam: Present: normal color Course Vital Signs 08/18/22 12:14 Temperature 98.7 F Pulse Rate 73 Respiratory 18 Rate Blood Pressure 146/94 O2 Sat by Pulse 96 Oximetry Medical Decision Making - Medical Decision Making Was pt. sent in by a medical professional or institution (, PA, MEDICAL REIMBURSEMENT MANAGER, urgent care, hospital, or assisted...) When possible be specific @ -No Did you speak to anyone other than the patient for history (EMS, parent, family, police, friend...)? What history was obtained from this source @ -No Did you review nursing and triage notes (agree or disagree)? Why? @ -I reviewed and agree with nursing and triage notes Were old charts reviewed (outside hosp., previous admission, EMS record, old EKG, old radiological studies, urgent care reports/EKG's, assisted records)? Report findings @ -No old charts were reviewed Differential Diagnosis (chest pain, altered mental status, abdominal pain women, abdominal pain men, vaginal bleeding, weakness, fever, dyspnea, syncope, headache, dizziness, GI bleed, back pain, seizure, CVA, palpatations, mental health, musculoskeletal)? @ -Differential Mental Health Depression, anxiety, bipolar, psychosis, schizophrenia, borderline personality, situational depression, adjustment disorder, behavioral disorder, brain tumor, malingering, substance abuse, encephalopathy, medication reaction, dementia, hypothyroidism, degenerative neurologic disorder, lupus.... This is not meant to be all-inclusive list EKG interpreted by me (3pts min.). @ -As above X-rays interpreted by me (1pt min.). @ -None done CT interpreted by me (1pt min.). @ -None done U/S interpreted by me (1pt. min.). @ -None done What testing was considered but not performed or refused? (CT, X-rays, U/S, labs)? Why? @ -None What meds were considered but not given or refused? Why? @ -None Did you discuss the management of the patient with other professionals (professionals i.e. , PA, MEDICAL REIMBURSEMENT MANAGER, lab, RT, psych nurse, child protective services social worker, ribbon hanking machine operator, teacher, licensed loan officer assistant, rn case manager hospice)? Give summary @ -Case was discussed with mental health nurse will have patient admitted Was smoking cessation discussed for >3mins.? @ -No Was critical care preformed (if so, how long)? @ -No Were there social determinants of health that impacted care today? How? (Homelessness, low income, unemployed, alcoholism, drug addiction, clemente sportation, low edu. Level, literacy, decrease access to med. care, f[facility], rehab)? @ -No Was there de-escalation of care discussed even if they declined (Discuss DNR or withdrawal of care, Hospice)? DNR status @ -No What co-morbidities impacted this encounter? (DM, HTN, Smoking, COPD, CAD, Cancer, CVA, ARF, Chemo, Hep., AIDS, mental health diagnosis, sleep apnea, morbid obesity)? @ -None Was patient admitted / discharged? Hospital course, mention meds given and route, prescriptions, significant lab abnormalities, going to OR and other pertinent info. @ -Patient will be admitted for psychiatric care. Positive clinical certificate is completed. Undiagnosed new problem with uncertain prognosis? @ -No Drug Therapy requiring intensive monitoring for toxicity (Heparin, Nitro, Insulin, Cardizem)? @ -No Were any procedures done? @ -No Diagnosis/symptom? @ -Acute psychosis Acute, or Chronic, or Acute on Chronic? @ -Acute on chronic Uncomplicated (without systemic symptoms) or Complicated (systemic symptoms)? @ -default Side effects of treatment? @ -No Exacerbation, Progression, or Severe Exacerbation? @ -No Poses a threat to life or bodily function? How? (Chest pain, [place], [place], pneumonia, PE, COPD, DKA, ARF, appy, cholecystitis, CVA, Diverticulitis, Homicidal, Suicidal, threat to staff... and all critical care pts) @ -No Disposition Clinical Impression: Psychosis Disposition: TRANSFER TO PSYCH HOSP/UNIT Is patient prescribed a controlled substance at d/c from ED?: No Referrals: Nirali Valentin MD [Primary Care Provider] - 1-2 days Time of Disposition: 14:42
[2022-08-18] MEDS ORDERED: MAGNESIUM HYDROXIDE 2,400 MG/30 ML CUP PO PRN (15:00)
[2022-08-18] MEDS ORDERED: LORazepam 2 MG/ML INJ IM PRN (15:11)
[2022-08-18] MEDS ORDERED: NON FORMULARY DRUG (Orphenadrine 100 MG Tablet) PO SCH (15:15)
[2022-08-18] MEDS: QUEtiapine 100 MG TAB PO SCH (18:33)
[2022-08-18] MEDS: ATORVASTATIN 10 MG TAB PO SCH (20:58)
[2022-08-18] MEDS: LORazepam 1 MG TAB PO PRN (20:58)
[2022-08-19 01:31] LABS: Appearance,Urine Clear (Clear); Bilirubin,Urine Negative (Negative); Blood,Urine Negative (Negative); Color,Urine Colorless; Glucose,Urine (UA) Negative (Negative); Ketones,Urine Negative (Negative); Leukocyte Esterase,Urine Negative (Negative); Nitrite,Urine Negative (Negative); Protein,Urine Negative (Negative); Specific Gravity,Urine 1.001 (1.001-1.035); Urobilinogen,Urine <2.0 mg/dL (<2.0)
[2022-08-19 01:49] LABS: Amphetamine Screen,Urine Not Detected (NotDetected); Barbiturate Screen,Urine Not Detected (NotDetected); Benzodiazepines Screen,Urine Not Detected (NotDetected); Cocaine Screen,Urine Not Detected (NotDetected); Methadone Screen, Urine Not Detected (NotDetected); Opiate Screen,Urine Not Detected (NotDetected); Oxycodone Screen, Urine Not Detected (NotDetected); Phencyclidine Screen,Urine Not Detected (NotDetected); Tricyclic Antidepressant,Urine Detected (NotDetected); Urn Cannabinoid Scrn Not Detected (NotDetected)
[2022-08-19] MEDS ORDERED: flUPHENAZine 2.5 MG/ML (MDV) 10 ML VIAL IM PRN (07:59)
[2022-08-19 08:39] LABS: HCT 35.8 % (34.0-46.0); HGB 11.4 gm/dL (11.4-16.0); Hypochromasia Slight; MCHC 31.9 g/dL (31.0-37.0); MCV 90.9 fL (80.0-100.0); Mean Platelet Volume 8.8; Platelet Count 195 k/uL (150-450); RBC 3.94 m/uL (3.80-5.40); RDW 14.9 % (11.5-15.5); WBC 5.9 k/uL (3.8-10.6)
[2022-08-19 08:49] LABS: ALT 20 U/L (4-34); AST 22 U/L (14-36); African American GFR (CKD) >90 (>60 ml/min/1.73 sqM); Albumin 3.8 g/dL (3.5-5.0); Alkaline Phosphatase 72 U/L (38-126); Anion Gap 8 mmol/L; Blood Urea Nitrogen 6 mg/dL (7-17); Calcium 9.1 mg/dL (8.4-10.2); Carbon Dioxide 27 mmol/L (22-30); Chloride 105 mmol/L (98-107); Glucose 108 mg/dL (74-99); Non-African American GFR(CKD) >90 (>60 ml/min/1.73 sqM); Potassium 4.5 mmol/L (3.5-5.1); Sodium 140 mmol/L (137-145); Total Bilirubin 0.3 mg/dL (0.2-1.3); Total Protein 7.2 g/dL (6.3-8.2)
[2022-08-19] MEDS ORDERED: LORazepam 1 MG TAB PO PRN (09:30)
[2022-08-19] MEDS ORDERED: LORazepam 0.5 MG TAB PO PRN (09:30)
[2022-08-19] MEDS: PANTOPRAZOLE 40 MG TABLET PO SCH (09:38)
[2022-08-19] MEDS: metFORMIN 500 MG TAB PO SCH (09:38)
[2022-08-19] MEDS: hydroCHLOROthiazide 12.5 MG CAP PO SCH (09:38)
--- NOTE | 2022-08-19 10:09 | P.HP ---
Psychiatric H&P - . History & Physical: Allergies Allergy/AdvReac Type Severity Reaction Status Date / Time ibuprofen [From Motrin] Allergy Rash/Hives Verified 08/18/22 16:53 NSAIDS (Non-Steroidal Allergy Unknown Verified 08/18/22 16:53 Anti-Inflamma pineapple Allergy Anaphylaxis Verified 08/18/22 16:53 red dye Allergy Rash/Hives Verified 08/18/22 16:53 haloperidol [From Haldol] AdvReac Hallucinati Verified 08/18/22 16:53 ons Vital Signs Temp 98.0 F 08/18/22 23:54 Pulse 110 H 08/18/22 23:54 Resp 17 08/18/22 23:54 BP 125/79 08/18/22 23:54 Pulse Ox 98 08/18/22 23:54 FiO2 Intake & Output 08/18/22 08/19/22 08/19/22 18:59 06:59 18:59 Weight 88.451 kg 105.4 kg Laboratory Last Values WBC 5.9 k/uL (3.8-10.6) 08/19/22 07:51 RBC 3.94 m/uL (3.80-5.40) 08/19/22 07:51 Hgb 11.4 gm/dL (11.4-16.0) 08/19/22 07:51 Hct 35.8 % (34.0-46.0) 08/19/22 07:51 MCV 90.9 fL (80.0-100.0) 08/19/22 07:51 MCH 29.0 pg (25.0-35.0) 08/19/22 07:51 MCHC 31.9 g/dL (31.0-37.0) 08/19/22 07:51 RDW 14.9 % (11.5-15.5) 08/19/22 07:51 Plt Count 195 k/uL (150-450) 08/19/22 07:51 MPV 8.8 08/19/22 07:51 Hypochromasia Slight 08/19/22 07:51 Sodium 140 mmol/L (137-145) 08/19/22 07:51 Potassium 4.5 mmol/L (3.5-5.1) 08/19/22 07:51 Chloride 105 mmol/L (98-107) 08/19/22 07:51 Carbon Dioxide 27 mmol/L (22-30) 08/19/22 07:51 Anion Gap 8 mmol/L 08/19/22 07:51 BUN 6 mg/dL (7-17) L 08/19/22 07:51 Creatinine 0.63 mg/dL (0.52-1.04) 08/19/22 07:51 Est GFR (CKD-EPI)AfAm >90 (>60 ml/min/1.73 sqM) 08/19/22 07:51 Est GFR (CKD-EPI)NonAf >90 (>60 ml/min/1.73 sqM) 08/19/22 07:51 Glucose 108 mg/dL (74-99) H 08/19/22 07:51 Calcium 9.1 mg/dL (8.4-10.2) 08/19/22 07:51 Total Bilirubin 0.3 mg/dL (0.2-1.3) 08/19/22 07:51 AST 22 U/L (14-36) 08/19/22 07:51 ALT 20 U/L (4-34) 08/19/22 07:51 Alkaline Phosphatase 72 U/L (38-126) 08/19/22 07:51 Total Protein 7.2 g/dL (6.3-8.2) 08/19/22 07:51 Albumin 3.8 g/dL (3.5-5.0) 08/19/22 07:51 TSH 2.750 mIU/L (0.465-4.680) 08/19/22 07:51 Urine Color Colorless 08/19/22 01:08 Urine Appearance Clear (Clear) 08/19/22 01:08 Urine pH 6.0 (5.0-8.0) 08/19/22 01:08 Ur Specific Nash 1.001 (1.001-1.035) 08/19/22 01:08 Urine Protein Negative (Negative) 08/19/22 01:08 Urine Glucose (UA) Negative (Negative) 08/19/22 01:08 Urine Ketones Negative (Negative) 08/19/22 01:08 Urine Blood Negative (Negative) 08/19/22 01:08 Urine Nitrite Negative (Negative) 08/19/22 01:08 Urine Bilirubin Negative (Negative) 08/19/22 01:08 Urine Urobilinogen <2.0 mg/dL (<2.0) 08/19/22 01:08 Ur Leukocyte Esterase Negative (Negative) 08/19/22 01:08 Urine HCG, Qual Not Detected (Not Detectd) 08/19/22 01:08 Urine Opiates Screen Not Detected (NotDetected) 08/19/22 01:08 Ur Oxycodone Screen Not Detected (NotDetected) 08/19/22 01:08 Urine Methadone Screen Not Detected (NotDetected) 08/19/22 01:08 Ur Propoxyphene Screen Not Detected (NotDetected) 08/19/22 01:08 Ur Barbiturates Screen Not Detected (NotDetected) 08/19/22 01:08 U Tricyclic Antidepress Detected (NotDetected) H 08/19/22 01:08 Ur Phencyclidine Scrn Not Detected (NotDetected) 08/19/22 01:08 Ur Amphetamines Screen Not Detected (NotDetected) 08/19/22 01:08 U Methamphetamines Scrn Not Detected (NotDetected) 08/19/22 01:08 U Benzodiazepines Scrn Not Detected (NotDetected) 08/19/22 01:08 Urine Cocaine Screen Not Detected (NotDetected) 08/19/22 01:08 U Marijuana (THC) Screen Not Detected (NotDetected) 08/19/22 01:08 Coronavirus (PCR) Not Detected (Not Detectd) 08/18/22 14:26 08/19/22 10:05 IDENTIFYING DATA: Patient is a 33-year-old unemployed -[place] female with his history of schizophrenia who lives by herself is admitted for psychosis HPI: Per chart, patient has had hallucinations due to medication noncompliance. Patient was seen in her room today. She reports paranoia for the past few months and that she has not been taking her Seroquel. She does state compliance with her Prolixin Decanoate shot and states that she got her shot 2 days ago. Patient denies any suicidal or homicidal ideations intent or plan. At this time patient denies any auditory or visual hallucinations. Patient denies any flight of ideas racing thoughts and increased in goal directed behavior. Patient admits to occasionally drinking alcohol. She states that she drank 1 pint yesterday. She denies any withdrawal symptoms. She also states that she used a small amount of marijuana. States that she "sometimes" smokes 5 cigarettes per day. Denies any other drug use. PAST PSYCHIATRIC HISTORY: h/o schizophrenia, multiple admissions, last admission in september for psychosis, was discharged on prolixin D and Zyprexa, currently on seroquel 200 mg qhs and prolixin D 50 mg - last shot 2 days ago. past meds: klonopin, buspar, Seroquel, Lamictal, li, Zoloft, melatonin PMH:asthma, DM, htn, seizures, facial surg, 2 c sections, tubal ligation ALLERGIES: as per EMR CHEMICAL DEPENDENCY HISTORY: as per HPI SOCIAL HISTORY: Lives by herself, got off probation a few months ago for assault, unemployed MENTAL STATUS EXAM: General Appearance: Patient appears to be older than stated age is alert, [direc table, and attempts to cooperate]. Obese. Behavior: Calm, cooperative Speech: Patient's speech is [fluent and nonpressured.] Mood/Affect: Patient reports their mood is "calm", affect is congruent and constricted. Suicidality/Homicidality: Patient denies having any homicidal ideation intent or plan. [Denies any suicidal ideations intent or plan] Perceptions: Patient denies any visual hallucinations [and denies any auditory hallucinations] Though content/process: Reports paranoia Memory and concentration: AOX3, grossly intact for the purposes of this session Judgment and insight: [poor] STRENGTHS/WEAKNESSES: strength is that patient is [resilient]. Weakness is that patient [has poor judgment and is impulsive] INTELLECT: [average] IMPRESSIONS: Schizophrenia Alcohol use disorder PLAN: -Patient is admitted under [voluntary] status to [facility]HU for stabilization of psychiatric symptoms and safety. -Medications : Will start patient on seroqul 200 mg qhs, on Prolixin D 50 mg last shot 2 days ago -Ativan [and Haldol] PRN for agitation/aggression [-Started thiamine, MVM for etoh use] [-CIWA protocol with Ativan PRN for ETOH withdrawal] [-Patient was counselled on substance abuse and desired to cut back on use] -Patient was informed of the risks, benefits and side effects of the medication and patient verbally consented to taking the medications. -Internal Medicine consult to perform medical evaluation and physical. -NRT - [nicotine patch and gum -SW on board for discharge planning. Encourage patient to participate in groups to work on coping skills. []
[2022-08-19] MEDS: MAG HYDROX/AL HYDROX/SIMETH 30 ML CUP PO PRN (10:43)
[2022-08-19] MEDS: NICOTINE GUM (POLACRILEX) 2 MG GUM BUCCAL PRN ×2 (10:43→18:28)
[2022-08-19 13:47] LABS: Chol/HDL Ratio 3.02 Ratio; LDL Cholesterol,Calculated 88.9 mg/dL (0.0-131.0); VLDL Calculation 12.78 mg/dL (5.00-40.00)
--- NOTE | 2022-08-19 16:53 | P.CONS ---
History of Present Illness - Reason for Consult Consult date: 08/19/22 Medical management - Chief Complaint Hallucinations - History of Present Illness 32-year-old female, history of hypertension, hyperlipidemia, diabetes mellitus presenting to the emergency department with concerns with hallucinations. Patient states the blood from her food was talking to her and it made her upset. Patient states she's been off her medications for months. Patient has not been sleeping well and did not sleep at all last night. No suicidal or homicidal thoughts. Patient believes she drink alcohol this morning. Review of Systems REVIEW OF SYSTEMS: CONSTITUTIONAL: No fever, no malaise, no fatigue. HEENT: No recent visual problems or hearing problems. Denied any sore throat. CARDIOVASCULAR: No chest pain, orthopnea, PND, no palpitations, no syncope. PULMONARY: No shortness of breath, no cough, no hemoptysis. GASTROINTESTINAL: No diarrhea, no nausea, no vomiting, no abdominal pain. NEUROLOGICAL: No headaches, no weakness, no numbness. HEMATOLOGICAL: Denies any bleeding or petechiae. GENITOURINARY: Denies any burning micturition, frequency, or urgency. MUSCULOSKELETAL/RHEUMATOLOGICAL: Denies any joint pain, swelling, or any muscle pain. ENDOCRINE: Denies any polyuria or polydipsia. The rest of the 14-point review of systems is negative. Past Medical History Past Medical History: Asthma, Diabetes Mellitus, Hypertension, Seizure Disorder Additional Past Medical History / Comment(s): last seizure was December 2018 per , tubal History of Any Multi-Drug Resistant Organisms: None Reported Past Surgical History: Section, Tonsillectomy, Tubal Ligation Additional Past Surgical History / Comment(s): facial surgery, 2 C-Sections Past Anesthesia/Blood Transfusion Reactions: No Reported Reaction Past Psychological History: Anxiety, Bipolar, Depression, Schizoaffective Disorder, Schizophrenia Additional Psychological History / Comment(s): pt states that before this [facility] pt had been in this [facility] and [facility] multiple time Smoking Status: Current every day smoker, Former smoker Past Alcohol Use History: Occasional Additional Past Alcohol Use History / Comment(s): Patient denies any alcohol use Past Drug Use History: None Reported Additional Drug Use History / Comment(s): Pt states that she has not smoked MJ in "years". - Past Family History Father Family Medical History: Unable to Obtain Additional Family Medical History / Comment(s): Father is alive and may have diabetes. Mother Family Medical History: Thyroid Disorder Additional Family Medical History / Comment(s): Mother is alive at age 50 with thyroid disorder. Brother(s) Additional Family Medical History / Comment(s): Patient has 2 brothers and 2 sisters with no major medical problems. Patient has two sons that is healthy. Medications and Allergies Home Medications Medication Instructions Recorded Confirmed Type Atorvastatin [Lipitor] 10 mg PO HS 06/12/22 08/18/22 History Pantoprazole Sodium [Protonix] 40 mg PO DAILY 06/12/22 08/18/22 History hydroCHLOROthiazide [Hydrodiuril] 12.5 mg PO DAILY 06/12/22 08/18/22 History metFORMIN HCL [Glucophage] 1,000 mg PO DAILY 06/12/22 08/18/22 History Orphenadrine [Norflex] 100 mg PO DIRECTED 08/18/22 08/18/22 History QUEtiapine [SEROquel] 200 mg PO DAILY@1800 08/18/22 08/18/22 History fluPHENAZine decanoate [Prolixin 50 mg IM FR 08/18/22 08/18/22 History Decanoate] Allergies Allergy/AdvReac Type Severity Reaction Status Date / Time ibuprofen [From Motrin] Allergy Rash/Hives Verified 08/18/22 16:53 NSAIDS (Non-Steroidal Allergy Unknown Verified 08/18/22 16:53 Anti-Inflamma pineapple Allergy Anaphylaxis Verified 08/18/22 16:53 red dye Allergy Rash/Hives Verified 08/18/22 16:53 haloperidol [From Haldol] AdvReac Hallucinati Verified 08/18/22 16:53 ons Physical Exam Vitals: Vital Signs Temp Pulse Pulse Pulse Resp BP BP 08/18/22 23:54 98.0 F 110 H 17 08/18/22 17:15 98.8 F 77 130/69 08/18/22 15:38 75 18 128/74 BP Pulse Ox 08/18/22 23:54 125/79 98 08/18/22 17:15 08/18/22 15:38 99 Intake and Output 08/19/22 08/19/22 08/19/22 06:59 14:59 22:59 Other: Weight 105.4 kg PHYSICAL EXAMINATION: GENERAL: The patient is alert and oriented x3, not in any acute distress. Well developed, well nourished. HEENT: Pupils are round and equally reacting to light. EOMI. No scleral icterus. No conjunctival pallor. Normocephalic, atraumatic. No pharyngeal erythema. No thyromegaly. CARDIOVASCULAR: S1 and S2 present. No murmurs, rubs, or gallops. PULMONARY: Chest is clear to auscultation, no wheezing or crackles. ABDOMEN: Soft, nontender, nondistended, normoactive bowel sounds. No palpable organomegaly. MUSCULOSKELETAL: No joint swelling or deformity. EXTREMITIES: No cyanosis, clubbing, or pedal edema. NEUROLOGICAL: Gross neurological examination did not reveal any focal deficits. SKIN: No rashes. Results CBC & Chem 7: 08/19/22 07:51 08/19/22 07:51 Labs: Abnormal Lab Results - Last 24 Hours (Table) 08/19/22 08/19/22 08/19/22 Range/Units 01:08 07:51 07:51 BUN 6 L (7-17) mg/dL Glucose 108 H (74-99) mg/dL Hemoglobin A1c 6.1 H (<=6.0) % U Tricyclic Antidepress Detected H (NotDetected) Assessment and Plan Assessment: 1. Hallucinations; history of schizoaffective disorder/depression; your management 2. Hypertension; continue with home dose of Hydrea Diuril 12.5 mg daily 3. Diabetes mellitus type 2; metformin thousand milligrams twice a day 4. Hyperlipidemia; Lipitor 10 mg by mouth daily at bedtime 5. Gastroesophageal reflux disease; Protonix 40 mg daily
[2022-08-19] MEDS: ATORVASTATIN 10 MG TAB PO SCH (18:03)
[2022-08-19] MEDS: QUEtiapine 100 MG TAB PO SCH (18:03)
[2022-08-19] MEDS: ACETAMINOPHEN TAB 325 MG TAB PO PRN (18:04)
[2022-08-19] MEDS: TRIAMCINOLONE 0.1% CREAM 80 GM TUBE TOPICAL SCH ×2 (18:08→20:26)
[2022-08-19] MEDS: LORazepam 1 MG TAB PO PRN (20:26)
[2022-08-20] MEDS: LORazepam 1 MG TAB PO PRN ×2 (00:26→00:40)
[2022-08-20] MEDS: THIAMINE 100 MG TAB PO SCH (09:48)
[2022-08-20] MEDS: PANTOPRAZOLE 40 MG TABLET PO SCH (09:48)
[2022-08-20] MEDS: MULTIVITAMINS, THERA 1 EACH TAB PO SCH (09:48)
[2022-08-20] MEDS: metFORMIN 500 MG TAB PO SCH (09:48)
[2022-08-20] MEDS: FOLIC ACID 1 MG TAB PO SCH (09:49)
[2022-08-20] MEDS: hydroCHLOROthiazide 12.5 MG CAP PO SCH (09:49)
[2022-08-20] MEDS: NICOTINE 14MG/24HR PATCH TRANSDERM SCH (09:49)
[2022-08-20] MEDS: NICOTINE GUM (POLACRILEX) 2 MG GUM BUCCAL PRN ×2 (09:52→17:07)
[2022-08-20] MEDS: TRIAMCINOLONE 0.1% CREAM 80 GM TUBE TOPICAL SCH ×4 (10:30→21:49)
--- NOTE | 2022-08-20 11:46 | P.PN ---
Progress Note - Text Progress Note Date: 08/20/22 Interval History: Patient was seen resting in bed and was directable and agreeable to speak with physician underwriter in the office. Currently, the patient is not reporting any suicidal or homicidal ideation, intention, and/or plan. She is not reporting any current auditory or visual hallucinations. She does however report that this does occur. She states that she has been increasingly paranoid and hearing voices over the past month. She reports no issues regarding her sleep or appetite at this time. She does express a desire for discharge. She has been adherent with her medications and is not reporting any significant side effects. She reports that she was nonadherent with her prescribed medications because she felt that there were "too strong." She was encouraged to talk to her outpatient provider about her side effects to medications. Mental Status Exam: General Appearance: Patient appears to be stated age is alert, directable, and cooperative. Slightly disheveled. Obese body habitus. Scar along the left side of her face. Behavior: Patient is calmly seated without any agitated behavior. Speech: Patient's speech is fluent and nonpressured. Monotone. Mood/Affect: Mood is improving mildly, affect is blunted. Suicidality/Homicidality: Patient denies having any suicidal or homicidal ideation intent or plan. Perceptions: Patient denies any visual hallucinations and denies any auditory hallucinations Though content/process: Patient is not reporting any delusional thought content today. Memory and concentration: AOX3, grossly intact for the purposes of this session Judgment and insight: Improving mildly Vital Signs Temp 98.0 F 08/18/22 23:54 Pulse 100 08/20/22 01:43 Resp 18 08/20/22 01:43 BP 140/78 08/20/22 01:43 Pulse Ox 99 08/20/22 01:43 FiO2 Intake & Output 08/19/22 08/20/22 08/20/22 18:59 06:59 18:59 Weight 105.4 kg Laboratory Results WBC 5.9 k/uL (3.8-10.6) 08/19/22 07:51 RBC 3.94 m/uL (3.80-5.40) 08/19/22 07:51 Hgb 11.4 gm/dL (11.4-16.0) 08/19/22 07:51 Hct 35.8 % (34.0-46.0) 08/19/22 07:51 MCV 90.9 fL (80.0-100.0) 08/19/22 07:51 MCH 29.0 pg (25.0-35.0) 08/19/22 07:51 MCHC 31.9 g/dL (31.0-37.0) 08/19/22 07:51 RDW 14.9 % (11.5-15.5) 08/19/22 07:51 Plt Count 195 k/uL (150-450) 08/19/22 07:51 MPV 8.8 08/19/22 07:51 Hypochromasia Slight 08/19/22 07:51 Sodium 140 mmol/L (137-145) 08/19/22 07:51 Potassium 4.5 mmol/L (3.5-5.1) 08/19/22 07:51 Chloride 105 mmol/L (98-107) 08/19/22 07:51 Carbon Dioxide 27 mmol/L (22-30) 08/19/22 07:51 Anion Gap 8 mmol/L 08/19/22 07:51 BUN 6 mg/dL (7-17) L 08/19/22 07:51 Creatinine 0.63 mg/dL (0.52-1.04) 08/19/22 07:51 Est GFR (CKD-EPI)AfAm >90 (>60 ml/min/1.73 sqM) 08/19/22 07:51 Est GFR (CKD-EPI)NonAf >90 (>60 ml/min/1.73 sqM) 08/19/22 07:51 Glucose 108 mg/dL (74-99) H 08/19/22 07:[address] Glu mg/dL 128 mg/dL 08/19/22 07:51 Hemoglobin A1c 6.1 % (<=6.0) H 08/19/22 07:51 Calcium 9.1 mg/dL (8.4-10.2) 08/19/22 07:51 Total Bilirubin 0.3 mg/dL (0.2-1.3) 08/19/22 07:51 AST 22 U/L (14-36) 08/19/22 07:51 ALT 20 U/L (4-34) 08/19/22 07:51 Alkaline Phosphatase 72 U/L (38-126) 08/19/22 07:51 Total Protein 7.2 g/dL (6.3-8.2) 08/19/22 07:51 Albumin 3.8 g/dL (3.5-5.0) 08/19/22 07:51 Triglycerides 63.90 mg/dL (0.00-149.00) 08/19/22 07:51 Cholesterol 152.00 mg/dL (0.00-200.00) 08/19/22 07:51 LDL Cholesterol, Calc 88.9 mg/dL (0.0-131.0) 08/19/22 07:51 VLDL Cholesterol, Calc 12.78 mg/dL (5.00-40.00) 08/19/22 07:51 HDL Cholesterol 50.30 mg/dL (40.00-60.00) 08/19/22 07:51 Cholesterol/HDL Ratio 3.02 Ratio 08/19/22 07:51 TSH 2.750 mIU/L (0.465-4.680) 08/19/22 07:51 Urine Color Colorless 08/19/22 01:08 Urine Appearance Clear (Clear) 08/19/22 01:08 Urine pH 6.0 (5.0-8.0) 08/19/22 01:08 Ur Specific [place] 1.001 (1.001-1.035) 08/19/22 01:08 Urine Protein Negative (Negative) 08/19/22 01:08 Urine Glucose (UA) Negative (Negative) 08/19/22 01:08 Urine Ketones Negative (Negative) 08/19/22 01:08 Urine Blood Negative (Negative) 08/19/22 01:08 Urine Nitrite Negative (Negative) 08/19/22 01:08 Urine Bilirubin Negative (Negative) 08/19/22 01:08 Urine Urobilinogen <2.0 mg/dL (<2.0) 08/19/22 01:08 Ur Leukocyte Esterase Negative (Negative) 08/19/22 01:08 Urine HCG, Qual Not Detected (Not Detectd) 08/19/22 01:08 Urine Opiates Screen Not Detected (NotDetected) 08/19/22 01:08 Ur Oxycodone Screen Not Detected (NotDetected) 08/19/22 01:08 Urine Methadone Screen Not Detected (NotDetected) 08/19/22 01:08 Ur Propoxyphene Screen Not Detected (NotDetected) 08/19/22 01:08 Ur Barbiturates Screen Not Detected (NotDetected) 08/19/22 01:08 U Tricyclic Antidepress Detected (NotDetected) H 08/19/22 01:08 Ur Phencyclidine Scrn Not Detected (NotDetected) 08/19/22 01:08 Ur Amphetamines Screen Not Detected (NotDetected) 08/19/22 01:08 U Methamphetamines Scrn Not Detected (NotDetected) 08/19/22 01:08 U Benzodiazepines Scrn Not Detected (NotDetected) 08/19/22 01:08 Urine Cocaine Screen Not Detected (NotDetected) 08/19/22 01:08 U Marijuana (THC) Screen Not Detected (NotDetected) 08/19/22 01:08 Coronavirus (PCR) Not Detected (Not Detectd) 08/18/22 14:26 Assessment Schizophrenia Alcohol use disorder Plan: -Patient continues to meet criteria for inpatient psychiatric admission for symptom stabilization and safety. Patient is currently under court order that expires on 11/22/2022 -Medications: Patient is scheduled to receive Prolixin Decanoate 50 mg IM on 08/24/2022 Continue Seroquel 200 mg by mouth at bedtime for psychosis -When necessary Ativan and Haldol for agitation/aggression. -NRT - nicotine patch -SW on board for discharge planning. Encouraged the patient to participate in milieu.
[2022-08-20] MEDS: MAG HYDROX/AL HYDROX/SIMETH 30 ML CUP PO PRN (15:54)
[2022-08-20] MEDS: ACETAMINOPHEN TAB 325 MG TAB PO PRN ×2 (15:54→23:27)
[2022-08-20] MEDS: QUEtiapine 100 MG TAB PO SCH (17:54)
[2022-08-20] MEDS: ATORVASTATIN 10 MG TAB PO SCH (17:58)
[2022-08-21] MEDS: NICOTINE GUM (POLACRILEX) 2 MG GUM BUCCAL PRN ×3 (00:40→19:23)
[2022-08-21 02:09] VITALS: RESP 17; TEMP 98.6
[2022-08-21] MEDS: NICOTINE 14MG/24HR PATCH TRANSDERM SCH (08:38)
[2022-08-21] MEDS: FOLIC ACID 1 MG TAB PO SCH (08:38)
[2022-08-21] MEDS: metFORMIN 500 MG TAB PO SCH (08:38)
[2022-08-21] MEDS: THIAMINE 100 MG TAB PO SCH (08:39)
[2022-08-21] MEDS: MULTIVITAMINS, THERA 1 EACH TAB PO SCH (08:39)
[2022-08-21] MEDS: hydroCHLOROthiazide 12.5 MG CAP PO SCH (08:39)
[2022-08-21] MEDS: PANTOPRAZOLE 40 MG TABLET PO SCH (08:39)
[2022-08-21] MEDS: TRIAMCINOLONE 0.1% CREAM 80 GM TUBE TOPICAL SCH ×4 (08:39→21:38)
[2022-08-21 08:45] VITALS: BP 126/59; PULSE 92
--- NOTE | 2022-08-21 11:34 | P.PN ---
Progress Note - Text Progress Note Date: 08/21/22 Interval History: Patient was seen resting in bed and was directable and agreeable to speak with data analyst report writer in the office. The patient did not sleep last night as noted by staff. The patient reports she could not sleep because she was anticipating discharge today. She is currently not reporting any suicidal or homicidal ideation, intention, and/or plan. She is denying any auditory or visual hallucinations. She reports no paranoia or other delusions. She states that she wants to get a service dog. She has been adherent with the medications and is not reporting any significant side effects. Mental Status Exam: Grossly unchanged from yesterday General Appearance: Patient appears to be stated age is alert, directable, and cooperative. Slightly disheveled. Obese body habitus. Scar along the left side of her face. Behavior: Patient is calmly seated without any agitated behavior. Speech: Patient's speech is fluent and nonpressured. Monotone. Mood/Affect: Mood is improving mildly, affect is constricted. More range today. Suicidality/Homicidality: Patient denies having any suicidal or homicidal ideation intent or plan. Perceptions: Patient denies any visual hallucinations and denies any auditory hallucinations Though content/process: Patient is not reporting any delusional thought content today. Memory and concentration: AOX3, grossly intact for the purposes of this session Judgment and insight: Improving mildly Vital Signs Temp 98.6 F 08/21/22 01:00 Pulse 92 08/21/22 08:45 Resp 17 08/21/22 01:00 BP 126/59 08/21/22 08:45 Pulse Ox 98 08/21/22 01:00 FiO2 Assessment Schizophrenia Alcohol use disorder Plan: -Patient continues to meet criteria for inpatient psychiatric admission for symptom stabilization and safety. Patient is currently under court order that expires on 11/22/2022 -Medications: Patient is scheduled to receive Prolixin Decanoate 50 mg IM on 08/24/2022 Continue Seroquel 200 mg by mouth at bedtime for psychosis Start trazodone 100 mg daily at bedtime for insomnia -When necessary Ativan and Haldol for agitation/aggression. -NRT - nicotine patch -SW on board for discharge planning. Encouraged the patient to participate in milieu.
[2022-08-21] MEDS: ACETAMINOPHEN TAB 325 MG TAB PO PRN (15:28)
[2022-08-21] MEDS ORDERED: traZODone HCL 100 MG TAB PO SCH (21:00)
[2022-08-21] MEDS ORDERED: QUEtiapine 100 MG TAB PO SCH (21:00)
[2022-08-21] MEDS: ATORVASTATIN 10 MG TAB PO SCH (21:36)
[2022-08-22] MEDS: PANTOPRAZOLE 40 MG TABLET PO SCH (10:38)
[2022-08-22] MEDS: THIAMINE 100 MG TAB PO SCH (10:38)
[2022-08-22] MEDS: hydroCHLOROthiazide 12.5 MG CAP PO SCH (10:38)
[2022-08-22] MEDS: FOLIC ACID 1 MG TAB PO SCH (10:38)
[2022-08-22] MEDS: MULTIVITAMINS, THERA 1 EACH TAB PO SCH (10:38)
[2022-08-22] MEDS: metFORMIN 500 MG TAB PO SCH (10:38)
[2022-08-22] MEDS: NICOTINE 14MG/24HR PATCH TRANSDERM SCH (10:39)
[2022-08-22] MEDS: TRIAMCINOLONE 0.1% CREAM 80 GM TUBE TOPICAL SCH ×2 (10:40→12:21)
--- NOTE | 2022-08-22 12:06 | P.DS ---
Providers Date of admission: 08/18/22 14:56 Expected date of discharge: 08/22/22 Attending physician: Vahid Wilhelm MD Consults: 08/18/22 15:00 Consult Physician Routine Consulting Provider: Dona Davila Consult Reason/Comments: medical management Do you want consulting provider notified?: Yes Primary care physician: Nirali Valentin - Discharge Diagnosis(es) (1) Schizophrenia Current Visit: Yes Status: Acute Priority: High (2) Nicotine dependence Current Visit: Yes Status: Chronic Priority: Low (3) Alcohol abuse Current Visit: Yes Status: Chronic Priority: Low Hospital Course: Admission HPI: Initial psychiatric evaluation was compared by Dr. Casarez on 08/19/2022 who wrote: Patient is a 33-year-old unemployed -Turkish female with his history of schizophrenia who lives by herself is admitted for psychosis Per chart, patient has had hallucinations due to medication noncompliance. Patient was seen in her room today. She reports paranoia for the past few months and that she has not been taking her Seroquel. She does state compliance with her Prolixin Decanoate shot and states that she got her shot 2 days ago. Patient denies any suicidal or homicidal ideations intent or plan. At this time patient denies any auditory or visual hallucinations. Patient denies any flight of ideas racing thoughts and increased in goal directed behavior. Patient admits to occasionally drinking alcohol. She states that she drank 1 pint yesterday. She denies any withdrawal symptoms. She also states that she used a small amount of marijuana. States that she "sometimes" smokes 5 cigarettes per day. Denies any other drug use. h/o schizophrenia, multiple admissions, last admission in september for psychosis, was discharged on prolixin D and Zyprexa, currently on seroquel 200 mg qhs and prolixin D 50 mg - last shot 2 days ago. past meds: klonopin, buspar, Seroquel, Lamictal, li, Zoloft, melatonin Hospital course: Upon admission to the unit patient was initially presenting as paranoid however with a calm affect. Patient was however directable and agreeable to commence treatment. Patient got along well with other patients on the unit and followed unit protocol. Patient was compliant with the medications and denied any side effects throughout hospital course. Patient was started on Seroquel in order to augment her Prolixin Decanoate which she received shortly prior to admission. Patient spoke of her stressors and engaged in therapy both group and individual. Patient was also seen by medical team for history and physical exam. Over the course the hospitalization, the patient remained calm and cooperative. She did however have very poor sleep. She had one evening where she did not sleep at all. Trazodone was added to her regimen or to address her insomnia. However throughout the hospitalization, she remained calm, cooperative, and did not endorse any significant symptoms of psychosis. She was future and goal oriented and alert and oriented in all spheres. On the day of discharge, the patient is not reporting any suicidal or homicidal ideation, intention, and/or plan. She is not reporting any paranoia or delusions. She has been adherent with her medications and is not endorsing any significant side effects. She has been able to address her hygiene and grooming. She reports no medical issues or concerns and denies any chest pain, shortness of breath, palpitations, or akathisia or tardive dyskinesia. As the patient no longer met criteria for continued inpatient psychiatric hospitalization, she was subsequently discharged. Mental status exam: General Appearance: Patient appears to be stated age is alert, pleasant, and cooperative. Patient is in no acute distress and has fair hygiene and grooming Behavior: Patient is calmly seated without any agitated behavior. Speech: Patient's speech is fluent and nonpressured. Mood/Affect: Patient reports their mood is "feeling good", affect is congruent and constricted. Suicidality/Homicidality: Patient reports no suicidal or homicidal ideation, i ntention, and/or plan. Perceptions: Patient denies any auditory or visual hallucinations. Though content/process: There is no evidence of any delusional thought content and thought process is linear and goal-directed. Patient is future oriented. Memory and concentration: AOX3, grossly intact for the purposes of this session. Can spell "WORLD" backwards correctly. Judgment and insight: Improved with guarded prognosis Impression: Schizophrenia Alcohol abuse Nicotine dependence Plan: -Continue with discharge today as patient has improved and stabilized psychiatrically and is not currently an imminent threat to herself and/or others. She will remain at chronically elevated risk due to the severity and chronicity of her mental illness. -Continue medications: Habitrol patches and Nicorette gum for nicotine cravings Seroquel 200 mg by mouth at bedtime for psychosis Trazodone 100 mg daily at bedtime for insomnia Continue Prolixin decanoate 50 mg IM next dose due on 08/24/2022 -Patient is on dual antipsychotic therapy. Should the patient remains stable consider monotherapy with Prolixin. -Patient was counseled on the need for medication compliance and appropriate follow-up at mental health and also primary care for medical issues. Patient verbalized understanding and agreed. -Social work to arrange for and conduct family meeting to ensure safety upon discharge and answer any questions/concerns. Social work also to arrange for patients follow up appointments with [facility] for psychiatric care along with follow up with primary care provider. -Patient counseled on abstaining from recreational drugs and marijuana and alcohol. Was informed/educated on the adverse effects on their physical and mental health. Patient verbally agreed and understood. Patient was offered substance abuse treatment however declined at this time. -Patient was instructed to return to the hospital or seek immediate medical care if their psychiatric or medical symptoms do worsen or reoccur. -Psychoeducation and supportive therapy provided to patient. Risks and benefits of pharmacological treatment versus the risks and benefits of nontreatment weighed and discussed. Informed consent discussion held. Common side effects of psychotropics discussed such as, but not limited to headache, GI disturbance, sexual dysfunction, movement disorders, sedation, and orthostatic hypotension. Life threatening and blackbox warnings of prescribed medications also discussed. Potential risks of operating a vehicle or heavy machinery discussed with patient at length. Advised on importance of compliance and a reliable and responsible manner. Patient advised to review FDA consumer labeling of all medications prior to taking. Patient verbalized understanding of potential risks, and agrees with current treatment plan. Patient advised to medically contact physician/emergency personnel if any acute changes in condition occur. Vital Signs Temp 98.6 F 08/21/22 01:00 Pulse 92 08/21/22 08:45 Resp 17 08/21/22 01:00 BP 126/59 08/21/22 08:45 Pulse Ox 98 08/21/22 01:00 FiO2 Laboratory Results WBC 5.9 k/uL (3.8-10.6) 08/19/22 07:51 RBC 3.94 m/uL (3.80-5.40) 08/19/22 07:51 Hgb 11.4 gm/dL (11.4-16.0) 08/19/22 07:51 Hct 35.8 % (34.0-46.0) 08/19/22 07:51 MCV 90.9 fL (80.0-100.0) 08/19/22 07:51 MCH 29.0 pg (25.0-35.0) 08/19/22 07:51 MCHC 31.9 g/dL (31.0-37.0) 08/19/22 07:51 RDW 14.9 % (11.5-15.5) 08/19/22 07:51 Plt Count 195 k/uL (150-450) 08/19/22 07:51 MPV 8.8 08/19/22 07:51 Hypochromasia Slight 08/19/22 07:51 Sodium 140 mmol/L (137-145) 08/19/22 07:51 Potassium 4.5 mmol/L (3.5-5.1) 08/19/22 07:51 Chloride 105 mmol/L (98-107) 08/19/22 07:51 Carbon Dioxide 27 mmol/L (22-30) 08/19/22 07:51 Anion Gap 8 mmol/L 08/19/22 07:51 BUN 6 mg/dL (7-17) L 08/19/22 07:51 Creatinine 0.63 mg/dL (0.52-1.04) 08/19/22 07:51 Est GFR (CKD-EPI)AfAm >90 (>60 ml/min/1.73 sqM) 08/19/22 07:51 Est GFR (CKD-EPI)NonAf >90 (>60 ml/min/1.73 sqM) 08/19/22 07:51 Glucose 108 mg/dL (74-99) H 08/19/22 07:[address] Glu mg/dL 128 mg/dL 08/19/22 07:51 Hemoglobin A1c 6.1 % (<=6.0) H 08/19/22 07:51 Calcium 9.1 mg/dL (8.4-10.2) 08/19/22 07:51 Total Bilirubin 0.3 mg/dL (0.2-1.3) 08/19/22 07:51 AST 22 U/L (14-36) 08/19/22 07:51 ALT 20 U/L (4-34) 08/19/22 07:51 Alkaline Phosphatase 72 U/L (38-126) 08/19/22 07:51 Total Protein 7.2 g/dL (6.3-8.2) 08/19/22 07:51 Albumin 3.8 g/dL (3.5-5.0) 08/19/22 07:51 Triglycerides 63.90 mg/dL (0.00-149.00) 08/19/22 07:51 Cholesterol 152.00 mg/dL (0.00-200.00) 08/19/22 07:51 LDL Cholesterol, Calc 88.9 mg/dL (0.0-131.0) 08/19/22 07:51 VLDL Cholesterol, Calc 12.78 mg/dL (5.00-40.00) 08/19/22 07:51 HDL Cholesterol 50.30 mg/dL (40.00-60.00) 08/19/22 07:51 Cholesterol/HDL Ratio 3.02 Ratio 08/19/22 07:51 TSH 2.750 mIU/L (0.465-4.680) 08/19/22 07:51 Urine Color Colorless 08/19/22 01:08 Urine Appearance Clear (Clear) 08/19/22 01:08 Urine pH 6.0 (5.0-8.0) 08/19/22 01:08 Ur Specific [place] 1.001 (1.001-1.035) 08/19/22 01:08 Urine Protein Negative (Negative) 08/19/22 01:08 Urine Glucose (UA) Negative (Negative) 08/19/22 01:08 Urine Ketones Negative (Negative) 08/19/22 01:08 Urine Blood Negative (Negative) 08/19/22 01:08 Urine Nitrite Negative (Negative) 08/19/22 01:08 Urine Bilirubin Negative (Negative) 08/19/22 01:08 Urine Urobilinogen <2.0 mg/dL (<2.0) 08/19/22 01:08 Ur Leukocyte Esterase Negative (Negative) 08/19/22 01:08 Urine HCG, Qual Not Detected (Not Detectd) 08/19/22 01:08 Urine Opiates Screen Not Detected (NotDetected) 08/19/22 01:08 Ur Oxycodone Screen Not Detected (NotDetected) 08/19/22 01:08 Urine Methadone Screen Not Detected (NotDetected) 08/19/22 01:08 Ur Propoxyphene Screen Not Detected (NotDetected) 08/19/22 01:08 Ur Barbiturates Screen Not Detected (NotDetected) 08/19/22 01:08 U Tricyclic Antidepress Detected (NotDetected) H 08/19/22 01:08 Ur Phencyclidine Scrn Not Detected (NotDetected) 08/19/22 01:08 Ur Amphetamines Screen Not Detected (NotDetected) 08/19/22 01:08 U Methamphetamines Scrn Not Detected (NotDetected) 08/19/22 01:08 U Benzodiazepines Scrn Not Detected (NotDetected) 08/19/22 01:08 Urine Cocaine Screen Not Detected (NotDetected) 08/19/22 01:08 U Marijuana (THC) Screen Not Detected (NotDetected) 08/19/22 01:08 Coronavirus (PCR) Not Detected (Not Detectd) 08/18/22 14:26 Allergies Allergy/AdvReac Type Severity Reaction Status Date / Time ibuprofen [From Motrin] Allergy Rash/Hives Verified 08/18/22 16:53 NSAIDS (Non-Steroidal Allergy Unknown Verified 08/18/22 16:53 Anti-Inflamma pineapple Allergy Anaphylaxis Verified 08/18/22 16:53 red dye Allergy Rash/Hives Verified 08/18/22 16:53 haloperidol [From Haldol] AdvReac Hallucinati Verified 08/18/22 16:53 ons Patient Condition at Discharge: Stable Plan - Discharge Summary New Discharge Prescriptions: New Nicotine Gum (Polacrilex) [Nicorette] 2 mg BUCCAL Q4HR PRN 30 Days #180 pieceofgum PRN Reason: Nicotine Cravings QUEtiapine [SEROquel] 200 mg PO HS 30 Days #60 tab traZODone HCL [Desyrel] 100 mg PO HS 30 Days #30 tab Nicotine 14Mg/24Hr Patch [Habitrol] 1 patch TRANSDERM DAILY 30 Days #30 patch Continue Pantoprazole Sodium [Protonix] 40 mg PO DAILY Orphenadrine [Norflex] 100 mg PO BID PRN PRN Reason: Muscle Spasm Atorvastatin [Lipitor] 10 mg PO HS metFORMIN HCL [Glucophage] 1,000 mg PO DAILY hydroCHLOROthiazide [Hydrodiuril] 12.5 mg PO DAILY Changed fluPHENAZine decanoate [Prolixin Decanoate] 50 mg IM FR 1 Days #1 ml Discontinued QUEtiapine [SEROquel] 200 mg PO DAILY@1800 Discharge Medication List Atorvastatin [Lipitor] 10 mg PO HS 06/12/22 [History] Pantoprazole Sodium [Protonix] 40 mg PO DAILY 06/12/22 [History] hydroCHLOROthiazide [Hydrodiuril] 12.5 mg PO DAILY 06/12/22 [History] metFORMIN HCL [Glucophage] 1,000 mg PO DAILY 06/12/22 [History] Orphenadrine [Norflex] 100 mg PO BID PRN 08/18/22 [History] Nicotine 14Mg/24Hr Patch [Habitrol] 1 patch TRANSDERM DAILY 30 Days #30 patch [Rx] Nicotine Gum (Polacrilex) [Nicorette] 2 mg BUCCAL Q4HR PRN 30 Days #180 pieceofgum 08/22/22 [Rx] QUEtiapine [SEROquel] 200 mg PO HS 30 Days #60 tab 08/22/22 [Rx] fluPHENAZine decanoate [Prolixin Decanoate] 50 mg IM FR 1 Days #1 ml 08/22/22 [Rx] traZODone HCL [Desyrel] 100 mg PO HS 30 Days #30 tab 08/22/22 [Rx] Follow up Appointment(s)/Referral(s): [facility] [Outside] - 08/23/22 9:30 am (08/22@ 12:30pm with Rowdy Guerra 08/23@ 9:30AM Dr. Sebastian ) Nirali Valentin MD [Primary Care Provider] - 1-2 days Patient Instructions/Handouts: How to Stop Smoking (DC), Bipolar Disorder (DC), Psychotic Disorder (DC) Activity/Diet/Wound Care/Special Instructions: Avoid the use of street drugs and alcohol. Take all medications as prescribed. When you are in need of refills on your medications, please contact your medical provider and/or outpatient psychiatrist to have this done. Please go to scheduled outpatient appointments for aftercare treatment. If symptoms return or become worse, call the crisis line at and/or go to the nearest emergency room for evaluation. Discharge Disposition: HOME SELF-CARE
[2022-08-24] MEDS ORDERED: fluPHENAZine DECANOATE 25 MG/ML 5ML MDV IM SCH (09:00)
== END 2022-08-22 12:36 | disposition home or self-care (01) | DRG 750 ==
LOC: EC 12:08 → 3MHU 14:56
PROVIDERS: ADMIT Psychiatry & Neurology Psychiatry; ATTEND Psychiatry & Neurology Psychiatry
DX: F20.9 Schizophrenia, unspecified (principal); K21.9 Gastro-esophageal reflux disease without esophagitis; I10 Essential (primary) hypertension; G47.00 Insomnia, unspecified; G40.909 Epilepsy, unspecified, not intractable, without status epilepticus; J45.909 Unspecified asthma, uncomplicated; E11.9 Type 2 diabetes mellitus without complications; F10.10 Alcohol abuse, uncomplicated; F41.9 Anxiety disorder, unspecified; F31.9 Bipolar disorder, unspecified; F17.210 Nicotine dependence, cigarettes, uncomplicated; E78.5 Hyperlipidemia, unspecified; Z20.822 Contact with and (suspected) exposure to COVID-19; Z88.6 Allergy status to analgesic agent; Z91.148 Patient's other noncompliance with medication regimen for other reason; Z79.899 Other long term (current) drug therapy; Z79.84 Long term (current) use of oral hypoglycemic drugs; Z56.0 Unemployment, unspecified
CPT/HCPCS: 80053; 80061; 80306; 81003; 81025; 82075; 83036; 84443; 85027; 87635; 99285

== ENCOUNTER 2022-09-18 09:00 | Emergency (ER) | payer OTHER ==
[2022-09-18 09:08] VITALS: RESP 18; TEMP 98.6
--- NOTE | 2022-09-18 09:26 | ED ---
General Adult HPI - General Chief complaint: Nausea/Vomiting/Diarrhea Stated complaint: N/V/D Time Seen by Provider: 09/18/22 09:00 Source: patient, EMS, RN notes reviewed, old records reviewed Mode of arrival: EMS Limitations: no limitations - History of Present Illness Initial comments: This is a 32-year-old female presents emergency department stating that she has stopped taking her schizophrenic meds about a month ago. Patient states they make her nauseous. Patient comes in today because she states that her test told her to call her doctor because she might be . Patient thinks she's . Patient is requesting ultrasound because even though she took a urine test that showed she wasn't she thinks she still is. Patient also states she's having some loose stools. Patient states she vomits once a day everyday she does know why. Patient denies any alcohol or drug use. - Related Data Home Medications Medication Instructions Recorded Confirmed Atorvastatin [Lipitor] 10 mg PO HS 06/12/22 08/18/22 Pantoprazole Sodium [Protonix] 40 mg PO DAILY 06/12/22 08/18/22 hydroCHLOROthiazide [Hydrodiuril] 12.5 mg PO DAILY 06/12/22 08/18/22 metFORMIN HCL [Glucophage] 1,000 mg PO DAILY 06/12/22 08/18/22 Orphenadrine [Norflex] 100 mg PO BID PRN 08/18/22 08/21/22 Previous Rx's Medication Instructions Recorded Nicotine 14Mg/24Hr Patch [Habitrol] 1 patch TRANSDERM DAILY 30 Days 08/22/22 #30 patch Nicotine Gum (Polacrilex) 2 mg BUCCAL Q4HR PRN 30 Days #180 08/22/22 [Nicorette] pieceofgum QUEtiapine [SEROquel] 200 mg PO HS 30 Days #60 tab 08/22/22 fluPHENAZine decanoate [Prolixin 50 mg IM FR 1 Days #1 ml 08/22/22 Decanoate] traZODone HCL [Desyrel] 100 mg PO HS 30 Days #30 tab 08/22/22 Allergies Allergy/AdvReac Type Severity Reaction Status Date / Time ibuprofen [From Motrin] Allergy Rash/Hives Verified 09/18/22 09:09 NSAIDS (Non-Steroidal Allergy Unknown Verified 09/18/22 09:09 Anti-Inflamma pineapple Allergy Anaphylaxis Verified 09/18/22 09:09 red dye Allergy Rash/Hives Verified 09/18/22 09:09 haloperidol [From Haldol] AdvReac Hallucinati Verified 09/18/22 09:09 ons Review of Systems ROS Statement: Those systems with pertinent positive or pertinent negative responses have been documented in the HPI. ROS Other: All systems not noted in ROS Statement are negative. Past Medical History Past Medical History: Asthma, Diabetes Mellitus, Hypertension, Seizure Disorder Additional Past Medical History / Comment(s): last seizure was December 2018 per , tubal History of Any Multi-Drug Resistant Organisms: None Reported Past Surgical History: Section, Tonsillectomy, Tubal Ligation Additional Past Surgical History / Comment(s): facial surgery, 2 C-Sections Past Anesthesia/Blood Transfusion Reactions: No Reported Reaction Past Psychological History: Anxiety, Bipolar, Depression, Schizoaffective Disorder, Schizophrenia Smoking Status: Current every day smoker, Former smoker Past Alcohol Use History: Occasional Past Drug Use History: None Reported - Past Family History Father Family Medical History: Unable to Obtain Additional Family Medical History / Comment(s): Father is alive and may have diabetes. Mother Family Medical History: Thyroid Disorder Additional Family Medical History / Comment(s): Mother is alive at age 50 with thyroid disorder. Brother(s) Additional Family Medical History / Comment(s): Patient has 2 brothers and 2 sisters with no major medical problems. Patient has two sons that is healthy. General Exam - General Exam Comments Initial Comments: GENERAL: Patient is well-developed and well-nourished. Patient is nontoxic and well- hydrated and is in no acute distress. ENT: Neck is soft and supple. No significant lymphadenopathy is noted. Oropharynx is clear. Moist mucous membranes. Neck has full range of motion without eliciting any pain. EYES: The sclera were anicteric and conjunctiva were pink and moist. Extraocular movements were intact and pupils were equal round and reactive to light. Eyelids were unremarkable. PULMONARY: Unlabored respirations. Good breath sounds bilaterally. No audible rales rhonchi or wheezing was noted. CARDIOVASCULAR: There is a regular rate and rhythm without any murmurs gallops or rubs. ABDOMEN: Soft and nontender with normal bowel sounds. SKIN: Skin is clear with no lesions or rashes and otherwise unremarkable. NEUROLOGIC: Patient is alert and oriented x3. Cranial nerves II through XII are grossly intact. Motor and sensory are also intact. Normal speech, volume and content. Symmetrical smile. MUSCULOSKELETAL: Normal extremities with adequate strength and full range of motion. LYMPHATICS: No significant lymphadenopathy is noted PSYCHIATRIC: Patient makes quite a few bizarre claims and is very focused on thinking she is Limitations: no limitations Course Vital Signs 09/18/22 09:02 Temperature 98.6 F Pulse Rate 60 Respiratory 18 Rate Blood Pressure 115/82 O2 Sat by Pulse 95 Oximetry Medical Decision Making - Medical Decision Making Was pt. sent in by a medical professional or institution (, [facility], FLOORING INSTALLER, urgent care, hospital, or jail...) When possible be specific @ -No Did you speak to anyone other than the patient for history (EMS, parent, family, police, friend...)? What history was obtained from this source @ -No Did you review nursing and triage notes (agree or disagree)? Why? @ -I reviewed and agree with nursing and triage notes Were old charts reviewed (outside hosp., previous admission, EMS record, old EKG, old radiological studies, urgent care reports/EKG's, jail records)? Report findings @ -No old charts were reviewed Differential Diagnosis (chest pain, altered mental status, abdominal pain women, abdominal pain men, vaginal bleeding, weakness, fever, dyspnea, syncope, headache, dizziness, GI bleed, back pain, seizure, CVA, palpatations, mental health, musculoskeletal)? @ -Differential mental health EKG interpreted by me (3pts min.). @ -As above X-rays interpreted by me (1pt min.). @ -None done CT interpreted by me (1pt min.). @ -None done U/S interpreted by me (1pt. min.). @ -None done What testing was considered but not performed or refused? (CT, X-rays, U/S, labs)? Why? @ -None What meds were considered but not given or refused? Why? @ -None Did you discuss the management of the patient with other professionals (professionals i.e. , [facility], FLOORING INSTALLER, lab, RT, psych nurse, child welfare social worker, histologist, teacher, commissioned police officer, hospice case manager)? Give summary @ -EPS evaluated the patient and determined the patient needed to be followed up with [facility] as an outpatient and the patient has been getting her medication weekly Was smoking cessation discussed for >3mins.? @ -No Was critical care preformed (if so, how long)? @ -No Were there social determinants of health that impacted care today? How? (Homelessness, low income, unemployed, alcoholism, drug addiction, transportation, low edu. Level, literacy, decrease access to med. care, snf, rehab)? @ -No Was there de-escalation of care discussed even if they declined (Discuss DNR or withdrawal of care, Hospice)? DNR status @ -No What co-morbidities impacted this encounter? (DM, HTN, Smoking, COPD, CAD, Cancer, CVA, ARF, Chemo, Hep., AIDS, mental health diagnosis, sleep apnea, morbi d obesity)? @ -None Was patient admitted / discharged? Hospital course, mention meds given and route, prescriptions, significant lab abnormalities, going to OR and other pertinent info. @ -Patient has a history of schizophrenia and is getting her medication and does have follow-up so we will discharge her to follow-up as previously schedule d EPS was in agreement with this Undiagnosed new problem with uncertain prognosis? @ -No Drug Therapy requiring intensive monitoring for toxicity (Heparin, Nitro, Insulin, Cardizem)? @ -No Were any procedures done? @ -No Diagnosis/symptom? @ -Schizophrenia Acute, or Chronic, or Acute on Chronic? @ -Chronic Uncomplicated (without systemic symptoms) or Complicated (systemic symptoms)? @ -Complicated Side effects of treatment? @ -No Exacerbation, Progression, or Severe Exacerbation? @ -No Poses a threat to life or bodily function? How? (Chest pain, [place], MA, pneumonia, PE, COPD, DKA, ARF, appy, cholecystitis, CVA, Diverticulitis, Homicidal, Suicidal, threat to staff... and all critical care pts) @ -No - Lab Data Result diagrams: 09/18/22 09:22 09/18/22 09:22 Lab Results 09/18/22 09/18/22 09/18/22 Range/Units 09: 09:22 09:22 WBC 6.4 (3.8-10.6) k/uL RBC 4.48 (3.80-5.40) m/uL Hgb 13.1 (11.4-16.0) gm/dL Hct 39.8 (34.0-46.0) % MCV 88.9 (80.0-100.0) fL MCH 29.2 (25.0-35.0) pg MCHC 32.9 (31.0-37.0) g/dL RDW 14.7 (11.5-15.5) % Plt Count 193 (150-450) k/uL MPV 8.5 Neutrophils % 70 % Lymphocytes % 22 % Monocytes % 5 % Eosinophils % 1 % Basophils % 1 % Neutrophils # 4.5 (1.3-7.7) k/uL Lymphocytes # 1.4 (1.0-4.8) k/uL Monocytes # 0.3 (0-1.0) k/uL Eosinophils # 0.1 (0-0.7) k/uL Basophils # 0.0 (0-0.2) k/uL Sodium 136 L (137-145) mmol/L Potassium 4.2 (3.5-5.1) mmol/L Chloride 100 (98-107) mmol/L Carbon Dioxide 28 (22-30) mmol/L Anion Gap 8 mmol/L BUN 7 (7-17) mg/dL Creatinine 0.62 (0.52-1.04) mg/dL Est GFR (CKD-EPI)AfAm >90 (>60 ml/min/1.73 sqM) Est GFR (CKD-EPI)NonAf >90 (>60 ml/min/1.73 sqM) Glucose 100 H (74-99) mg/dL Calcium 9.4 (8.4-10.2) mg/dL Total Bilirubin 0.3 (0.2-1.3) mg/dL AST 25 (14-36) U/L ALT 26 (4-34) U/L Alkaline Phosphatase 71 (38-126) U/L Total Protein 8.0 (6.3-8.2) g/dL Albumin 4.3 (3.5-5.0) g/dL Urine HCG, Qual Not Detected (Not Detectd) Disposition Clinical Impression: Schizophrenia Disposition: HOME SELF-CARE Condition: Good Is patient prescribed a controlled substance at d/c from ED?: No Referrals: Nirali Valentin MD [Primary Care Provider] - 1-2 days Time of Disposition: 12:23
[2022-09-18 09:43] LABS: Basophils % (A) 1 %; Eosinophils # (A) 0.1 k/uL (0-0.7); Eosinophils % (A) 1 %; HCT 39.8 % (34.0-46.0); HGB 13.1 gm/dL (11.4-16.0); Lymphocytes # (A) 1.4 k/uL (1.0-4.8); Lymphocytes % (A) 22 %; MCH 29.2 pg (25.0-35.0); MCHC 32.9 g/dL (31.0-37.0); MCV 88.9 fL (80.0-100.0); Mean Platelet Volume 8.5; Monocytes # (A) 0.3 k/uL (0-1.0); Monocytes % (A) 5 %; Neutrophils # (A) 4.5 k/uL (1.3-7.7); Neutrophils % (A) 70 %; Platelet Count 193 k/uL (150-450); RBC 4.48 m/uL (3.80-5.40); RDW 14.7 % (11.5-15.5); WBC 6.4 k/uL (3.8-10.6)
[2022-09-18 09:53] LABS: ALT 26 U/L (4-34); AST 25 U/L (14-36); African American GFR (CKD) >90 (>60 ml/min/1.73 sqM); Albumin 4.3 g/dL (3.5-5.0); Alkaline Phosphatase 71 U/L (38-126); Anion Gap 8 mmol/L; Blood Urea Nitrogen 7 mg/dL (7-17); Calcium 9.4 mg/dL (8.4-10.2); Carbon Dioxide 28 mmol/L (22-30); Chloride 100 mmol/L (98-107); Glucose 100 mg/dL (74-99); Non-African American GFR(CKD) >90 (>60 ml/min/1.73 sqM); Potassium 4.2 mmol/L (3.5-5.1); Sodium 136 mmol/L (137-145); Total Bilirubin 0.3 mg/dL (0.2-1.3)
[2022-09-18 12:32] VITALS: BP 122/81; PULSE 64
== END 2022-09-18 12:32 | disposition home or self-care (01) ==
LOC: EC 09:00
DX: F20.9 Schizophrenia, unspecified (principal); J45.909 Unspecified asthma, uncomplicated; E11.9 Type 2 diabetes mellitus without complications; F17.200 Nicotine dependence, unspecified, uncomplicated; I10 Essential (primary) hypertension; Z79.899 Other long term (current) drug therapy; Z79.84 Long term (current) use of oral hypoglycemic drugs; Z88.6 Allergy status to analgesic agent; Z91.041 Radiographic dye allergy status; Z91.018 Allergy to other foods; Z88.8 Allergy status to other drugs, medicaments and biological substances; Z86.59 Personal history of other mental and behavioral disorders
CPT/HCPCS: 36415; 80053; 81025; 82075; 85025; 99284

== ENCOUNTER 2022-09-19 13:35 | Emergency (ER) | payer OTHER ==
--- NOTE | 2022-09-19 13:49 | ED ---
General Adult HPI - General Stated complaint: Mental Health Time Seen by Provider: 09/19/22 13:35 Source: patient, RN notes reviewed, old records reviewed - History of Present Illness Initial comments: This is a 32-year-old female who states that she is with sextuplets. Patient was just seen in the emergency department claiming again she was and the test was done and she was not. Patient has been making this claiming on a regular basis. Patient also states she thinks she's been for the last 10 years. Patient is insistent her tests are wrong because she has 2 kids at home and that may have screwed up the test. Patient denies any fever chills. His any vomiting diarrhea. Patient denies any other complaint. Patient was evaluated yesterday by EPS and they determined the patient be discharged home yesterday - Related Data Home Medications Medication Instructions Recorded Confirmed Atorvastatin [Lipitor] 10 mg PO HS 06/12/22 08/18/22 Pantoprazole Sodium [Protonix] 40 mg PO DAILY 06/12/22 08/18/22 hydroCHLOROthiazide [Hydrodiuril] 12.5 mg PO DAILY 06/12/22 08/18/22 metFORMIN HCL [Glucophage] 1,000 mg PO DAILY 06/12/22 08/18/22 Orphenadrine [Norflex] 100 mg PO BID PRN 08/18/22 08/21/22 Previous Rx's Medication Instructions Recorded Nicotine 14Mg/24Hr Patch [Habitrol] 1 patch TRANSDERM DAILY 30 Days 08/22/22 #30 patch Nicotine Gum (Polacrilex) 2 mg BUCCAL Q4HR PRN 30 Days #180 08/22/22 [Nicorette] pieceofgum QUEtiapine [SEROquel] 200 mg PO HS 30 Days #60 tab 08/22/22 fluPHENAZine decanoate [Prolixin 50 mg IM FR 1 Days #1 ml 08/22/22 Decanoate] traZODone HCL [Desyrel] 100 mg PO HS 30 Days #30 tab 08/22/22 Allergies Allergy/AdvReac Type Severity Reaction Status Date / Time ibuprofen [From Motrin] Allergy Rash/Hives Verified 09/18/22 09:09 NSAIDS (Non-Steroidal Allergy Unknown Verified 09/18/22 09:09 Anti-Inflamma pineapple Allergy Anaphylaxis Verified 09/18/22 09:09 red dye Allergy Rash/Hives Verified 09/18/22 09:09 haloperidol [From Haldol] AdvReac Hallucinati Verified 09/18/22 09:09 ons Review of Systems ROS Statement: Those systems with pertinent positive or pertinent negative responses have been documented in the HPI. ROS Other: All systems not noted in ROS Statement are negative. Past Medical History Past Medical History: Asthma, Diabetes Mellitus, Hypertension, Seizure Disorder Additional Past Medical History / Comment(s): last seizure was December 2018 per , tubal History of Any Multi-Drug Resistant Organisms: None Reported Past Surgical History: Section, Tonsillectomy, Tubal Ligation Additional Past Surgical History / Comment(s): facial surgery, 2 C-Sections Past Anesthesia/Blood Transfusion Reactions: No Reported Reaction Past Psychological History: Anxiety, Bipolar, Depression, Schizoaffective Disorder, Schizophrenia Smoking Status: Current every day smoker, Former smoker Past Alcohol Use History: Occasional Past Drug Use History: None Reported - Past Family History Father Family Medical History: Unable to Obtain Additional Family Medical History / Comment(s): Father is alive and may have diabetes. Mother Family Medical History: Thyroid Disorder Additional Family Medical History / Comment(s): Mother is alive at age 50 with thyroid disorder. Brother(s) Additional Family Medical History / Comment(s): Patient has 2 brothers and 2 sisters with no major medical problems. Patient has two sons that is healthy. General Exam - General Exam Comments Initial Comments: GENERAL: Patient is well-developed and well-nourished. Patient is nontoxic and well- hydrated and is in no acute distress. ENT: Neck is soft and supple. No significant lymphadenopathy is noted. Oropharynx is clear. Moist mucous membranes. Neck has full range of motion without eliciting any pain. EYES: The sclera were anicteric and conjunctiva were pink and moist. Extraocular movements were intact and pupils were equal round and reactive to light. Eyelids were unremarkable. PULMONARY: Unlabored respirations. Good breath sounds bilaterally. No audible rales rhonchi or wheezing was noted. CARDIOVASCULAR: There is a regular rate and rhythm without any murmurs gallops or rubs. ABDOMEN: Soft and nontender with normal bowel sounds. SKIN: Skin is clear with no lesions or rashes and otherwise unremarkable. NEUROLOGIC: Patient is alert and oriented x3. Cranial nerves II through XII are grossly intact. Motor and sensory are also intact. Normal speech, volume and content. Symmetrical smile. MUSCULOSKELETAL: Normal extremities with adequate strength and full range of motion. LYMPHATICS: No significant lymphadenopathy is noted PSYCHIATRIC: Patient has been claiming she is last 10 years Medical Decision Making - Medical Decision Making Was pt. sent in by a medical professional or institution (, PA, CRIMPER OPERATOR, urgent care, hospital, or custodial...) When possible be specific @ -No Did you speak to anyone other than the patient for history (EMS, parent, family, police, friend...)? What history was obtained from this source @ -I spoke with EMS about this patient's history Did you review nursing and triage notes (agree or disagree)? Why? @ -I reviewed and agree with nursing and triage notes Were old charts reviewed (outside hosp., previous admission, EMS record, old EKG, old radiological studies, urgent care reports/EKG's, custodial records)? Report findings @ -I reviewed previous charts and previous lab work from yesterday Differential Diagnosis (chest pain, altered mental status, abdominal pain women, abdominal pain men, vaginal bleeding, weakness, fever, dyspnea, syncope, headache, dizziness, GI bleed, back pain, seizure, CVA, palpatations, mental h ealth, musculoskeletal)? @ -Differential Mental Health Depression, anxiety, bipolar, psychosis, schizophrenia, borderline personality, situational depression, adjustment disorder, behavioral disorder, brain tumor, malingering, substance abuse, encephalopathy, medication reaction, dementia, hypothyroidism, degenerative neurologic disorder, lupus.... This is not meant to be all-inclusive list EKG interpreted by me (3pts min.). @ -As above X-rays interpreted by me (1pt min.). @ -None done CT interpreted by me (1pt min.). @ -None done U/S interpreted by me (1pt. min.). @ -None done What testing was considered but not performed or refused? (CT, X-rays, U/S, labs)? Why? @ -None What meds were considered but not given or refused? Why? @ -None Did you discuss the management of the patient with other professionals (professionals i.e. , ERNESTO, CRIMPER OPERATOR, lab, RT, psych nurse, social services specialist, trial lawyer, teacher, medical laboratory technical officer, case management coordinator)? Give summary @ -No Was smoking cessation discussed for >3mins.? @ -No Was critical care preformed (if so, how long)? @ -No Were there social determinants of health that impacted care today? How? (Homelessness, low income, unemployed, alcoholism, drug addiction, transportation, low edu. Level, literacy, decrease access to med. care, [facility], rehab)? @ -No Was there de-escalation of care discussed even if they declined (Discuss DNR or withdrawal of care, Hospice)? DNR status @ -No What co-morbidities impacted this encounter? (DM, HTN, Smoking, COPD, CAD, Cancer, CVA, ARF, Chemo, Hep., AIDS, mental health diagnosis, sleep apnea, morbid obesity)? @ -None Was patient admitted / discharged? Hospital course, mention meds given and route, prescriptions, significant lab abnormalities, going to OR and other pertinent info. @ -EPS evaluated the patient and the patient will be discharged home with close follow-up that has been arranged Undiagnosed new problem with uncertain prognosis? @ -No Drug Therapy requiring intensive monitoring for toxicity (Heparin, Nitro, Insulin, Cardizem)? @ -No Were any procedures done? @ -No Diagnosis/symptom? @ -History of schizophrenia Acute, or Chronic, or Acute on Chronic? @ -Chronic Uncomplicated (without systemic symptoms) or Complicated (systemic symptoms)? @ -Uncomplicated Side effects of treatment? @ -No Exacerbation, Progression, or Severe Exacerbation? @ -No Poses a threat to life or bodily function? How? (Chest pain, [place], [place], pneumonia, PE, COPD, DKA, ARF, appy, cholecystitis, CVA, Diverticulitis, Homicidal, Suicidal, threat to staff... and all critical care pts) @ -No - Lab Data Lab Results 09/19/22 Range/Units 14:05 Urine Opiates Screen Not Detected (NotDetected) Ur Oxycodone Screen Not Detected (NotDetected) Urine Methadone Screen Not Detected (NotDetected) Ur Propoxyphene Screen Not Detected (NotDetected) Ur Barbiturates Screen Not Detected (NotDetected) U Tricyclic Antidepress Not Detected (NotDetected) Ur Phencyclidine Scrn Not Detected (NotDetected) Ur Amphetamines Screen Not Detected (NotDetected) U Methamphetamines Scrn Not Detected (NotDetected) U Benzodiazepines Scrn Not Detected (NotDetected) Urine Cocaine Screen Not Detected (NotDetected) U Marijuana (THC) Screen Not Detected (NotDetected) Disposition Clinical Impression: Schizophrenia Disposition: HOME SELF-CARE Condition: Good Instructions (If sedation given, give patient instructions): Schizophrenia (ED) Is patient prescribed a controlled substance at d/c from ED?: No Referrals: None,Stated [Primary Care Provider] - 1-2 days Time of Disposition: 14:51
[2022-09-19 14:31] LABS: Amphetamine Screen,Urine Not Detected (NotDetected); Barbiturate Screen,Urine Not Detected (NotDetected); Benzodiazepines Screen,Urine Not Detected (NotDetected); Cocaine Screen,Urine Not Detected (NotDetected); Methadone Screen, Urine Not Detected (NotDetected); Opiate Screen,Urine Not Detected (NotDetected); Oxycodone Screen, Urine Not Detected (NotDetected); Phencyclidine Screen,Urine Not Detected (NotDetected); Tricyclic Antidepressant,Urine Not Detected (NotDetected); Urn Cannabinoid Scrn Not Detected (NotDetected)
[2022-09-19 14:52] VITALS: BP 146/79; PULSE 102; RESP 18; TEMP 98
== END 2022-09-19 15:00 | disposition home or self-care (01) ==
LOC: EC 13:35
DX: F20.9 Schizophrenia, unspecified (principal); I10 Essential (primary) hypertension; E11.9 Type 2 diabetes mellitus without complications; J45.909 Unspecified asthma, uncomplicated; F17.200 Nicotine dependence, unspecified, uncomplicated; Z86.59 Personal history of other mental and behavioral disorders; Z79.84 Long term (current) use of oral hypoglycemic drugs; Z79.899 Other long term (current) drug therapy; Z88.6 Allergy status to analgesic agent; Z88.8 Allergy status to other drugs, medicaments and biological substances; Z91.041 Radiographic dye allergy status; Z91.018 Allergy to other foods
CPT/HCPCS: 80306; 82075; 99285

== ENCOUNTER 2022-09-21 21:41 | Emergency (ER) | payer OTHER ==
[2022-09-21 22:09] VITALS: PULSE 98; RESP 18
--- NOTE | 2022-09-22 00:36 | ED ---
Psych HPI - General Chief Complaint: Psychiatric Symptoms Stated Complaint: Mental health Time Seen by Provider: 09/21/22 21:43 Source: EMS Mode of arrival: ambulatory - History of Present Illness Initial Comments: 's patient is a 32-year-old woman presenting with complaint that she believes she is going in the labor. She states that she is 62 weeks . Patient denies any vaginal discharge or bleeding. MD Complaint: other -: unknown Associated Psychiatric Symptoms: racing thoughts History of same: Yes Quality: constant Improves With: none Worsens With: none - Related Data Previous Rx's Medication Instructions Recorded Atorvastatin [Lipitor] 10 mg PO HS 30 Days #30 tab 10/01/22 Cholecalciferol [Vitamin D3 (25 50 mcg PO DAILY 30 Days #30 tab 10/01/22 Mcg = 1000 Iu)] Ferrous Sulfate [Iron (65 MG 325 mg PO DAILY 30 Days #30 tab 10/01/22 Elemental)] Folic Acid 1 mg PO DAILY 30 Days #30 tab 10/01/22 Multivitamins, Thera [Multivitamin 1 each PO DAILY 30 Days #30 tab 10/01/22 (formulary)] Nicotine 14Mg/24Hr Patch [Habitrol] 1 patch TRANSDERM DAILY 14 Days 10/01/22 #14 patch Nicotine Gum (Polacrilex) 2 mg BUCCAL Q4HR PRN 30 Days #180 10/01/22 [Nicorette] pieceofgum Pantoprazole Sodium [Protonix] 40 mg PO DAILY 30 Days #30 tab 10/01/22 QUEtiapine [SEROquel] 200 mg PO HS 30 Days #30 tab 10/01/22 fluPHENAZine decanoate [Prolixin 50 mg IM TH #1 ml 10/01/22 Decanoate] hydroCHLOROthiazide [Hydrodiuril] 12.5 mg PO DAILY 30 Days #30 cap 10/01/22 metFORMIN HCL [Glucophage] 1,000 mg PO DAILY 30 Days #30 tab 10/01/22 traZODone HCL [Desyrel] 100 mg PO HS 30 Days #30 tab 10/01/22 Allergies Allergy/AdvReac Type Severity Reaction Status Date / Time ibuprofen [From Motrin] Allergy Rash/Hives Verified 09/26/22 11:40 NSAIDS (Non-Steroidal Allergy Unknown Verified 09/26/22 11:40 Anti-Inflamma pineapple Allergy Anaphylaxis Verified 09/26/22 11:40 red dye Allergy Rash/Hives Verified 09/26/22 11:40 haloperidol [From Haldol] AdvReac Hallucinati Verified 09/26/22 11:40 ons Review of Systems ROS Statement: Those systems with pertinent positive or pertinent negative responses have been documented in the HPI. ROS Other: All systems not noted in ROS Statement are negative. Constitutional: Denies: fever Respiratory: Denies: dyspnea Cardiovascular: Denies: chest pain, edema Gastrointestinal: Denies: nausea, vomiting, diarrhea, constipation Genitourinary: Denies: dysuria, hematuria Musculoskeletal: Denies: back pain Skin: Denies: rash Neurological: Denies: headache Psychiatric: Reports: auditory hallucinations. Denies: visual hallucinations, homicidal thoughts, suicidal thoughts Past Medical History Past Medical History: Asthma, Diabetes Mellitus, Hypertension, Seizure Disorder Additional Past Medical History / Comment(s): last seizure was December 2018 per , tubal History of Any Multi-Drug Resistant Organisms: None Reported Past Surgical History: Section, Tonsillectomy, Tubal Ligation Additional Past Surgical History / Comment(s): facial surgery, 2 C-Sections Past Anesthesia/Blood Transfusion Reactions: No Reported Reaction Past Psychological History: Anxiety, Bipolar, Depression, Schizoaffective Disorder, Schizophrenia Smoking Status: Current every day smoker, Former smoker Past Alcohol Use History: Occasional Past Drug Use History: None Reported - Past Family History Father Family Medical History: Unable to Obtain Additional Family Medical History / Comment(s): Father is alive and may have diabetes. Mother Family Medical History: Thyroid Disorder Additional Family Medical History / Comment(s): Mother is alive at age 50 with thyroid disorder. Brother(s) Additional Family Medical History / Comment(s): Patient has 2 brothers and 2 sisters with no major medical problems. Patient has two sons that is healthy. General Exam General appearance: alert, in no apparent distress, anxious Head exam: Present: atraumatic, normocephalic Eye exam: Present: normal appearance. Absent: scleral icterus, conjunctival injection Neck exam: Present: normal inspection Respiratory exam: Present: normal lung sounds bilaterally. Absent: respiratory distress, wheezes, rales, rhonchi, stridor Cardiovascular Exam: Present: regular rate, normal rhythm, normal heart sounds. Absent: systolic murmur, diastolic murmur, rubs, gallop GI/Abdominal exam: Present: soft, other (No gravid uterus palpable). Absent: d istended, tenderness, guarding, rebound, rigid, mass Extremities exam: Present: normal inspection, normal capillary refill. Absent: pedal edema, calf tenderness Back exam: Present: normal inspection. Absent: CVA tenderness (R), CVA tenderness (L) Neurological exam: Present: alert Psychiatric exam: Present: anxious, manic. Absent: agitated, flat affect, homicidal ideation, suicidal ideation Skin exam: Present: warm, dry, intact, normal color. Absent: rash Course Vital Signs 09/21/22 09/22/22 21:46 01:29 Temperature 98.6 F 98.7 F Pulse Rate 98 98 Respiratory 18 18 Rate Blood Pressure 145/82 150/78 O2 Sat by Pulse 98 97 Oximetry Medical Decision Making - Medical Decision Making This patient is 32-year-old woman with history of psychiatric disease, well- known here, seen and cleared medically. She is seen by the EPS service and cleared to continue outpatient care. Was pt. sent in by a medical professional or institution (, PA, REDUCTION FURNACE OPERATOR, urgent care, hospital, or detention...) When possible be specific @ -[No] Did you speak to anyone other than the patient for history (EMS, parent, family, police, friend...)? What history was obtained from this source @ -[No] Did you review nursing and triage notes (agree or disagree)? Why? @ -[I reviewed and agree with nursing and triage notes] Were old charts reviewed (outside hosp., previous admission, EMS record, old EKG, old radiological studies, urgent care reports/EKG's, detention records)? Report findings @ -[old charts were reviewed] Differential Diagnosis (chest pain, altered mental status, abdominal pain women, abdominal pain men, vaginal bleeding, weakness, fever, dyspnea, syncope, headache, dizziness, GI bleed, back pain, seizure, CVA, palpatations, mental health, musculoskeletal)? @ -[Differential Mental Health Depression, anxiety, bipolar, psychosis, schizophrenia, borderline personality, situational depression, adjustment disorder, behavioral disorder, brain tumor, malingering, substance abuse, encephalopathy, medication reaction, dementia, hypothyroidism, degenerative neurologic disorder, lupus.... This is not meant to be all-inclusive list EKG interpreted by me (3pts min.). @ -[ X-rays interpreted by me (1pt min.). @ -[None done] CT interpreted by me (1pt min.). @ -[None done] U/S interpreted by me (1pt. min.). @ -[None done] What testing was considered but not performed or refused? (CT, X-rays, U/S, labs)? Why? @ -[None] What meds were considered but not given or refused? Why? @ -[None] Did you discuss the management of the patient with other professionals (professionals i.e. DrHakeem, PA, REDUCTION FURNACE OPERATOR, lab, RT, psych nurse, social media community manager, esl professor, teacher, juvenile officer, residential case manager)? Give summary @ -[Case discussed with the EPS personnel Was smoking cessation discussed for >3mins.? @ -[No] Was critical care preformed (if so, how long)? @ -[No] Were there social determinants of health that impacted care today? How? (Homelessness, low income, unemployed, alcoholism, drug addiction, transportation, low edu. Level, literacy, decrease access to med. care, correction, rehab)? @ -[No] Was there de-escalation of care discussed even if they declined (Discuss DNR or withdrawal of care, Hospice)? DNR status @ -[No] What co-morbidities impacted this encounter? (DM, HTN, Smoking, COPD, CAD, Cancer, CVA, ARF, Chemo, Hep., AIDS, mental health diagnosis, sleep apnea, morbid obesity)? @ -[None] Was patient admitted / discharged? Hospital course, mention meds given and route, prescriptions, significant lab abnormalities, going to OR and other pertinent info. @ -[The patient's discussed by EPS personnel with the psychiatrist and she is clear to continue outpatient care. Undiagnosed new problem with uncertain prognosis? @ -[No] Drug Therapy requiring intensive monitoring for toxicity (Heparin, Nitro, Insulin, Cardizem)? @ -[No] Were any procedures done? @ -[No] Diagnosis/symptom? @ -[Acute psychosis Acute, or Chronic, or Acute on Chronic? @ -[Acute on chronic Uncomplicated (without systemic symptoms) or Complicated (systemic symptoms)? @ -Uncomplicated Side effects of treatment? @ -[No] Exacerbation, Progression, or Severe Exacerbation? @ -[No] Poses a threat to life or bodily function? How? (Chest pain, [place], [place], pneumonia, PE, COPD, DKA, ARF, appy, cholecystitis, CVA, Diverticulitis, Homicidal, Suicidal, threat to staff... and all critical care pts) @ -[No] - Lab Data Lab Results 09/22/22 Range/Units 00:44 Urine HCG, Qual Not Detected (Not Detectd) Disposition Clinical Impression: Psychosis Disposition: HOME SELF-CARE Condition: Good Instructions (If sedation given, give patient instructions): Psychotic Disorder (ED) Is patient prescribed a controlled substance at d/c from ED?: No Referrals: Nirali Valentin MD [Primary Care Provider] - 1-2 days
[2022-09-22 01:45] VITALS: BP 150/78; TEMP 98.7
== END 2022-09-22 01:42 | disposition home or self-care (01) ==
LOC: EC 21:41
DX: F29 Unspecified psychosis not due to a substance or known physiological condition (principal); I10 Essential (primary) hypertension; J45.909 Unspecified asthma, uncomplicated; E11.9 Type 2 diabetes mellitus without complications; F17.200 Nicotine dependence, unspecified, uncomplicated; F41.9 Anxiety disorder, unspecified; F31.9 Bipolar disorder, unspecified; Z79.899 Other long term (current) drug therapy; Z79.84 Long term (current) use of oral hypoglycemic drugs; Z88.6 Allergy status to analgesic agent; Z88.8 Allergy status to other drugs, medicaments and biological substances; Z91.018 Allergy to other foods; Z91.041 Radiographic dye allergy status
CPT/HCPCS: 81025; 82075; 99285

== ENCOUNTER 2022-09-26 07:26 | Emergency (ER) | payer OTHER ==
[2022-09-26 07:32] VITALS: RESP 18; TEMP 98.1
--- NOTE | 2022-09-26 07:40 | ED ---
General Adult HPI - General Chief complaint: Psychiatric Symptoms Stated complaint: AMS Time Seen by Provider: 09/26/22 07:30 Source: patient, EMS, RN notes reviewed, old records reviewed Mode of arrival: EMS Limitations: no limitations - History of Present Illness Initial comments: 32-year-old female history of schizophrenia presents for evaluation of term . Patient states she is 8 months . She was seen in the emergency department the last week and had negative test. This is her typical delusion. She denies suicidal or homicidal ideation. - Related Data Home Medications Medication Instructions Recorded Confirmed Atorvastatin [Lipitor] 10 mg PO HS 06/12/22 09/19/22 Pantoprazole Sodium [Protonix] 40 mg PO DAILY 06/12/22 09/19/22 hydroCHLOROthiazide [Hydrodiuril] 12.5 mg PO DAILY 06/12/22 09/19/22 metFORMIN HCL [Glucophage] 1,000 mg PO DAILY 06/12/22 09/19/22 Orphenadrine [Norflex] 100 mg PO BID PRN 08/18/22 09/19/22 Cholecalciferol [Vitamin D3 (25 50 mcg PO DAILY 09/19/22 09/19/22 Mcg = 1000 Iu)] Ferrous Sulfate [Feosol] 325 mg PO DAILY 09/19/22 09/19/22 Folic Acid 1 mg PO DAILY 09/19/22 09/19/22 Nicotine 14Mg/24Hr Patch [Habitrol] 1 patch TRANSDERM DAILY PRN 09/19/22 09/19/22 QUEtiapine [SEROquel] 200 mg PO HS 09/19/22 09/19/22 fluPHENAZine decanoate [Prolixin 50 mg IM TH 09/19/22 09/19/22 Decanoate] Previous Rx's Medication Instructions Recorded Nicotine Gum (Polacrilex) 2 mg BUCCAL Q4HR PRN 30 Days #180 08/22/22 [Nicorette] pieceofgum traZODone HCL [Desyrel] 100 mg PO HS 30 Days #30 tab 08/22/22 Allergies Allergy/AdvReac Type Severity Reaction Status Date / Time ibuprofen [From Motrin] Allergy Rash/Hives Verified 09/26/22 07:32 NSAIDS (Non-Steroidal Allergy Unknown Verified 09/26/22 07:32 Anti-Inflamma pineapple Allergy Anaphylaxis Verified 09/26/22 07:32 red dye Allergy Rash/Hives Verified 09/26/22 07:32 haloperidol [From Haldol] AdvReac Hallucinati Verified 09/26/22 07:32 ons Review of Systems ROS Statement: Those systems with pertinent positive or pertinent negative responses have been documented in the HPI. ROS Other: All systems not noted in ROS Statement are negative. Past Medical History Past Medical History: Asthma, Diabetes Mellitus, Hypertension, Seizure Disorder Additional Past Medical History / Comment(s): last seizure was December 2018 per , tubal History of Any Multi-Drug Resistant Organisms: None Reported Past Surgical History: Section, Tonsillectomy, Tubal Ligation Additional Past Surgical History / Comment(s): facial surgery, 2 C-Sections Past Anesthesia/Blood Transfusion Reactions: No Reported Reaction Past Psychological History: Anxiety, Bipolar, Depression, Schizoaffective Disorder, Schizophrenia Smoking Status: Current every day smoker, Former smoker Past Alcohol Use History: Occasional Past Drug Use History: None Reported - Past Family History Father Family Medical History: Unable to Obtain Additional Family Medical History / Comment(s): Father is alive and may have diabetes. Mother Family Medical History: Thyroid Disorder Additional Family Medical History / Comment(s): Mother is alive at age 50 with thyroid disorder. Brother(s) Additional Family Medical History / Comment(s): Patient has 2 brothers and 2 sisters with no major medical problems. Patient has two sons that is healthy. General Exam Limitations: no limitations General appearance: alert, in no apparent distress Head exam: Present: atraumatic, normocephalic Eye exam: Present: normal appearance, PERRL ENT exam: Present: normal exam Neck exam: Present: normal inspection. Absent: tenderness, meningismus Respiratory exam: Present: normal lung sounds bilaterally. Absent: respiratory distress, wheezes Cardiovascular Exam: Present: regular rate, normal rhythm GI/Abdominal exam: Present: soft. Absent: distended, tenderness, guarding, rebound Extremities exam: Present: normal inspection Neurological exam: Present: alert, oriented X3, CN II-XII intact. Absent: motor sensory deficit Psychiatric exam: Present: other (Delusional). Absent: homicidal ideation, suicidal ideation Skin exam: Present: warm, dry, intact Course Vital Signs 09/26/22 07:28 Temperature 98.1 F Pulse Rate 70 Respiratory 18 Rate Blood Pressure 140/80 O2 Sat by Pulse 96 Oximetry Medical Decision Making - Medical Decision Making Was pt. sent in by a medical professional or institution (, ERNESTO, FAN BLADE ALIGNER, urgent care, hospital, or detention...) When possible be specific @ -No Did you speak to anyone other than the patient for history (EMS, parent, family, police, friend...)? What history was obtained from this source @ -No Did you review nursing and triage notes (agree or disagree)? Why? @ -I reviewed and agree with nursing and triage notes Were old charts reviewed (outside hosp., previous admission, EMS record, old EKG, old radiological studies, urgent care reports/EKG's, detention records)? Report findings @ -No old charts were reviewed Differential Diagnosis (chest pain, altered mental status, abdominal pain women, abdominal pain men, vaginal bleeding, weakness, fever, dyspnea, syncope, headache, dizziness, GI bleed, back pain, seizure, CVA, palpatations, mental health, musculoskeletal)? @ -[Differential Mental Health Depression, anxiety, bipolar, psychosis, schizophrenia, borderline personality, situational depression, adjustment disorder, behavioral disorder, brain tumor, malingering, substance abuse, encephalopathy, medication reaction, dementia, hypothyroidism, degenerative neurologic disorder, lupus.... This is not meant to be all-inclusive list EKG interpreted by me (3pts min.). @ -As above X-rays interpreted by me (1pt min.). @ -None done CT interpreted by me (1pt min.). @ -None done U/S interpreted by me (1pt. min.). @ -None done What testing was considered but not performed or refused? (CT, X-rays, U/S, labs)? Why? @ -None What meds were considered but not given or refused? Why? @ -None Did you discuss the management of the patient with other professionals (professionals i.e. , ERNESTO, FAN BLADE ALIGNER, lab, RT, psych nurse, social work associate, sample tester grinder, teacher, chief juvenile probation officer, window caser)? Give summary @ -No Was smoking cessation discussed for >3mins.? @ -No Was critical care preformed (if so, how long)? @ -No Were there social determinants of health that impacted care today? How? (Homelessness, low income, unemployed, alcoholism, drug addiction, transportation, low edu. Level, literacy, decrease access to med. care, [facility], rehab)? @ -No Was there de-escalation of care discussed even if they declined (Discuss DNR or withdrawal of care, Hospice)? DNR status @ -No What co-morbidities impacted this encounter? (DM, HTN, Smoking, COPD, CAD, Cancer, CVA, ARF, Chemo, Hep., AIDS, mental health diagnosis, sleep apnea, morbid obesity)? @ -None Was patient admitted / discharged? Hospital course, mention meds given and route, prescriptions, significant lab abnormalities, going to OR and other pertinent info. @ -[32-year-old female with chief complaint of being in labor. Patient is not gravid. She's had tests over the past several weeks which all been negative. test again is negative today. She is delusional and has history of psychosis. No suicidal or homicidal ideation. Patient stable for discharge. Undiagnosed new problem with uncertain prognosis? @ -No Drug Therapy requiring intensive monitoring for toxicity (Heparin, Nitro, Insulin, Cardizem)? @ -No Were any procedures done? @ -No Diagnosis/symptom? @Delusional Acute, or Chronic, or Acute on Chronic? @Chronic Uncomplicated (without systemic symptoms) or Complicated (systemic symptoms)? @ -default Side effects of treatment? @ -No Exacerbation, Progression, or Severe Exacerbation? @ -No Poses a threat to life or bodily function? How? (Chest pain, [place], [place], pneumonia, PE, COPD, DKA, ARF, appy, cholecystitis, CVA, Diverticulitis, Homicidal, Suicidal, threat to staff... and all critical care pts) @ -No - Lab Data Lab Results 09/26/22 09/26/22 Range/Units 07:44 07:44 Urine Color Colorless Urine Appearance Clear (Clear) Urine pH 6.0 (5.0-8.0) Ur Specific [place] 1.001 (1.001-1.035) Urine Protein Negative (Negative) Urine Glucose (UA) Negative (Negative) Urine Ketones Negative (Negative) Urine Blood Negative (Negative) Urine Nitrite Negative (Negative) Urine Bilirubin Negative (Negative) Urine Urobilinogen <2.0 (<2.0) mg/dL Ur Leukocyte Esterase Negative (Negative) Urine HCG, Qual Not Detected (Not Detectd) Disposition Clinical Impression: Psychosis Disposition: HOME SELF-CARE Condition: Fair Instructions (If sedation given, give patient instructions): Schizophrenia (ED) Is patient prescribed a controlled substance at d/c from ED?: No Referrals: Nirali Valentin MD [Primary Care Provider] - 1-2 days Time of Disposition: 08:13
[2022-09-26 08:03] LABS: Appearance,Urine Clear (Clear); Bilirubin,Urine Negative (Negative); Blood,Urine Negative (Negative); Color,Urine Colorless; Glucose,Urine (UA) Negative (Negative); Ketones,Urine Negative (Negative); Leukocyte Esterase,Urine Negative (Negative); Nitrite,Urine Negative (Negative); Protein,Urine Negative (Negative); Specific Gravity,Urine 1.001 (1.001-1.035); Urobilinogen,Urine <2.0 mg/dL (<2.0)
[2022-09-26 08:37] VITALS: BP 134/84; PULSE 72
== END 2022-09-26 08:39 | disposition home or self-care (01) ==
LOC: EC 07:26
DX: F29 Unspecified psychosis not due to a substance or known physiological condition (principal); F22 Delusional disorders; E11.9 Type 2 diabetes mellitus without complications; I10 Essential (primary) hypertension; J45.909 Unspecified asthma, uncomplicated; F31.9 Bipolar disorder, unspecified; F25.9 Schizoaffective disorder, unspecified; F41.9 Anxiety disorder, unspecified; F17.200 Nicotine dependence, unspecified, uncomplicated; Z79.84 Long term (current) use of oral hypoglycemic drugs; Z79.899 Other long term (current) drug therapy; Z88.6 Allergy status to analgesic agent; Z91.041 Radiographic dye allergy status; Z88.8 Allergy status to other drugs, medicaments and biological substances; Z91.018 Allergy to other foods
CPT/HCPCS: 81003; 81025; 99285

== ENCOUNTER 2022-09-26 11:36 | Inpatient (IN) | payer MEDICAID, OTHER ==
--- NOTE | 2022-09-26 12:00 | ED ---
General Adult HPI - General Chief complaint: Psychiatric Symptoms Stated complaint: mental health Time Seen by Provider: 09/26/22 11:48 Source: patient, RN notes reviewed, old records reviewed, Caregiver Mode of arrival: ambulatory Limitations: no limitations - History of Present Illness Initial comments: 32-year-old female presents for psychiatric evaluation. Patient had left the emergency department had been taken to an appointment by her senior accounting specialist with her psychiatrist and it was recommended that the patient undergo psychiatric evaluation. The patient is delusional, believing that she is in labor. She is not suicidal or homicidal. No physical complaints. - Related Data Home Medications Medication Instructions Recorded Confirmed Atorvastatin [Lipitor] 10 mg PO HS 06/12/22 09/19/22 Pantoprazole Sodium [Protonix] 40 mg PO DAILY 06/12/22 09/19/22 hydroCHLOROthiazide [Hydrodiuril] 12.5 mg PO DAILY 06/12/22 09/19/22 metFORMIN HCL [Glucophage] 1,000 mg PO DAILY 06/12/22 09/19/22 Orphenadrine [Norflex] 100 mg PO BID PRN 08/18/22 09/19/22 Cholecalciferol [Vitamin D3 (25 50 mcg PO DAILY 09/19/22 09/19/22 Mcg = 1000 Iu)] Ferrous Sulfate [Feosol] 325 mg PO DAILY 09/19/22 09/19/22 Folic Acid 1 mg PO DAILY 09/19/22 09/19/22 Nicotine 14Mg/24Hr Patch [Habitrol] 1 patch TRANSDERM DAILY PRN 09/19/22 09/19/22 QUEtiapine [SEROquel] 200 mg PO HS 09/19/22 09/19/22 fluPHENAZine decanoate [Prolixin 50 mg IM TH 09/19/22 09/19/22 Decanoate] Previous Rx's Medication Instructions Recorded Nicotine Gum (Polacrilex) 2 mg BUCCAL Q4HR PRN 30 Days #180 08/22/22 [Nicorette] pieceofgum traZODone HCL [Desyrel] 100 mg PO HS 30 Days #30 tab 08/22/22 Allergies Allergy/AdvReac Type Severity Reaction Status Date / Time ibuprofen [From Motrin] Allergy Rash/Hives Verified 09/26/22 11:40 NSAIDS (Non-Steroidal Allergy Unknown Verified 09/26/22 11:40 Anti-Inflamma pineapple Allergy Anaphylaxis Verified 09/26/22 11:40 red dye Allergy Rash/Hives Verified 09/26/22 11:40 haloperidol [From Haldol] AdvReac Hallucinati Verified 09/26/22 11:40 ons Review of Systems ROS Statement: Those systems with pertinent positive or pertinent negative responses have been documented in the HPI. ROS Other: All systems not noted in ROS Statement are negative. Past Medical History Past Medical History: Asthma, Diabetes Mellitus, Hypertension, Seizure Disorder Additional Past Medical History / Comment(s): last seizure was December 2018 per , tubal History of Any Multi-Drug Resistant Organisms: None Reported Past Surgical History: Section, Tonsillectomy, Tubal Ligation Additional Past Surgical History / Comment(s): facial surgery, 2 C-Sections Past Anesthesia/Blood Transfusion Reactions: No Reported Reaction Past Psychological History: Anxiety, Bipolar, Depression, Schizoaffective Disorder, Schizophrenia Smoking Status: Current every day smoker, Former smoker Past Alcohol Use History: Occasional Past Drug Use History: None Reported - Past Family History Father Family Medical History: Unable to Obtain Additional Family Medical History / Comment(s): Father is alive and may have diabetes. Mother Family Medical History: Thyroid Disorder Additional Family Medical History / Comment(s): Mother is alive at age 50 with thyroid disorder. Brother(s) Additional Family Medical History / Comment(s): Patient has 2 brothers and 2 sisters with no major medical problems. Patient has two sons that is healthy. General Exam Limitations: no limitations General appearance: alert, in no apparent distress Head exam: Present: atraumatic, normocephalic Eye exam: Present: normal appearance, PERRL ENT exam: Present: normal exam Neck exam: Present: normal inspection Respiratory exam: Present: normal lung sounds bilaterally. Absent: respiratory distress, wheezes Cardiovascular Exam: Present: regular rate, normal rhythm GI/Abdominal exam: Present: soft. Absent: distended, tenderness Neurological exam: Present: alert. Absent: motor sensory deficit Psychiatric exam: Present: other (Delusional) Skin exam: Present: warm, dry, intact Course Vital Signs 09/26/22 11:39 Temperature 98.3 F Pulse Rate 76 Respiratory 20 Rate Blood Pressure 148/84 O2 Sat by Pulse 99 Oximetry - Reevaluation(s) Reevaluation #1: 09/26/22 12:24 Clear for EPS Medical Decision Making - Medical Decision Making Was pt. sent in by a medical professional or institution (, ERNESTO, CIVIL DRAFTING TECHNICIAN, urgent care, hospital, or [facility]...) When possible be specific @ -No Did you speak to anyone other than the patient for history (EMS, parent, family, police, friend...)? What history was obtained from this source @ Input Output Clerk Did you review nursing and triage notes (agree or disagree)? Why? @ -I reviewed and agree with nursing and triage notes Were old charts reviewed (outside hosp., previous admission, EMS record, old EKG, old radiological studies, urgent care reports/EKG's, [facility] records)? Report findings @ -No old charts were reviewed Differential Diagnosis (chest pain, altered mental status, abdominal pain women, abdominal pain men, vaginal bleeding, weakness, fever, dyspnea, syncope, headache, dizziness, GI bleed, back pain, seizure, CVA, palpatations, mental health, musculoskeletal)? @ Differential Mental Health Depression, anxiety, bipolar, psychosis, schizophrenia, borderline personality, situational depression, adjustment disorder, behavioral disorder, brain tumor, malingering, substance abuse, encephalopathy, medication reaction, dementia, hypothyroidism, degenerative neurologic disorder, lupus.... This is not meant to be all-inclusive list EKG interpreted by me (3pts min.). @ EKG: Sinus rhythm rate of 65, MD interval 133, QRS duration 93, QTC 395, no ST segment elevation X-rays interpreted by me (1pt min.). @ -None done CT interpreted by me (1pt min.). @ -None done U/S interpreted by me (1pt. min.). @ -None done What testing was considered but not performed or refused? (CT, X-rays, U/S, labs)? Why? @ -None What meds were considered but not given or refused? Why? @ -None Did you discuss the management of the patient with other professionals (professionals i.e. ERNESTO Woods, CIVIL DRAFTING TECHNICIAN, lab, RT, psych nurse, social worker aide, fabrication welder, teacher, third officer, immigration case worker)? Give summary @ -Case discussed with EPS, plan to admit this patient. Was smoking cessation discussed for >3mins.? @ -No Was critical care preformed (if so, how long)? @ -No Were there social determinants of health that impacted care today? How? (Homelessness, low income, unemployed, alcoholism, drug addiction, transportation, low edu. Level, literacy, decrease access to med. care, shelter, rehab)? @ -No Was there de-escalation of care discussed even if they declined (Discuss DNR or withdrawal of care, Hospice)? DNR status @ -No What co-morbidities impacted this encounter? (DM, HTN, Smoking, COPD, CAD, Cancer, CVA, ARF, Chemo, Hep., AIDS, mental health diagnosis, sleep apnea, morbid obesity)? @ -[Schizophrenia Was patient admitted / discharged? Hospital course, mention meds given and r oute, prescriptions, significant lab abnormalities, going to OR and other pertinent info. @ Patient will be admitted for medication review and adjustment. Undiagnosed new problem with uncertain prognosis? @ -No Drug Therapy requiring intensive monitoring for toxicity (Heparin, Nitro, Insulin, Cardizem)? @ -No Were any procedures done? @ -No Diagnosis/symptom? @ -[Psychosis Acute, or Chronic, or Acute on Chronic? @ Acute Uncomplicated (without systemic symptoms) or Complicated (systemic symptoms)? @ -default Side effects of treatment? @ -No Exacerbation, Progression, or Severe Exacerbation? @ -No Poses a threat to life or bodily function? How? (Chest pain, [place], [place], pneumonia, PE, COPD, DKA, ARF, appy, cholecystitis, CVA, Diverticulitis, Homicidal, Suicidal, threat to staff... and all critical care pts) @ -No - Lab Data Lab Results 09/26/22 Range/Units 12:11 Urine Opiates Screen Not Detected (NotDetected) Ur Oxycodone Screen Not Detected (NotDetected) Urine Methadone Screen Not Detected (NotDetected) Ur Propoxyphene Screen Not Detected (NotDetected) Ur Barbiturates Screen Not Detected (NotDetected) U Tricyclic Antidepress Not Detected (NotDetected) Ur Phencyclidine Scrn Not Detected (NotDetected) Ur Amphetamines Screen Not Detected (NotDetected) U Methamphetamines Scrn Not Detected (NotDetected) U Benzodiazepines Scrn Not Detected (NotDetected) Urine Cocaine Screen Not Detected (NotDetected) U Marijuana (THC) Screen Not Detected (NotDetected) Disposition Clinical Impression: Hallucination, Psychosis Disposition: ADMITTED IP TO THIS [facility] Condition: Stable Is patient prescribed a controlled substance at d/c from ED?: No Referrals: Nirali Valentin MD [Primary Care Provider] - 1-2 days Time of Disposition: 13:07
[2022-09-26 12:43] LABS: Amphetamine Screen,Urine Not Detected (NotDetected); Barbiturate Screen,Urine Not Detected (NotDetected); Benzodiazepines Screen,Urine Not Detected (NotDetected); Cocaine Screen,Urine Not Detected (NotDetected); Methadone Screen, Urine Not Detected (NotDetected); Opiate Screen,Urine Not Detected (NotDetected); Oxycodone Screen, Urine Not Detected (NotDetected); Phencyclidine Screen,Urine Not Detected (NotDetected); Tricyclic Antidepressant,Urine Not Detected (NotDetected); Urn Cannabinoid Scrn Not Detected (NotDetected)
[2022-09-26 13:14] LABS: Glucose,Whole Blood 147 mg/dL (70-110)
[2022-09-26] MEDS ORDERED: MAGNESIUM HYDROXIDE 2,400 MG/30 ML CUP PO PRN (14:08)
[2022-09-26] MEDS ORDERED: MAG HYDROX/AL HYDROX/SIMETH 30 ML CUP PO PRN (14:08)
[2022-09-26] MEDS ORDERED: OLANZapine 5 MG TAB PO PRN (14:23)
[2022-09-26] MEDS ORDERED: hydrOXYzine pamoate 25 MG CAP PO PRN (14:23)
[2022-09-26] MEDS ORDERED: OLANZapine 10 MG VIAL IM PRN (14:23)
[2022-09-26] MEDS ORDERED: hydrOXYzine HCL 50 MG/ML 1 ML VIAL IM PRN (14:23)
[2022-09-26] MEDS: ACETAMINOPHEN TAB 325 MG TAB PO PRN (17:53)
[2022-09-26] MEDS: traZODone HCL 100 MG TAB PO SCH (21:56)
[2022-09-26] MEDS: QUEtiapine 200 MG TAB PO SCH (21:57)
[2022-09-27] MEDS ORDERED: fluPHENAZine DECANOATE 25 MG/ML 5ML MDV IM SCH (09:00)
[2022-09-27] MEDS: NICOTINE 14MG/24HR PATCH TRANSDERM SCH (09:06)
[2022-09-27] MEDS: FOLIC ACID 1 MG TAB PO SCH (09:07)
[2022-09-27] MEDS: hydroCHLOROthiazide 12.5 MG CAP PO SCH (09:07)
[2022-09-27] MEDS: PANTOPRAZOLE 40 MG TABLET PO SCH (09:07)
[2022-09-27] MEDS: CHOLECALCIFEROL 25 MCG (1000 IU) TABLET PO SCH (09:07)
[2022-09-27] MEDS ORDERED: LORazepam 1 MG TAB PO PRN (11:31)
[2022-09-27 11:55] LABS: Basophils # (A) 0.1 k/uL (0-0.2); Basophils % (A) 1 %; Eosinophils # (A) 0.1 k/uL (0-0.7); Eosinophils % (A) 1 %; HCT 37.1 % (34.0-46.0); HGB 11.8 gm/dL (11.4-16.0); Lymphocytes # (A) 1.8 k/uL (1.0-4.8); Lymphocytes % (A) 25 %; MCH 28.7 pg (25.0-35.0); MCHC 31.8 g/dL (31.0-37.0); MCV 90.2 fL (80.0-100.0); Mean Platelet Volume 8.7; Monocytes # (A) 0.5 k/uL (0-1.0); Monocytes % (A) 7 %; Neutrophils # (A) 4.5 k/uL (1.3-7.7); Neutrophils % (A) 64 %; Platelet Count 199 k/uL (150-450); RBC 4.11 m/uL (3.80-5.40); RDW 15.2 % (11.5-15.5); WBC 7.1 k/uL (3.8-10.6)
[2022-09-27] MEDS: MULTIVITAMINS, THERA 1 EACH TAB PO SCH (12:10)
[2022-09-27] MEDS: ACETAMINOPHEN TAB 325 MG TAB PO PRN (12:10)
[2022-09-27 12:11] LABS: ALT 25 U/L (4-34); AST 29 U/L (14-36); African American GFR (CKD) >90 (>60 ml/min/1.73 sqM); Albumin 4.1 g/dL (3.5-5.0); Alkaline Phosphatase 66 U/L (38-126); Anion Gap 7 mmol/L; Blood Urea Nitrogen 10 mg/dL (7-17); Calcium 9.5 mg/dL (8.4-10.2); Carbon Dioxide 28 mmol/L (22-30); Chloride 103 mmol/L (98-107); Glucose 95 mg/dL (74-99); Non-African American GFR(CKD) >90 (>60 ml/min/1.73 sqM); Potassium 4.3 mmol/L (3.5-5.1); Sodium 138 mmol/L (137-145); Total Bilirubin 0.4 mg/dL (0.2-1.3); Total Protein 7.6 g/dL (6.3-8.2)
[2022-09-27 12:27] LABS: HCG,Qualitative Serum Not Detected
--- NOTE | 2022-09-27 13:21 | P.MDCNMH ---
History of Present Illness H&P Date: 09/27/22 patient is a 32-year-old lady with past medical history significant for hyperli pidemia, hypertension, diabetes mellitus, depression presents to the ER for psychiatric evaluation. Patient was being seen at an outpatient psychiatrist appointment by her spiral winder, patient has been delusional thinking that she has been labor . Denies any auditory or visual hallucinations. Denies any thoughts of hurting herself Initial lab work done in the ER showed WBC 7.1, hemoglobin 11.8, platelet count 199, sodium 1:30, potassium 4.3, BUN 10, creatinine 0.62 Urine drug screen negative Patient was admitted to psychiatry service REVIEW OF SYSTEMS: CONSTITUTIONAL: No fever, no malaise, no fatigue. HEENT: No recent visual problems or hearing problems. Denied any sore throat. CARDIOVASCULAR: No chest pain, orthopnea, PND, no palpitations, no syncope. PULMONARY: No shortness of breath, no cough, no hemoptysis. GASTROINTESTINAL: No diarrhea, no nausea, no vomiting, no abdominal pain. NEUROLOGICAL: No headaches, no weakness, no numbness. HEMATOLOGICAL: Denies any bleeding or petechiae. GENITOURINARY: Denies any burning micturition, frequency, or urgency. MUSCULOSKELETAL/RHEUMATOLOGICAL: Denies any joint pain, swelling, or any muscle pain. ENDOCRINE: Denies any polyuria or polydipsia. The rest of the 14-point review of systems is negative. PHYSICAL EXAMINATION: GENERAL: The patient is alert and oriented x3, not in any acute distress. Well developed, well nourished. HEENT: Pupils are round and equally reacting to light. EOMI. No scleral icterus. No conjunctival pallor. Normocephalic, atraumatic. No pharyngeal erythema. No thyromegaly. CARDIOVASCULAR: S1 and S2 present. No murmurs, rubs, or gallops. PULMONARY: Chest is clear to auscultation, no wheezing or crackles. ABDOMEN: Soft, nontender, nondistended, normoactive bowel sounds. No palpable organomegaly. MUSCULOSKELETAL: No joint swelling or deformity. EXTREMITIES: No cyanosis, clubbing, or pedal edema. NEUROLOGICAL: Gross neurological examination did not reveal any focal deficits. SKIN: No rashes. Assessment and plan Delusional disorder Hypertension Hyperlipidemia Diabetes mellitus Monitor vital signs Monitor CBC Monitor CMP Resume home meds Continue psych meds per psychiatry Past Medical History Past Medical History: Asthma, Diabetes Mellitus, Hypertension, Seizure Disorder Additional Past Medical History / Comment(s): last seizure was December 2018 per , tubal History of Any Multi-Drug Resistant Organisms: None Reported Past Surgical History: Section, Tonsillectomy, Tubal Ligation Additional Past Surgical History / Comment(s): facial surgery, 2 C-Sections Past Anesthesia/Blood Transfusion Reactions: No Reported Reaction Past Psychological History: Anxiety, Bipolar, Depression, Schizoaffective Disorder, Schizophrenia Smoking Status: Current every day smoker, Former smoker Past Alcohol Use History: Occasional Past Drug Use History: None Reported - Past Family History Father Family Medical History: Unable to Obtain Additional Family Medical History / Comment(s): Father is alive and may have diabetes. Mother Family Medical History: Thyroid Disorder Additional Family Medical History / Comment(s): Mother is alive at age 50 with thyroid disorder. Brother(s) Additional Family Medical History / Comment(s): Patient has 2 brothers and 2 sisters with no major medical problems. Patient has two sons that is healthy. Medications and Allergies Home Medications Medication Instructions Recorded Confirmed Type Atorvastatin [Lipitor] 10 mg PO HS 06/12/22 09/26/22 History Pantoprazole Sodium [Protonix] 40 mg PO DAILY 06/12/22 09/26/22 History hydroCHLOROthiazide [Hydrodiuril] 12.5 mg PO DAILY 06/12/22 09/26/22 History metFORMIN HCL [Glucophage] 1,000 mg PO DAILY 06/12/22 09/26/22 History Orphenadrine [Norflex] 100 mg PO BID PRN 08/18/22 09/26/22 History Nicotine Gum (Polacrilex) 2 mg BUCCAL Q4HR PRN 30 Days #180 08/22/22 09/26/22 Rx [Nicorette] pieceofgum traZODone HCL [Desyrel] 100 mg PO HS 30 Days #30 tab 08/22/22 09/26/22 Rx Cholecalciferol [Vitamin D3 (25 50 mcg PO DAILY 09/19/22 09/26/22 History Mcg = 1000 Iu)] Ferrous Sulfate [Feosol] 325 mg PO DAILY 09/19/22 09/26/22 History Folic Acid 1 mg PO DAILY 09/19/22 09/26/22 History Nicotine 14Mg/24Hr Patch [Habitrol] 1 patch TRANSDERM DAILY PRN 09/19/22 09/26/22 History QUEtiapine [SEROquel] 200 mg PO HS 09/19/22 09/26/22 History fluPHENAZine decanoate [Prolixin 50 mg IM TH 09/19/22 09/26/22 History Decanoate] Allergies Allergy/AdvReac Type Severity Reaction Status Date / Time ibuprofen [From Motrin] Allergy Rash/Hives Verified 09/26/22 11:40 NSAIDS (Non-Steroidal Allergy Unknown Verified 09/26/22 11:40 Anti-Inflamma pineapple Allergy Anaphylaxis Verified 09/26/22 11:40 red dye Allergy Rash/Hives Verified 09/26/22 11:40 haloperidol [From Haldol] AdvReac Hallucinati Verified 09/26/22 11:40 ons Physical Exam Vitals: Vital Signs Temp Pulse Pulse Resp BP BP Pulse Ox 09/27/22 05:46 97.6 F 78 16 123/62 09/26/22 15:46 97.1 F L 74 14 127/77 09/26/22 15:16 72 18 138/84 96 Intake and Output 09/26/22 09/27/22 09/27/22 22:59 06:59 14:59 Other: Weight 110.677 kg Cranial Nerve Examination - Cranial Nerves Cranial Nerve II- Optic: Intact (Cranial nerves II through 12 intact) Cranial Nerve III- Oculomotor: Intact Cranial Nerve IV- Trochlear: Intact Cranial Nerve V- Trigeminal: Intact Cranial Nerve - Abducens: Intact Cranial Nerve VII- Facial: Intact Cranial Nerve VIII- Auditory: Intact Cranial Nerve IX- Glossopharyngeal: Intact Cranial Nerve X- Vagus: Intact Cranial Nerve XI- Accessory: Intact Cranial Nerve XII- Hypoglossal: Intact Results CBC & Chem 7: 09/27/22 10:57 09/27/22 10:57
--- NOTE | 2022-09-27 13:34 | P.HP ---
Psychiatric H&P - . H&P Date: 09/27/22 History & Physical: Allergies Allergy/AdvReac Type Severity Reaction Status Date / Time ibuprofen From Motrin Allergy Rash/Hives Verified 09/26/22 11:40 NSAIDS (Non-Steroidal Allergy Unknown Verified 09/26/22 11:40 Anti-Inflamma pineapple Allergy Anaphylaxis Verified 09/26/22 11:40 red dye Allergy Rash/Hives Verified 09/26/22 11:40 haloperidol From Haldol AdvReac Hallucinati Verified 09/26/22 11:40 ons Vital Signs Temp 97.6 F 09/27/22 05:46 Pulse 78 09/27/22 05:46 Resp 16 09/27/22 05:46 BP 123/62 09/27/22 05:46 Pulse Ox 96 09/26/22 15:16 FiO2 Intake & Output 09/26/22 09/27/22 09/27/22 18:59 06:59 18:59 Weight 110.677 kg Laboratory Last Values POC Glucose (mg/dL) 147 mg/dL (70-110) H 09/26/22 13:13 POC Glu Finance Officer MARIA DOLORES José Miguel Simpson 09/26/22 13:13 Urine Opiates Screen Not Detected (NotDetected) 09/26/22 12:11 Ur Oxycodone Screen Not Detected (NotDetected) 09/26/22 12:11 Urine Methadone Screen Not Detected (NotDetected) 09/26/22 12:11 Ur Propoxyphene Screen Not Detected (NotDetected) 09/26/22 12:11 Ur Barbiturates Screen Not Detected (NotDetected) 09/26/22 12:11 U Tricyclic Antidepress Not Detected (NotDetected) 09/26/22 12:11 Ur Phencyclidine Scrn Not Detected (NotDetected) 09/26/22 12:11 Ur Amphetamines Screen Not Detected (NotDetected) 09/26/22 12:11 U Methamphetamines Scrn Not Detected (NotDetected) 09/26/22 12:11 U Benzodiazepines Scrn Not Detected (NotDetected) 09/26/22 12:11 Urine Cocaine Screen Not Detected (NotDetected) 09/26/22 12:11 U Marijuana (THC) Screen Not Detected (NotDetected) 09/26/22 12:11 Coronavirus (PCR) Not Detected (Not Detectd) 09/26/22 12:58 09/27/22 10:36 IDENTIFYING DATA: Patient is a 32-year-old unemployed -Wel[place] female with his history of schizophrenia who lives by herself in an apartment HPI: Patient was brought into the hospital yesterday by the trailer steerer who was discharged from the ED and went to her psychiatrist appointment at [facility] and patient was brought back to the hospital for reevaluation. Patient has a chronic history of schizophrenia, currently on Prolixin D weekly IM injections, Seroquel and trazodone. Patient also has a history of alcohol abuse and noncompliance with her medications. Patient is currently on an BAKARI for mental health treatment. Patient was last admitted to the mental health unit on 08/2022. Patient was seen wandering the hallways and agreeable to streaked health underwriter. Patient appeared very fairly delusional and fairly preoccupied with being . She claims that she is not able to take the medications at this time due to being . She is requesting a vitamin. She appeared to have very mild irritability, fairly directable during conversation. She appears to have poor hygiene and grooming. She is denying any depression or anxiety at this time. She appears to have very chronic and poor insight and judgment. She claims that she is being noncompliant with her psychiatric medications at home including the Seroquel and trazodone as she feels that it is "harming the baby". At this time she is denying any auditory or visual hallucinations denied any suicidal or homicidal ideations intent or plan. PAST PSYCHIATRIC HISTORY: h/o schizophrenia, multiple admissions, last admission in august 2022 for psychosis, was discharged on prolixin D seroquel and trazodone, past meds: klonopin, buspar, Seroquel, Lamictal, li, Zoloft, melatonin. She follows up with Dr. Sebastian at [facility] PMH:asthma, DM, htn, seizures, facial surg, 2 c sections, tubal ligation ALLERGIES: as per EMR CHEMICAL DEPENDENCY HISTORY: as per HPI SOCIAL HISTORY: Lives by herself in an apartment, got off probation a few months ago for assault, unemployed MENTAL STATUS EXAM: General Appearance: Patient appears to be older than stated age is alert, directable, and attempts to cooperate. Obese. mildly discheveled appearance Behavior: Calm, cooperative Speech: Patient's speech is fluent and nonpressured. Mood/Affect: Patient reports their mood is "ok", affect is congruent and constricted. Suicidality/Homicidality: Patient denies having any homicidal ideation intent or plan. Denies any suicidal ideations intent or plan Perceptions: Patient denies any visual hallucinations and denies any auditory hallucinations Though content/process: Reports delusions of , vague, concrete. Memory and concentration: AOX3, grossly intact for the purposes of this session Judgment and insight: poor chronically. STRENGTHS/WEAKNESSES: strength is that patient is resilient. Weakness is that patient has poor judgment and chronic mental illness INTELLECT: average IMPRESSIONS: Schizophrenia Alcohol abuse nicotine dependence PLAN: -Patient is admitted under an active court order status to MHU for stabilization of psychiatric symptoms and safety. -Medications : restart seroqul 200 mg qhs for psychosis/ insomnia, trazodone 100 mg qhs for insomnia, continue Prolixin D 50 mg IM qweekly, will be due for next dose today -Ativan and Haldol PRN for agitation/aggression -thiamine, MVM for etoh use -CIWA protocol with Ativan PRN for ETOH withdrawal -Patient was counselled on substance abuse and desired to cut back on use -Patient was informed of the risks, benefits and side effects of the medication and patient verbally consented to taking the medications. -Internal Medicine consult to perform medical evaluation and physical. -NRT - [nicotine patch -SW on board for discharge planning. Encourage patient to participate in groups to work on coping skills. court ordered for mental health treatment. 09/27/22 12:12 09/27/22 13:31
[2022-09-27] MEDS ORDERED: haloperidoL 5 MG TAB PO PRN (13:35)
[2022-09-27] MEDS ORDERED: HALOPERIDOL LACTATE 5 MG/ML 1 ML VIAL IM PRN (13:35)
[2022-09-27] MEDS: NICOTINE GUM (POLACRILEX) 2 MG GUM BUCCAL PRN (19:56)
[2022-09-27] MEDS: ATORVASTATIN 10 MG TAB PO SCH (19:57)
[2022-09-27] MEDS: traZODone HCL 100 MG TAB PO SCH (19:58)
[2022-09-27] MEDS: QUEtiapine 200 MG TAB PO SCH (20:32)
[2022-09-28] MEDS: CHOLECALCIFEROL 25 MCG (1000 IU) TABLET PO SCH (09:25)
[2022-09-28] MEDS: MULTIVITAMINS, THERA 1 EACH TAB PO SCH (09:25)
[2022-09-28] MEDS: FERROUS SULFATE 325 MG TAB PO SCH (09:25)
[2022-09-28] MEDS: FOLIC ACID 1 MG TAB PO SCH (09:25)
[2022-09-28] MEDS: PANTOPRAZOLE 40 MG TABLET PO SCH (09:25)
[2022-09-28] MEDS: metFORMIN 500 MG TAB PO SCH (09:25)
[2022-09-28] MEDS: NICOTINE 14MG/24HR PATCH TRANSDERM SCH (09:25)
[2022-09-28] MEDS: hydroCHLOROthiazide 12.5 MG CAP PO SCH (09:26)
--- NOTE | 2022-09-28 12:02 | P.PN ---
Progress Note - Text Progress Note Date: 09/28/22 Interval History: Patient was seen wandering the hallways near the nurse's desk and was directable and agreeable to speak with adjusto writer operator in the office. [ Patient continues to appear to be mildly disheveled in appearance. She continues to be fairly focused on obtaining vitamins and also her . She believes that it is her ex-boyfriends child as well. She claims that they are on good terms. She was fairly focused on discharge today however was fairly directable and cooperative. She claims that she took the Prolixin D injection yesterday however states that she does not believe that she needs the other medications. She also is aware that she is on the court order for treatment]. At this time patient denies any suicidal or homical ideations, intent or plan. Patient denies any auditory, visual hallucinations. Patient denies any side effects from the medications and has been compliant with meds. Mental Status Exam: General Appearance: Patient appears to be older than stated age is alert, directable, and attempts to cooperate. Obese. mildly discheveled appearance Behavior: Calm, cooperative Speech: Patient's speech is fluent and nonpressured. Mood/Affect: Patient reports their mood is "ok", affect is congruent and constricted. Suicidality/Homicidality: Patient denies having any homicidal ideation intent or plan. Denies any suicidal ideations intent or plan Perceptions: Patient denies any visual hallucinations and denies any auditory hallucinations Though content/process: Reports delusions of , vague, concrete. Memory and concentration: AOX3, grossly intact for the purposes of this session Judgment and insight: poor chronically, improving mildly IMPRESSIONS: Schizophrenia Alcohol abuse nicotine dependence PLAN: -Patient is admitted under an active court order status to MHU for stabilization of psychiatric symptoms and safety. -Medications : seroqul 200 mg qhs for psychosis/ insomnia, trazodone 100 mg qhs for insomnia, continue Prolixin D 50 mg IM qweekly, received last dose on 09/27 and will be due for next dose on 10/04 -Ativan and Haldol PRN for agitation/aggression -thiamine, MVM for etoh use -CIWA protocol with Ativan PRN for ETOH withdrawal -NRT - nicotine patch -SW on board for discharge planning. Encourage patient to participate in groups to work on coping skills. court ordered for mental health treatment. Patient is likely not taking oral meds at home and drinking aswell, recommendation is for kennyan to be transitioning patient into and [facility] or [facility] to monitor this. hopeful for discharge next week.
[2022-09-28] MEDS: ACETAMINOPHEN TAB 325 MG TAB PO PRN (18:42)
[2022-09-28] MEDS: NICOTINE GUM (POLACRILEX) 2 MG GUM BUCCAL PRN (18:44)
[2022-09-28] MEDS: traZODone HCL 100 MG TAB PO SCH (20:47)
[2022-09-28] MEDS: QUEtiapine 200 MG TAB PO SCH (20:47)
[2022-09-28] MEDS: ATORVASTATIN 10 MG TAB PO SCH (20:47)
[2022-09-29] MEDS: FERROUS SULFATE 325 MG TAB PO SCH (08:20)
[2022-09-29] MEDS: metFORMIN 500 MG TAB PO SCH (08:20)
[2022-09-29] MEDS: hydroCHLOROthiazide 12.5 MG CAP PO SCH (08:20)
[2022-09-29] MEDS: CHOLECALCIFEROL 25 MCG (1000 IU) TABLET PO SCH (08:20)
[2022-09-29] MEDS: FOLIC ACID 1 MG TAB PO SCH (08:20)
[2022-09-29] MEDS: PANTOPRAZOLE 40 MG TABLET PO SCH (08:20)
[2022-09-29] MEDS: MULTIVITAMINS, THERA 1 EACH TAB PO SCH (08:20)
[2022-09-29] MEDS: NICOTINE 14MG/24HR PATCH TRANSDERM SCH (08:20)
--- NOTE | 2022-09-29 13:17 | P.PN ---
Subjective Progress Note Date: 09/29/22 Principal diagnosis: IMPRESSIONS: Schizophrenia Alcohol abuse nicotine dependence Patient Name: Agustin Trevizo Date of : 89 Patient Status: Inpatient Attending Provider: Chris Wray Date: 09/29/22 Follow-up by Dr. Diogo Agudelo M.D. Interval History: Patient was seen wandering the hallways near the nurse's desk and agreeable to speak with telegraphic typewriter operator chief Patient was walking around in the hospital gown . [ Patient continues to appear to be mildly disheveled in appearance. She was fairly focused on discharge today she does not believe that she needs medications. She also is aware that she is on the court order for treatment]. At this time patient denies any suicidal or homical ideations, intent or plan. Patient denies any auditory, visual hallucinations. Patient denies any side effects from the medications and has been compliant with meds. Mental Status Exam: General Appearance: Patient appears to be older than stated age is alert, directable, and attempts to cooperate. Obese. mildly discheveled appearance Behavior: Calm, cooperative Speech: Patient's speech is fluent and nonpressured. Mood/Affect: Patient reports their mood is "ok", affect is congruent and constricted. Suicidality/Homicidality: Patient denies having any homicidal ideation intent or plan. Denies any suicidal ideations intent or plan Perceptions: Patient denies any visual hallucinations and denies any auditory hallucinations Though content/process: Reports delusions of , vague, concrete. Memory and concentration: AOX3, grossly intact for the purposes of this session Judgment and insight: poor chronically, IMPRESSIONS: Schizophrenia Alcohol abuse nicotine dependence PLAN: -Patient is admitted under an active court order status to MHU for stabilization of psychiatric symptoms and safety. -Medications : seroqul 200 mg qhs for psychosis/ insomnia, trazodone 100 mg qhs for insomnia, continue Prolixin D 50 mg IM qweekly, received last dose on 09/27 and will be due for next dose on 10/04 -Ativan and Haldol PRN for agitation/aggression -thiamine, MVM for etoh use -CIWA protocol with Ativan PRN for ETOH withdrawal -NRT - nicotine patch -SW on board for discharge planning. Encourage patient to participate in groups to work on coping skills. court ordered for mental health treatment. Patient is likely not taking oral meds at home and drinking aswell, recommendation is for rosalie to be transitioning patient into and [facility] or long-term to monitor this. hopeful for discharge next week. Diogo Agudelo M.D. 09/29/2022 Objective - Vital Signs Vital signs: Vital Signs Temp 97.6 F 09/27/22 05:46 Pulse 112 H 09/28/22 09:29 Resp 16 09/27/22 05:46 BP 156/83 09/28/22 09:29 Pulse Ox 96 09/26/22 15:16 FiO2 - Labs CBC & Chem 7: 09/27/22 10:57 09/27/22 10:57
[2022-09-29] MEDS: NICOTINE GUM (POLACRILEX) 2 MG GUM BUCCAL PRN (19:56)
[2022-09-29] MEDS: traZODone HCL 100 MG TAB PO SCH (21:14)
[2022-09-29] MEDS: ATORVASTATIN 10 MG TAB PO SCH (21:14)
[2022-09-29] MEDS: QUEtiapine 200 MG TAB PO SCH (21:14)
[2022-09-30 06:10] VITALS: BP 118/66; PULSE 109; RESP 16; TEMP 97.9
[2022-09-30] MEDS: FOLIC ACID 1 MG TAB PO SCH (09:45)
[2022-09-30] MEDS: FERROUS SULFATE 325 MG TAB PO SCH (09:45)
[2022-09-30] MEDS: PANTOPRAZOLE 40 MG TABLET PO SCH (09:45)
[2022-09-30] MEDS: CHOLECALCIFEROL 25 MCG (1000 IU) TABLET PO SCH (09:45)
[2022-09-30] MEDS: MULTIVITAMINS, THERA 1 EACH TAB PO SCH (09:45)
[2022-09-30] MEDS: hydroCHLOROthiazide 12.5 MG CAP PO SCH (09:45)
[2022-09-30] MEDS: metFORMIN 500 MG TAB PO SCH (09:45)
--- NOTE | 2022-09-30 09:59 | P.PN ---
Subjective Progress Note Date: 09/30/22 Principal diagnosis: IMPRESSIONS: Schizophrenia Alcohol abuse nicotine dependence Patient Name: Agustin Trevizo Date of : 89 Patient Status: Inpatient Attending Provider: Chris Wray Date: 09/30/22 Follow-up by Dr. Diogo Agudelo M.D. Interval History: The patient was seen in her room today where she was sleeping soundly but was easily woken up Patient reports that she has started to feel better She states that she didn't believe that she was when she came in She admits that she was having some issues with her thoughts Patient denies any suicidal ideations or plans Mental Status Exam: General Appearance: Patient appears to be older than stated age is alert, directable, and attempts to cooperate. Obese. mildly discheveled appearance Behavior: Calm, cooperative Speech: Patient's speech is fluent and nonpressured. Mood/Affect: Patient reports their mood is "ok", affect is congruent and constricted. Suicidality/Homicidality: Patient denies having any homicidal ideation intent or plan. Denies any suicidal ideations intent or plan Perceptions: Patient denies any visual hallucinations and denies any auditory hallucinations Though content/process: Reports delusions of , vague, concrete. Memory and concentration: AOX3, grossly intact for the purposes of this session Judgment and insight: poor chronically, has started to show some improvement IMPRESSIONS: Schizophrenia Alcohol abuse nicotine dependence PLAN: -Patient is admitted under an active court order status to MHU for stabilization of psychiatric symptoms and safety. -Medications : seroqul 200 mg qhs for psychosis/ insomnia, trazodone 100 mg qhs for insomnia, continue Prolixin D 50 mg IM qweekly, received last dose on 09/27 and will be due for next dose on 10/04 -Ativan and Haldol PRN for agitation/aggression -thiamine, MVM for etoh use -CIWA protocol with Ativan PRN for ETOH withdrawal -NRT - nicotine patch - on board for discharge planning. Encourage patient to participate in groups to work on coping skills. court ordered for mental health treatment. Patient is likely not taking oral meds at home and drinking aswell, recommendation is for rosalie to be transitioning patient into and [facility] or [facility] to monitor this. hopeful for discharge next week. Diogo Agudelo M.D. 09/30/2022 Objective - Vital Signs Vital signs: Vital Signs Temp 97.9 F 09/30/22 06:09 Pulse 109 H 09/30/22 06:09 Resp 16 09/30/22 06:09 BP 118/66 09/30/22 06:09 Pulse Ox 98 09/30/22 06:09 FiO2 - Labs CBC & Chem 7: 09/27/22 10:57 09/27/22 10:57
[2022-09-30] MEDS: NICOTINE 14MG/24HR PATCH TRANSDERM SCH (10:27)
[2022-09-30] MEDS: NICOTINE GUM (POLACRILEX) 2 MG GUM BUCCAL PRN (15:39)
[2022-09-30] MEDS: traZODone HCL 100 MG TAB PO SCH (20:55)
[2022-09-30] MEDS: ATORVASTATIN 10 MG TAB PO SCH (20:55)
[2022-09-30] MEDS: QUEtiapine 200 MG TAB PO SCH (20:55)
[2022-10-01] MEDS: NICOTINE 14MG/24HR PATCH TRANSDERM SCH (09:12)
[2022-10-01] MEDS: hydroCHLOROthiazide 12.5 MG CAP PO SCH (09:53)
[2022-10-01] MEDS: CHOLECALCIFEROL 25 MCG (1000 IU) TABLET PO SCH (09:53)
[2022-10-01] MEDS: PANTOPRAZOLE 40 MG TABLET PO SCH (09:53)
[2022-10-01] MEDS: FERROUS SULFATE 325 MG TAB PO SCH (09:53)
[2022-10-01] MEDS: metFORMIN 500 MG TAB PO SCH (09:53)
[2022-10-01] MEDS: FOLIC ACID 1 MG TAB PO SCH (09:53)
[2022-10-01] MEDS: MULTIVITAMINS, THERA 1 EACH TAB PO SCH (09:53)
--- NOTE | 2022-10-01 11:34 | P.DS ---
Providers Date of admission: 09/26/22 14:07 Expected date of discharge: 10/01/22 Attending physician: Chris Wray MD Consults: 09/26/22 14:08 Consult Physician Routine Consulting Provider: [facility] Consult Reason/Comments: H&P Do you want consulting provider notified?: Yes Primary care physician: Nirali Valentin - Discharge Diagnosis(es) (1) Schizophrenia Current Visit: Yes Status: Acute Priority: High (2) Alcohol abuse Current Visit: Yes Status: Acute Priority: Medium (3) Nicotine dependence Current Visit: Yes Status: Acute Priority: Low Hospital Course: Admission HPI: Admission note was completed by underwriter " Patient is a 32-year-old unemployed Af rican-Syrian female with his history of schizophrenia who lives by herself in an apartment. Patient was brought into the hospital yesterday by the cardiovascular specialist who was discharged from the ED and went to her psychiatrist appointment at [facility] and patient was brought back to the hospital for reevaluation. Patient has a chronic history of schizophrenia, currently on Prolixin D weekly IM injections, Seroquel and trazodone. Patient also has a history of alcohol abuse and noncompliance with her medications. Patient is currently on an BAKARI for mental health treatment. Patient was last admitted to the mental health unit on 08/2022. Patient was seen wandering the hallways and agreeable to mike underwriter. Patient appeared very fairly delusional and fairly preoccupied with being . She claims that she is not able to take the medications at this time due to being . She is requesting a vitamin. She appeared to have very mild irritability, fairly directable during conversation. She appears to have poor hygiene and grooming. She is denying any depression or anxiety at this time. She appears to have very chronic and poor insight and judgment. She claims that she is being noncompliant with her psychiatric medications at home including the Seroquel and trazodone as she feels that it is "harming the baby". At this time she is denying any auditory or visual halluc inations denied any suicidal or homicidal ideations intent or plan." Hospital course: Upon admission to the unit patient was admitted involuntarily on an active court order for mental health treatment. Patient got along well with other patients on the unit and followed unit protocol. Patient was compliant with the medications and denied any side effects throughout hospital course. Patient was started on her home dose of medications including Seroquel 200 mg daily at bedtime for psychosis/insomnia, trazodone 100 mg daily at bedtime for insomnia/mood. Patient is currently on Prolixin D 50 mg IM weekly, dose was given on the unit on 09/27 and next dose will be due on 10/04 at [facility]. Patient spoke of her stressors and engaged in therapy both group and individual. Patient was also seen by medical team for history and physical exam. Throughout the course of the hospitalization patient gradually improved with regards to mood, anxiety, psychosis, delusions, sleep and returned back to their baseline level of functioning. On the day of discharge patient denied any suicidal or homicidal ideations intent or plan denied any auditory or visual hallucinations. Patient endorsed wanting to live for her family and her future. The patient denied any access to guns or weapons. Patient denied any paranoia. Patient does have a significant history of substance abuse and was counseled on abstaining from all substances including alcohol and marijuana. Patient was offered however declined inpatient substance-abuse rehab. Patient was also counseled on the medications and need for regular compliance and was encouraged to follow-up with their outpatient appointment for mental health and also for primary care. breakdown worker will speak with guardian today and arrange for discharge today back to her apartment with activity and following from [facility] for closer monitoring. It was recommended that acting should be looking at possibly transferring patient [facility] for more supervised care and to help with compliance. Mental status exam: General Appearance: Patient appears to be overweight, mildly disheveled hair, stated age is alert, pleasant, and cooperative. Patient is in no acute distress and has improved hygiene and grooming Behavior: Patient is calmly seated without any agitated behavior. Speech: Patient's speech is fluent and nonpressured. [place] Mood/Affect: Patient reports their mood is "good", affect is congruent and euthymic. Suicidality/Homicidality: Patient denies having any suicidal or homicidal ideation intent or plan. Perceptions: Patient denies any auditory or visual hallucinations. Though content/process: There is no evidence of any delusional thought content and thought process is linear and goal-directed. [place] Memory and concentration: AOX3, grossly intact for the purposes of this session. Can spell "WORLD" backwards correctly. Judgment and insight: chronically poor/limited, however has improved with guarded prognosis Impression: Schizophrenia Alcohol abuse Nicotine dependence Plan: -Continue with discharge today as patient has improved and stabilized psychiatrically and is not currently an imminent threat to herself and/or others . Patient will remain at chronically elevated risk for harm to self and/or others due to her impulsivity and substance abuse. -Continue medications: Seroquel 200 mg daily at bedtime for psychosis/insomnia, trazodone 100 mg daily at bedtime for insomnia/mood, Prolixin D 50 mg IM weekly to be continued, last dose was given on the unit on 09/27 and next dose will be due on 10/04. -Patient was counseled on the need for medication compliance and appropriate follow-up at mental health and also primary care for medical issues. Patient verbalized understanding and agreed. -Social work to help coordinate patient's discharge today back to her apartment, without team following her for closer monitoring. Social work also to arrange for patients follow up appointments with [facility] for psychiatric care along with follow up with primary care provider. -Patient counseled on abstaining from recreational drugs and marijuana and alcohol. Was informed/educated on the adverse effects on their physical and ment al health. Patient verbally agreed and understood. Patient was offered substance abuse treatment however declined at this time. -Patient was instructed to return to the hospital or seek immediate medical care if their psychiatric or medical symptoms do worsen or reoccur. Allergies Allergy/AdvReac Type Severity Reaction Status Date / Time ibuprofen [From Motrin] Allergy Rash/Hives Verified 09/26/22 11:40 NSAIDS (Non-Steroidal Allergy Unknown Verified 09/26/22 11:40 Anti-Inflamma pineapple Allergy Anaphylaxis Verified 09/26/22 11:40 red dye Allergy Rash/Hives Verified 09/26/22 11:40 haloperidol [From Haldol] AdvReac Hallucinati Verified 09/26/22 11:40 ons Laboratory Results WBC 7.1 k/uL (3.8-10.6) 09/27/22 10:57 RBC 4.11 m/uL (3.80-5.40) 09/27/22 10:57 Hgb 11.8 gm/dL (11.4-16.0) 09/27/22 10:57 Hct 37.1 % (34.0-46.0) 09/27/22 10:57 MCV 90.2 fL (80.0-100.0) 09/27/22 10:57 MCH 28.7 pg (25.0-35.0) 09/27/22 10:57 MCHC 31.8 g/dL (31.0-37.0) 09/27/22 10:57 RDW 15.2 % (11.5-15.5) 09/27/22 10:57 Plt Count 199 k/uL (150-450) 09/27/22 10:57 MPV 8.7 09/27/22 10:57 Neutrophils % 64 % 09/27/22 10:57 Lymphocytes % 25 % 09/27/22 10:57 Monocytes % 7 % 09/27/22 10:57 Eosinophils % 1 % 09/27/22 10:57 Basophils % 1 % 09/27/22 10:57 Neutrophils # 4.5 k/uL (1.3-7.7) 09/27/22 10:57 Lymphocytes # 1.8 k/uL (1.0-4.8) 09/27/22 10:57 Monocytes # 0.5 k/uL (0-1.0) 09/27/22 10:57 Eosinophils # 0.1 k/uL (0-0.7) 09/27/22 10:57 Basophils # 0.1 k/uL (0-0.2) 09/27/22 10:57 Sodium 138 mmol/L (137-145) 09/27/22 10:57 Potassium 4.3 mmol/L (3.5-5.1) 09/27/22 10:57 Chloride 103 mmol/L (98-107) 09/27/22 10:57 Carbon Dioxide 28 mmol/L (22-30) 09/27/22 10:57 Anion Gap 7 mmol/L 09/27/22 10:57 BUN 10 mg/dL (7-17) 09/27/22 10:57 Creatinine 0.62 mg/dL (0.52-1.04) 09/27/22 10:57 Est GFR (CKD-EPI)AfAm >90 (>60 ml/min/1.73 sqM) 09/27/22 10:57 Est GFR (CKD-EPI)NonAf >90 (>60 ml/min/1.73 sqM) 09/27/22 10:57 Glucose 95 mg/dL (74-99) 09/27/22 10:57 POC Glucose (mg/dL) 147 mg/dL (70-110) H 09/26/22 13:13 POC Glu Medical Scribe ID José Miguel Simpson 09/26/22 13:[address] Glu mg/dL 137 mg/dL 09/27/22 10:57 Hemoglobin A1c 6.4 % (<=6.0) H 09/27/22 10:57 Calcium 9.5 mg/dL (8.4-10.2) 09/27/22 10:57 Total Bilirubin 0.4 mg/dL (0.2-1.3) 09/27/22 10:57 AST 29 U/L (14-36) 09/27/22 10:57 ALT 25 U/L (4-34) 09/27/22 10:57 Alkaline Phosphatase 66 U/L (38-126) 09/27/22 10:57 Total Protein 7.6 g/dL (6.3-8.2) 09/27/22 10:57 Albumin 4.1 g/dL (3.5-5.0) 09/27/22 10:57 TSH 1.920 mIU/L (0.465-4.680) 09/27/22 10:57 HCG, Qual Not Detected 09/27/22 10:57 Urine Opiates Screen Not Detected (NotDetected) 09/26/22 12:11 Ur Oxycodone Screen Not Detected (NotDetected) 09/26/22 12:11 Urine Methadone Screen Not Detected (NotDetected) 09/26/22 12:11 Ur Propoxyphene Screen Not Detected (NotDetected) 09/26/22 12:11 Ur Barbiturates Screen Not Detected (NotDetected) 09/26/22 12:11 U Tricyclic Antidepress Not Detected (NotDetected) 09/26/22 12:11 Ur Phencyclidine Scrn Not Detected (NotDetected) 09/26/22 12:11 Ur Amphetamines Screen Not Detected (NotDetected) 09/26/22 12:11 U Methamphetamines Scrn Not Detected (NotDetected) 09/26/22 12:11 U Benzodiazepines Scrn Not Detected (NotDetected) 09/26/22 12:11 Urine Cocaine Screen Not Detected (NotDetected) 09/26/22 12:11 U Marijuana (THC) Screen Not Detected (NotDetected) 09/26/22 12:11 Coronavirus (PCR) Not Detected (Not Detectd) 09/26/22 12:58 Vital Signs Temp 97.9 F 09/30/22 06:09 Pulse 109 H 09/30/22 06:09 Resp 16 09/30/22 06:09 BP 118/66 09/30/22 06:09 Pulse Ox 98 09/30/22 06:09 FiO2 Intake & Output 09/30/22 10/01/22 10/01/22 18:59 06:59 18:59 Weight 108.4 kg Patient Condition at Discharge: Stable Plan - Discharge Summary Discharge Rx Participant: No New Discharge Prescriptions: New Nicotine 14Mg/24Hr Patch [Habitrol] 1 patch TRANSDERM DAILY 14 Days #14 patch Multivitamins, Thera [Multivitamin (formulary)] 1 each PO DAILY 30 Days #30 tab Continue traZODone HCL [Desyrel] 100 mg PO HS 30 Days #30 tab metFORMIN HCL [Glucophage] 1,000 mg PO DAILY 30 Days #30 tab hydroCHLOROthiazide [Hydrodiuril] 12.5 mg PO DAILY 30 Days #30 cap Ferrous Sulfate [Iron (65 MG Elemental)] 325 mg PO DAILY 30 Days #30 tab QUEtiapine [SEROquel] 200 mg PO HS 30 Days #30 tab Folic Acid 1 mg PO DAILY 30 Days #30 tab Atorvastatin [Lipitor] 10 mg PO HS 30 Days #30 tab Nicotine Gum (Polacrilex) [Nicorette] 2 mg BUCCAL Q4HR PRN 30 Days #180 pieceofgum PRN Reason: Nicotine Cravings fluPHENAZine decanoate [Prolixin Decanoate] 50 mg IM TH #1 ml Pantoprazole Sodium [Protonix] 40 mg PO DAILY 30 Days #30 tab Cholecalciferol [Vitamin D3 (25 Mcg = 1000 Iu)] 50 mcg PO DAILY 30 Days #30 tab Discontinued Orphenadrine [Norflex] 100 mg PO BID PRN PRN Reason: Muscle Spasm Nicotine 14Mg/24Hr Patch [Habitrol] 1 patch TRANSDERM DAILY PRN PRN Reason: Nicotine Cravings Discharge Medication List Atorvastatin [Lipitor] 10 mg PO HS 30 Days #30 tab 10/01/22 [Rx] Cholecalciferol [Vitamin D3 (25 Mcg = 1000 Iu)] 50 mcg PO DAILY 30 Days #30 tab 10/01/22 [Rx] Ferrous Sulfate [Iron (65 MG Elemental)] 325 mg PO DAILY 30 Days #30 tab 10/01/22 [Rx] Folic Acid 1 mg PO DAILY 30 Days #30 tab 10/01/22 [Rx] Multivitamins, Thera [Multivitamin (formulary)] 1 each PO DAILY 30 Days #30 tab 10/01/22 [Rx] Nicotine 14Mg/24Hr Patch [Habitrol] 1 patch TRANSDERM DAILY 14 Days #14 patch 10/01/22 [Rx] Nicotine Gum (Polacrilex) [Nicorette] 2 mg BUCCAL Q4HR PRN 30 Days #180 pieceofgum 10/01/22 [Rx] Pantoprazole Sodium [Protonix] 40 mg PO DAILY 30 Days #30 tab 10/01/22 [Rx] QUEtiapine [SEROquel] 200 mg PO HS 30 Days #30 tab 10/01/22 [Rx] fluPHENAZine decanoate [Prolixin Decanoate] 50 mg IM TH #1 ml 10/01/22 [Rx] hydroCHLOROthiazide [Hydrodiuril] 12.5 mg PO DAILY 30 Days #30 cap 10/01/22 [Rx] metFORMIN HCL [Glucophage] 1,000 mg PO DAILY 30 Days #30 tab 10/01/22 [Rx] traZODone HCL [Desyrel] 100 mg PO HS 30 Days #30 tab 10/01/22 [Rx] Follow up Appointment(s)/Referral(s): Nirali Valentin MD [Primary Care Provider] - 1-2 days Discharge Disposition: HOME SELF-CARE
== END 2022-10-01 15:02 | disposition home or self-care (01) | DRG 750 ==
LOC: EC 11:36 → 3MHU 14:07
PROVIDERS: ADMIT Psychiatry & Neurology Psychiatry; ATTEND Psychiatry & Neurology Psychiatry
DX: F20.9 Schizophrenia, unspecified (principal); G40.909 Epilepsy, unspecified, not intractable, without status epilepticus; G47.00 Insomnia, unspecified; F10.10 Alcohol abuse, uncomplicated; I10 Essential (primary) hypertension; Z20.822 Contact with and (suspected) exposure to COVID-19; Z79.84 Long term (current) use of oral hypoglycemic drugs; Z79.899 Other long term (current) drug therapy; Z91.148 Patient's other noncompliance with medication regimen for other reason; Z56.0 Unemployment, unspecified; Z88.8 Allergy status to other drugs, medicaments and biological substances; Z87.891 Personal history of nicotine dependence
CPT/HCPCS: 36415; 80053; 80306; 82075; 83036; 84443; 84703; 85025; 87635; 93005; 99285

== ENCOUNTER 2022-11-08 22:53 | Emergency (ER) | payer OTHER ==
[2022-11-08 23:02] VITALS: BP 125/75; PULSE 95; RESP 18; TEMP 98.5
--- NOTE | 2022-11-09 01:31 | ED ---
Psych HPI - General Chief Complaint: Psychiatric Symptoms Stated Complaint: Psych Time Seen by Provider: 11/08/22 23:09 Source: EMS Mode of arrival: EMS - History of Present Illness Initial Comments: This patient is 32-year-old woman who is here to have evaluation for anxiety related to being worried that she is . Patient has been seen multiple times here for similar complaint. Patient does have underlying psychiatric disease. Patient denies suicidal or homicidal ideation. MD Complaint: other -: year(s) Associated Psychiatric Symptoms: racing thoughts Quality: constant Improves With: none Worsens With: none Associated Symptoms: denies other symptoms - Related Data Previous Rx's Medication Instructions Recorded Atorvastatin [Lipitor] 10 mg PO HS 30 Days #30 tab 10/01/22 Cholecalciferol [Vitamin D3 (25 50 mcg PO DAILY 30 Days #30 tab 10/01/22 Mcg = 1000 Iu)] Ferrous Sulfate [Iron (65 MG 325 mg PO DAILY 30 Days #30 tab 10/01/22 Elemental)] Folic Acid 1 mg PO DAILY 30 Days #30 tab 10/01/22 Multivitamins, Thera [Multivitamin 1 each PO DAILY 30 Days #30 tab 10/01/22 (formulary)] Nicotine 14Mg/24Hr Patch [Habitrol] 1 patch TRANSDERM DAILY 14 Days 10/01/22 #14 patch Nicotine Gum (Polacrilex) 2 mg BUCCAL Q4HR PRN 30 Days #180 10/01/22 [Nicorette] pieceofgum Pantoprazole Sodium [Protonix] 40 mg PO DAILY 30 Days #30 tab 10/01/22 QUEtiapine [SEROquel] 200 mg PO HS 30 Days #30 tab 10/01/22 fluPHENAZine decanoate [Prolixin 50 mg IM TH #1 ml 10/01/22 Decanoate] hydroCHLOROthiazide [Hydrodiuril] 12.5 mg PO DAILY 30 Days #30 cap 10/01/22 metFORMIN HCL [Glucophage] 1,000 mg PO DAILY 30 Days #30 tab 10/01/22 traZODone HCL [Desyrel] 100 mg PO HS 30 Days #30 tab 10/01/22 Allergies Allergy/AdvReac Type Severity Reaction Status Date / Time ibuprofen [From Motrin] Allergy Rash/Hives Verified 11/08/22 23:00 NSAIDS (Non-Steroidal Allergy Unknown Verified 11/08/22 23:00 Anti-Inflamma pineapple Allergy Anaphylaxis Verified 11/08/22 23:00 red dye Allergy Rash/Hives Verified 11/08/22 23:00 haloperidol [From Haldol] AdvReac Hallucinati Verified 11/08/22 23:00 ons Review of Systems ROS Statement: Those systems with pertinent positive or pertinent negative responses have been documented in the HPI. ROS Other: All systems not noted in ROS Statement are negative. Constitutional: Denies: fever Respiratory: Denies: cough, dyspnea Cardiovascular: Denies: chest pain Gastrointestinal: Denies: abdominal pain, vomiting, diarrhea Genitourinary: Denies: dysuria, hematuria Musculoskeletal: Denies: back pain Skin: Denies: rash Neurological: Denies: headache, weakness Psychiatric: Reports: anxiety. Denies: depression, auditory hallucinations, homicidal thoughts, suicidal thoughts Past Medical History Past Medical History: Asthma, Diabetes Mellitus, Hypertension, Seizure Disorder Additional Past Medical History / Comment(s): last seizure was December 2018 per , tubal History of Any Multi-Drug Resistant Organisms: None Reported Past Surgical History: Section, Tonsillectomy, Tubal Ligation Additional Past Surgical History / Comment(s): facial surgery, 2 C-Sections Past Anesthesia/Blood Transfusion Reactions: No Reported Reaction Past Psychological History: Anxiety, Bipolar, Depression, Schizoaffective Disorder, Schizophrenia Smoking Status: Current every day smoker Past Alcohol Use History: None Reported Past Drug Use History: None Reported - Past Family History Father Family Medical History: Unable to Obtain Additional Family Medical History / Comment(s): Father is alive and may have diabetes. Mother Family Medical History: Thyroid Disorder Additional Family Medical History / Comment(s): Mother is alive at age 50 with thyroid disorder. Brother(s) Additional Family Medical History / Comment(s): Patient has 2 brothers and 2 sisters with no major medical problems. Patient has two sons that is healthy. General Exam Limitations: no limitations General appearance: alert, in no apparent distress Head exam: Present: atraumatic, normocephalic Eye exam: Present: normal appearance Neck exam: Present: normal inspection, full ROM Respiratory exam: Present: normal lung sounds bilaterally. Absent: respiratory distress, wheezes, rales, rhonchi, stridor Cardiovascular Exam: Present: regular rate, normal rhythm, normal heart sounds. Absent: systolic murmur, diastolic murmur, rubs, gallop GI/Abdominal exam: Present: soft. Absent: distended, tenderness, guarding, rebound, rigid, mass Extremities exam: Present: normal inspection, normal capillary refill. Absent: pedal edema, calf tenderness Back exam: Present: normal inspection. Absent: CVA tenderness (R), CVA tenderness (L) Neurological exam: Present: alert Psychiatric exam: Present: anxious, manic. Absent: depressed, agitated, flat affect, homicidal ideation, suicidal ideation Skin exam: Present: warm, dry, intact, normal color. Absent: rash Course Vital Signs 11/08/22 22:58 Temperature 98.5 F Pulse Rate 95 Respiratory 18 Rate Blood Pressure 125/75 O2 Sat by Pulse 100 Oximetry Medical Decision Making - Medical Decision Making Patient is 32-year-old woman with long-standing psychiatric illness she was seen and cleared to see EPS 1 she told nursing staff that she just wanted to go back home. She does stable to continue as outpatient. Was pt. sent in by a medical professional or institution (, PA, WORKDAY SENIOR ASSOCIATE, urgent care, hospital, or care home...) When possible be specific @ -[No] Did you speak to anyone other than the patient for history (EMS, parent, family, police, friend...)? What history was obtained from this source @ -[No] Did you review nursing and triage notes (agree or disagree)? Why? @ -[I reviewed and agree with nursing and triage notes] Were old charts reviewed (outside hosp., previous admission, EMS record, old EKG, old radiological studies, urgent care reports/EKG's, care home records)? Report findings @ -[No old charts were reviewed] Differential Diagnosis (chest pain, altered mental status, abdominal pain women, abdominal pain men, vaginal bleeding, weakness, fever, dyspnea, syncope, headache, dizziness, GI bleed, back pain, seizure, CVA, palpatations, mental health, musculoskeletal)? @ -Differential Mental Health Depression, anxiety, bipolar, psychosis, schizophrenia, borderline personality, situational depression, adjustment disorder, behavioral disorder, brain tumor, malingering, substance abuse, encephalopathy, medication reaction, dementia, hypothyroidism, degenerative neurologic disorder, lupus.... This is not meant to be all-inclusive list EKG interpreted by me (3pts min.). @ -[ X-rays interpreted by me (1pt min.). @ -[None done] CT interpreted by me (1pt min.). @ -[None done] U/S interpreted by me (1pt. min.). @ -[None done] What testing was considered but not performed or refused? (CT, X-rays, U/S, labs)? Why? @ -[None] What meds were considered but not given or refused? Why? @ -[None] Did you discuss the management of the patient with other professionals (professionals i.e. , PA, WORKDAY SENIOR ASSOCIATE, lab, RT, psych nurse, social director, pattern grader, teacher, transport corps officer, home health care case manager)? Give summary @ -[No] Was smoking cessation discussed for >3mins.? @ -[No] Was critical care preformed (if so, how long)? @ -[No] Were there social determinants of health that impacted care today? How? (Homelessness, low income, unemployed, alcoholism, drug addiction, tra nsportation, low edu. Level, literacy, decrease access to med. care, assisted, rehab)? @ -[No] Was there de-escalation of care discussed even if they declined (Discuss DNR or withdrawal of care, Hospice)? DNR status @ -[No] What co-morbidities impacted this encounter? (DM, HTN, Smoking, COPD, CAD, Cancer, CVA, ARF, Chemo, Hep., AIDS, mental health diagnosis, sleep apnea, morbid obesity)? @ -[None] Was patient admitted / discharged? Hospital course, mention meds given and route, prescriptions, significant lab abnormalities, going to OR and other pertinent info. @ -[Discharged, see above Undiagnosed new problem with uncertain prognosis? @ -[No] Drug Therapy requiring intensive monitoring for toxicity (Heparin, Nitro, Insulin, Cardizem)? @ -[No] Were any procedures done? @ -[No] Diagnosis/symptom? @ -[Acute psychosis Acute, or Chronic, or Acute on Chronic? @ -[Acute on chronic Uncomplicated (without systemic symptoms) or Complicated (systemic symptoms)? @ -[Uncomplicated Side effects of treatment? @ -[No] Exacerbation, Progression, or Severe Exacerbation? @ -[No] Poses a threat to life or bodily function? How? (Chest pain, USA, PA, pneumonia, PE, COPD, DKA, ARF, appy, cholecystitis, CVA, Diverticulitis, Homicidal, Suicidal, threat to staff... and all critical care pts) @ -[No] Disposition Clinical Impression: Acute psychosis Disposition: HOME SELF-CARE Condition: Fair Instructions (If sedation given, give patient instructions): Psychotic Disorder (ED) Is patient prescribed a controlled substance at d/c from ED?: No Referrals: Nirali Valentin MD [Primary Care Provider] - 1-2 days
== END 2022-11-09 01:54 | disposition home or self-care (01) ==
LOC: EC 22:53
DX: F23 Brief psychotic disorder (principal); I10 Essential (primary) hypertension; J45.909 Unspecified asthma, uncomplicated; E11.9 Type 2 diabetes mellitus without complications; F17.200 Nicotine dependence, unspecified, uncomplicated; Z88.8 Allergy status to other drugs, medicaments and biological substances; Z86.59 Personal history of other mental and behavioral disorders
CPT/HCPCS: 82075; 99285

== ENCOUNTER 2022-11-30 20:52 | Emergency (ER) | payer OTHER ==
[2022-11-30 21:10] VITALS: BP 150/81; PULSE 103; RESP 18; TEMP 98.2
[2022-11-30] MEDS ORDERED: ONDANSETRON ODT 4 MG TAB PO STA (21:33)
[2022-11-30] MEDS ORDERED: ACETAMINOPHEN TAB 500 MG TAB PO STA (21:33)
--- NOTE | 2022-11-30 22:05 | ED ---
Abdominal Pain HPI - General Chief Complaint: Abdominal Pain Stated Complaint: Mental Health Time Seen by Provider: 11/30/22 21:20 Source: EMS Mode of arrival: EMS - History of Present Illness Initial Comments: 32-year-old female presenting with chief complaint of headache. Patient states that the headache is located behind her eyes. No head injury or trauma. She admits to nausea with vomiting. No neck stiffness, fever, chills, numbness, tingling, weakness. Patient is requesting Tylenol and a prescription for Tylenol. When offered Zofran for nausea she states "I don't want anything for nausea". Patient has been here on multiple accounts for psychiatric evaluation. Denies suicidal or homicidal ideation. - Related Data Previous Rx's Medication Instructions Recorded Atorvastatin [Lipitor] 10 mg PO HS 30 Days #30 tab 10/01/22 Cholecalciferol [Vitamin D3 (25 50 mcg PO DAILY 30 Days #30 tab 10/01/22 Mcg = 1000 Iu)] Ferrous Sulfate [Iron (65 MG 325 mg PO DAILY 30 Days #30 tab 10/01/22 Elemental)] Folic Acid 1 mg PO DAILY 30 Days #30 tab 10/01/22 Multivitamins, Thera [Multivitamin 1 each PO DAILY 30 Days #30 tab 10/01/22 (formulary)] Nicotine 14Mg/24Hr Patch [Habitrol] 1 patch TRANSDERM DAILY 14 Days 10/01/22 #14 patch Nicotine Gum (Polacrilex) 2 mg BUCCAL Q4HR PRN 30 Days #180 10/01/22 [Nicorette] pieceofgum Pantoprazole Sodium [Protonix] 40 mg PO DAILY 30 Days #30 tab 10/01/22 QUEtiapine [SEROquel] 200 mg PO HS 30 Days #30 tab 10/01/22 fluPHENAZine decanoate [Prolixin 50 mg IM TH #1 ml 10/01/22 Decanoate] hydroCHLOROthiazide [Hydrodiuril] 12.5 mg PO DAILY 30 Days #30 cap 10/01/22 metFORMIN HCL [Glucophage] 1,000 mg PO DAILY 30 Days #30 tab 10/01/22 traZODone HCL [Desyrel] 100 mg PO HS 30 Days #30 tab 10/01/22 Acetaminophen [Tylenol] 325 mg PO Q4H PRN #20 tab 11/30/22 Allergies Allergy/AdvReac Type Severity Reaction Status Date / Time ibuprofen [From Motrin] Allergy Rash/Hives Verified 11/08/22 23:00 NSAIDS (Non-Steroidal Allergy Unknown Verified 11/08/22 23:00 Anti-Inflamma pineapple Allergy Anaphylaxis Verified 11/08/22 23:00 red dye Allergy Rash/Hives Verified 11/08/22 23:00 haloperidol [From Haldol] AdvReac Hallucinati Verified 11/08/22 23:00 ons Review of Systems ROS Statement: Those systems with pertinent positive or pertinent negative responses have been documented in the HPI. ROS Other: All systems not noted in ROS Statement are negative. Past Medical History Past Medical History: Asthma, Diabetes Mellitus, Hypertension, Seizure Disorder Additional Past Medical History / Comment(s): last seizure was December 2018 per , tubal History of Any Multi-Drug Resistant Organisms: None Reported Past Surgical History: Section, Tonsillectomy, Tubal Ligation Additional Past Surgical History / Comment(s): facial surgery, 2 C-Sections Past Anesthesia/Blood Transfusion Reactions: No Reported Reaction Past Psychological History: Anxiety, Bipolar, Depression, Schizoaffective Disorder, Schizophrenia Smoking Status: Current every day smoker Past Alcohol Use History: None Reported Past Drug Use History: None Reported - Past Family History Father Family Medical History: Unable to Obtain Additional Family Medical History / Comment(s): Father is alive and may have diabetes. Mother Family Medical History: Thyroid Disorder Additional Family Medical History / Comment(s): Mother is alive at age 50 with thyroid disorder. Brother(s) Additional Family Medical History / Comment(s): Patient has 2 brothers and 2 sisters with no major medical problems. Patient has two sons that is healthy. General Exam Limitations: no limitations General appearance: alert, in no apparent distress Head exam: Present: atraumatic, normocephalic, normal inspection Eye exam: Present: normal appearance, EOMI Neck exam: Present: normal inspection, full ROM Respiratory exam: Present: normal lung sounds bilaterally. Absent: respiratory distress, wheezes, rales, rhonchi, stridor Cardiovascular Exam: Present: regular rate, normal rhythm, normal heart sounds. Absent: systolic murmur, diastolic murmur, rubs, gallop, clicks Neurological exam: Present: alert, oriented X3 Psychiatric exam: Present: normal affect, normal mood. Absent: homicidal ideation, suicidal ideation Skin exam: Present: warm, dry, intact, normal color. Absent: rash Course Vital Signs 11/30/22 20:55 Temperature 98.2 F Pulse Rate 103 H Respiratory 18 Rate Blood Pressure 150/81 O2 Sat by Pulse 98 Oximetry Medical Decision Making - Medical Decision Making Was pt. sent in by a medical professional or institution (, [facility], GUEST SERVICE AGENT, urgent care, hospital, or [facility]...) When possible be specific @ -No Did you speak to anyone other than the patient for history (EMS, parent, family, police, friend...)? What history was obtained from this source @ -No Did you review nursing and triage notes (agree or disagree)? Why? @ -I reviewed and agree with nursing and triage notes Were old charts reviewed (outside hosp., previous admission, EMS record, old EKG, old radiological studies, urgent care reports/EKG's, [facility] records)? Report findings @ -No old charts were reviewed Differential Diagnosis (chest pain, altered mental status, abdominal pain women, abdominal pain men, vaginal bleeding, weakness, fever, dyspnea, syncope, headache, dizziness, GI bleed, back pain, seizure, CVA, palpatations, mental health, musculoskeletal)? @ -MDM Differential Headache: Migraine, tension, cluster, carbon monoxide, central venous thrombosis, pension karma temporal arteritis, acute closure glaucoma, intercranial hemorrhage, mastoiditis, sinusitis, head injury this is not meant to be an all-inclusive list. EKG interpreted by me (3pts min.). @ -As above X-rays interpreted by me (1pt min.). @ -None done CT interpreted by me (1pt min.). @ -None done U/S interpreted by me (1pt. min.). @ -None done What testing was considered but not performed or refused? (CT, X-rays, U/S, labs)? Why? @ -None What meds were considered but not given or refused? Why? @ -None Did you discuss the management of the patient with other professionals (professionals i.e. [facility], GUEST SERVICE AGENT, lab, RT, psych nurse, forensic social worker, laborer fryer farm, te acher, chief medical officer, gearcase assembler)? Give summary @ -Spoke with Maxine BURKS nurse who cleared the patient for discharge home Was smoking cessation discussed for >3mins.? @ -No Was critical care preformed (if so, how long)? @ -No Were there social determinants of health that impacted care today? How? (Homelessness, low income, unemployed, alcoholism, drug addiction, transportation, low edu. Level, literacy, decrease access to med. care, correction, rehab)? @ -No Was there de-escalation of care discussed even if they declined (Discuss DNR or withdrawal of care, Hospice)? DNR status @ -No What co-morbidities impacted this encounter? (DM, HTN, Smoking, COPD, CAD, Cancer, CVA, ARF, Chemo, Hep., AIDS, mental health diagnosis, sleep apnea, morbid obesity)? @ -None Was patient admitted / discharged? Hospital course, mention meds given and route, prescriptions, significant lab abnormalities, going to OR and other pertinent info. @ -32-year-old female presenting with chief complaint of headache. Patient has extensive psychiatric history. Physical exam was conducted. Patient denies any thoughts of suicidal or homicidal ideation. She is evaluated by [facility] nurse who cleared the patient for discharge. Patient received Tylenol and states that she wants to leave at this time and she feels well. Follow-up with PCP. Report back to ER with any new or worsening symptoms. Discussed return parameters and answered all questions. Patient conveyed verbal understanding and agreed to the plan. I discussed this case in detail with my attending Dr. Maurer Undiagnosed new problem with uncertain prognosis? @ -No Drug Therapy requiring intensive monitoring for toxicity (Heparin, Nitro, Insulin, Cardizem)? @ -No Were any procedures done? @ -No Diagnosis/symptom? @ -Headache Acute, or Chronic, or Acute on Chronic? @ -Acute Uncomplicated (without systemic symptoms) or Complicated (systemic symptoms)? @ -Uncomplicated Side effects of treatment? @ -No Exacerbation, Progression, or Severe Exacerbation? @ -No Poses a threat to life or bodily function? How? (Chest pain, [place], [place], pneumonia, PE, COPD, DKA, ARF, appy, cholecystitis, CVA, Diverticulitis, Homicidal, Suicidal, threat to staff... and all critical care pts) @ -No Disposition Clinical Impression: Headache Disposition: HOME SELF-CARE Condition: Good Instructions (If sedation given, give patient instructions): Acute Headache (ED) Additional Instructions: Follow-up with PCP. Report back to ER with any new or worsening symptoms. Prescriptions: Acetaminophen [Tylenol] 325 mg PO Q4H PRN #20 tab PRN Reason: Pain Is patient prescribed a controlled substance at d/c from ED?: No Referrals: Nirali Valentin MD [Primary Care Provider] - 1-2 days Time of Disposition: 22:05
== END 2022-11-30 22:06 | disposition home or self-care (01) ==
LOC: EC 20:52
DX: R51.9 Headache, unspecified (principal); E11.9 Type 2 diabetes mellitus without complications; I10 Essential (primary) hypertension; J45.909 Unspecified asthma, uncomplicated; F31.9 Bipolar disorder, unspecified; F25.9 Schizoaffective disorder, unspecified; F41.9 Anxiety disorder, unspecified; G40.909 Epilepsy, unspecified, not intractable, without status epilepticus; F17.200 Nicotine dependence, unspecified, uncomplicated; Z79.84 Long term (current) use of oral hypoglycemic drugs; Z79.899 Other long term (current) drug therapy; Z88.6 Allergy status to analgesic agent; Z88.8 Allergy status to other drugs, medicaments and biological substances; Z91.018 Allergy to other foods; Z91.041 Radiographic dye allergy status
CPT/HCPCS: 99284

== ENCOUNTER 2023-01-29 14:27 | Emergency (ER) | payer OTHER ==
--- NOTE | 2023-01-29 15:11 | ED ---
Psych HPI - General Stated Complaint: mental health Time Seen by Provider: 01/29/23 15:09 Source: RN notes reviewed, old records reviewed Mode of arrival: EMS Limitations: altered mental status, physical limitation - History of Present Illness Initial Comments: This is a 33-year-old female well-known to this facility coming in for complaints of labor pain states that she is . After evaluating the patient she did not participate in history of present illness, patient is well- known to this facility MD Complaint: altered mental status, other (Patient is complaining of labor pain) Associated Psychiatric Symptoms: none Quality: constant Improves With: none Worsens With: none Treatments Prior to Arrival: none - Related Data Previous Rx's Medication Instructions Recorded Atorvastatin [Lipitor] 10 mg PO HS 30 Days #30 tab 10/01/22 Cholecalciferol [Vitamin D3 (25 50 mcg PO DAILY 30 Days #30 tab 10/01/22 Mcg = 1000 Iu)] Ferrous Sulfate [Iron (65 MG 325 mg PO DAILY 30 Days #30 tab 10/01/22 Elemental)] Folic Acid 1 mg PO DAILY 30 Days #30 tab 10/01/22 Multivitamins, Thera [Multivitamin 1 each PO DAILY 30 Days #30 tab 10/01/22 (formulary)] Nicotine 14Mg/24Hr Patch [Habitrol] 1 patch TRANSDERM DAILY 14 Days 10/01/22 #14 patch Nicotine Gum (Polacrilex) 2 mg BUCCAL Q4HR PRN 30 Days #180 10/01/22 [Nicorette] pieceofgum Pantoprazole Sodium [Protonix] 40 mg PO DAILY 30 Days #30 tab 10/01/22 QUEtiapine [SEROquel] 200 mg PO HS 30 Days #30 tab 10/01/22 fluPHENAZine decanoate [Prolixin 50 mg IM TH #1 ml 10/01/22 Decanoate] hydroCHLOROthiazide [Hydrodiuril] 12.5 mg PO DAILY 30 Days #30 cap 10/01/22 metFORMIN HCL [Glucophage] 1,000 mg PO DAILY 30 Days #30 tab 10/01/22 traZODone HCL [Desyrel] 100 mg PO HS 30 Days #30 tab 10/01/22 Acetaminophen [Tylenol] 325 mg PO Q4H PRN #20 tab 11/30/22 Allergies Allergy/AdvReac Type Severity Reaction Status Date / Time ibuprofen [From Motrin] Allergy Rash/Hives Verified 11/08/22 23:00 NSAIDS (Non-Steroidal Allergy Unknown Verified 11/08/22 23:00 Anti-Inflamma pineapple Allergy Anaphylaxis Verified 11/08/22 23:00 red dye Allergy Rash/Hives Verified 11/08/22 23:00 haloperidol [From Haldol] AdvReac Hallucinati Verified 11/08/22 23:00 ons Review of Systems ROS Statement: Those systems with pertinent positive or pertinent negative responses have been documented in the HPI. ROS Other: All systems not noted in ROS Statement are negative. Past Medical History Past Medical History: Asthma, Diabetes Mellitus, Hypertension, Seizure Disorder Additional Past Medical History / Comment(s): last seizure was December 2018 per , tubal History of Any Multi-Drug Resistant Organisms: None Reported Past Surgical History: Section, Tonsillectomy, Tubal Ligation Additional Past Surgical History / Comment(s): facial surgery, 2 C-Sections Past Anesthesia/Blood Transfusion Reactions: No Reported Reaction Past Psychological History: Anxiety, Bipolar, Depression, Schizoaffective Disorder, Schizophrenia Smoking Status: Current every day smoker Past Alcohol Use History: None Reported Past Drug Use History: None Reported - Past Family History Father Family Medical History: Unable to Obtain Additional Family Medical History / Comment(s): Father is alive and may have diabetes. Mother Family Medical History: Thyroid Disorder Additional Family Medical History / Comment(s): Mother is alive at age 50 with thyroid disorder. Brother(s) Additional Family Medical History / Comment(s): Patient has 2 brothers and 2 sisters with no major medical problems. Patient has two sons that is healthy. General Exam Limitations: altered mental status, physical limitation General appearance: alert Rectal exam: Present: deferred Extremities exam: Present: normal inspection Back exam: Present: normal inspection Neurological exam: Present: alert Psychiatric exam: Present: agitated, anxious Course Vital Signs 01/29/23 14:37 Temperature 98.2 F Pulse Rate 98 Respiratory 16 Rate Blood Pressure 121/59 O2 Sat by Pulse 97 Oximetry - Reevaluation(s) Reevaluation #1: Medical records are reviewed Medical Decision Making - Medical Decision Making 33 female presenting for psychiatric evaluation. Patient usually is in need of psychiatric evaluation will she is not suicidal or homicidal here in the ER, patient refusing to stay in these AGAINST MEDICAL ADVICE Disposition Clinical Impression: Psychosis Disposition: LEFT AGAINST MEDICAL ADVICE Condition: Undetermined Instructions (If sedation given, give patient instructions): Psychotic Disorder (ED) Is patient prescribed a controlled substance at d/c from ED?: No Referrals: Nirali Valentin MD [Primary Care Provider] - 1-2 days
[2023-01-29 15:20] VITALS: BP 121/59; PULSE 98; RESP 16; TEMP 98.2
== END 2023-01-29 15:22 | disposition left against medical advice (07) ==
LOC: EC 14:27
DX: O99.340 Other mental disorders complicating pregnancy, unspecified trimester (principal); F29 Unspecified psychosis not due to a substance or known physiological condition; O24.119 Pre-existing type 2 diabetes mellitus, in pregnancy, unspecified trimester; O16.9 Unspecified maternal hypertension, unspecified trimester; O99.330 Smoking (tobacco) complicating pregnancy, unspecified trimester; O24.919 Unspecified diabetes mellitus in pregnancy, unspecified trimester; E11.9 Type 2 diabetes mellitus without complications; O99.519 Diseases of the respiratory system complicating pregnancy, unspecified trimester; J45.909 Unspecified asthma, uncomplicated; F17.200 Nicotine dependence, unspecified, uncomplicated; Z88.6 Allergy status to analgesic agent; Z88.8 Allergy status to other drugs, medicaments and biological substances; Z91.018 Allergy to other foods; Z86.59 Personal history of other mental and behavioral disorders; Z3A.00 Weeks of gestation of pregnancy not specified
CPT/HCPCS: 99285